=== PATIENT | female | born 1965 | race Caucasian/White ===

== ENCOUNTER 2020-03-14 21:31 | Emergency (ER) | payer OTHER, SELFPAY ==
[2020-03-14 21:48] VITALS: BP 138/89; BP 148/89; PULSE 90; PULSE 91; RESP 18; TEMP 37.1; O2SAT 98; O2SAT 99; BMI 30.7
[2020-03-14 21:59] VITALS: BP 151/81; PULSE 89; RESP 18; TEMP 37.1; O2SAT 96
--- NOTE | 2020-03-14 22:19 | ED.PSYCH ---
HPI - Psych General Chief Complaint: Psychiatric Symptoms Stated Complaint: sec 12 si Time Seen by Provider: 03/14/20 22:16 Source: patient and EMS Mode of arrival: EMS Limitations: no limitations History of Present Illness HPI Narrative: 54-year-old female presents via EMS for ETOH intoxication and suicidal ideation with statement. Patient states that she has been drinking, was in detox several months ago for alcohol. It is reported that she made a suicidal statement to her employer however at this time during my interview patient is denying suicidal ideation. She does state to be anxious, has stopped taking all of her medications last week when she started drinking, and is requesting a nicotine patch for tobacco dependence. Her hands are tremors, but she states that she does not believe that she has drank enough to be in withdrawals although she can not quantify the amount of alcohol that she has consumed over the past several days. She does not report any chest pain or pressure, palpitations, shortness of breath, abdominal pain, abdominal distention, dysuria, hematuria, fevers, chills, trauma, abuse, auditory visual hallucinations, or homicidal ideation. MD complaint: suicidal ideation, feels depressed, anxiety and alcohol abuse Onset (ago): day(s) Duration: constant History of same: Yes Exacerbating factors: alcohol Context: recent alcohol abuse and not taking psychiatric medications Associated psychiatric symptoms: depression and suicidal ideation Associated symptoms: denies other symptoms Treatments prior to arrival: placed on mental health hold Related Data Home Medications Medication Instructions Recorded Confirmed clonidine HCl 0.1 mg tablet 0.1 mg PO BID PRN 01/25/20 02/22/20 albuterol sulfate 90 mcg/actuation 0 mcg INHALATION 02/22/20 02/22/20 aerosol inhaler folic acid 1 mg tablet 1 mg PO DAILY 02/22/20 02/22/20 Previous Rx's Medication Instructions Recorded fluoxetine 20 mg capsule 60 mg PO QAM #90 cap 02/08/20 Allergies Allergy/AdvReac Type Severity Reaction Status Date / Time No Known Allergies Allergy Unknown UNKNOWN Verified 02/22/20 11:56 [NO KNOWN ALLERGIES] Review of Systems Review of Systems: Constitutional: No Fever, No Chills ENT/Mouth: No sore throat, No Rhinorrhea Eyes: No Eye Pain, No Swelling, No Redness Cardiovascular: No Chest Pain, No SOB Respiratory: No Cough, No Sputum Gastrointestinal: No Nausea, No Vomiting, No Diarrhea, No abdominal Pain Genitourinary: No Dysuria, No Hematuria Musculoskeletal: No joint pain, No Myalgias, No Joint Swelling Skin: No Skin Lesions, No rash Neuro: No Weakness, No Numbness, No Loss of Consciousness, No Dizziness, No Headache Psych: Positive ETOH abuse, Positive Anxiety, positive Depression, positive SI, denies HI/AH/VH Heme/Lymph: No Bruising, No Bleeding,No Lymphadenopathy Endocrine: No Polyuria, No Polydipsia Yes all other systems are reviewed and are negative [facility] Past Medical History Attestation statement: The following information was validated with the patient. Surgical History History of tubal ligation Family History Family History Father Stroke Mother No problems noted. Son No problems noted. Daughter No problems noted. Maternal Grandmother Emphysema, unspecified Maternal Grandfather History of heart attack Social History Social History Alcohol intake: current Alcohol intake frequency: 3 or more drinks per day Alcohol type: beer and hard liquor Smoking Status: Current every day smoker Cigarettes Per Day: 5 Smoked in Last 30 Days: Yes Use of substances other than those prescribed or required for medical reasons: Yes Substance Use Type: Marijuana Substance Use Frequency: Occasionally Advance Directives: No Advance Directives Information Provided: Yes Physical Exam Vital Signs: Vital Signs: Last Vital Signs Temp 96.5 F L 03/15/20 00:00 Pulse 82 03/15/20 00:00 Resp 18 03/15/20 00:00 BP 117/77 03/15/20 00:00 Pulse Ox 93 03/15/20 00:00 Body Mass Index 30.7 Appearance: Alert. Oriented X3. Moderate distress. Eyes: Pupils equal, round and reactive to light. ENT: Pharynx normal. Neck: Normal inspection. Neck supple. CVS: Normal heart rate and rhythm. Pulses normal. Respiratory: No respiratory distress. Breath sounds normal. Abdomen: Soft and nontender. Skin: Skin warm and dry. Normal skin color. Normal skin turgor. Extremities: No lower extremity edema. Positive bilateral tremor to hands Neuro: No motor deficit. No sensory deficit. Course Course Course Narrative: 54-year-old female with past medical history of depression, alcoholism, presents via EMS for suicidal ideation and alcoholism. Plan of care is for EtOH, drugs of abuse screen, and care team consult. ETOH is 269, drugs of abuse screen positive for opioids, urinalysis positive for UTI. Plan of care is to treat for UTI with Macrobid, CIWA every 2 hours with p.o. Ativan, and nicotine patch. Care team consult will be completed in the morning once patient is clinically sober. MDM - Psych Differential Diagnosis Differential diagnosis: Likely suicidal ideation, depression, acute anxiety and alcohol intoxication Restraints Face to Face Assessment: Face to Face Assessment: Current Situation: After assessment of the patient, a review of the pertinent medical record and a discussion with nursing staff, I feel the patient requires a restrain intervention. Reaction To: [] Medical Condition: [] Behavioral State: [] Continued Need: [] Lab Data Attestation: I reviewed the patient's lab results. Labs: Lab Results 03/14/20 03/14/20 03/14/20 Range/Units 22:07 22:07 22:21 Urine Color YELLOW Urine Appearance CLEAR Urine pH 6.0 (5.0-8.0) Ur Specific [place] 1.020 (1.005-1.025) Urine Protein NEG (NEG-TRACE) MG/DL Urine Glucose (UA) NEG (NEG) MG/DL Urine Ketones NEG (NEG) MG/DL Urine Blood 1+ H (NEG) Urine Nitrite NEG (NEG) Ur Leukocyte Esterase 1+ H (NEG) Urine RBC 0-2 (0) /HPF Urine WBC 0-2 (0-4) /HPF Ur Squamous Epith Cells 2+ /LPF Urine Bacteria 1+ /LPF Urine Opiates Screen Not Detected (Not Detect) Ur Barbiturates Screen Not Detected (Not Detect) Ur Phencyclidine Scrn Not Detected (Not Detect) Ur Amphetamines Screen Not Detected (Not Detect) U Benzodiazepines Scrn Not Detected (Not Detect) Urine Cocaine Screen Not Detected (Not Detect) U Marijuana (THC) Screen POSITIVE H (Not Detect) Ethyl Alcohol mg/dL COVID-19 ([facility]FAEL) Negative (Negative) COVID-19 Clin Com See Note 03/14/20 Range/Units 23:01 Urine Color Urine Appearance Urine pH (5.0-8.0) Ur Specific [place] (1.005-1.025) Urine Protein (NEG-TRACE) MG/DL Urine Glucose (UA) (NEG) MG/DL Urine Ketones (NEG) MG/DL Urine Blood (NEG) Urine Nitrite (NEG) Ur Leukocyte Esterase (NEG) Urine RBC (0) /HPF Urine WBC (0-4) /HPF Ur Squamous Epith Cells /LPF Urine Bacteria /LPF Urine Opiates Screen (Not Detect) Ur Barbiturates Screen (Not Detect) Ur Phencyclidine Scrn (Not Detect) Ur Amphetamines Screen (Not Detect) U Benzodiazepines Scrn (Not Detect) Urine Cocaine Screen (Not Detect) U Marijuana (THC) Screen (Not Detect) Ethyl Alcohol 269 mg/dL COVID-19 (RAFAEL) (Negative) COVID-19 Clin Com Discharge Plan Discharge Clinical Impression: Alcohol abuse Depression Qualifiers: Depression Type: major depressive disorder Major depression recurrence: recurrent Active/Remission status: currently active Major depression episode severity: moderate Qualified Code(s): F33.1 - Major depressive disorder, recurrent, moderate UTI (urinary tract infection) Qualifiers: Urinary tract infection type: acute cystitis Hematuria presence: without hematuria Qualified Code(s): N30.00 - Acute cystitis without hematuria Prescriptions: No Action fluoxetine 20 mg capsule 60 mg PO QAM Qty: 90 RF: 2 albuterol sulfate 90 mcg/actuation HFA aerosol inhaler 0 mcg inhalation RF: 0 folic acid 1 mg tablet 1 mg PO DAILY RF: 0 clonidine HCl 0.1 mg tablet 0.1 mg PO BID PRN (Reason: anxiety) RF: 0
[2020-03-14] MEDS: Nicotine 21 MG PATCH.TD24 TRANSDERMA (22:28)
[2020-03-14] MEDS: LORazepam 1 MG TABLET 2 MG PO (22:28)
[2020-03-14 22:30] LABS: Glucose Urine UA NEG (NEG); Leukocyte Esterase Urine 1+ (NEG); Nitrite Urine NEG (NEG); Urine Blood 1+ (NEG); Urine Ketones NEG (NEG); Urine Protein NEG (NEG-TRACE)
[2020-03-14 22:31] LABS: Appearance Urine CLEAR; Color Urine YELLOW
[2020-03-14 22:40] LABS: Bacteria Urine 1+ /LPF; RBC Urine 0-2 /HPF (0); Squamous Epithelial Cell Urine 2+ /LPF; WBC Urine 0-2 /HPF (0-4)
[2020-03-14 22:44] LABS: COVID-19 Test Negative (Negative); IDNOW Serial# 9DD0AD1C
[2020-03-14 23:10] LABS: Amphetamine Screen Urine Not Detected (Not Detect); Barbiturates, Urine Not Detected (Not Detect); Benzodiazepines Screen Urine Not Detected (Not Detect); Cannabinoid Screen Urine POSITIVE (Not Detect); Cocaine Screen Urine Not Detected (Not Detect); Opiate Screen Urine Not Detected (Not Detect); Phencyclidine Screen Urine Not Detected (Not Detect)
[2020-03-14 23:44] LABS: Ethanol 269 mg/dL
[2020-03-15] VITALS: BP 117/77; PULSE 82; RESP 18; TEMP 35.8; O2SAT 93
--- NOTE | 2020-03-15 00:07 | MHC.CARE ---
CARE team contacted by [facility] ambulance operations supervisor re: pt that was being sent to ED on a Section 12 by [employer] WRIGHT for making suicidal statements to her boss and family members. Pt arrived to work intoxicated and was driven home by her boss. Pt has [employer] insurance and was assessed previously by this policy writer sales on 12/07/19 secondary to a suicide attempt via hanging. Pt's BAL is 269 at 11pm on 03/14/20. Pt will not be medically cleared for evaluation until 6am. Once medically cleared, CARE team will evaluate pt.
[2020-03-15] MEDS: Nitrofurantoin Monohyd/M-Cryst 100 MG CAPSULE PO (03:24)
--- NOTE | 2020-03-15 05:23 | PC.NURSE ---
This nurse attempted to complete PT's med rec but PT pharmacy was closed, meds on external list were outdated, and list from home was not complete.
[2020-03-15 06:00] VITALS: BP 117/77; PULSE 82; RESP 18; TEMP 35.8; O2SAT 93
[2020-03-15] MEDS: diphenhydrAMINE HCL 25 MG TABLET PO (06:46)
--- NOTE | 2020-03-15 07:09 | PC.NURSE ---
Report received. Pt ambulated to bathroom with steady gait. Pt denies complaints at this time. Pt waiting to be seen.
--- NOTE | 2020-03-15 08:39 | PC.NURSE ---
Pharmacy contacted, pt was given 7 day supply of her medications on 01/05. Per PT, she as given 90 day supply blister packs when she left the facility in [place] and has been taking her medications as ordered.
[2020-03-15 09:06] VITALS: BP 143/76; PULSE 94; RESP 18; TEMP 36.9; O2SAT 95
--- NOTE | 2020-03-15 10:24 | PC.NURSE ---
care team at bedside for eval
--- NOTE | 2020-03-15 12:36 | MHC.CARE ---
CARE Team met with patient in , she was guarded but alert and oriented, she maintained eye contact, wearing hospital gown but appeared clean and groomed, she seemed to have vague memories of events which brought her to the hospital. She reported that she went to her place of work yesterday morning for a COVID-19 swab so she could return after being out sick for a few days, went home, was resting in her living room when at 7pm when police and fire depts arrived to bring her to the hospital, said she does not know why. Patient admitted that she was intoxicated, had been drinking all day yesterday and may have made suicidal statements but does not remember. She said, ?I have no desire to end my life? said that the holidays were difficult and she had been more depressed but not considering suicide. Patient unable to say why she stopped taking her antidepressant medications a few days ago, said she thinks it may feel better when she starts again, sees it was helping. 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 In December patient?s family was granted a Section 35 by family was sent to [place] for 28 days. She was discharged on oral Vivitrol but only continued taking for 4 days and resumed drinking, which patient reported. Spoke to patient?s daughter, Dea Clark ([phone]) she reported the family and employer are quite concerned about patient and her alcohol use. Stated that today her mother was intoxicated when she went to work for the test, fell in the parking lot and was driven home by a coworker. In addition, said that her mother has been texting family and friends that she would be better off , feels everyone hates her. Patient?s sisters and daughters called [employer] [facility] for a well-being check, they found patient was under the influence of alcohol and she told them she wanted to as well. Advised patient?s daughter that today her mother is denying suicidal ideation has not disclosed any plan or made any gestures, is future oriented. Her texts and statements were in the context of alcohol, this appears to be a pattern. Does not meet the criteria for an involuntary psychiatric hospitalization. Daughter said she understood and was going to pursue a Section 35, would like patient to stay in the ED as long as possible while she makes arrangements and will keep [facility] [place]. Vacuum Filter Operator and PA consulted about disposition.
--- NOTE | 2020-03-15 14:13 | MHC.CARE ---
Call to patient's daughter who had just left the court house, they were not granted the section 35. Daughter said she has been talking to her mother on the phone throughout the day, she said her mother seems to be remorseful, said she knows she has a drinking problem and is open to treatment. Met with patient in the ED to review detox and outpatient options, gave her detox list, explained and provided IOP and Medication Assisted Treatment provider contact information, discussed calling [facility] as needed. Patient agreed to referral for [facility] which CARE Team will facilitate, additional recommendation is that patient access Employee Assistance Program through her job. 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 ED providers consulted and in agreement with discharge plan.
== END 2020-03-15 14:33 | disposition home or self-care (01) ==
PROVIDERS: Nurse Practitioner Family; Student in an Organized Health Care Education/Training Program; Emergency Provider Emergency Medicine
DX: F33.1 Major depressive disorder, recurrent, moderate (principal); Z91.14 Patient's other noncompliance with medication regimen; R45.851 Suicidal ideations; F10.120 Alcohol abuse with intoxication, uncomplicated; Y90.8 Blood alcohol level of 240 mg/100 ml or more; N30.00 Acute cystitis without hematuria; Z20.828 Contact with and (suspected) exposure to other viral communicable diseases; F12.90 Cannabis use, unspecified, uncomplicated; F17.200 Nicotine dependence, unspecified, uncomplicated
CPT/HCPCS: 36415; 80307; 80320; 81001; 87086; 87635; 99284; 99285; Q0163

== ENCOUNTER 2020-07-14 07:55 | Outpatient (REF) | payer OTHER, SELFPAY ==
[2020-07-15 12:27] LABS: BV Int Neg Control Negative (Negative); BV Int Pos Control Positive (Positive)
[2020-07-17 07:32] LABS: HPV mRNA E6/E7 rflx Not Detected (Not Detected)
== END 2020-07-14 07:56 | disposition home or self-care (01) ==
LOC: HO.LAB 07:55
PROVIDERS: PCP Nurse Practitioner Family; Visit Provider Advanced Practice Midwife
DX: Z01.419 Encounter for gynecological examination (general) (routine) without abnormal findings (principal); Z11.51 Encounter for screening for human papillomavirus (HPV); N89.8 Other specified noninflammatory disorders of vagina; R23.2 Flushing
CPT/HCPCS: 87480; 87510; 87624; 87660; 88142

== ENCOUNTER 2020-08-25 08:37 | Outpatient (REF) | payer OTHER, SELFPAY ==
--- NOTE | ~2020-08-25 | MM_ITS ---
EXAMINATION: MM SCREENING DIGITAL BREAST TOMOSYNTHESIS, BILATERAL CLINICAL INFORMATION: Screening. Asymptomatic. Family history breast cancer, maternal aunt. The lifetime risk of breast cancer based on the Tyrer-Cuzick Model is 12%. COMPARISON: Mammography: 01/13/2019, 12/23/2014, 05/28/2014, 05/21/2014 TECHNIQUE: Digital breast tomosynthesis is performed in both the craniocaudal and mediolateral oblique views along with computer-aided detection (CAD). Synthesized 2D images are generated from the tomosynthesis. FINDINGS: There are scattered areas of fibroglandular density (ACR BI-RADS breast composition Category b). There is denser breast tissue composition in the anterior breasts. No architectural abnormality. The axilla and skin contours are unremarkable. The right MLO view has asymmetric density central anterior breast which is believed to represent summation artifact. There is no correlate on the CC view. There are increased grouped calcifications mid upper outer left breast, possibly circular arrangement on CC tomography. This represents change from prior studies. MM/MM tomosynthesis screening BI IMPRESSION: 1. Left: Increased grouped calcifications upper outer quadrant. 2. Right: Asymmetric density anterior breast on MLO view, most likely summation artifact. ASSESSMENT: BI-RADS 0: Incomplete - Need Additional Imaging Evaluation RECOMMENDATION: 1. Right: Additional views of the right breast (3D MLO nipple in profile, 3D ML).Targeted ultrasound if warranted after review of the additional views. 2. Left: Additional views of the left breast (magnification CC, magnification ML). 3. Radiology department staff will contact the patient for additional imaging. This patient's information was entered into a reminder system with a target due date for their next mammogram.
== END 2020-08-25 08:38 | disposition home or self-care (01) ==
LOC: HO.MAMMO 08:37
PROVIDERS: Visit Provider Advanced Practice Midwife
DX: Z12.31 Encounter for screening mammogram for malignant neoplasm of breast (principal)
CPT/HCPCS: 77063; 77067

== ENCOUNTER 2020-09-02 07:54 | Outpatient (REF) | payer OTHER, SELFPAY ==
--- NOTE | ~2020-09-02 | MM_ITS ---
EXAMINATION: MM DIAGNOSTIC DIGITAL BREAST TOMOSYNTHESIS, BILATERAL CLINICAL INFORMATION: Recall from screening for asymmetric density anterior right breast on MLO view, possibly summation artifact. Recall under for grouped calcifications upper outer left breast. COMPARISON: Mammography: 08/25/2020, 01/13/2019 TECHNIQUE: Right: Digital breast tomosynthesis is performed. 2D images are generated from the tomosynthesis. The following views are obtained: MLO, ML, both with nipple in profile. Left: Digital mammography is performed in magnification CC and magnification ML views. FINDINGS: There are scattered areas of fibroglandular density (ACR BI-RADS breast composition Category b). Additional views right breast show no persistent asymmetric density. There is no mass or architectural abnormality. Magnification views left breast confirm grouped calcifications upper outer quadrant, over 10 in number. The calcifications vary in size and a few vary in shape. This represents change from prior mammography 2018. Stereotactic sampling is recommended. Results are discussed with the patient at time of visit. MM/MM tomosynthesis diagnostic BI IMPRESSION: Grouped calcifications upper outer left breast which vary in size. ASSESSMENT: BI-RADS 4: Suspicious (subcategory 4A: Low suspicion for malignancy) RECOMMENDATION: Stereotactic biopsy calcifications left breast upper outer quadrant. This patient's information was entered into a reminder system with a target due date for their next mammogram.
== END 2020-09-02 07:55 | disposition home or self-care (01) ==
LOC: HO.MAMMO 07:54
PROVIDERS: Visit Provider Advanced Practice Midwife
DX: R92.1 Mammographic calcification found on diagnostic imaging of breast (principal); R92.2 Inconclusive mammogram
CPT/HCPCS: 77062; 77066

== ENCOUNTER 2020-09-14 10:22 | Outpatient (REF) | payer OTHER, SELFPAY ==
--- NOTE | ~2020-09-14 | MM_ITS ---
EXAMINATION: STEREOTACTIC TOMOSYNTHESIS-GUIDED VACUUM-ASSISTED BREAST BIOPSY, LEFT SPECIMEN RADIOGRAPH, LEFT POST PROCEDURE DIGITAL MAMMOGRAM, LEFT CLINICAL INFORMATION: Indeterminate calcifications superior lateral left breast. COMPARISON: September 02, 2020 and studies dating back to May 21, 2014. TECHNIQUE/PROCEDURE: Informed consent was obtained from the patient after discussion of the benefits, risks, and alternatives to biopsy today. Patient appeared to understand. Gave opportunity for questions. Patient signed consent form. BIOPSY TABLE: [employer] Affirm Prone Biopsy System. LESION: Calcifications. LOCAL ANESTHESIA: 10 mL 1% lidocaine; 30 mL 1% lidocaine with epinephrine. DERMATOTOMY: Single skin harley dermatotomy performed. NEEDLE: [employer] Eviva 9-gauge vacuum assisted core biopsy device. APPROACH: Lateral. TARGETIN-D and 3-D CORES: 25. CLIP: [employer] T-shaped marker. SPECIMEN RADIOGRAPH: Specimen radiograph is taken in separate room using digital mammography. The index calcifications are in the excised cores. POST PROCEDURE UNILATERAL DIGITAL MAMMOGRAM: The post biopsy mammogram is performed in separate room using separate digital mammography equipment from the biopsy procedure. 2 views are obtained. There are scattered areas of fibroglandular density (breast composition category: b). The clip marker is in position. The calcifications are markedly decreased at the biopsy site. No gross hematoma. The patient tolerated the procedure well. No immediate complications. Home instructions reviewed with the patient. Final pathology results are pending. MM/MM stereotactic biopsy LT IMPRESSION: 1. Digital tomosynthesis-guided core biopsy left breast with clip placement. 2. Specimen radiograph taken and post procedure mammogram. There is satisfactory positioning of the biopsy clip. 3. Final pathology results pending. An addendum report will be issued.
== END 2020-09-14 10:23 | disposition home or self-care (01) ==
LOC: HO.MAMMO 10:22
PROVIDERS: Visit Provider Surgery
DX: R92.1 Mammographic calcification found on diagnostic imaging of breast (principal)
CPT/HCPCS: 19081; 88305; A4648

== ENCOUNTER → 2020-09-22 08:42 | Outpatient (BNVA) | payer OTHER, SELFPAY | PROVIDERS: PCP Nurse Practitioner Family; Referring Provider Nurse Practitioner Family; Visit Provider Surgery | DX: R92.1 Mammographic calcification found on diagnostic imaging of breast (principal) ==

== ENCOUNTER 2021-02-06 12:35 | Emergency (ER) | payer OTHER, SELFPAY ==
[2021-02-06 12:48] VITALS: BP 141/97; BP 146/88; PULSE 84; PULSE 85; RESP 18; TEMP 36.5; O2SAT 96; O2SAT 97; BMI 23.3
--- NOTE | 2021-02-06 12:53 | ED.ALCOHOL ---
HPI - Alcohol General Chief Complaint: Psychiatric Symptoms <HARSHA Uribe - Last Filed: 02/06/21 17:05> Stated Complaint: SI/ ETOH/ Restrained <HARSHA Uribe - Last Filed: 02/06/21 17:05> Time Seen by Provider: 02/06/21 12:42 <HARSHA Uribe - Last Filed: 02/06/21 17:05> Source: patient, family and EMS <HARSHA Uribe - Last Filed: 02/06/21 17:05> Mode of arrival: EMS <HARSHA Uribe - Last Filed: 02/06/21 17:05> History of Present Illness HPI narrative: 55-year-old female with a past medical history of ETOH abuse brought in by ambulance for ETOH intoxication and suicidal statements. Daughter called EMS, per EMS patient reports she does not want to do this anymore, patient has history of suicide attempt with hanging in the past. Patient admits to drinking a lot of [employer] today, states her daughter is and abusing opiates which drives her to drink. Last drink [employer]. Denies illicit drugs, SI/HI on my evaluation. Denies falls/trauma, headache, CP/SOB, abdominal pain, nausea/vomiting. <HARSHA Uribe - Last Filed: 02/06/21 17:05> MD complaint: alcohol intoxication and alcohol dependence <HARSHA Uribe - Last Filed: 02/06/21 17:05> Last drink: Hours (ago) <HARSHA Uribe - Last Filed: 02/06/21 17:05> Chronic alcohol use: Yes <HARSHA Uribe - Last Filed: 02/06/21 17:05> Previous visits for alcohol intoxication: Yes <HARSHA Uribe - Last Filed: 02/06/21 17:05> Recent trauma: No <HARSHA Uribe - Last Filed: 02/06/21 17:05> Associated symptoms: denies other symptoms <HARSHA Uribe - Last Filed: 02/06/21 17:05> Treatments prior to arrival: none <HARSHA Uribe Last Filed: 02/06/21 17:05> Related Data Home Medications: Home Medications Medication Instructions Recorded Confirmed loratadine 10 mg tablet 10 mg PO DAILY PRN 02/06/21 02/06/21 Previous Rx's Medication Instructions Recorded fluoxetine 20 mg capsule 60 mg PO QAM 90 Days #270 cap 10/11/20 buspirone 15 mg tablet 15 mg PO BID 90 Days #180 tab 01/25/21 <HARSHA Uribe - Last Filed: 02/06/21 17:05> Allergies/Adverse Reactions: Allergies Allergy/AdvReac Type Severity Reaction Status Date / Time No Known Allergies Allergy Unknown UNKNOWN Verified 01/20/21 08:07 [NO KNOWN ALLERGIES] <HARSHA Uribe - Last Filed: 02/06/21 17:05> Review of Systems Review of Systems: Constitutional: No Fever, No Chills, No Fatigue, No Malaise ENT/Mouth: No Ear Pain, No Nasal Congestion, No sore throat, No Rhinorrhea, No Swallowing Difficulty Eyes: No Eye Pain, No Swelling Cardiovascular: No Chest Pain, No SOB, No Palpitations Respiratory: No Cough, No Dyspnea Gastrointestinal: No Nausea, No Vomiting, No Diarrhea, No Constipation, No Abdominal pain Genitourinary: No Dysuria, No Urinary Frequency, No Flank Pain Musculoskeletal: No joint pain, No Myalgias, No Joint Swelling Skin: No Skin Lesions, No rash Neuro: No Weakness, No Loss of Consciousness, No Headache Psych: No Anxiety/Panic, + Depression, + SI, No HI/AH/VH, + Social Issues <HARSHA Uribe - Last Filed: 02/06/21 17:05> Yes all other systems are reviewed and are negative <HARSHA Uribe - Last Filed: 02/06/21 17:05> [facility] Past Medical History Attestation statement: The following information was validated with the patient. <HARSHA Uribe - Last Filed: 02/06/21 17:05> Medical History: Medical History Breast calcification, left <HARSHA Uribe - Last Filed: 02/06/21 17:05> Surgical History: Surgical History History of tubal ligation <HARSHA Uribe Last Filed: 02/06/21 17:05> Family History Family History: Family History Father Stroke Mother No problems noted. Son No problems noted. Daughter No problems noted. Maternal Grandmother Emphysema, unspecified Maternal Grandfather History of heart attack Maternal Aunt Breast cancer <HARSHA Uribe - Last Filed: 02/06/21 17:05> Social History Social History: Social History Alcohol intake: current Alcohol intake frequency: 3 or more drinks per day Alcohol type: beer and hard liquor Patient Tobacco Use Status: Current everyday Tobacco user Cigarettes Per Day: 5 Use of substances other than those prescribed or required for medical reasons: No Substance Use Type: Marijuana Advance Directives: No Advance Directives Information Provided: Yes Healthcare Proxy: No Guardian: No Patient : No Gender identity: Female <HARSHA Uribe - Last Filed: 02/06/21 17:05> Physical Exam Vital Signs: Vital Signs: Last Vital Signs Temp 98.1 F 02/07/21 01:27 Pulse 85 02/07/21 01:27 Resp 18 02/07/21 01:27 BP 142/87 H 02/07/21 01:27 Pulse Ox 95 02/07/21 01:27 Body Mass Index 23.3 <HARSHA Uribe - Last Filed: 02/06/21 17:05> Vital Signs: Last Vital Signs Temp 98.1 F 02/07/21 01:27 Pulse 85 02/07/21 01:27 Resp 18 02/07/21 01:27 BP 142/87 H 02/07/21 01:27 Pulse Ox 95 02/07/21 01:27 Body Mass Index 23.3 <HARSHA Ochoa - Last Filed: 02/07/21 12:13> Const: Other: + ETOH odor on breath <HARSHA Uribe - Last Filed: 02/06/21 17:05> General: cooperative, healthy appearing, alert, awake and intoxicated appearing <HARSHA Uribe - Last Filed: 02/06/21 17:05> Limitations: no limitations <HARSHA Uribe - Last Filed: 02/06/21 17:05> HENMT: Head: Yes normal to inspection and Yes atraumatic <Margaret Kizzy [place] - Last Filed: 02/06/21 17:05> Ears: hearing grossly normal bilaterally <Margaret Kizzy [place] - Last Filed: 02/06/21 17:05> General nose exam: Normal external nose present <Margaret Kizzy [facility] Last Filed: 02/06/21 17:05> Face and sinus: Yes normal facial exam <Margaret Durand [place] - Last Filed: 02/06/21 17:05> Mouth: Normal oral and palatal mucosa present <Margaret Kizzy [place] - Last Filed: 02/06/21 17:05> Eyes: General: appearance normal, both eyes and all related structures <Margarettorres Durand [place] - Last Filed: 02/06/21 17:05> Pupils: Equal, round and reactive pupils present <Margaret Kizzy [place] - Last Filed: 02/06/21 17:05> EOM: EOMs intact bilaterally <Margarettorres [place]and [place] - Last Filed: 02/06/21 17:05> Neck: Neck: Yes normal visual inspection and Yes no meningeal signs <Margaret Kizzy [place] - Last Filed: 02/06/21 17:05> Resp: Effort & Inspection: normal respiratory effort <Margaret Kizzy [place] - Last Filed: 02/06/21 17:05> Auscultation: clear to auscultation bilaterally, no rales, no rhonchi and no wheezes <Margaret Kizzy [facility] Last Filed: 02/06/21 17:05> Cardio: Rate: regular rate <Margaret Durand [place] - Last Filed: 02/06/21 17:05> Heart sounds: S1 normal heart sound present and S2 normal heart sound present <Margaret Kizzy [facility] Last Filed: 02/06/21 17:05> GI: Inspection: Yes normal to inspection <Margarettorres Durand [place] - Last Filed: 02/06/21 17:05> Palpation (GI): Soft to palpation, nontender, no guarding and not rigid <Margaret Durand [facility] Last Filed: 02/06/21 17:05> : General: Yes no CVA tenderness <Margaret Durand [place] - Last Filed: 02/06/21 17:05> Back/Spine/Pelvis: Back: no CVA tenderness <HARSHA Uribe - Last Filed: 02/06/21 17:05> Skin: Rashes: no rashes <HARSHA Uribe - Last Filed: 02/06/21 17:05> Wounds: no wounds <HARSHA Uribe - Last Filed: 02/06/21 17:05> Neuro: Other: PARADA <HARSHA Uribe - Last Filed: 02/06/21 17:05> General: tone normal, moves all extremities and no meningeal signs <HARSHA Uribe - Last Filed: 02/06/21 17:05> Cranial nerves: Yes Equal, round and reactive pupils present <HARSHA Uribe - Last Filed: 02/06/21 17:05> Extrem: General: Yes normal to inspection <HARSHA Uribe - Last Filed: 02/06/21 17:05> Course Course Course Narrative: -1416--patient aggressive with staff, hitting staff/verbally abusive, ambulating around the ED will medically restrain with IM Ativan -1616--patient is sleeping comfortably, in no respiratory distress -1704--no leukocytosis. AST chronically elevated. Ethanol 334 -1800--ED care transferred to [facility]lero pending clinical sobriety & crisis eval <HARSHA Uribe - Last Filed: 02/06/21 17:05> Reevaluation(s) Reevaluation #1: Physician observation discontinued at this time. 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 She is declining detox. She is not suicidal at this time. If she is not wanting it any sort of inpatient treatment for her substance use. Case was reviewed by psychiatrist on-call Dr. Rivas, not enough to hold on a Section 12 at this time per the care team. Patient is awake and alert, no suicidal thoughts at this time lungs are clear and regular rate and rhythm. Dispo is to home. [facility] Counseling referral has been made and patient is agreeable. Detox information was given. <HARSHA Ochoa - Last Filed: 02/07/21 12:13> Time: 12:13 <HARSHA Ochoa - Last Filed: 02/07/21 12:13> MDM - Alcohol MDM Narrative Medical decision making narrative: 55-year-old female with a past medical history of ETOH abuse brought in by ambulance for ETOH intoxication and suicidal statements. On exam vital signs stable, ETOH odor on breath appears intoxicated, no evidence of trauma, PARADA Will obtain ethanol, drug screen, and care team consult <HARSHA Uribe - Last Filed: 02/06/21 17:05> Differential Diagnosis Differential diagnosis: Likely alcohol dependence and alcohol intoxication <HARSHA Uribe - Last Filed: 02/06/21 17:05> Medical Records Attestation: I reviewed the patient's medical records. <HARSHA Uribe - Last Filed: 02/06/21 17:05> Lab Data Attestation: I reviewed the patient's lab results. <HARSHA Uribe - Last Filed: 02/06/21 17:05> Result diagrams: : 02/06/21 16:32 02/06/21 16:32 <HARSHA Uribe - Last Filed: 02/06/21 17:05> Labs: Lab Results 02/06/21 02/06/21 02/06/21 Range/Units 13:24 16:32 16:32 WBC (4.8-10.8) X10*3/uL RBC (4.20-5.50) X10*6/uL Hgb (12.0-16.0) g/dl Hct (37.0-47.0) % MCV (80.0-98.0) fL MCH (27.0-33.0) pg MCHC (31.0-35.0) g/dl RDW (11.0-16.0) % Plt Count (160-400) X10*3/uL MPV (9.4-12.3) fL Immature Gran % (Auto) (0.0-0.4) % Neut % (Auto) (45-73) % Lymph % (Auto) (20-40) % Catron % (Auto) (2-11) % Eos % (Auto) (0-4) % Baso % (Auto) (0-2) % Lymph # (Auto) (1.2-4.9) X10*3/uL Catron # (Auto) (0.1-1.2) X10*3/uL Eos # (Auto) (0.0-0.4) X10*3/uL Baso # (Auto) (0.0-0.2) X10*3/uL Abs Immat Gran (auto) (0.00-0.03) X10*3/uL Absolute Neuts (auto) (2.0-8.3) x10*3/uL Absolute Nucleated RBC (0.0-0.012) X10*3/uL Nucleated RBC % (auto) (0.0-0.2) /100WBC Sodium (135-145) mmol/L Potassium (3.3-5.1) mmol/L Chloride (96-108) mmol/L Carbon Dioxide (22-29) mmol/L Anion Gap (12-20) BUN (9-16) mg/dL Creatinine (0.5-1.4) mg/dL Estim Creat Clear Calc Estimated GFR Random Glucose (60-115) mg/dL Calcium (8.4-10.2) mg/dL Magnesium (1.6-2.6) mg/dL Total Bilirubin (0.0-1.0) mg/dL Direct Bilirubin (0.0-0.5) mg/dL AST (5-31) U/L ALT (0-31) U/L Alkaline Phosphatase (39-117) U/L Total Protein (6.5-8.0) g/dL Albumin (3.5-5.0) g/dL Urine Opiates Screen Not Detected (Not Detect) Urine Fentanyl Screen Not Detected (Not Detect) Ur Barbiturates Screen Not Detected (Not Detect) Ur Phencyclidine Scrn Not Detected (Not Detect) Ur Amphetamines Screen Not Detected (Not Detect) U Benzodiazepines Scrn Not Detected (Not Detect) Urine Cocaine Screen Not Detected (Not Detect) U Marijuana (THC) Screen POSITIVE H (Not Detect) Ethyl Alcohol 334 H* mg/dL COVID-19 (RAFAEL) Negative (Negative) COVID-19 Clin Com See Note 02/06/21 02/06/21 Range/Units 16:32 16:32 WBC 7.1 (4.8-10.8) X10*3/uL RBC 4.02 L (4.20-5.50) X10*6/uL Hgb 13.2 (12.0-16.0) g/dl Hct 38.3 (37.0-47.0) % MCV 95.3 (80.0-98.0) fL MCH 32.8 (27.0-33.0) pg MCHC 34.5 (31.0-35.0) g/dl RDW 12.8 (11.0-16.0) % Plt Count 308 (160-400) X10*3/uL MPV 9.2 L (9.4-12.3) fL Immature Gran % (Auto) 0.3 (0.0-0.4) % Neut % (Auto) 67.9 (45-73) % Lymph % (Auto) 26.4 (20-40) % Catron % (Auto) 4.2 (2-11) % Eos % (Auto) 0.8 (0-4) % Baso % (Auto) 0.4 (0-2) % Lymph # (Auto) 1.9 (1.2-4.9) X10*3/uL Catron # (Auto) 0.3 (0.1-1.2) X10*3/uL Eos # (Auto) 0.1 (0.0-0.4) X10*3/uL Baso # (Auto) 0.0 (0.0-0.2) X10*3/uL Abs Immat Gran (auto) 0.02 (0.00-0.03) X10*3/uL Absolute Neuts (auto) 4.8 (2.0-8.3) x10*3/uL Absolute Nucleated RBC 0.000 (0.0-0.012) X10*3/uL Nucleated RBC % (auto) 0.0 (0.0-0.2) /100WBC Sodium 141 (135-145) mmol/L Potassium 4.3 (3.3-5.1) mmol/L Chloride 106 (96-108) mmol/L Carbon Dioxide 25 (22-29) mmol/L Anion Gap 14 (12-20) BUN 9 (9-16) mg/dL Creatinine 0.69 (0.5-1.4) mg/dL Estim Creat Clear Calc 88.2 Estimated GFR > 60 Random Glucose 96 (60-115) mg/dL Calcium 8.4 (8.4-10.2) mg/dL Magnesium 1.9 (1.6-2.6) mg/dL Total Bilirubin 0.2 (0.0-1.0) mg/dL Direct Bilirubin < 0.2 (0.0-0.5) mg/dL AST 35 H (5-31) U/L ALT 22 (0-31) U/L Alkaline Phosphatase 69 (39-117) U/L Total Protein 6.6 (6.5-8.0) g/dL Albumin 4.0 (3.5-5.0) g/dL Urine Opiates Screen (Not Detect) Urine Fentanyl Screen (Not Detect) Ur Barbiturates Screen (Not Detect) Ur Phencyclidine Scrn (Not Detect) Ur Amphetamines Screen (Not Detect) U Benzodiazepines Scrn (Not Detect) Urine Cocaine Screen (Not Detect) U Marijuana (THC) Screen (Not Detect) Ethyl Alcohol mg/dL COVID-19 ([facility]FAEL) (Negative) COVID-19 Clin Com <HARSHA Uribe - Last Filed: 02/06/21 17:05> Lab Results 02/06/21 02/06/21 02/06/21 Range/Units 13:24 16:32 16:32 WBC (4.8-10.8) X10*3/uL RBC (4.20-5.50) X10*6/uL Hgb (12.0-16.0) g/dl Hct (37.0-47.0) % MCV (80.0-98.0) fL MCH (27.0-33.0) pg MCHC (31.0-35.0) g/dl RDW (11.0-16.0) % Plt Count (160-400) X10*3/uL MPV (9.4-12.3) fL Immature Gran % (Auto) (0.0-0.4) % Neut % (Auto) (45-73) % Lymph % (Auto) (20-40) % Catron % (Auto) (2-11) % Eos % (Auto) (0-4) % Baso % (Auto) (0-2) % Lymph # (Auto) (1.2-4.9) X10*3/uL Catron # (Auto) (0.1-1.2) X10*3/uL Eos # (Auto) (0.0-0.4) X10*3/uL Baso # (Auto) (0.0-0.2) X10*3/uL Abs Immat Gran (auto) (0.00-0.03) X10*3/uL Absolute Neuts (auto) (2.0-8.3) x10*3/uL Absolute Nucleated RBC (0.0-0.012) X10*3/uL Nucleated RBC % (auto) (0.0-0.2) /100WBC Sodium (135-145) mmol/L Potassium (3.3-5.1) mmol/L Chloride (96-108) mmol/L Carbon Dioxide (22-29) mmol/L Anion Gap (12-20) BUN (9-16) mg/dL Creatinine (0.5-1.4) mg/dL Estim Creat Clear Calc Estimated GFR Random Glucose (60-115) mg/dL Calcium (8.4-10.2) mg/dL Magnesium (1.6-2.6) mg/dL Total Bilirubin (0.0-1.0) mg/dL Direct Bilirubin (0.0-0.5) mg/dL AST (5-31) U/L ALT (0-31) U/L Alkaline Phosphatase (39-117) U/L Total Protein (6.5-8.0) g/dL Albumin (3.5-5.0) g/dL Urine Opiates Screen Not Detected (Not Detect) Urine Fentanyl Screen Not Detected (Not Detect) Ur Barbiturates Screen Not Detected (Not Detect) Ur Phencyclidine Scrn Not Detected (Not Detect) Ur Amphetamines Screen Not Detected (Not Detect) U Benzodiazepines Scrn Not Detected (Not Detect) Urine Cocaine Screen Not Detected (Not Detect) U Marijuana (THC) Screen POSITIVE H (Not Detect) Ethyl Alcohol 334 H* mg/dL COVID-19 (RAFAEL) Negative (Negative) COVID-19 Clin Com See Note 02/06/21 02/06/21 Range/Units 16:32 16:32 WBC 7.1 (4.8-10.8) X10*3/uL RBC 4.02 L (4.20-5.50) X10*6/uL Hgb 13.2 (12.0-16.0) g/dl Hct 38.3 (37.0-47.0) % MCV 95.3 (80.0-98.0) fL MCH 32.8 (27.0-33.0) pg MCHC 34.5 (31.0-35.0) g/dl RDW 12.8 (11.0-16.0) % Plt Count 308 (160-400) X10*3/uL MPV 9.2 L (9.4-12.3) fL Immature Gran % (Auto) 0.3 (0.0-0.4) % Neut % (Auto) 67.9 (45-73) % Lymph % (Auto) 26.4 (20-40) % Catron % (Auto) 4.2 (2-11) % Eos % (Auto) 0.8 (0-4) % Baso % (Auto) 0.4 (0-2) % Lymph # (Auto) 1.9 (1.2-4.9) X10*3/uL Catron # (Auto) 0.3 (0.1-1.2) X10*3/uL Eos # (Auto) 0.1 (0.0-0.4) X10*3/uL Baso # (Auto) 0.0 (0.0-0.2) X10*3/uL Abs Immat Gran (auto) 0.02 (0.00-0.03) X10*3/uL Absolute Neuts (auto) 4.8 (2.0-8.3) x10*3/uL Absolute Nucleated RBC 0.000 (0.0-0.012) X10*3/uL Nucleated RBC % (auto) 0.0 (0.0-0.2) /100WBC Sodium 141 (135-145) mmol/L Potassium 4.3 (3.3-5.1) mmol/L Chloride 106 (96-108) mmol/L Carbon Dioxide 25 (22-29) mmol/L Anion Gap 14 (12-20) BUN 9 (9-16) mg/dL Creatinine 0.69 (0.5-1.4) mg/dL Estim Creat Clear Calc 88.2 Estimated GFR > 60 Random Glucose 96 (60-115) mg/dL Calcium 8.4 (8.4-10.2) mg/dL Magnesium 1.9 (1.6-2.6) mg/dL Total Bilirubin 0.2 (0.0-1.0) mg/dL Direct Bilirubin < 0.2 (0.0-0.5) mg/dL AST 35 H (5-31) U/L ALT 22 (0-31) U/L Alkaline Phosphatase 69 (39-117) U/L Total Protein 6.6 (6.5-8.0) g/dL Albumin 4.0 (3.5-5.0) g/dL Urine Opiates Screen (Not Detect) Urine Fentanyl Screen (Not Detect) Ur Barbiturates Screen (Not Detect) Ur Phencyclidine Scrn (Not Detect) Ur Amphetamines Screen (Not Detect) U Benzodiazepines Scrn (Not Detect) Urine Cocaine Screen (Not Detect) U Marijuana (THC) Screen (Not Detect) Ethyl Alcohol mg/dL COVID-19 (RAFAEL) (Negative) COVID-19 Clin Com <HARSHA Ochoa - Last Filed: 02/07/21 12:13> Discharge Plan Discharge Clinical Impression: Alcohol intoxication Qualifiers: Complication of substance-induced condition: uncomplicated Qualified Code(s): F10.920 - Alcohol use, unspecified with intoxication, uncomplicated <HARSHA Uribe - Last Filed: 02/06/21 17:05> Prescriptions: No Action fluoxetine 20 mg capsule 60 mg PO QAM 90 Days Qty: 270 RF: 1 loratadine 10 mg Tablet 10 mg PO DAILY PRN (Reason: Allergy Symptoms) RF: 0 buspirone 15 mg tablet 15 mg PO BID 90 Days Qty: 180 RF: 0 <HARSHA Uribe - Last Filed: 02/06/21 17:05>
--- NOTE | 2021-02-06 13:43 | PHA.MEDREC ---
Pharmacy Consult ? Medication Reconciliation Pharmacy has completed the medication reconciliation. There are no remarkable for provider's attention. Patient reports she is not taking any muscle relaxants or meloxicam. Bita Valencia, PharmD
[2021-02-06 13:50] LABS: Amphetamine Screen Urine Not Detected (Not Detect); Barbiturates, Urine Not Detected (Not Detect); Benzodiazepines Screen Urine Not Detected (Not Detect); Cannabinoid Screen Urine POSITIVE (Not Detect); Cocaine Screen Urine Not Detected (Not Detect); Fentanyl, urine Not Detected (Not Detect); Opiate Screen Urine Not Detected (Not Detect); Phencyclidine Screen Urine Not Detected (Not Detect)
[2021-02-06] MEDS: LORazepam 2 MG/ML VIAL IM (14:06)
--- NOTE | 2021-02-06 14:06 | PC.NURSE ---
pt agitated, combative towards staff, attempting to walk out of the ed pt medicated with ativan im per md orders sitter in place
--- NOTE | 2021-02-06 14:37 | PC.NURSE ---
pt is currently asleep, respirations even and unlabored, sitter in place
[2021-02-06 15:50] VITALS: BP 112/51; PULSE 82; RESP 16; TEMP 36.6; O2SAT 99
[2021-02-06 16:39] LABS: MANUAL DIFF FLAG NO
[2021-02-06 16:41] LABS: Basophils Percent Auto 0.4 % (0-2); Eosinophils Absolute Auto 0.1 X10*3/uL (0.0-0.4); Eosinophils Percent Auto 0.8 % (0-4); Hematocrit 38.3 % (37.0-47.0); Hemoglobin 13.2 g/dl (12.0-16.0); Imm Gran Abs Auto 0.02 X10*3/uL (0.00-0.03); Imm Gran Pct Auto 0.3 % (0.0-0.4); Lymphocytes Absolute Auto 1.9 X10*3/uL (1.2-4.9); Lymphocytes Percent Auto 26.4 % (20-40); Mean Corpuscular HGB Conc 34.5 g/dl (31.0-35.0); Mean Corpuscular Hemoglobin 32.8 pg (27.0-33.0); Mean Corpuscular Volume 95.3 fL (80.0-98.0); Mean Platelet Volume 9.2 fL (9.4-12.3); Monocytes Absolute Auto 0.3 X10*3/uL (0.1-1.2); Monocytes Percent Auto 4.2 % (2-11); Neutrophils Absolute Auto 4.8 x10*3/uL (2.0-8.3); Neutrophils Percent Auto 67.9 % (45-73); Platelet Count 308 X10*3/uL (160-400); Red Blood Count 4.02 X10*6/uL (4.20-5.50); Red Cell Distribution Width 12.8 % (11.0-16.0); White Blood Count 7.1 X10*3/uL (4.8-10.8)
[2021-02-06 16:52] LABS: Ethanol 334 mg/dL
[2021-02-06 16:57] LABS: COVID-19 Test Negative (Negative)
[2021-02-06 17:03] LABS: Alanine Aminotransferase 22 U/L (0-31); Alkaline Phosphatase 69 U/L (39-117); Anion Gap 14 (12-20); Aspartate Amino Transferase 35 U/L (5-31); Bilirubin Direct < 0.2 mg/dL (0.0-0.5); Bilirubin Total 0.2 mg/dL (0.0-1.0); Blood Urea Nitrogen 9 mg/dL (9-16); Calcium 8.4 mg/dL (8.4-10.2); Carbon Dioxide 25 mmol/L (22-29); Chloride 106 mmol/L (96-108); Creatinine Clr Calc Pharmacy 88.2; Estimated Glomerular Filt Rate > 60; Glucose Random 96 mg/dL (60-115); Magnesium 1.9 mg/dL (1.6-2.6); Potassium 4.3 mmol/L (3.3-5.1); Sodium 141 mmol/L (135-145); Total Protein 6.6 g/dL (6.5-8.0)
[2021-02-07 01:27] VITALS: BP 142/87; PULSE 85; RESP 18; TEMP 36.7; O2SAT 95
--- NOTE | 2021-02-07 06:27 | PC.NURSE ---
Patient slept through the night, no distress observed/reported, behavior appropriate, patient was assessed by care team, disposition is to d/c home after talking to the family, sister Diann just called from the number [phone] updated the plan, will continue to monitor.
--- NOTE | 2021-02-07 07:23 | PC.NURSE ---
patient awake at present asking appropriate questons regarding process of dc. care team made aware patient states she needs to go to work. patient appears in no distress.
--- NOTE | 2021-02-07 12:16 | MHC.RECOVSUP ---
? Reason for consult:Recovery support o Current location:[facility] o Identified substance use concern: ETOH - Support ? Intervention: o Community resources provided o Harm reduction discussion ? Plan: o Referral to [facility] o Patient to follow up with [facility] after discharge ? Additional information:PT.refused to go to detox, denies she has a problem, discussed MAT and referred her to the CCC and HF. Notified Veena.
== END 2021-02-07 12:18 | disposition home or self-care (01) ==
PROVIDERS: Physician Assistant; Emergency Provider Emergency Medicine
DX: F10.120 Alcohol abuse with intoxication, uncomplicated (principal); Y90.8 Blood alcohol level of 240 mg/100 ml or more; R45.851 Suicidal ideations; F41.9 Anxiety disorder, unspecified; F32.A Depression, unspecified; R45.1 Restlessness and agitation; F12.90 Cannabis use, unspecified, uncomplicated; F17.200 Nicotine dependence, unspecified, uncomplicated; Z72.89 Other problems related to lifestyle; Z20.822 Contact with and (suspected) exposure to COVID-19; Z63.72 Alcoholism and drug addiction in family; Z79.899 Other long term (current) drug therapy
CPT/HCPCS: 36415; 80048; 80076; 80307; 82077; 83735; 85025; 87635; 96372; 99284; 99285; J2060

== ENCOUNTER 2021-11-27 14:39 | Emergency (ER) | payer OTHER, SELFPAY ==
--- NOTE | 2021-11-27 15:15 | ED.ALCOHOL ---
HPI - Alcohol General Chief Complaint: ETOH/Substance Use Stated Complaint: ETOH USE X'S DAYS,SI,COOP PER EMS Time Seen by Provider: 11/27/21 15:04 Source: patient, EMS and old records reviewed History of Present Illness HPI narrative: Patient brought in after her uncle called EMS after she apparently made a suicidal statement. Patient denies this and says it was a misunderstanding. As they have not been getting along she just wanted to say goodbye in that she was not planning on speaking with him in the future. She adamantly denies suicidal ideation or depression at the moment. She was seen here last year when she was feeling suicidal. She states things are overall much better than they were then. Still has some life stressors but has not been feeling depressed. She has cut down on her alcohol intake and is currently due for a Vivitrol injection which she gets monthly. She states toward the end of the month she drinks a little more as the medication wears off. She does describe drinking alcohol today but states not to the excess that she would have in the past. No new physical complaints. No recent illnesses. No change in medication. Related Data Home Medications Medication Instructions Recorded Confirmed loratadine 10 mg tablet 10 mg PO DAILY PRN Allergy Symptoms 02/06/21 02/06/21 Previous Rx's Medication Instructions Recorded fluoxetine 20 mg capsule 60 mg PO QAM 90 days #270 caps 05/08/21 buspirone 15 mg tablet 15 mg PO BID 90 days #180 tabs 08/29/21 Allergies Allergy/AdvReac Type Severity Reaction Status Date / Time No Known Allergies Allergy Unknown UNKNOWN Verified 01/20/21 08:07 [NO KNOWN ALLERGIES] Review of Systems Constitutional: Comments: No fevers or chills Respiratory: Comments: no cough or sputum Gastrointestinal: Comments: no nausea vomiting Psychiatric: Comments: denies recent depression and suicidal ideation. She does report some increased life stressors recently but not to the point where she is feeling suicidal PMFSH Past Medical History Medical History Breast calcification, left Surgical History History of tubal ligation Family History Family History Father Stroke Mother No problems noted. Son No problems noted. Daughter No problems noted. Maternal Grandmother Emphysema, unspecified Maternal Grandfather History of heart attack Maternal Aunt Breast cancer Social History Social History Alcohol intake: current Alcohol intake frequency: 3 or more drinks per day Alcohol type: beer and hard liquor Patient Tobacco Use Status: Current everyday Tobacco user Cigarettes Per Day: 5 Substance Use Type: Marijuana Gender identity: Female Physical Exam ED Vital Signs: Vital Signs - 24 hr 11/27/21 15:16 Temperature 99.1 F Pulse Rate 108 H Respiratory Rate 20 Blood Pressure 142/94 H Pulse Oximetry 95 Oxygen Delivery Method Room Air BMI result Body Mass Index 25.0 Const Other: awake and alert in no acute distress. Resp Other: Mildly diminished bilaterally but no wheezes rales or rhonchi Cardio Other: regular rate and rhythm without murmurs rubs or gallops GI Other: soft nontender nondistended Skin Other: warm pink and dry without rash Neuro Other: nonfocal. Speech is not slurred. Gait is not ataxic Psych Other: patient makes good eye contact. Denies depression and suicidal ideation. Course Course Course Narrative: Alcohol use disorder with acute mild intoxication. History of depression without current evidence of suicidal ideation. Await crisis evaluation for possible assessment of outpatient resources as needed. Will also confirm history. At the moment she appears to have capacity to make her own medical decisions patient declining further services. No evidence of risk of harm to self or others at this time. Stable for discharge home Discharge Plan Discharge Clinical Impression: Alcoholic intoxication Patient Disposition: Home, Self-Care Instructions: Alcohol Use Disorder (ED) Prescriptions: No Action fluoxetine 20 mg capsule 60 mg PO QAM 90 Days Qty: 270 1RF Label Comments: 7 day supply 01/05 buspirone 15 mg tablet 15 mg PO BID 90 Days Qty: 180 0RF loratadine 10 mg Tablet 10 mg PO DAILY PRN (Reason: Allergy Symptoms)
[2021-11-27 15:16] VITALS: BP 142/94; BP 180/92; PULSE 102; PULSE 108; RESP 20; TEMP 37.3; O2SAT 100; O2SAT 95; BMI 25.0
== END 2021-11-27 16:33 | disposition home or self-care (01) ==
PROVIDERS: Emergency Provider Emergency Medicine
DX: F10.220 Alcohol dependence with intoxication, uncomplicated (principal); Y90.9 Presence of alcohol in blood, level not specified; F41.9 Anxiety disorder, unspecified; Z79.899 Other long term (current) drug therapy
CPT/HCPCS: 99282

== ENCOUNTER 2022-05-16 10:09 | Emergency (ER) | payer SELFPAY ==
--- NOTE | ~2022-05-16 | XR_ITS ---
EXAMINATION: RIGHT KNEE, AP PELVIS AND BILATERAL HIPS, LUMBAR SPINE. CLINICAL INFORMATION: Fall with pain COMPARISON: August 08, 2013 lumbar spine TECHNIQUE: Three-view lumbar spine. 4 view right knee. AP pelvis and 2 views of each hip. FINDINGS: There is no evidence of acute fracture or dislocation of the right knee. Right knee joint spaces are maintained. No right knee effusion. There are 5 nonrib-bearing lumbar vertebra present. No acute fracture, spondylolisthesis, or spondylolysis is appreciated. Pedicles are intact. There is some disc space narrowing with marginal spurring seen at the L3-L4 level. There is some mild sclerosis about the sacroiliac joints bilaterally right greater than left without definite fusion or widening appreciated. AP view of the pelvis does not demonstrate any evidence of acute fracture or diastases. Hip joint spaces appear maintained. 2 views of the right hip do not demonstrate any evidence of acute fracture or dislocation. Right hip joint space is maintained without significant spurring appreciated. No destructive bony lesions are identified. 2 views of the left hip do not demonstrate any evidence of acute fracture or dislocation. Left hip joint spaces maintained. No destructive sclerotic or lytic lesions identified. XR/XR hip BI w PEL1V IMPRESSION: No significant bony abnormality of the right knee, AP pelvis, or bilateral knees.
--- NOTE | ~2022-05-16 | XR_ITS ---
EXAMINATION: RIGHT KNEE, AP PELVIS AND BILATERAL HIPS, LUMBAR SPINE. CLINICAL INFORMATION: Fall with pain COMPARISON: August 08, 2013 lumbar spine TECHNIQUE: Three-view lumbar spine. 4 view right knee. AP pelvis and 2 views of each hip. FINDINGS: There is no evidence of acute fracture or dislocation of the right knee. Right knee joint spaces are maintained. No right knee effusion. There are 5 nonrib-bearing lumbar vertebra present. No acute fracture, spondylolisthesis, or spondylolysis is appreciated. Pedicles are intact. There is some disc space narrowing with marginal spurring seen at the L3-L4 level. There is some mild sclerosis about the sacroiliac joints bilaterally right greater than left without definite fusion or widening appreciated. AP view of the pelvis does not demonstrate any evidence of acute fracture or diastases. Hip joint spaces appear maintained. 2 views of the right hip do not demonstrate any evidence of acute fracture or dislocation. Right hip joint space is maintained without significant spurring appreciated. No destructive bony lesions are identified. 2 views of the left hip do not demonstrate any evidence of acute fracture or dislocation. Left hip joint spaces maintained. No destructive sclerotic or lytic lesions identified. XR/XR knee RT 2V IMPRESSION: No significant bony abnormality of the right knee, AP pelvis, or bilateral knees.
--- NOTE | ~2022-05-16 | XR_ITS ---
EXAMINATION: RIGHT KNEE, AP PELVIS AND BILATERAL HIPS, LUMBAR SPINE. CLINICAL INFORMATION: Fall with pain COMPARISON: August 08, 2013 lumbar spine TECHNIQUE: Three-view lumbar spine. 4 view right knee. AP pelvis and 2 views of each hip. FINDINGS: There is no evidence of acute fracture or dislocation of the right knee. Right knee joint spaces are maintained. No right knee effusion. There are 5 nonrib-bearing lumbar vertebra present. No acute fracture, spondylolisthesis, or spondylolysis is appreciated. Pedicles are intact. There is some disc space narrowing with marginal spurring seen at the L3-L4 level. There is some mild sclerosis about the sacroiliac joints bilaterally right greater than left without definite fusion or widening appreciated. AP view of the pelvis does not demonstrate any evidence of acute fracture or diastases. Hip joint spaces appear maintained. 2 views of the right hip do not demonstrate any evidence of acute fracture or dislocation. Right hip joint space is maintained without significant spurring appreciated. No destructive bony lesions are identified. 2 views of the left hip do not demonstrate any evidence of acute fracture or dislocation. Left hip joint spaces maintained. No destructive sclerotic or lytic lesions identified. XR/XR lumbar spine 2-3V IMPRESSION: No significant bony abnormality of the right knee, AP pelvis, or bilateral knees.
[2022-05-16 10:27] VITALS: BP 144/76; PULSE 83; RESP 17; TEMP 36.8; O2SAT 96; BMI 22.7
--- NOTE | 2022-05-16 10:34 | ED.GENADULT ---
HPI - General Adult General Chief complaint: Fall Stated complaint: Back inj/R knee pain-Work inj Time Seen by Provider: 05/16/22 10:34 Source: patient Mode of arrival: ambulatory Limitations: no limitations History of Present Illness HPI narrative: Patient is a 56 year old assigned female at with a history of anxiety and GERD presenting to the emergency department today with left hip pain, back pain, and right knee pain. Patient states that she fell in the parking lot of her work place and is now having left hip pain, right knee pain, and low back pain. Patient denies hitting her head with the incident. Patient denies any loss of consciousness from the incident. Patient denies any dizziness, lightheadedness, abdominal pain, nausea, vomiting, fever, chills, blurry vision, double vision, loss of vision, chest pain, difficulty breathing, shortness of breath, night sweats, pain with urination, increased urinary frequency, increased urinary urgency, blood in her urine or stool, syncope or a near syncopal episode, bowel incontinence, bladder incontinence, bowel retention, bladder retention, or any other complaints at this time. Onset (ago): day(s) (5 days) Location: pelvis (left hip pain) and lower extremity (right knee pain) Radiation: extremity (left hip pain radiates down the left leg descibed as numb) Severity: mild Severity scale (1-10): 2 Quality: aching and dull Pain Consistency: constant Relieving factors: none Exacerbating factors: none Associated symptoms: denies other symptoms Treatments prior to arrival: none Related Data Home Medications Medication Instructions Recorded Confirmed loratadine 10 mg tablet 10 mg PO DAILY PRN Allergy Symptoms 02/06/21 02/06/21 Previous Rx's Medication Instructions Recorded fluoxetine 20 mg capsule 60 mg PO QAM 90 days #270 caps 05/08/21 buspirone 15 mg tablet 15 mg PO BID 90 days #180 tabs 08/29/21 Allergies Allergy/AdvReac Type Severity Reaction Status Date / Time No Known Allergies Allergy Unknown UNKNOWN Verified 01/20/21 08:07 [NO KNOWN ALLERGIES] Review of Systems Constitutional: Constitutional: Reports no additional constitutional complaints, Denies chills, Denies fever(s) and Denies night sweats Eyes: Eyes: Reports no additional eye complaints, Denies blurry vision, Denies change in vision, Denies diplopia, Denies eye discharge, Denies loss of vision and Denies eye pain ENT: Denies dizziness and Denies neck pain Cardiovascular: Cardiovascular: Reports no additional cardiovascular complaints, Denies chest pain, Denies lightheadedness, Denies Loss of Consciousness and Denies dyspnea Respiratory: Respiratory: Reports no additional respiratory complaints and Denies dyspnea Gastrointestinal: Gastrointestinal: Reports no additional gastrointestinal complaints, Denies abdominal pain, Denies melena, Denies hematochezia, Denies change in bowel habits and Denies change in stool character Genitourinary: Genitourinary: Denies hematuria, Denies urinary frequency, Denies dysuria, Denies urinary incontinence, Denies urinary hesitancy and Denies urinary urgency Musculoskeletal: Musculoskeletal: Reports no additional musculoskeletal complaints, Denies neck pain, Denies numbness and Denies tingling Comments: left hip pain, right knee pain, low back pain Neurologic: Denies dizziness, Denies loss of vision, Denies numbness and Denies tingling Psychiatric: Psychiatric: Reports no additional psychiatric complaints Endocrine: Endocrine: Reports no additional endocrine complaints Hematologic/Lymphatic: Hematologic/Lymphatic: Reports no additional hematologic/lymphatic complaints Allergic/Immunologic: Allergic/Immunologic: Reports no additional allergic/immunologic complaints PMF Past Medical History Attestation statement: The following information was validated with the patient. Source: old records reviewed and nursing notes reviewed Medical History Breast calcification, left Surgical History History of tubal ligation Family History Family History Father Stroke Mother No problems noted. Son No problems noted. Daughter No problems noted. Maternal Grandmother Emphysema, unspecified Maternal Grandfather History of heart attack Maternal Aunt Breast cancer Social History Social History Alcohol intake: current Alcohol intake frequency: 3 or more drinks per day Alcohol type: beer and hard liquor Patient Tobacco Use Status: Current everyday Tobacco user Cigarettes Per Day: 5 Substance Use Type: Marijuana Advance Directives: No Advance Directives Information Provided: Yes Gender identity: Female Physical Exam ED Vital Signs: Vital Signs - 24 hr 05/16/22 10:27 Temperature 98.2 F Pulse Rate 83 Respiratory Rate 17 Blood Pressure 144/76 H Pulse Oximetry 96 Oxygen Delivery Method Room Air BMI result Body Mass Index 22.7 Const General: cooperative, no acute distress, alert and awake Nutritional Appearance: well nourished Orientation/consciousness: patient oriented x3 Limitations: no limitations HENMT Head: Yes normal to inspection and Yes atraumatic Ears: hearing grossly normal bilaterally and external ears normal General nose exam: Normal external nose present, no nasal discharge noted and no epistaxis Face and sinus: Yes normal facial exam, No abrasion and No laceration Mouth: Normal oral and palatal mucosa present, no drooling and no muffled voice Eyes General: appearance normal, both eyes and all related structures Periorbital: periorbital findings normal Eyelids: Yes eyelids normal Conjunctivae: conjunctivae normal Pupils: Equal, round and reactive pupils present EOM: EOMs intact bilaterally Neck Neck: Yes normal visual inspection, Yes full ROM and Yes no lymphadenopathy Chest Chest palpation & inspection: normal inspection of the chest Resp Effort & Inspection: normal respiratory effort and able to speak in complete sentences Auscultation: clear to auscultation bilaterally Cardio Rate: regular rate Rhythm: regular rhythm Peripheral pulses: Peripheral pulses 2+ throughout GI Inspection: Yes normal to inspection Palpation (GI): Soft to palpation, not firm, nontender, no guarding and not rigid Auscultation: normal bowel sounds Back/Spine/Pelvis Cervical Spine: cervical ROM normal Thoracic/Lumbar Spine: thoracic and lumbar spine normal to inspection Pelvis: buttock tenderness on the left Skin Trauma: no lacerations or abrasions Neuro General: patient oriented x3 and moves all extremities Cranial nerves: Yes Equal, round and reactive pupils present Cognition (Neuro): normal cognition Motor exam (neuro): 5/5 motor strength present throughout Sensory Exam: Normal double simultaneous stimulation for sensation Coordination: [id number] test normal Extrem Right upper extremity: normal to inspection, full ROM and normal capillary refill Left upper extremity: normal to inspection, full ROM and normal capillary refill Right lower extremity: full ROM and knee Details: tenderness Location: of the medial joint line, swelling (medial aspect of knee ) and normal ROM; no deformity and no unusual warmth Left lower extremity: hip/thigh Details: abnormal ROM; no abrasions, no lacerations, no ecchymosis, no crepitus and no deformity Psych Appearance: grossly normal Mental Status: mental status grossly normal Affect: normal affect Attitude: cooperative Thought process: Normal thought process present Thought content: Normal thought content present Insight: Good insight present (Psych) Medical Decision Making Medical Decision Making MDM Narrative: Patient is a 56 year old assigned female at with a history of anxiety and GERD presenting to the emergency department today with back pain, left hip pain, and right knee pain after a fall. Patient's physical exam was unremarkable. Patient's hip. right knee, and lumbar spine x-rays showed no acute process. I explained my physical exam findings as well as all test results to the patient. I answered all questions asked by the patient. I stressed the importance of the patient taking her medication as prescribed. I stressed the importance of the patient following up with her primary care provider. I stressed the importance of the patient returning to the emergency department immediately if her symptoms were to worsen or if she were to develop any dizziness, shortness of breath, difficulty breathing, chest pain, blurry vision, loss of vision, nausea, vomiting, abdominal pain, fever, chills, back pain, or any other complaints. Patient verbalized agreement and understanding with this treatment plan and discharge. Differential Diagnosis Differential Diagnoses: The differential diagnosis associated with the presentation includes fall, back pain, right knee pain, left hip pain Independent Interpretation I performed an independent interpretation of an: Plain X-Ray Interpretation: My interpretation is in agreement with the radiologist's impression of these imaging studies. EXAMINATION: RIGHT KNEE, AP PELVIS AND BILATERAL HIPS, LUMBAR SPINE. CLINICAL INFORMATION: Fall with pain? COMPARISON: August 08, 2013 lumbar spine? TECHNIQUE: Three-view lumbar spine. 4 view right knee. AP pelvis and 2 views of each hip.? FINDINGS: There is no evidence of acute fracture or dislocation of the right knee. Right knee joint spaces are maintained. No right knee effusion. There are 5 nonrib-bearing lumbar vertebra present. No acute fracture, spondylolisthesis, or spondylolysis is appreciated. Pedicles are intact. There is some disc space narrowing with marginal spurring seen at the L3-L4 level. There is some mild sclerosis about the sacroiliac joints bilaterally right greater than left without definite fusion or widening appreciated. AP view of the pelvis does not demonstrate any evidence of acute fracture or diastases. Hip joint spaces appear maintained. 2 views of the right hip do not demonstrate any evidence of acute fracture or dislocation. Right hip joint space is maintained without significant spurring appreciated. No destructive bony lesions are identified. 2 views of the left hip do not demonstrate any evidence of acute fracture or dislocation. Left hip joint spaces maintained. No destructive sclerotic or lytic lesions identified. XR/XR hip BI w PEL1V IMPRESSION: No significant bony abnormality of the right knee, AP pelvis, or bilateral knees.? Dictated By: Francisco Guerra MD Signed By: Electronically signed by Francisco Guerra MD 05/16/22 4302 Discharge Plan Discharge Clinical Impression: Fall Patient Disposition: Home, Self-Care Instructions: Fall Prevention (ED) Additional Instructions: Follow up with your primary care provider. Return to the emergency department immediately if your symptoms worsen or if you develop any dizziness, shortness of breath, difficulty breathing, chest pain, blurry vision, loss of vision, nausea, vomiting, abdominal pain, fever, chills, back pain, or any other complaints. Prescriptions: No Action fluoxetine 20 mg capsule 60 mg PO QAM 90 Days Qty: 270 1RF Label Comments: 7 day supply 01/05 buspirone 15 mg tablet 15 mg PO BID 90 Days Qty: 180 0RF loratadine 10 mg Tablet 10 mg PO DAILY PRN (Reason: Allergy Symptoms) Referrals: Roderick Holder FNP-[facility] [Primary Care Provider] - Interventions: ED Discharge Assessment Last Done: 05/16/22 11:24 Discharge Date/Time: 05/16/22 11:24 Print Language: Persian
== END 2022-05-16 11:24 | disposition home or self-care (01) ==
PROVIDERS: Emergency Provider Emergency Medicine Emergency Medical Services; PCP Nurse Practitioner Family
DX: Z04.2 Encounter for examination and observation following work accident (principal); M25.552 Pain in left hip; M25.561 Pain in right knee; M54.50 Low back pain, unspecified; F17.201 Nicotine dependence, unspecified, in remission; F12.90 Cannabis use, unspecified, uncomplicated
CPT/HCPCS: 72100; 73521; 73560; 99282; 99283

== ENCOUNTER 2023-07-07 07:54 | Inpatient (IN) | payer OTHER, SELFPAY ==
[2023-07-07] VITALS (14 sets, daily range): BP systolic 82–127; BP diastolic 40–71; PULSE 80–106; RESP 16–23; TEMP 36.1–37.2; O2SAT 93–98; BMI 25.0
--- NOTE | ~2023-07-07 | XR_ITS ---
EXAMINATION: XR CHEST CLINICAL INFORMATION: Chest pain COMPARISON: Chest x-ray July 12, 2023. Chest x-ray February 2029 TECHNIQUE: 2 views of the chest were obtained. FINDINGS: Lung volume low. Linear atelectasis along the minor fissure. No acute airspace disease. No pleural effusion or pneumothorax. Heart size is normal. Cardiac mediastinal contours are normal. XR/XR chest 2V IMPRESSION: Low lung volume. Linear atelectasis along the minor fissure.
--- NOTE | ~2023-07-07 | US_ITS ---
EXAMINATION: US ABDOMEN LIMITED CLINICAL INFORMATION: Ascites check. COMPARISON: CT GI bleed 07/07/2023, abdominal ultrasound 02/19/2014 TECHNIQUE: Real-time imaging of all 4 quadrants of the abdomen. FINDINGS: Real-time imaging of all 4 quadrants of the abdomen demonstrate a small pocket of fluid in the right upper quadrant. US/US abdomen limited IMPRESSION: Small pocket of ascites in the right upper quadrant.
--- NOTE | ~2023-07-07 | CT_ITS ---
EXAMINATION: CT ABDOMEN AND PELVIS WITH CONTRAST CLINICAL INFORMATION: Melanoma, jaundice, EtOH history COMPARISON: None TECHNIQUE: Multidetector volumetric imaging was performed of the abdomen and pelvis following administration of 80 mL Omnipaque 350 intravenous contrast. Oral contrast was administered. Sagittal and coronal reformatted images were obtained on the technologist's workstation. This CT examination was performed using dose optimization techniques as appropriate, variously including the following: *Automated exposure control *Adjustment of mA and/or kV according to patient size (this includes techniques or standardized protocols for targeted exams where dose is matched to indication/reason for exam; i.e. extremities or head) *Use of iterative reconstruction technique DLP: 1270 mGy-cm FINDINGS: LUNG BASES: Mild centrilobular emphysema with lower lobe bronchial wall thickenings suggesting airways inflammation. Patchy atelectasis in the lung bases. ABDOMINAL AND PELVIC WALL: Unremarkable. LIVER AND BILIARY TREE: Markedly hypoattenuating hepatic parenchyma compatible with hepatic steatosis. Liver is enlarged measuring 19.4 cm in span. GALLBLADDER: Gallbladder is distended with trace pericholecystic fluid and mural hyperemia however without radiopaque gallstones. PANCREAS: Unremarkable. SPLEEN: Spleen measures 11.2 cm in span which is normal in caliber. ADRENAL GLANDS: Unremarkable. KIDNEYS AND URETERS: Unremarkable. GASTROINTESTINAL TRACT: Stomach is under distended however there appears to be diffuse gastric wall thickening. Pancolonic wall thickening worse involving the cecum and ascending colon. Multiple loops of thick-walled small bowel. The no intraluminal extravasation of contrast appreciated within the bowel to suggest active bleeding. Normal caliber appendix. VASCULAR: Periesophageal and perigastric varices. Recannulized periumbilical vein and dilated mesenteric collateral vessels. LYMPH NODES/PERITONEUM: No lymphadenopathy. FREE FLUID: Small volume ascites. BLADDER: Unremarkable. PELVIC VISCERA: Unremarkable. OSSEOUS STRUCTURES: Multilevel degenerative disc disease. CT/CT gi bleed abd pel wo/w IVcon IMPRESSION: 1. Pancolonic wall thickening worse involving the cecum and ascending colon with multiple loops of thick-walled small bowel. Findings could be seen in the setting of portal hypertensive enteropathy/colopathy versus infectious/inflammatory enterocolitis. No intraluminal extravasation of contrast appreciated within the bowel to suggest active bleeding. Stomach is under distended however there appears to be diffuse gastric wall thickening, which could again reflect sequelae of portal hypertension versus gastritis. 2. Markedly hypoattenuating hepatic parenchyma compatible with hepatic steatosis. Hepatomegaly. 3. Sequelae of portal hypertension including the following: Periesophageal and perigastric varices. Recannulized periumbilical vein and dilated mesenteric collateral vessels. Small volume ascites. 4. Mild centrilobular emphysema with lower lobe bronchial wall thickenings suggesting airways inflammation. 5. Gallbladder is distended with trace pericholecystic fluid and mural hyperemia however without radiopaque gallstones, possibly sequelae of underlying liver disease however if any clinical concern for cholecystitis recommend correlation with right upper quadrant ultrasound.
--- NOTE | ~2023-07-07 | XR_ITS ---
EXAMINATION: XR CHEST CLINICAL INFORMATION: Aspiration, cough COMPARISON: None available. TECHNIQUE: Frontal view of the chest was obtained. FINDINGS: Suboptimal assessment due to patient rotation. Lung volumes appear symmetric. No focal consolidation is seen. No evidence of pneumothorax, pleural effusion, or pulmonary edema. Cardiac size is within normal limits. There is soft tissue prominence in the lower right paratracheal which may be artifactual due to patient rotation. No acute osseous findings are seen. XR/XR chest 1V IMPRESSION: 1. No focal consolidation identified. 2. Soft tissue prominence in the lower right paratracheal region, which may be artifactual due to patient rotation although adenopathy/mass cannot be excluded. Further workup with PA and lateral chest radiographs is recommended.
--- NOTE | 2023-07-07 08:08 | ECG_ITS ---
Test Reason : DIZZINESS Blood Pressure : / mmHG Vent. Rate : 097 BPM Atrial Rate : 097 BPM P-R Int : 142 ms QRS Dur : 086 ms QT Int : 314 ms P-R-T Axes : 074 082 089 degrees QTc Int : 398 ms Normal sinus rhythm Nonspecific ST and T wave abnormality Abnormal ECG When compared with ECG of 06-DEC-2019 20:06, ST now depressed in Anterior leads Nonspecific T wave abnormality now evident in Inferior leads Nonspecific T wave abnormality now evident in Anterolateral leads QT has shortened Referred By: Maricarmen Bal Electronically Signed By:NAYELY DONNELLY MD
[2023-07-07 08:19] LABS: Basophils Percent Auto 0.2 % (0-2); Eosinophils Percent Auto 0.2 % (0-4); Hematocrit 27.8 % (37.0-47.0); Hemoglobin 10.3 g/dl (12.0-16.0); Imm Gran Abs Auto 0.12 X10*3/uL (0.00-0.03); Imm Gran Pct Auto 0.7 % (0.0-0.4); Lymphocytes Absolute Auto 1.3 X10*3/uL (1.2-4.9); Lymphocytes Percent Auto 7.9 % (20-40); MANUAL DIFF FLAG SCAN; Mean Corpuscular HGB Conc 37.1 g/dl (31.0-35.0); Mean Corpuscular Volume 102.6 fL (80.0-98.0); Mean Platelet Volume 10.9 fL (9.4-12.3); Monocytes Absolute Auto 1.6 X10*3/uL (0.1-1.2); Monocytes Percent Auto 9.2 % (2-11); Neutrophils Absolute Auto 13.8 x10*3/uL (2.0-8.3); Neutrophils Percent Auto 81.8 % (45-73); Platelet Count 275 X10*3/uL (160-400); Red Blood Count 2.71 X10*6/uL (4.20-5.50); Red Cell Distribution Width 14.5 % (11.0-16.0); SCAN SMEAR FLAG 1; White Blood Count 16.9 X10*3/uL (4.8-10.8)
[2023-07-07 08:31] LABS: OBS Int Ctl Valid YES; OBS1 POSITIVE (NEGATIVE)
[2023-07-07 08:34] LABS: Alanine Aminotransferase 157 U/L (0-31); Albumin Level 2.3 g/dL (3.5-5.0); Alkaline Phosphatase 360 U/L (39-117); Aspartate Amino Transferase 588 U/L (5-31); Bilirubin Total 16.6 mg/dL (0.0-1.0); Blood Urea Nitrogen 8 mg/dL (9-16); Creatinine Clr Calc Pharmacy 33.6; Estimated Glomerular Filt Rate 30; Glucose Random 126 mg/dL (60-115); Total Protein 5.8 g/dL (6.5-8.0)
[2023-07-07 08:36] LABS: Anion Gap 23 (12-20); Carbon Dioxide 22 mmol/L (22-29); Chloride 86 mmol/L (96-108); Potassium 2.5 mmol/L (3.3-5.1); Sodium 128 mmol/L (135-145)
[2023-07-07] MEDS: Pantoprazole Sodium 40 MG/10 ML VIAL 80 MG IVPUSH (08:37)
[2023-07-07] MEDS: 0.9 % Sodium Chloride 1,000 ML 999 ML IV (08:37)
--- NOTE | 2023-07-07 08:41 | ED.GENADULT ---
HPI - General Adult General Chief complaint: Dizziness Stated complaint: DIZZY WEAK Time Seen by Provider: 07/07/23 07:59 Source: patient Mode of arrival: EMS History of Present Illness HPI narrative: This is a 57-year-old female who arrives via EMS, states that she stopped drinking alcohol cold turkey approximately 3 weeks ago and since that time has had progressive early satiety without abdominal discomfort, denies any diarrhea or fever/chills but states that she has been having intermittent rectal bleeding but denies any hematemesis, states that she noticed the yellowing of her skin denies approximately 2 days ago. Patient states that she was walking to work this morning and fell to the ground, reports feeling very dizzy and weak. Related Data Previous Rx's ?Medication ?Instructions ?Recorded fluoxetine 20 mg capsule 60 mg (3 x 20 mg) PO QAM 90 days 12/29/22 #270 caps Allergies Allergy/AdvReac Type Severity Reaction Status Date / Time No Known Allergies Allergy Unknown UNKNOWN Verified 07/07/23 08:09 [NO KNOWN ALLERGIES] Review of Systems Review of Systems: Pertinent positives and negatives as stated in HPI PMFSH Past Medical History Source: nursing notes reviewed Medical History (Updated 07/07/23 @ 12:27 by Maricarmen Bal MD) Depression Anxiety Breast calcification, left Surgical History History of tubal ligation Family History Family History (Updated 07/07/23 @ 11:47 by Precious Diaz NP) Father Stroke Mother Lung cancer Son No problems noted. Daughter No problems noted. Maternal Grandmother Emphysema, unspecified Maternal Grandfather History of heart attack Maternal Aunt Breast cancer Social History Social History Alcohol intake: former Patient Tobacco Use Status: Current everyday Tobacco user Cigarettes Per Day: 5 Smoked in Last 30 Days: Yes Use of substances other than those prescribed or required for medical reasons: Yes Substance Use Type: Marijuana Substance Use Frequency: Chronic Longstanding Advance Directives: Yes Advance Directives Information Provided: Yes Advance Directives on File: No Do you have a plan to hurt others: No Plan Patient : No Gender identity: Female Physical Exam ED Vital Signs: Vital Signs - 24 hr 07/07/23 08:04 07/07/23 10:25 07/07/23 10:27 Temperature 97.5 F Pulse Rate 96 97 98 Respiratory Rate 16 Blood Pressure 107/50 L 82/40 L 92/52 L Pulse Oximetry 94 Oxygen Delivery Method Room Air 07/07/23 10:30 07/07/23 10:48 07/07/23 11:11 Temperature 97.9 F Pulse Rate 103 H 103 H 99 Respiratory Rate 18 18 Blood Pressure 89/48 L 91/51 L 96/53 L Pulse Oximetry 95 Oxygen Delivery Method Room Air 07/07/23 11:29 Temperature 98.0 F Pulse Rate 104 H Respiratory Rate 16 Blood Pressure 106/55 L Pulse Oximetry Oxygen Delivery Method BMI result Body Mass Index 25.0 VITAL SIGNS: Reviewed. GENERAL: Chronically ill, Well developed, well nourished, in no acute distress. HEAD: Normocephalic/atraumatic EYES: PERRLA, EOMI, scleral icterus EARS: Ext canals without abnormality NOSE: Nares patent bilateral OROPHARYNX: no oral lesions noted, posterior pharynx clear NECK: Supple, no adenopathy LUNGS: Normal breath sounds. No adventitious sounds or accessory muscle use. SpO2<94> CARDIOVASCULAR: Regular rate and rhythm without noted murmurs ABDOMEN: Soft, non-tender, distended with bowel sounds. ANORECTAL: Hemorrhoids present, excoriation perirectal area without active bleeding, good rectal tone, melena noted on finger MUSCULOSKELETAL: No tenderness, deformities, or effusions noted on gross inspection. EXTREMITIES: No cyanosis, clubbing or edema. SKIN: Inspection of the skin reveals no rashes, +jaundice NEUROLOGIC: Alert and oriented x 4. Strength and sensation to light touch were grossly intact x 4. Medications Administered Generic Name Dose Route Start Last Admin Trade Name Freq PRN Reason Stop Dose Admin Potassium Chloride 10 meq in 100 mls @ 100 mls/hr 07/07/23 09:30 07/07/23 12:11 Potassium Chloride/H20 IV 07/07/23 13:29 100 mls/hr Q1H ALIS Administration Discontinued Medications Generic Name Dose Route Start Last Admin Trade Name Freq PRN Reason Stop Dose Admin Sodium Chloride 1,000 mls @ 999 mls/hr 07/07/23 08:30 07/07/23 11:00 Ns IV 07/07/23 09:30 Infused .Q1H1M ALIS Infusion Magnesium Sulfate 2 gm in 50 mls @ 150 mls/hr 07/07/23 09:19 07/07/23 10:03 Magnesium Sulfate/H2o IV 07/07/23 09:38 Infused ONCE ONE Infusion Sodium Chloride 100 mls @ 100 mls/hr 07/07/23 10:52 07/07/23 11:14 Ns IV 07/07/23 11:51 100 mls/hr ONCE ONE Administration Iohexol 80 ml 07/07/23 11:38 07/07/23 11:39 Iohexol 350 Mg/Ml 100 Ml Infus..Btl IV 07/07/23 11:39 80 ml ONCE ONE Administration Pantoprazole Sodium 80 mg 07/07/23 08:23 07/07/23 08:37 Pantoprazole Sodium 40 Mg/10 Ml Vial IVPUSH 07/07/23 08:24 80 mg ONCE ONE Administration Medical Decision Making Medical Decision Making [facility] Narrative: 57-year-old female with history and clinical presentation, DDX: GI bleed, suspect alcoholic hepatitis, pancreatic mass I reviewed all investigations and hematologic indices demonstrate a noninfectious leukocytosis, patient is afebrile and no history or clinical findings to suggest pneumonia or intra-abdominal infection. Patient is otherwise noted to be microcytic anemic with positive guaiac significant from melena for which she received 80 mg of Protonix. Platelets are within normal limits. Chemistry indices demonstrate a component of dehydration with low sodium and chloride, both potassium and magnesium are low and were repleted, patient has JOHNNY. Bilirubin is significant at 16.6 with grossly deranged transaminases and an elevated alkaline phosphatase but again patient has no reported pain and has not been nauseous or vomiting strongly arguing against the likelihood of choledocholithiasis or cholangitis. Patient placed on a CIWA, orthostatics are grossly positive. Proceeded with CT scan with IV contrast despite creatinine 1.7, 1 unit of PRBCs ordered and patient would likely benefit from an additional unit as suspect that as she becomes more hydrated the H/H will reflect resolution of hemoconcentration. I discussed the case with inpatient hospitalist who accepts admission. CT scan is still pending. Differential Diagnosis Differential Diagnoses: The differential diagnosis associated with the presentation includes Please see the discussion above Admission/Observation Consideration of admission/observation: Escalation of care including admission/observation considered Please see the discussion above Consult Healthcare Provider Management of the patient was discussed with: Hospitalist Please see the discussion above Lab Data MDM Lab Attestation statement: I reviewed the patient's lab results. Please see the discussion above 07/07/23 08:10 07/07/23 08:10 Labs: Lab Results 07/07/23 07/07/23 07/07/23 Range/Units 08:10 08:24 08:34 WBC 16.9 H (4.8-10.8) X10*3/uL RBC 2.71 L D (4.20-5.50) X10*6/uL Hgb 10.3 L D (12.0-16.0) g/dl Hct 27.8 L D (37.0-47.0) % MCV 102.6 H (80.0-98.0) fL MCH 38.0 H (27.0-33.0) pg MCHC 37.1 H (31.0-35.0) g/dl RDW 14.5 (11.0-16.0) % Plt Count 275 (160-400) X10*3/uL MPV 10.9 (9.4-12.3) fL Immature Gran % (Auto) 0.7 H (0.0-0.4) % Neut % (Auto) 81.8 H (45-73) % Lymph % (Auto) 7.9 L (20-40) % [place] % (Auto) 9.2 (2-11) % Eos % (Auto) 0.2 (0-4) % Baso % (Auto) 0.2 (0-2) % Lymph # (Auto) 1.3 (1.2-4.9) X10*3/uL [place] # (Auto) 1.6 H (0.1-1.2) X10*3/uL Eos # (Auto) 0.0 (0.0-0.4) X10*3/uL Baso # (Auto) 0.0 (0.0-0.2) X10*3/uL Abs Immat Gran (auto) 0.12 H (0.00-0.03) X10*3/uL Absolute Neuts (auto) 13.8 H (2.0-8.3) x10*3/uL Absolute Nucleated RBC 0.000 (0.0-0.012) X10*3/uL Nucleated RBC % (auto) 0.0 (0.0-0.2) /100WBC Smear Tech's Comments VERIFIED Sodium 128 L (135-145) mmol/L Potassium 2.5 L* (3.3-5.1) mmol/L Chloride 86 L (96-108) mmol/L Carbon Dioxide 22 (22-29) mmol/L Anion Gap 23 H (12-20) BUN 8 L (9-16) mg/dL Creatinine 1.77 H (0.5-1.4) mg/dL Estim Creat Clear Calc 33.6 Estimated GFR 30 Random Glucose 126 H (60-115) mg/dL Calcium 8.0 L (8.4-10.2) mg/dL Magnesium 1.5 L (1.6-2.6) mg/dL Total Bilirubin 16.6 H (0.0-1.0) mg/dL AST 588 H (5-31) U/L ALT 157 H (0-31) U/L Alkaline Phosphatase 360 H (39-117) U/L Total Protein 5.8 L (6.5-8.0) g/dL Albumin 2.3 L (3.5-5.0) g/dL Stool Occult Blood POSITIVE (NEGATIVE) Blood Type A Positive Antibody Screen NEGATIVE Crossmatch See Detail Independent Interpretation I performed an independent interpretation of an: EKG Interpretation: Normal sinus rhythm, HR-97, no STEMI, KS/QRS/QTC is within normal limits. External Record Review External record reviewed: Outpatient record, Prior outpatient labs and Prior outpatient radiology Social Determinants Patient?s care significantly limited by Social Determinants of Health including: Alcoholism and drug addiction in family Critical Care Time Critical Care Time Critical Care Time: Yes Total Critical Care Time: 90 Attestation: I personally attest to this time spent taking care of the patient. Discharge Plan Discharge Clinical Impression: GI bleed, Hypokalemia, Jaundice, Hypomagnesemia, ABLA (acute blood loss anemia), JOHNNY (acute kidney injury), Alcoholic hepatitis Patient Disposition: Admitted As Inpatient
[2023-07-07 08:50] LABS: SLIDE REVIEW VERIFIED
[2023-07-07 09:11] LABS: Magnesium 1.5 mg/dL (1.6-2.6)
[2023-07-07] MEDS: Potassium Chloride/H20 10 MEQ/100 ML PIGGYBACK 100 MEQ IV ×6 (09:41→18:29)
[2023-07-07] MEDS: Magnesium Sulfate/H2O 2 GM/50 ML PIGGYBACK IV (09:41)
--- NOTE | 2023-07-07 09:48 | PC.NURSE ---
medication administered per provider order. pt seen by ED provider/aware of plan of care at this time.plan of care ongoing. call wood placed within reach.
--- NOTE | 2023-07-07 11:17 | PC.NURSE ---
initial first 15min of RBC infusion started at this time. vss and up to date. nsr on the telemetry monitor. pt speaking w/ hospitalist in regards to plan of care at this time. respirations remain even and unlabored.
--- NOTE | 2023-07-07 11:27 | PHA.MEDREC ---
Pharmacy Consult ? Medication Reconciliation Pharmacy has completed the medication reconciliation. spoke with patient to confirm. Called [facility] to confirm as well.
--- NOTE | 2023-07-07 11:30 | PC.NURSE ---
pt tolerated first 15 min of RBC infusion w/o complications. transitioned to RBC maintenance via IV pump at this time. infusion running at 180mls/hr. pt tolerating well. vs remains stable. sinus tachy on the cafeteria monitor - HR between 100-105bpm. pt denies chest pain/palpitations. pt to CT at this time. will resume care of pt when she returns.
--- NOTE | 2023-07-07 11:34 | P.HPHOSP_ITS ---
History of Present Illness Date of Service: 07/07/23 Chief Complaint: Dizziness 57-year-old woman presenting to the ER after an episode of dizziness and fall. She reports that she went to work this morning got out of her car and fell to the ground because she felt dizzy. She denied any loss of consciousness or head strike. Her coworkers called EMS. Patient reports that she has a history of alcohol abuse. Had been drinking 6-12 beers a day with hard liquor occasionally. She reports that she stopped drinking approximately 3-4 weeks ago on her own and felt okay the 1st week but after that she had poor oral intake, poor appetite, dizziness and nausea. She denied chest pain, shortness for breath, vomiting, diarrhea. She has no significant medical problems other than depression. In the ER she would multiple lab abnormalities including white blood cell count 16.9, hemoglobin 10.3, hematocrit 27.8, normal platelet count, sodium 128, potassium 2.5, creatinine 1.77, magnesium 1.5, total bilirubin 16.6, AST 588, ALT 157. Abdomen and pelvic CT showing===. Blood pressure was noted to be low at 82/40, started on IV fluids with improvement blood pressure. She was also given IV Protonix, IV magnesium. She will be admitted for further management and treatment acute hepatitis and anemia. Review of Systems 2 Review of Systems: Denies any recent fever chills or decrease in appetite respiratory denies any shortness of breath or cough cardiovascular denies chest pain gastrointestinal denies any dysphagia abdominal pain, vomiting or diarrhea genitourinary denies any dysuria frequency or hematuria musculoskeletal denies any joint pain or swelling neuropsych denies any weakness or seizures all other systems reviewed are negative [facility] Medical History (Updated 07/07/23 @ 12:27 by Maricarmen Bal MD) Depression Anxiety Breast calcification, left Family History (Updated 07/07/23 @ 11:47 by Precious Diaz NP) Father Stroke Mother Lung cancer Son No problems noted. Daughter No problems noted. Maternal Grandmother Emphysema, unspecified Maternal Grandfather History of heart attack Maternal Aunt Breast cancer Surgical History History of tubal ligation Social History Alcohol intake: former Patient Tobacco Use Status: Never used Tobacco Cigarettes Per Day: 5 Smoked in Last 30 Days: Yes Use of substances other than those prescribed or required for medical reasons: Yes Substance Use Type: Marijuana Substance Use Frequency: Chronic Longstanding Advance Directives: Yes Advance Directives Information Provided: Yes Advance Directives on File: No Do you have a plan to hurt others: No Plan Nutrition Risks: No Nutritional Risk Patient : No Gender identity: Female Meds Allergies Allergy/AdvReac Type Severity Reaction Status Date / Time No Known Allergies Allergy Unknown UNKNOWN Verified 07/07/23 08:09 [NO KNOWN ALLERGIES] Active Medications: Current Medications Potassium Chloride (Potassium Chloride/H20) 10 meq in 100 mls @ 100 mls/hr IV Q1H ALIS Stop: 07/07/23 13:29 Last Admin: 07/07/23 09:41 Dose: 100 mls/hr Sodium Chloride (Ns) 100 mls @ 100 mls/hr IV ONCE ONE Stop: 07/07/23 11:51 Last Admin: 07/07/23 11:14 Dose: 100 mls/hr Physical Exam 2 Vital Signs and Narrative: Vital Signs: Last Vital Signs Temp 98.0 F 07/07/23 11:29 Pulse 104 H 07/07/23 11:29 Resp 16 07/07/23 11:29 BP 106/55 L 07/07/23 11:29 Pulse Ox 95 07/07/23 10:48 O2 Del Method Room Air 07/07/23 10:48 BMI result Body Mass Index 25.0 Appearing in no acute distress, jaundice head is normocephalic atraumatic eyes pupils are PERRLA sclera is icteric mouth throat mucous membranes are intact and white patches to tongue neck is supple no lymphadenopathy, no JVD noted lung sounds are clear to auscultation heart regular rate rhythm, clear S1, S2 positive bowel sounds, abdomen is soft, nontender neuro patient is alert x3, no focal deficits Results Labs 07/07/23 13:08 07/07/23 13:08 Labs: Laboratory Results - last 24 hr 07/07/23 07/07/23 07/07/23 08:10 08:24 08:34 MCV 102.6 H MCH 38.0 H MCHC 37.1 H RDW 14.5 Plt Count 275 MPV 10.9 Immature Gran % (Auto) 0.7 H Neut % (Auto) 81.8 H Lymph % (Auto) 7.9 L [place] % (Auto) 9.2 Eos % (Auto) 0.2 Baso % (Auto) 0.2 Lymph # (Auto) 1.3 [place] # (Auto) 1.6 H Eos # (Auto) 0.0 Baso # (Auto) 0.0 Abs Immat Gran (auto) 0.12 H Absolute Neuts (auto) 13.8 H Absolute Nucleated RBC 0.000 Nucleated RBC % (auto) 0.0 Smear Tech's Comments VERIFIED Anion Gap 23 H Estim Creat Clear Calc 33.6 Estimated GFR 30 Random Glucose 126 H Calcium 8.0 L Magnesium 1.5 L Total Bilirubin 16.6 H AST 588 H ALT 157 H Alkaline Phosphatase 360 H Total Protein 5.8 L Albumin 2.3 L Stool Occult Blood POSITIVE Blood Type A Positive Antibody Screen NEGATIVE Crossmatch See Detail Assessment and Plan (1) Depression: Qualifiers: Depression Type: unspecified Qualified Code(s): F32.A - Depression, unspecified Status: Inactive Plan 57 year old women admitted with acute transaminitis secondary to alcohol use Transaminitis/acute alcoholic hepatitis hx of alcohol use, reports last drink 3-4 weeks ago MELD 34 tot bili 16.6, ast 588, alt 157, alk phos 360, normal PLT count lipase, acetaminophen, GGT, ammonia, drug tox, etoh level pending IV fluids GI consult PO steroids folic acid, thiamine Abd CT results pending Follow LFTs Macrocytic anemia Possibly acute blood loss with positive stool occult but no obvious bleeding HH 10.3/27.8 1 unit PRBC in the ED IV PPI Check HH post tx JOHNNY creat 1.77 Likely secondary to dehydration and poor oral intake IV fluid Hyponatremia/Hypokalemia/hypomagnesemia K 2.5, mag 1.5, na 128 Likely secondary to dehydration poor oral intake oral and IV replacement oral thrush nystatin swish and swallow FTT poor appetite over 1-2 weeks BUN 8 encourage oral intake IV fluids add protein to diet Smoker NRT DVT prophylaxis with SCD boots secondary to anemia Full code Patient will need 48 hours or more for tx of acute hepatitis and anemia secondary to alcohol use. Quality Stroke Does the patient have a stroke diagnosis?: No VTE Prior VTE?: No VTE Risk Level:: Medical - moderate - high VTE Device Contraindication: N/A - Device Ordered VTE Drug Contraindication: Treatment Not Indicated
[2023-07-07] MEDS: iohexoL 350 MG/ML 100 ML INFUS..BTL 80 ML IV (11:39)
[2023-07-07 12:24] LABS: INTERNATIONAL NORM RATIO 2.3 (0.9-1.1); Prothrombin Time 28.1 SEC (11.1-13.3)
[2023-07-07 13:15] LABS: Hematocrit 30.6 % (37.0-47.0); Hemoglobin 11.2 g/dl (12.0-16.0); Mean Corpuscular HGB Conc 36.6 g/dl (31.0-35.0); Mean Corpuscular Hemoglobin 36.2 pg (27.0-33.0); Mean Platelet Volume 10.8 fL (9.4-12.3); Platelet Count 219 X10*3/uL (160-400); Red Blood Count 3.09 X10*6/uL (4.20-5.50); Red Cell Distribution Width 16.1 % (11.0-16.0); White Blood Count 15.9 X10*3/uL (4.8-10.8)
--- NOTE | 2023-07-07 13:15 | PM.EVENT ---
Event Note Date of Service: 07/07/23 Event Note: GI consult dictated Alcoholic hepatitis anemia and black stools CT pending vit k autoimmune/metabolic/viral labs ordered EGD tomorrow for further evaluation. Time Spent With Patient Time: Total time managing care of this patient today ____ minutes.
[2023-07-07] MEDS: predniSONE 20 MG TABLET 40 MG PO (13:22)
[2023-07-07 13:25] LABS: Ammonia 66 umol/L (13-55)
--- NOTE | 2023-07-07 13:29 | PC.NURSE ---
pt completed RBC infusion at this time. vs remain stable. 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 pt denies any acute complaints. pt tolerated infusion well. pt medicated per provider order. resting comfortably in bed w/ the lights dimmed in no apparent distress. no sob/wob noted. respirations remain even and unlabored. plan of care ongoing. awaiting bed assignment. call wood placed within reach.
[2023-07-07 13:32] LABS: Acetaminophen LAB < 3 mcg/mL (<30); Gamma Glutamyl Transpeptidase 536 U/L (7-33); Lipase 158 U/L (8-78)
[2023-07-07 13:38] LABS: Alanine Aminotransferase 161 U/L (0-31); Albumin Level 2.4 g/dL (3.5-5.0); Alkaline Phosphatase 364 U/L (39-117); Anion Gap 22 (12-20); Aspartate Amino Transferase 594 U/L (5-31); Bilirubin Direct 12.8 mg/dL (0.0-0.5); Bilirubin Total 16.8 mg/dL (0.0-1.0); Blood Urea Nitrogen 8 mg/dL (9-16); Carbon Dioxide 20 mmol/L (22-29); Chloride 88 mmol/L (96-108); Creatinine Clr Calc Pharmacy 35.6; Estimated Glomerular Filt Rate 32; Glucose Random 92 mg/dL (60-115); Sodium 127 mmol/L (135-145); Total Protein 5.9 g/dL (6.5-8.0)
[2023-07-07 13:55] LABS: Lactate Dehydrogenase 753 U/L (122-220)
--- NOTE | 2023-07-07 13:56 | MHC.SHP ---
Pre-Procedural Eval Section A - 24 Hr Update-Section A only Date of Service: 07/07/23 The patient is an INPATIENT: Yes Changes since office visit: No Cold of Flu in the past 2 weeks, No New Medical Problems, No Changes in Medication and No Patient answered all questions The patient has been examined within 24 hours of the surgical procedure. The History & Physical has been completed within 30 days and I have reviewed it.: Yes Section B - Complete if H&P > 30 days Chief Complaint: Transaminitis Anemia Allergies: Allergies Allergy/AdvReac Type Severity Reaction Status Date / Time No Known Allergies Allergy Unknown UNKNOWN Verified 07/07/23 08:09 [NO KNOWN ALLERGIES] Plan I have reviewed the history and physical and performed a pertinent physical examination on my patient. No changes have occurred unless specified. Time Spent With Patient Time: Total time managing care of this patient today ____ minutes.
[2023-07-07] MEDS: Phytonadione (Vit K1) 10 MG in 0.9 % Sodium Chloride 50 ML 51 MG IV (14:23)
[2023-07-07] MEDS: Magnesium Oxide 400 MG TABLET PO (17:12)
[2023-07-07] MEDS: Pantoprazole Sodium 40 MG/10 ML VIAL IVPUSH (17:12)
--- NOTE | 2023-07-07 17:21 | PC.NURSE ---
vss and up to date. sinus tachy on the quality assurance monitor final - HR between 105-110bpm. pt denies chest pain/palpitations. pt denies any recent episodes of dizziness/lightheadedness. pt states she is feeling anxious and requesting a nicotine patch. juno red blood noted in hat in bedside commode. admitting provider notified/aware. no new orders at this time. plan of care ongoing.
[2023-07-07] MEDS: LORazepam 0.5 MG TABLET PO (18:30)
[2023-07-07] MEDS: FLUoxetine HCl 20 MG CAPSULE 60 MG PO (18:30)
[2023-07-07] MEDS: Nicotine 7 MG PATCH.TD24 TRANSDERMA (18:30)
[2023-07-07 18:36] LABS: Hematocrit 33.1 % (37.0-47.0); Hemoglobin 12.4 g/dl (12.0-16.0)
--- NOTE | 2023-07-07 19:40 | PC.NURSE ---
pt is a 57 year old , that came in with dizziness/fall that occurred this am while getting out of her car. Denies LOC/ head strike . hx of etoh ( stopped 3-4 wks ago) CIWA - 0. Pt also reports decreased intake and increased nausea as well. Denies SOB/CP. PMH: depression. Pt will be admitted for anemia and acute hepatitis. H& H was 01/04 and 1 unit PRBC administered. K was 2.5 and mag 1.5- both replaced. Pt has positive occult blood and noted jaundice. Has endocscopy for am and NPO at midnight. nitcotine patch on R shoulder. IV access : 18 in R forearm and 20 in LAC.
[2023-07-07] MEDS: Potassium Chloride ER 20 MEQ TAB.ER.PRT PO (20:37)
--- NOTE | 2023-07-07 23:08 | CONS_ITS ---
DATE OF SERVICE: 07/07/2023 REFERRING PHYSICIAN: Precious Diaz NP REASON FOR CONSULTATION: Jaundice and black stools. 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 She reports a long-standing history of heavy alcohol use upwards of 6 drinks more and more on a daily basis, which she ceased on her own 3 weeks ago as she wished to stop. Over the last week she has noted jaundice, some increasing abdominal distention and 3 days of intermittent black stools with associated dizziness and lightheadedness. She has had anorexia, but no fevers or chills. In the emergency department, she was evaluated with laboratory studies and CT imaging, which are reviewed. She was noted to be anemic with a hematocrit of 27.8, and on rectal examination reportedly had black stool. She is currently being transfused 1 unit of packed red blood cells. She did have a small amount of stool passed in the emergency room, which did not look frankly melenic. Laboratory studies also were remarkable for significant hypokalemia, cholestasis of liver tests with a total bilirubin of 16, AST [address] imaging is reviewed and the final radiology report is pending. There appears to be fatty change to the liver with hepatomegaly. Stomach is not well distended and appears thickened. Final report is pending. PAST MEDICAL HISTORY: Depression. CURRENT MEDICATIONS: Fluoxetine. ALLERGIES: THERE ARE NONE REPORTED. FAMILY HISTORY: This is reviewed with the patient and is negative for upper GI tract problems. SOCIAL HISTORY: There is no current substance abuse. Alcohol use is as noted above. She does use marijuana. REVIEW OF SYSTEMS: SKIN: No pruritus. HEENT: Negative. CARDIOPULMONARY: She denies shortness of breath or chest pain. GASTROINTESTINAL: As above. GENITOURINARY: Negative. NEUROPSYCHIATRIC: Negative. PHYSICAL EXAMINATION: GENERAL: Shows a pleasant female, lying comfortably in the bed. VITAL SIGNS: Stable. SKIN: Icteric. HEENT: Shows scleral icterus. NECK: Without lymphadenopathy or thyromegaly. LUNGS: Clear. HEART: Shows regular rate and rhythm. S1, S2. No murmur. ABDOMEN: Soft without focal masses or tenderness. Bowel sounds are present. There does appear to be some hepatomegaly. EXTREMITIES: Without edema. NEUROLOGIC: She is slightly tremulous. No asterixis is present. Laboratory data and CT scan are reviewed as above. IMPRESSION: 1. Alcoholic hepatitis. 2. Anemia with black stools. I discussed with her the need to avoid alcohol. She will have further testing including hepatitis serologies and iron studies as well as autoimmune markers. She will be given vitamin K and upper endoscopy will be arranged for tomorrow for further evaluation of her anemia and black stools. I have discussed risks and benefits of the procedure with her. She understands these and agrees to proceed. Thanks for asking me to see her. I will follow her in the hospital with you. MD ROD Nguyen/LUZ / [id number] MTDD
[2023-07-08] VITALS (12 sets, daily range): BP systolic 96–127; BP diastolic 40–70; PULSE 89–100; RESP 14–20; TEMP 36.1–37.3; O2SAT 92–100; BMI 24.1
[2023-07-08] MEDS: Pantoprazole Sodium 40 MG/10 ML VIAL IVPUSH (05:25)
[2023-07-08 07:27] LABS: Hematocrit 31.3 % (37.0-47.0); Mean Corpuscular Volume 98.1 fL (80.0-98.0); Platelet Count 216 X10*3/uL (160-400); Red Blood Count 3.19 X10*6/uL (4.20-5.50); Red Cell Distribution Width 18.8 % (11.0-16.0); White Blood Count 16.3 X10*3/uL (4.8-10.8)
[2023-07-08 07:33] LABS: INTERNATIONAL NORM RATIO 1.5 (0.9-1.1); Prothrombin Time 18.7 SEC (11.1-13.3)
[2023-07-08 07:42] LABS: Hemoglobin 10.5 g/dl (12.0-16.0)
[2023-07-08 07:43] LABS: Mean Corpuscular HGB Conc 33.5 g/dl (31.0-35.0); Mean Corpuscular Hemoglobin 32.9 pg (27.0-33.0)
[2023-07-08] MEDS: Potassium Chloride ER 20 MEQ TAB.ER.PRT PO ×2 (08:48→20:37)
[2023-07-08] MEDS: Thiamine HCL 100 MG TABLET PO (08:48)
[2023-07-08] MEDS: FLUoxetine HCl 20 MG CAPSULE 60 MG PO (08:48)
[2023-07-08] MEDS: predniSONE 20 MG TABLET 40 MG PO (08:48)
[2023-07-08] MEDS: Magnesium Oxide 400 MG TABLET PO ×2 (08:48→17:22)
[2023-07-08] MEDS: Nicotine 7 MG PATCH.TD24 TRANSDERMA (08:49)
[2023-07-08] MEDS: Folic Acid 1 MG TABLET PO (08:49)
[2023-07-08] MEDS: 0.9 % Sodium Chloride Flush 3 ML SYRINGE IVFLUSH ×3 (08:49→20:37)
[2023-07-08 08:59] LABS: Ferritin 1651 ng/mL (10-250)
--- NOTE | 2023-07-08 09:04 | MHC.CM.PN ---
Pt self-care, lives at home with a roommate, and will arrange for her own transportation home at D/C. Pts states her sister is her HCP, copy requested. PCP: Dr. Roderick Holder
[2023-07-08 09:18] LABS: HBS Num1 0.03 mIU/mL (0-7.99); HBc Num1 0.11 S/CO (0.00-0.79); HBsAGNum1 0.32 S/CO (0.00-0.99); Hepatitis A Antibody IgM 0.19 Index (0-0.79); Hepatitis B Core Antibody Nonreactive (Nonreactive); Hepatitis B Surface Antigen Negative (Negative); ~HepC Num1 0.19 S/CO (0.00-0.79); ~Hepatitis A Antibody IgM Nonreactive (Nonreactive); ~Hepatitis B Surface Antibody NONREACTIVE (Nonreactive); ~Hepatitis C Antibody Nonreactive (Nonreactive)
[2023-07-08 10:24] LABS: Anion Gap 19 (12-20)
[2023-07-08 10:31] LABS: Alanine Aminotransferase 163 U/L (0-31); Albumin Level 2.3 g/dL (3.5-5.0); Alkaline Phosphatase 347 U/L (39-117); Aspartate Amino Transferase 551 U/L (5-31); Bilirubin Direct 12.6 mg/dL (0.0-0.5); Bilirubin Total 17.6 mg/dL (0.0-1.0); Blood Urea Nitrogen 9 mg/dL (9-16); Calcium 8.1 mg/dL (8.4-10.2); Carbon Dioxide 21 mmol/L (22-29); Chloride 92 mmol/L (96-108); Creatinine Clr Calc Pharmacy 57.2; Estimated Glomerular Filt Rate 55; Glucose Random 86 mg/dL (60-115); Iron 149 mcg/dL (30-160); Percent Iron Saturation 86 % (15-50); Potassium 4.1 mmol/L (3.3-5.1); Sodium 128 mmol/L (135-145); Total Iron Binding Capacity 174 mcg/dL (228-428); Unsaturated Iron Binding < 25 ug/dL
--- NOTE | 2023-07-08 13:02 | HO.PM.IMPN ---
Subjective Subjective Date of Service: 07/08/23 Review of Systems follow up GI bleed, acute alcoholic hepatitis Feeling tired today no pain Physical Exam Vital Signs: Vital Signs: Last Vital Signs Temp 99.2 F 07/08/23 12:49 Pulse 95 07/08/23 12:49 Resp 16 07/08/23 12:49 BP 102/56 L 07/08/23 12:49 Pulse Ox 95 07/08/23 12:49 O2 Del Method Room Air 07/08/23 12:49 BMI result Body Mass Index 24.1 Appearing in no acute distress Skin jaundice, sclera icteric lung sounds are clear to auscultation heart regular rate rhythm, clear S1, S2 positive bowel sounds, abdomen is soft, nontender neuro patient is alert x3, no focal deficits Objective Data Active Medications Fluoxetine HCl (Fluoxetine Hcl 20 Mg Capsule) 60 mg PO DAILY [facility] Last Admin: 07/08/23 08:48 Dose: 60 mg Documented By: BABS Folic Acid (Folic Acid 1 Mg Tablet) 1 mg PO DAILY [facility] Last Admin: 07/08/23 08:49 Dose: 1 mg Documented By: BABS Magnesium Oxide (Magnesium Oxide 400 Mg Tablet) 400 mg PO BIDPC [facility] Last Admin: 07/08/23 08:48 Dose: 400 mg Documented By: BABS Nicotine (Nicotine 7 Mg Patch.Td24) 7 mg TRANSDERMA DAILY [facility] Last Admin: 07/08/23 08:49 Dose: 7 mg Documented By: BABS Ondansetron HCl (Ondansetron Hcl 4 Mg/2 Ml Vial) 4 mg IVPUSH Q8H PRN PRN Reason: Nausea and Vomiting Pantoprazole Sodium (Pantoprazole Sodium 40 Mg/10 Ml Vial) 40 mg IVPUSH BID@0630,1630 [facility] Last Admin: 07/08/23 05:25 Dose: 40 mg Documented By: LEX Potassium Chloride (Potassium Chloride Er 20 Meq Tab.Er.Prt) 20 meq PO BID [facility] Last Admin: 07/08/23 08:48 Dose: 20 meq Documented By: BABS Prednisone (Prednisone 20 Mg Tablet) 40 mg PO DAILY [facility] Last Admin: 07/08/23 08:48 Dose: 40 mg Documented By: BABS Sodium Chloride (0.9 % Sodium Chloride Flush 3 Ml Syringe) 3 ml IVFLUSH QSHIFT [facility] Last Admin: 07/08/23 08:49 Dose: 3 ml Documented By: ABBS Thiamine HCl (Thiamine Hcl 100 Mg Tablet) 100 mg PO DAILY [facility] Last Admin: 07/08/23 08:48 Dose: 100 mg Documented By: BABS Labs 07/08/23 07:21 07/08/23 07:20 Labs: Laboratory Results - last 24 hr 07/07/23 07/07/23 07/08/23 08:34 13:08 07:20 MCV 99.0 H MCH 36.2 H MCHC 36.6 H RDW 16.1 H Plt Count 219 MPV 10.8 Absolute Nucleated RBC 0.000 Nucleated RBC % (auto) 0.0 PT 18.7 H D INR 1.5 H Anion Gap 22 H 19 Estim Creat Clear Calc 35.6 57.2 Estimated GFR 32 55 Random Glucose 92 86 Calcium 8.0 L 8.1 L Iron 149 TIBC 174 L % Saturation 86 H Unsat Iron Binding < 25 Ferritin 1651 H Total Bilirubin 16.8 H 17.6 H Direct Bilirubin 12.8 H 12.6 H GGT 536 H AST 594 H 551 H ALT 161 H 163 H Alkaline Phosphatase 364 H 347 H Ammonia 66 H Lactate Dehydrogenase 753 H Total Protein 5.9 L 6.0 L Albumin 2.4 L 2.3 L Lipase 158 H Acetaminophen < 3 Hepatitis A IgM Ab Nonreactive Hep Bs Antigen Negative Hep Bs Antibody NONREACTIVE Hep B Core Total Ab Nonreactive Hepatitis C Ab (EIA) Nonreactive Crossmatch See Detail 07/08/23 07:21 MCV 98.1 H MCH 32.9 MCHC 33.5 RDW 18.8 H Plt Count 216 MPV 11.0 Absolute Nucleated RBC 0.000 Nucleated RBC % (auto) 0.0 PT INR Anion Gap Estim Creat Clear Calc Estimated GFR Random Glucose Calcium Iron TIBC % Saturation Unsat Iron Binding Ferritin Total Bilirubin Direct Bilirubin GGT AST ALT Alkaline Phosphatase Ammonia Lactate Dehydrogenase Total Protein Albumin Lipase Acetaminophen Hepatitis A IgM Ab Hep Bs Antigen Hep Bs Antibody Hep B Core Total Ab Hepatitis C Ab (EIA) Crossmatch Assessment and Plan (1) Alcoholic hepatitis: Status: Acute Plan 57 year old women admitted with acute transaminitis secondary to alcohol use Transaminitis/acute alcoholic hepatitis hx of alcohol use, reports last drink 3-4 weeks ago MELD 34 tot bili 16.6, ast 588, alt 157, alk phos 360, normal PLT count lipase, acetaminophen, GGT, ammonia, drug tox, etoh level pending IV fluids GI consult PO steroids folic acid, thiamine Multiple abnormal findings on abdominal CT Seen evaluated by GI<EGD today s/p Vitamin K administered Coagulaopathy secondary to alcohol abuse peaked at 2.3 s/p IV vitamin K x 1 Macrocytic anemia Possibly acute blood loss with positive stool occult but no obvious bleeding HH 10.5/31.3 s/p 1 unit PRBC in the ED IV PPI JOHNNY trending down creat 1.04 Likely secondary to dehydration and poor oral intake IV fluid Hyponatremia/Hypokalemia/hypomagnesemia better K 4.1, mag 1.5, na 128 Likely secondary to dehydration poor oral intake oral and IV replacement oral thrush nystatin swish and swallow FTT poor appetite over 1-2 weeks BUN 8 encourage oral intake IV fluids add protein to diet Smoker NRT DVT prophylaxis with SCD boots secondary to anemia attending Dr. Briscoe Full code continue hospital stay for tx of acute hepatitis and anemia secondary to alcohol use requiring EGD for possible intervention of bleeding. Quality Stroke Does the patient have a stroke diagnosis?: No VTE Prior VTE?: No VTE Risk Level:: Medical - moderate - high VTE Device Contraindication: N/A - Device Ordered VTE Drug Contraindication: Treatment Not Indicated
[2023-07-08] MEDS: Albuterol Sulfate (0.083%) 2.5 MG/3 ML VIAL.NEB INHALE (13:16)
--- NOTE | 2023-07-08 13:26 | HO.ANESPROP2 ---
HPI - Anesthesia Eval Consult details Narrative: for upper endo PMFSH Active Problems Active Problems: All Active Problems Alcoholic hepatitis (Acute) JOHNNY (acute kidney injury) (Acute) ABLA (acute blood loss anemia) (Acute) Hypomagnesemia (Acute) Jaundice (Acute) Hypokalemia (Acute) GI bleed (Acute) Contusion, nose (Acute) Anxiety (Acute) Suicidal ideation (Acute) GERD (gastroesophageal reflux disease) (Acute) Breast calcification, left (Acute) Past Medical History Medical History COPD (chronic obstructive pulmonary disease) Anxiety Breast calcification, left Depression Family History Family History Father Stroke Mother Lung cancer Son No problems noted. Daughter No problems noted. Maternal Grandmother Emphysema, unspecified Maternal Grandfather History of heart attack Maternal Aunt Breast cancer Family history of problems with anesthesia: No Surgical History Surgical History History of tubal ligation History of Problems with Anesthesia: No Social History Social History Household Members: Other Household Members Other:: roommate Housing: House Do you presently have visiting nurse or other home services: No Alcohol intake: former Patient Tobacco Use Status: Current everyday Tobacco user Tobacco use type: Cigarette Cigarette Packs Per Day: 0.5 Cigarettes Per Day: 10 Second Hand Smoke Exposure: Yes Substance Use Type: Marijuana Advance Directives Date on File: 07/08/23 service: No Gender identity: Female Meds Allergies Allergy/AdvReac Type Severity Reaction Status Date / Time No Known Allergies Allergy Unknown UNKNOWN Verified 07/07/23 08:09 [NO KNOWN ALLERGIES] Active Medications: Current Medications Fluoxetine HCl (Fluoxetine Hcl 20 Mg Capsule) 60 mg PO DAILY [facility] Last Admin: 07/08/23 08:48 Dose: 60 mg Folic Acid (Folic Acid 1 Mg Tablet) 1 mg PO DAILY [facility] Last Admin: 07/08/23 08:49 Dose: 1 mg Magnesium Oxide (Magnesium Oxide 400 Mg Tablet) 400 mg PO BIDPC [facility] Last Admin: 07/08/23 08:48 Dose: 400 mg Nicotine (Nicotine 7 Mg Patch.Td24) 7 mg TRANSDERMA DAILY [facility] Last Admin: 07/08/23 08:49 Dose: 7 mg Ondansetron HCl (Ondansetron Hcl 4 Mg/2 Ml Vial) 4 mg IVPUSH Q8H PRN PRN Reason: Nausea and Vomiting Pantoprazole Sodium (Pantoprazole Sodium 40 Mg/10 Ml Vial) 40 mg IVPUSH BID@0630,1630 [facility] Last Admin: 07/08/23 05:25 Dose: 40 mg Potassium Chloride (Potassium Chloride Er 20 Meq Tab.Er.Prt) 20 meq PO BID [facility] Last Admin: 07/08/23 08:48 Dose: 20 meq Prednisone (Prednisone 20 Mg Tablet) 40 mg PO DAILY [facility] Last Admin: 07/08/23 08:48 Dose: 40 mg Sodium Chloride (0.9 % Sodium Chloride Flush 3 Ml Syringe) 3 ml IVFLUSH QSHIFT [facility] Last Admin: 07/08/23 08:49 Dose: 3 ml Thiamine HCl (Thiamine Hcl 100 Mg Tablet) 100 mg PO DAILY [facility] Last Admin: 07/08/23 08:48 Dose: 100 mg Exam Height,Weight and Vital Signs: Height 5 ft 6 in Weight 67.6 kg Last Vital Signs Temp 99.2 F 07/08/23 12:49 Pulse 96 07/08/23 13:14 Resp 16 07/08/23 13:14 BP 102/56 L 07/08/23 12:49 Pulse Ox 95 07/08/23 12:49 O2 Del Method Room Air 07/08/23 12:49 Pertinent Lab Results Pertinent Lab Results: Laboratory Tests 07/07/23 07/07/23 07/07/23 08:10 08:24 08:34 WBC 16.9 H RBC 2.71 L D Hgb 10.3 L D Hct 27.8 L D MCV 102.6 H MCH 38.0 H MCHC 37.1 H RDW 14.5 Plt Count 275 MPV 10.9 Immature Gran % (Auto) 0.7 H Neut % (Auto) 81.8 H Lymph % (Auto) 7.9 L Weld % (Auto) 9.2 Eos % (Auto) 0.2 Baso % (Auto) 0.2 Lymph # (Auto) 1.3 Weld # (Auto) 1.6 H Eos # (Auto) 0.0 Baso # (Auto) 0.0 Abs Immat Gran (auto) 0.12 H Absolute Neuts (auto) 13.8 H Absolute Nucleated RBC 0.000 Nucleated RBC % (auto) 0.0 Smear Tech's Comments VERIFIED PT INR Sodium 128 L Potassium 2.5 L* Chloride 86 L Carbon Dioxide 22 Anion Gap 23 H BUN 8 L Creatinine 1.77 H Estim Creat Clear Calc 33.6 Estimated GFR 30 Random Glucose 126 H Calcium 8.0 L Magnesium 1.5 L Iron TIBC % Saturation Unsat Iron Binding Ferritin Total Bilirubin 16.6 H Direct Bilirubin GGT AST 588 H ALT 157 H Alkaline Phosphatase 360 H Ammonia Lactate Dehydrogenase Total Protein 5.8 L Albumin 2.3 L Lipase Stool Occult Blood POSITIVE Acetaminophen Hepatitis A IgM Ab Hep Bs Antigen Hep Bs Antibody Hep B Core Total Ab Hepatitis C Ab (EIA) Blood Type A Positive Antibody Screen NEGATIVE Crossmatch See Detail 07/07/23 07/07/23 07/07/23 12:09 13:08 18:29 WBC 15.9 H RBC 3.09 L Hgb 11.2 L 12.4 Hct 30.6 L 33.1 L MCV 99.0 H MCH 36.2 H MCHC 36.6 H RDW 16.1 H Plt Count 219 MPV 10.8 Immature Gran % (Auto) Neut % (Auto) Lymph % (Auto) Weld % (Auto) Eos % (Auto) Baso % (Auto) Lymph # (Auto) Weld # (Auto) Eos # (Auto) Baso # (Auto) Abs Immat Gran (auto) Absolute Neuts (auto) Absolute Nucleated RBC 0.000 Nucleated RBC % (auto) 0.0 Smear Tech's Comments PT 28.1 H INR 2.3 H Sodium 127 L Potassium 3.0 L Chloride 88 L Carbon Dioxide 20 L Anion Gap 22 H BUN 8 L Creatinine 1.67 H Estim Creat Clear Calc 35.6 Estimated GFR 32 Random Glucose 92 Calcium 8.0 L Magnesium Iron TIBC % Saturation Unsat Iron Binding Ferritin Total Bilirubin 16.8 H Direct Bilirubin 12.8 H GGT 536 H AST 594 H ALT 161 H Alkaline Phosphatase 364 H Ammonia 66 H Lactate Dehydrogenase 753 H Total Protein 5.9 L Albumin 2.4 L Lipase 158 H Stool Occult Blood Acetaminophen < 3 Hepatitis A IgM Ab Hep Bs Antigen Hep Bs Antibody Hep B Core Total Ab Hepatitis C Ab (EIA) Blood Type Antibody Screen Crossmatch 07/08/23 07/08/23 07:20 07:21 WBC 16.3 H RBC 3.19 L Hgb 10.5 L Hct 31.3 L MCV 98.1 H MCH 32.9 MCHC 33.5 RDW 18.8 H Plt Count 216 MPV 11.0 Immature Gran % (Auto) Neut % (Auto) Lymph % (Auto) Weld % (Auto) Eos % (Auto) Baso % (Auto) Lymph # (Auto) Weld # (Auto) Eos # (Auto) Baso # (Auto) Abs Immat Gran (auto) Absolute Neuts (auto) Absolute Nucleated RBC 0.000 Nucleated RBC % (auto) 0.0 Smear Tech's Comments PT 18.7 H D INR 1.5 H Sodium 128 L Potassium 4.1 D Chloride 92 L Carbon Dioxide 21 L Anion Gap 19 BUN 9 Creatinine 1.04 Estim Creat Clear Calc 57.2 Estimated GFR 55 Random Glucose 86 Calcium 8.1 L Magnesium Iron 149 TIBC 174 L % Saturation 86 H Unsat Iron Binding < 25 Ferritin 1651 H Total Bilirubin 17.6 H Direct Bilirubin 12.6 H GGT AST 551 H ALT 163 H Alkaline Phosphatase 347 H Ammonia Lactate Dehydrogenase Total Protein 6.0 L Albumin 2.3 L Lipase Stool Occult Blood Acetaminophen Hepatitis A IgM Ab Nonreactive Hep Bs Antigen Negative Hep Bs Antibody NONREACTIVE Hep B Core Total Ab Nonreactive Hepatitis C Ab (EIA) Nonreactive Blood Type Antibody Screen Crossmatch Airway Heart: rrr Lungs: cta Assessment and Plan Assessment Anesthesia Assessment: Anesthesia Plan Discussed and Chart Reviewed Final Anesthetic Review Family History of Problems with Anesthesia: No History of Problems with Anesthesia: No NPO: Yes ASA Class: IV and Emergency Final Preanesthetic Review: No Changes in Pt Med Stat, Meds/Allgs Chart Reviewed, Consent Obtained/Reviewed and Anes Risks/Benef Reviewed Patient Risk: Intermediate Procedure Risk: Intermediate Anesthetic Plan Anesthetic Plan: MAC: Disposition: Standard PACU
--- NOTE | 2023-07-08 14:01 | P.BOP_ITS ---
Brief Operative Note Date of Service: 07/08/23 Pre-op diagnosis: UGI Bleed Post-op diagnosis: other (Gastritis, Portal gastropathy, Hiatal hernia) Procedure: EGD Surgeon: Christopher Duque MD Anesthesia: MAC Was an Straightening Press Operator used for this Procedure?: No Estimated blood loss (mL): 0 Pathology: none sent Condition: stable Disposition: PACU
--- NOTE | 2023-07-08 14:02 | P.EN_ITS ---
Event Note Date of Service: 07/08/23 Event Note: GI-EGD-Full note dictated Findings: 1. Small hiatal hernia 2. Proximal portal gastropathy 3. Diffuse gastritis with erythema and edema No bleeding, no old blood, no varices, no ulcers, no erosions Rec: Change to po PPI. Advance diet. F/U labs in AM. Hold steroids for now given her recent bleeding and monitor LFT's and PT/INR for the next 48 hours. If need be start prednisolone 40mg daily. 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 Thanks Time Spent With Patient Time: Total time managing care of this patient today ____ minutes.
[2023-07-08] MEDS: Omeprazole 40 MG CAPSULE.DR PO (14:38)
--- NOTE | 2023-07-08 15:57 | OP_ITS ---
DATE OF SERVICE: 07/08/2023 SURGEON: Christopher Duque MD INDICATIONS: The patient presents for evaluation of melena and anemia. Full consent has been obtained from her for this, including risks of bleeding and perforation. PREOPERATIVE DIAGNOSIS: POSTOPERATIVE DIAGNOSIS: PROCEDURE PERFORMED: Esophagogastroduodenoscopy. ESTIMATED BLOOD LOSS: COMPLICATIONS: ANESTHESIA: Monitored anesthesia care. ASSISTANTS: SPECIMENS: PREOPERATIVE DIAGNOSES: Melena and anemia. POSTOPERATIVE DIAGNOSES: Melena, anemia, portal gastropathy, diffuse gastritis, and hiatal hernia. DESCRIPTION OF PROCEDURE: The patient was placed in the left lateral decubitus position. The Olympus video gastroscope was passed in the posterior oropharynx and upper esophagus under direct vision. The scope was passed slowly into the distal esophagus. The gastroesophageal junction appeared at 35 cm. This area appeared normal without any sign of mass, ulceration, nor bleeding. The esophagus was carefully inspected with insufflation of air and there did not appear to be any esophageal varices. There was no esophagitis. The scope entered the stomach. There was a small hiatal hernia. The scope was advanced to pylorus and the duodenum was cannulated to the descending portion. The duodenum including the bulb appeared normal without mass or ulceration. There was no blood nor old blood in the duodenum. The scope was withdrawn back to the stomach. The gastric antrum and body appeared quite erythematous and edematous, but there was no erosions or ulceration. There was no bleeding. There was good peristalsis. The scope was retroflexed visualizing the proximal stomach carefully, which appeared to be quite erythematous as well, as well as having a pattern of a portal gastropathy. However, there was no evidence of any ulceration, varices, nor mass. There was no blood nor coffee-grounds material in the stomach. The scope was straightened and withdrawn back to the esophagus. The esophageal mucosa appeared normal. Again, there was no evidence of any varices. The scope was withdrawn from the patient. She tolerated the procedure well and was returned to the recovery area in stable condition. IMPRESSION: 1. Portal gastropathy. 2. Gastritis. 3. Hiatal hernia. PLAN: At this point, the patient has been stable since admission without any sign of active bleeding. She will be changed to an oral PPI. Her diet will be advanced. She will have followup laboratories regarding her liver disease. At this point, I would hold off on steroids given the recent GI bleeding and in regard to treating her alcohol-induced hepatitis. However, if her liver function continues to deteriorate in the next 24 to 48 hours, I would then institute a course of prednisolone at 40 mg daily. Hopefully, she will be able to maintain long-term sobriety. MD ARTURO Nunes/LUZ / [phone]
--- NOTE | 2023-07-08 18:27 | PC.NURSE ---
Patients urine noted to be brown colored. Precious Diaz LEPIDOPTERIST made aware. Per LEPIDOPTERIST likely related to elevated bili. No new orders.
[2023-07-08 19:11] LABS: Amphetamine Screen Urine Not Detected (Not Detect); Barbiturates, Urine Not Detected (Not Detect); Benzodiazepines Screen Urine Not Detected (Not Detect); Buprenorphine Scr Not Detected (Not Detect); Cannabinoid Screen Urine POSITIVE (Not Detect); Cocaine Screen Urine Not Detected (Not Detect); Fentanyl, urine POSITIVE (Not Detect); Methadone Screen, Urine Not Detected (Not Detect); Opiate Screen Urine Not Detected (Not Detect); Oxycodone Screen Urine Not Detected (Not Detect); Phencyclidine Screen Urine Not Detected (Not Detect)
[2023-07-08 19:32] LABS: Appearance Urine Turbid; Color Urine BROWN; PH 6.5 (5.0-9.0); UMIC TRIGGER UACC YES
[2023-07-08 20:09] LABS: Bacteria Urine 3+ (None Seen); WBC Urine 0-5 /HPF (0-5)
[2023-07-08] MEDS: LORazepam 0.5 MG TABLET PO (20:37)
[2023-07-09] VITALS (7 sets, daily range): BP systolic 101–113; BP diastolic 54–65; PULSE 68–95; RESP 20; TEMP 36.1–36.7; O2SAT 90–94
[2023-07-09] MEDS: Omeprazole 40 MG CAPSULE.DR PO (06:20)
[2023-07-09 07:01] LABS: MANUAL DIFF FLAG NO
[2023-07-09 07:09] LABS: Basophils Percent Auto 0.2 % (0-2); Eosinophils Percent Auto 0.1 % (0-4); Hematocrit 31.4 % (37.0-47.0); Hemoglobin 11.6 g/dl (12.0-16.0); Imm Gran Abs Auto 0.19 X10*3/uL (0.00-0.03); Imm Gran Pct Auto 1.2 % (0.0-0.4); Lymphocytes Absolute Auto 1.3 X10*3/uL (1.2-4.9); Mean Corpuscular HGB Conc 36.9 g/dl (31.0-35.0); Mean Corpuscular Hemoglobin 36.9 pg (27.0-33.0); Mean Platelet Volume 11.2 fL (9.4-12.3); Monocytes Absolute Auto 1.2 X10*3/uL (0.1-1.2); Monocytes Percent Auto 7.9 % (2-11); NRBC Pct Auto 0.1 /100WBC (0.0-0.2); Neutrophils Percent Auto 82.6 % (45-73); Platelet Count 212 X10*3/uL (160-400); Red Blood Count 3.14 X10*6/uL (4.20-5.50); Red Cell Distribution Width 18.9 % (11.0-16.0); White Blood Count 15.7 X10*3/uL (4.8-10.8)
[2023-07-09 07:15] LABS: INTERNATIONAL NORM RATIO 1.4 (0.9-1.1); Prothrombin Time 16.5 SEC (11.1-13.3)
[2023-07-09 07:29] LABS: Alanine Aminotransferase 150 U/L (0-31); Albumin Level 2.2 g/dL (3.5-5.0); Alkaline Phosphatase 329 U/L (39-117); Anion Gap 16 (12-20); Aspartate Amino Transferase 371 U/L (5-31); Bilirubin Direct 13.1 mg/dL (0.0-0.5); Bilirubin Total 17.7 mg/dL (0.0-1.0); Blood Urea Nitrogen 13 mg/dL (9-16); Calcium 8.1 mg/dL (8.4-10.2); Carbon Dioxide 22 mmol/L (22-29); Chloride 93 mmol/L (96-108); Creatinine Clr Calc Pharmacy 55.1; Estimated Glomerular Filt Rate 53; Glucose Fasting 102 mg/dL (60-99); Potassium 3.7 mmol/L (3.3-5.1); Sodium 127 mmol/L (135-145); Total Protein 5.7 g/dL (6.5-8.0)
[2023-07-09] MEDS: Potassium Chloride ER 20 MEQ TAB.ER.PRT PO ×2 (08:49→21:54)
[2023-07-09] MEDS: Folic Acid 1 MG TABLET PO (08:49)
[2023-07-09] MEDS: Magnesium Oxide 400 MG TABLET PO ×2 (08:49→18:49)
[2023-07-09] MEDS: Thiamine HCL 100 MG TABLET PO (08:49)
[2023-07-09] MEDS: 0.9 % Sodium Chloride Flush 3 ML SYRINGE IVFLUSH ×3 (08:50→22:03)
[2023-07-09] MEDS: FLUoxetine HCl 20 MG CAPSULE 60 MG PO (08:50)
[2023-07-09] MEDS: Nicotine 7 MG PATCH.TD24 TRANSDERMA (08:50)
--- NOTE | 2023-07-09 10:56 | P.PNIM_ITS ---
Subjective Subjective Date of Service: 07/09/23 Review of Systems follow up GI bleed, acute alcoholic hepatitis Feeling tired today no pain Physical Exam 2 Vital Signs: Vital Signs: Last Vital Signs Temp 98.0 F 07/09/23 07:15 Pulse 88 07/09/23 07:15 Resp 20 07/09/23 07:15 BP 103/59 L 07/09/23 07:15 Pulse Ox 94 07/09/23 07:15 O2 Del Method Room Air 07/09/23 07:15 O2 Flow Rate 6 07/08/23 13:52 BMI result Body Mass Index 24.1 Appearing in no acute distress Jaundice, sclera icteric lung sounds are clear to auscultation heart regular rate rhythm, clear S1, S2 positive bowel sounds, abdomen is soft, nontender neuro patient is alert x3, no focal deficits Objective Data Active Medications Fluoxetine HCl (Fluoxetine Hcl 20 Mg Capsule) 60 mg PO DAILY [facility] Last Admin: 07/09/23 08:50 Dose: 60 mg Documented By: DARON Folic Acid (Folic Acid 1 Mg Tablet) 1 mg PO DAILY [facility] Last Admin: 07/09/23 08:49 Dose: 1 mg Documented By: DARON Lorazepam (Lorazepam 0.5 Mg Tablet) 0.5 mg PO BEDTIME PRN PRN Reason: anxiety/restlessness Last Admin: 07/08/23 20:37 Dose: 0.5 mg Documented By: PAUL Magnesium Oxide (Magnesium Oxide 400 Mg Tablet) 400 mg PO BIDPC [facility] Last Admin: 07/09/23 08:49 Dose: 400 mg Documented By: DARON Nicotine (Nicotine 7 Mg Patch.Td24) 7 mg TRANSDERMA DAILY [facility] Last Admin: 07/09/23 08:50 Dose: 7 mg Documented By: DARON Omeprazole (Omeprazole 40 Mg Capsule.Dr) 40 mg PO DAILY@0630 [facility] Last Admin: 07/09/23 06:20 Dose: 40 mg Documented By: PAUL Ondansetron HCl (Ondansetron Hcl 4 Mg/2 Ml Vial) 4 mg IVPUSH Q8H PRN PRN Reason: Nausea and Vomiting Potassium Chloride (Potassium Chloride Er 20 Meq Tab.Er.Prt) 20 meq PO BID [facility] Last Admin: 07/09/23 08:49 Dose: 20 meq Documented By: DARON Sodium Chloride (0.9 % Sodium Chloride Flush 3 Ml Syringe) 3 ml IVFLUSH QSHIFT [facility] Last Admin: 07/09/23 08:50 Dose: 3 ml Documented By: DARON Thiamine HCl (Thiamine Hcl 100 Mg Tablet) 100 mg PO DAILY [facility] Last Admin: 07/09/23 08:49 Dose: 100 mg Documented By: DARON Labs 07/09/23 06:46 07/09/23 06:46 Labs: Laboratory Results - last 24 hr 07/08/23 07/08/23 07/09/23 07:20 18:47 06:46 MCV 100.0 H MCH 36.9 H MCHC 36.9 H RDW 18.9 H Plt Count 212 MPV 11.2 Immature Gran % (Auto) 1.2 H Neut % (Auto) 82.6 H Lymph % (Auto) 8.0 L [place] % (Auto) 7.9 Eos % (Auto) 0.1 Baso % (Auto) 0.2 Lymph # (Auto) 1.3 [place] # (Auto) 1.2 Eos # (Auto) 0.0 Baso # (Auto) 0.0 Abs Immat Gran (auto) 0.19 H Absolute Neuts (auto) 13.0 H Absolute Nucleated RBC 0.020 H Nucleated RBC % (auto) 0.1 PT 16.5 H INR 1.4 H Anion Gap 16 Estim Creat Clear Calc 55.1 Estimated GFR 53 Fasting Glucose 102 H Calcium 8.1 L Total Bilirubin 17.7 H Direct Bilirubin 13.1 H AST 371 H ALT 150 H Alkaline Phosphatase 329 H Total Protein 5.7 L Albumin 2.2 L Urine Color BROWN Urine Appearance Turbid Urine pH 6.5 Ur Specific [place] 1.020 Urine Protein See Note Urine Glucose (UA) See Note Urine Ketones See Note Urine Blood See Note Urine Nitrite See Note Ur Leukocyte Esterase See Note Urine RBC 11-20 H Urine WBC 0-5 Ur Squamous Epith Cells 3-5 Urine Bacteria 3+ Hyaline Casts 3-5 Urine Opiates Screen Not Detected Ur Buprenorphine Scrn Not Detected Ur Oxycodone Screen Not Detected Urine Methadone Screen Not Detected Urine Fentanyl Screen POSITIVE H Ur Barbiturates Screen Not Detected Ur Phencyclidine Scrn Not Detected Ur Amphetamines Screen Not Detected U Benzodiazepines Scrn Not Detected Urine Cocaine Screen Not Detected U Marijuana (THC) Screen POSITIVE H Hepatitis A IgM Ab Nonreactive Hep Bs Antigen Negative Hep Bs Antibody NONREACTIVE Hep B Core Total Ab Nonreactive Hepatitis C Ab (EIA) Nonreactive Assessment and Plan (1) Alcoholic hepatitis: Status: Acute Plan 57 year old women admitted with acute transaminitis secondary to alcohol use Transaminitis/acute alcoholic hepatitis hx of alcohol use, reports last drink 3-4 weeks ago initially but today stated that she had been drinking 2 nips of red bull a day MELD 34 s/p PO steroids folic acid, thiamine Multiple abnormal findings on abdominal CT Seen and evaluated by GI<s/p EGD 07/08/23, gastritis noted, no active or old bleeding, no varicies. monitor for 48 more hrs LFTs slowly trending down started on phenobarbitol protocol today Coagulaopathy secondary to alcohol abuse peaked at 2.3 s/p IV vitamin K x 1 Macrocytic anemia Possibly acute blood loss with positive stool occult but no obvious bleeding HH 11.6/31.4 s/p 1 unit PRBC in the ED s/p IV PPI, transitioned to oral JOHNNY trending down creat 1.08 Likely secondary to dehydration and poor oral intake s/p IV fluid Hyponatremia/Hypokalemia/hypomagnesemia better Resolving K 3.7, mag 1.5, na 127 (beer potomania) Likely secondary to dehydration poor oral intake oral and IV replacement oral thrush nystatin swish and swallow FTT poor appetite over 1-2 weeks encourage oral intake add protein to diet Smoker NRT DVT prophylaxis with SCD boots secondary to anemia attending Dr. Lozano Full code continue hospital stay for tx of acute hepatitis and anemia secondary to alcohol use requiring s/p EGD, now continue monitoring LFTs for 48 hrs to in light of possible decompensation Quality Stroke Does the patient have a stroke diagnosis?: No VTE Prior VTE?: No VTE Risk Level:: Medical - moderate - high VTE Device Contraindication: N/A - Device Ordered VTE Drug Contraindication: Treatment Not Indicated
--- NOTE | 2023-07-09 11:04 | MHC.RECOVRN ---
AUDIT-C Brief Intervention Pt had positive screen for unhealthy alcohol use on admission, subsequently met with t/w to discuss alcohol use and recovery supports/options. Pts sister, Brenda, present for discussion with pts permission. Pt voices concern regarding alcohol use and is aware that drinking at unhealthy levels is known to increase risk of alcohol related health problems. Pt reports 1 nip Fireball prior to arrival. Prior to that, pt reports last drink was 3-4 weeks ago. Pt reports she had been drinking 8 beers and 10 nips Fireball daily. Pt expresses how alcohol use has impacted health, including negative impact on liver. Discussed risk reduction strategies including drinking below the recommended limit. Pt reports hx tx for AUD, including [facility] and [facility]. Pt report receiving Vivitrol through [facility] and would like to restart this medication. Provided pt with written resources including information on inpatient and outpatient treatment, [facility], harm reduction, and recovery coaching. Pt would like to follow up with [facility], appt made for 07/14 at 2:30PM. CM aware. Pt provided with t/w contact information if questions or concerns arise. Denies other questions or concerns at this time. Discussed with Saskia Stratton APRN. *After leaving pts room, pts sister notified t/w pt has not been in recovery 3-4 weeks, has been drinking daily. Provider notified.
[2023-07-09] MEDS: PHENobarbitaL sodium 130 MG/ML IM ONCE 190 MG IM (12:38)
--- NOTE | 2023-07-09 13:44 | HO.POSTANES ---
Post Anesthesia Evaluation Post Anesthesia Evaluation Date of Service: 07/09/23 Vital Signs: Vital Signs Temp Pulse Resp BP Pulse Ox O2 Del Method 07/09/23 13:28 94 Room Air 07/09/23 10:57 98.0 F 82 20 105/55 L 94 Room Air 07/09/23 07:15 98.0 F 88 20 103/59 L 94 Room Air 07/09/23 03:41 97.6 F 84 20 101/57 L 90 L Room Air Anesthesia: Monitored Mental Status: Awake Pain Control: Satisfactory Nausea/Vomiting: None Hydration: Adequate Anesthesia-Related Issues: No Anes. Related Issues
[2023-07-09] MEDS: Nystatin Oral Susp 500,000 UNIT/5 ML ORAL.SUSP 200000 UNIT BUCCAL ×2 (13:55→18:48)
[2023-07-09] MEDS: PHENobarbitaL sodium 130 MG/ML VIAL IM Q3Hx2 142 MG IM ×2 (15:27→18:49)
[2023-07-09] MEDS: LORazepam 0.5 MG TABLET PO (21:52)
[2023-07-09] MEDS: LORazepam 2 MG/ML VIAL 1 MG IVPUSH (23:54)
[2023-07-09] MEDS: PHENobarbitaL sodium 130 MG/ML VIAL IM (23:54)
[2023-07-10] VITALS (8 sets, daily range): BP systolic 106–147; BP diastolic 51–71; PULSE 85–94; RESP 16–19; TEMP 36–37.2; O2SAT 88–98
--- NOTE | 2023-07-10 02:04 | PM.EVENT ---
Event Note Date of Service: 07/10/23 Event Note: Patient with disorientation. Noted previous ammonia 66 on 07/06. Will administer lactulose and repeat ammonia. Alcohol withdrawal might be contributing Time Spent With Patient Time: Total time managing care of this patient today ____ minutes.
[2023-07-10] MEDS: Lactulose 20 GM/30 ML SOLUTION PO ×2 (03:57→20:16)
[2023-07-10 06:19] LABS: Appearance Urine Cloudy; Glucose Urine UA 100 mg/dL (Negative); Leukocyte Esterase Urine Trace (Negative); Nitrite Urine Negative (Negative); PH 6.5 (5.0-9.0); UMIC TRIGGER UACC YES; Urine Blood Negative (Negative); Urine Ketones 15 mg/dL (Negative); Urine Protein 100 (2+) mg/dL (Neg-Trace)
--- NOTE | 2023-07-10 06:21 | PC.NURSE ---
patient alert to self and location only. this is a variation from only an hour prior. confused to day, month, year, and situation. throughout shift has shown more confusion. now totally delirious. increased restlessness and agitation. MD aware. MD to bedside to reassess. See MAR for medications given. Pt has increased tremors, disorganized speech, weak, dizzy, unsteady walking, and rapidly changes from very tired to agitated and fighting to get OOB. Sitter in the room now.
[2023-07-10 06:22] LABS: Bacteria Urine 2+ (None Seen); Color Urine BROWN; RBC Urine 0-2 /HPF (0-2); WBC Urine 0-5 /HPF (0-5)
[2023-07-10 06:23] LABS: Granular Casts Urine Present; Hyaline Casts Urine 0-2 /LPF (0-2)
[2023-07-10 06:57] LABS: Hematocrit 30.3 % (37.0-47.0); Mean Corpuscular Volume 97.7 fL (80.0-98.0); Mean Platelet Volume 11.1 fL (9.4-12.3); Platelet Count 189 X10*3/uL (160-400); Red Cell Distribution Width 17.9 % (11.0-16.0); White Blood Count 18.2 X10*3/uL (4.8-10.8)
[2023-07-10 07:05] LABS: Ammonia 113 umol/L (13-55)
[2023-07-10 07:08] LABS: INTERNATIONAL NORM RATIO 1.4 (0.9-1.1)
[2023-07-10 07:14] LABS: Alanine Aminotransferase 141 U/L (0-31); Albumin Level 2.3 g/dL (3.5-5.0); Alkaline Phosphatase 327 U/L (39-117); Anion Gap 15 (12-20); Aspartate Amino Transferase 292 U/L (5-31); Bilirubin Direct 14.6 mg/dL (0.0-0.5); Bilirubin Total 18.3 mg/dL (0.0-1.0); Blood Urea Nitrogen 15 mg/dL (9-16); Calcium 8.1 mg/dL (8.4-10.2); Carbon Dioxide 22 mmol/L (22-29); Chloride 93 mmol/L (96-108); Creatinine Clr Calc Pharmacy 62.6; Estimated Glomerular Filt Rate > 60; Glucose Random 84 mg/dL (60-115); Magnesium 2.2 mg/dL (1.6-2.6); Potassium 3.9 mmol/L (3.3-5.1); Sodium 126 mmol/L (135-145); Total Protein 5.7 g/dL (6.5-8.0)
[2023-07-10 07:19] LABS: Hemoglobin 10.2 g/dl (12.0-16.0); Mean Corpuscular HGB Conc 33.7 g/dl (31.0-35.0); Mean Corpuscular Hemoglobin 32.9 pg (27.0-33.0)
--- NOTE | 2023-07-10 08:11 | P.PNIM_ITS ---
Subjective Subjective Date of Service: 07/10/23 Interval History: Seen in follow up for acute alcoholic hepatitis, encephalopathy, alcohol withdrawal Interval history: Pt remains encephalopathic. Arousable but confused. H/H stable overall, no evidence of recurrence of bleeding. Started on lactulose overnight. CIWA 20, on phenobarb per protocol Review of Systems Review of Systems: Yes Unobtainable due to mental status Physical Exam 2 Vital Signs: Vital Signs: Last Vital Signs Temp 97.0 F 07/10/23 07:38 Pulse 89 07/10/23 07:38 Resp 18 07/10/23 07:38 BP 106/51 L 07/10/23 07:38 Pulse Ox 98 07/10/23 07:38 O2 Del Method Room Air 07/10/23 07:38 O2 Flow Rate 6 07/08/23 13:52 BMI result Body Mass Index 24.1 Constitutional - Awake and Alert, No apparent distress Eyes - PERRLA, EOMI Cardiovascular - S1S2, RRR, No edema Respiratory - Normal lung expansion, Normal respiratory effort, No respiratory distress, CTA bilaterally Gastrointestinal - RUQ ttp, ND; +BS; No rebound or guarding Extremities - no calf tenderness bilaterally, no swelling Musculoskeletal - Normal inspection, normal ROM Skin - Warm/Dry. +jaundice Neurological - Alert & disoriented even to self. tremulous Objective Data Active Medications Fluoxetine HCl (Fluoxetine Hcl 20 Mg Capsule) 60 mg PO DAILY [facility] Last Admin: 07/09/23 08:50 Dose: 60 mg Documented By: DARON Folic Acid (Folic Acid 1 Mg Tablet) 1 mg PO DAILY [facility] Last Admin: 07/09/23 08:49 Dose: 1 mg Documented By: DARON Lorazepam (Lorazepam 0.5 Mg Tablet) 0.5 mg PO BEDTIME PRN PRN Reason: anxiety/restlessness Magnesium Oxide (Magnesium Oxide 400 Mg Tablet) 400 mg PO BIDPC [facility] Last Admin: 07/09/23 18:49 Dose: 400 mg Documented By: LACY Nicotine (Nicotine 7 Mg Patch.Td24) 7 mg TRANSDERMA DAILY [facility] Last Admin: 07/09/23 08:50 Dose: 7 mg Documented By: DARON Nystatin (Nystatin Oral Susp 500,000 Unit/5 Ml Oral.Susp) 200,000 unit BUCCAL QID [facility]; Protocol Last Admin: 07/09/23 23:21 Dose: Not Given Documented By: PAUL Non-Admin Reason: Patient Refused Omeprazole (Omeprazole 40 Mg Prema.) 40 mg PO DAILY@0630 [facility] Last Admin: 07/10/23 05:54 Dose: Not Given Documented By: PAUL Non-Admin Reason: pt refused Ondansetron HCl (Ondansetron Hcl 4 Mg/2 Ml Vial) 4 mg IVPUSH Q8H PRN PRN Reason: Nausea and Vomiting Pharmacy Consult (Consult Rx Etoh Phenob Im/Po) 1 each MISCELLANE ONCE PRN; Protocol PRN Reason: Consult order Phenobarbital (Phenobarbital 15 Mg Tablet) 45 mg PO BID [facility]; Protocol Stop: 07/11/23 21:01 Phenobarbital (Phenobarbital 15 Mg Tablet) 15 mg PO BID [facility]; Protocol Stop: 07/13/23 21:01 Phenobarbital (Phenobarbital 15 Mg Tablet) 15 mg PO DAILY [facility]; Protocol Stop: 07/15/23 09:01 Potassium Chloride (Potassium Chloride Er 20 Meq Tab.Er.Prt) 20 meq PO BID [facility] Last Admin: 07/09/23 21:54 Dose: 20 meq Documented By: PAUL Sodium Chloride (0.9 % Sodium Chloride Flush 3 Ml Syringe) 3 ml IVFLUSH QSHIFT [facility] Last Admin: 07/09/23 22:03 Dose: 3 ml Documented By: PAUL Thiamine HCl (Thiamine Hcl 100 Mg Tablet) 100 mg PO DAILY [facility] Last Admin: 07/09/23 08:49 Dose: 100 mg Documented By: DARON Labs 07/10/23 06:42 07/10/23 06:42 Labs: Laboratory Results - last 24 hr 07/10/23 07/10/23 05:00 06:42 MCV 97.7 MCH 32.9 MCHC 33.7 RDW 17.9 H Plt Count 189 MPV 11.1 Absolute Nucleated RBC 0.000 Nucleated RBC % (auto) 0.0 PT 17.0 H INR 1.4 H Anion Gap 15 Estim Creat Clear Calc 62.6 Estimated GFR > 60 Random Glucose 84 Calcium 8.1 L Magnesium 2.2 Total Bilirubin 18.3 H Direct Bilirubin 14.6 H AST 292 H ALT 141 H Alkaline Phosphatase 327 H Ammonia 113 H Total Protein 5.7 L Albumin 2.3 L Urine Color BROWN Urine Appearance Cloudy Urine pH 6.5 Ur Specific [place] 1.020 Urine Protein 100 (2+) H Urine Glucose (UA) 100 H Urine Ketones 15 Urine Blood Negative Urine Nitrite Negative Ur Leukocyte Esterase Trace H Urine RBC 0-2 Urine WBC 0-5 Ur Squamous Epith Cells 3-5 Urine Bacteria 2+ Hyaline Casts 0-2 Granular Casts Present Assessment and Plan (1) Alcoholic hepatitis: Status: Acute (2) Hepatic encephalopathy: Status: Acute (3) Alcohol withdrawal: Status: Acute (4) Alcohol use disorder: Status: Acute (5) JOHNNY (acute kidney injury): Status: Acute (6) ABLA (acute blood loss anemia): Status: Acute (7) Hypomagnesemia: Status: Acute (8) Hypokalemia: Status: Acute (9) Hyponatremia: Status: Acute Plan 57 year old women admitted with acute metabolic encephalopathy r/t alcohol withdrawal and hepatic encephalopathy with alcoholic hepatitis with elevated maddreys and anemia Transaminitis/acute alcoholic hepatitis hx of alcohol use, reports last drink 3-4 weeks ago initially but today stated that she had been drinking 2 nips of red bull a day Multiple abnormal findings on abdominal CT Seen and evaluated by GI<s/p EGD 07/07/23, gastritis noted, no active or old bleeding, no varicies. monitor for 48 more hrs Initial MELD 34--> 21 Bili increased to 18.6 07/09. Coags stable following vitamin Kx1 Initially on prednisone, stopped 07/07 d/t concern for bleeding. Maddreys 34. Per GI, resume PO steroids 07/09. Monitor for bleeding, follow h/h GI following Trend LFTs Acute alcohol withdrawal Continue phenobarbital per protocol. Monitor on CIWA folic acid. Change thiamine to IV given ongoing encephalopathy Addiction consult once more awake Acute metabolic encephalopathy r/t hepatic encephalopathy complicated by acute alcohol withdrawal Ammonia 66-->113 Lactulose initiated 07/09, titrate to achieve 2-3 loose stools daily GI following poor po intake, resume ivf Elevated LFTs due to above. AST/ALT trending down. Bili increased Plan as above Coagulaopathy secondary to alcohol abuse peaked at 2.3, improving s/p IV vitamin K x 1 Macrocytic anemia Possibly acute blood loss with positive stool occult but no obvious bleeding on egd 07/06 HH 10.2/30.3, stable overall. Steroids resumed 07/09, monitor h/h closely for bleeding s/p 1 unit PRBC in the ED s/p IV PPI, transitioned to oral JOHNNY- resolved trending down creat initially 1.77 Likely secondary to dehydration and poor oral intake s/p IV fluid Hyponatremia/Hypokalemia/hypomagnesemia better Resolving K 3.7, mag 1.5, na 127 (beer potomania) Likely secondary to dehydration poor oral intake check serum/urine osm, urine sodium oral and IV replacement oral thrush nystatin swish and swallow FTT poor appetite over 1-2 weeks encourage oral intake add protein to diet Smoker NRT DVT prophylaxis with SCD boots secondary to anemia d/w Dr. Lozano Full code continue hospital stay for tx of acute hepatitis/ etoh withdrawal with ongoing encephalopathy and anemia secondary to alcohol use requiring s/p EGD, now continue monitoring LFTs for 48 hrs to in light of possible decompensation Quality Stroke Does the patient have a stroke diagnosis?: No VTE Prior VTE?: No VTE Risk Level:: Medical - moderate - high VTE Device Contraindication: N/A - Device Ordered VTE Drug Contraindication: Treatment Not Indicated
[2023-07-10] MEDS: prednisoLONE sodium phosphate 15 MG/5 ML SOLUTION 40 MG PO (09:02)
[2023-07-10] MEDS: Lactulose 20 GM/30 ML SOLUTION 30 GM PO (09:02)
[2023-07-10] MEDS: PHENobarbitaL sodium 130 MG/ML VIAL IM (09:03)
[2023-07-10] MEDS: Thiamine HCL 100 MG TABLET PO (09:04)
[2023-07-10] MEDS: Nicotine 7 MG PATCH.TD24 TRANSDERMA (09:04)
[2023-07-10] MEDS: Magnesium Oxide 400 MG TABLET PO ×2 (09:04→16:20)
[2023-07-10] MEDS: FLUoxetine HCl 20 MG CAPSULE 60 MG PO (09:04)
[2023-07-10] MEDS: PHENobarbitaL 15 MG TABLET 45 MG PO ×2 (09:04→20:16)
[2023-07-10] MEDS: 0.9 % Sodium Chloride Flush 3 ML SYRINGE IVFLUSH ×2 (09:04→16:20)
[2023-07-10] MEDS: Potassium Chloride ER 20 MEQ TAB.ER.PRT PO ×2 (09:04→20:16)
[2023-07-10] MEDS: Folic Acid 1 MG TABLET PO (09:04)
--- NOTE | 2023-07-10 09:49 | HO.WOUND ---
Wound Consult: Initial 57yr old Female admitted to [facility] on 07/06 - See progress notes and H&P for detailed history.? Wound consult placed for right Knee abrasion.? Patient agreeable to assessment and photo documentation.? Fall to the right side reported at home. Right hip trochanter area observed for light purple bruise - no DTI noted - tissue remains intact. Right knee assessed for stable scabbed abrasion - Foam aplpied since there are some edges of the dried scab lifting with concern for the scab getting caught on bed linen and or clothing. Cleansed with NS moist gauze, skin prep applied and foam dressing applied. To be changed every 3 days. Bilateral Lower Legs Right Hip and Trochanter Right Knee Recommendations: 1. Right Knee - Cleanse with ns moist gauze. Skin prep to scab and periwound. Cover with foam dressing change every 3 days. Re-consult wound care Nurse for wound deterioration or wound changes.
--- NOTE | 2023-07-10 10:43 | MHC.CM.PN ---
EMR REVIEWED, PER HOSPITALIST PT REMAINS ENCEPHALOPATHIC, AMMONIA INCREASING AND PT REMAINS IN ACUTE WITHDRAWAL, NO PLAN FOR DC AT THIS TIME, CM WILL CONT TO FOLLOW DC NEEDS.
[2023-07-10] MEDS: Nystatin Oral Susp 500,000 UNIT/5 ML ORAL.SUSP 200000 UNIT BUCCAL ×2 (12:38→16:20)
[2023-07-10] MEDS: Thiamine HCL 100 MG in 0.9 % Sodium Chloride 100 ML 202 MG IV (12:38)
[2023-07-10] MEDS: 0.9 % Sodium Chloride 1,000 ML 100 ML IVCONT (12:39)
[2023-07-11] VITALS (7 sets, daily range): BP systolic 119–142; BP diastolic 57–75; PULSE 77–86; RESP 12–20; TEMP 36.1–36.6; O2SAT 93–100
[2023-07-11] MEDS: 0.9 % Sodium Chloride 1,000 ML 100 ML IVCONT (02:44)
[2023-07-11] MEDS: 0.9 % Sodium Chloride Flush 3 ML SYRINGE IVFLUSH ×4 (02:44→20:31)
[2023-07-11 08:05] LABS: MANUAL DIFF FLAG NO
[2023-07-11] MEDS: Lactulose 20 GM/30 ML SOLUTION PO ×2 (08:07→20:30)
[2023-07-11] MEDS: prednisoLONE sodium phosphate 15 MG/5 ML SOLUTION 40 MG PO (08:07)
[2023-07-11] MEDS: Magnesium Oxide 400 MG TABLET PO ×2 (08:08→16:45)
[2023-07-11] MEDS: FLUoxetine HCl 20 MG CAPSULE 60 MG PO (08:08)
[2023-07-11] MEDS: Thiamine HCL 100 MG in 0.9 % Sodium Chloride 100 ML 202 MG IV (08:08)
[2023-07-11] MEDS: Omeprazole 40 MG CAPSULE.DR PO (08:08)
[2023-07-11] MEDS: PHENobarbitaL 15 MG TABLET 45 MG PO ×2 (08:08→20:30)
[2023-07-11] MEDS: Nystatin Oral Susp 500,000 UNIT/5 ML ORAL.SUSP 200000 UNIT BUCCAL ×4 (08:08→20:30)
[2023-07-11] MEDS: Nicotine 7 MG PATCH.TD24 TRANSDERMA (08:09)
[2023-07-11] MEDS: Folic Acid 1 MG TABLET PO (08:09)
[2023-07-11 08:13] LABS: Basophils Percent Auto 0.2 % (0-2); Eosinophils Absolute Auto 0.1 X10*3/uL (0.0-0.4); Eosinophils Percent Auto 0.3 % (0-4); Hematocrit 34.2 % (37.0-47.0); Hemoglobin 12.2 g/dl (12.0-16.0); Imm Gran Abs Auto 0.22 X10*3/uL (0.00-0.03); Imm Gran Pct Auto 1.3 % (0.0-0.4); Lymphocytes Absolute Auto 1.4 X10*3/uL (1.2-4.9); Lymphocytes Percent Auto 8.4 % (20-40); Mean Corpuscular HGB Conc 35.7 g/dl (31.0-35.0); Mean Corpuscular Hemoglobin 36.7 pg (27.0-33.0); Monocytes Absolute Auto 1.2 X10*3/uL (0.1-1.2); Monocytes Percent Auto 7.5 % (2-11); NRBC Pct Auto 0.2 /100WBC (0.0-0.2); Neutrophils Absolute Auto 13.4 x10*3/uL (2.0-8.3); Neutrophils Percent Auto 82.3 % (45-73); Platelet Count 207 X10*3/uL (160-400); Red Blood Count 3.32 X10*6/uL (4.20-5.50); Red Cell Distribution Width 19.1 % (11.0-16.0); White Blood Count 16.3 X10*3/uL (4.8-10.8)
[2023-07-11 08:18] LABS: INTERNATIONAL NORM RATIO 1.3 (0.9-1.1); Prothrombin Time 15.8 SEC (11.1-13.3)
[2023-07-11] MEDS: Potassium Chloride ER 20 MEQ TAB.ER.PRT PO ×2 (08:21→20:30)
[2023-07-11 08:26] LABS: Ammonia 37 umol/L (13-55)
[2023-07-11 08:36] LABS: Alanine Aminotransferase 147 U/L (0-31); Albumin Level 2.4 g/dL (3.5-5.0); Alkaline Phosphatase 358 U/L (39-117); Anion Gap 15 (12-20); Aspartate Amino Transferase 304 U/L (5-31); Bilirubin Direct 14.8 mg/dL (0.0-0.5); Bilirubin Total 19.3 mg/dL (0.0-1.0); Blood Urea Nitrogen 15 mg/dL (9-16); Calcium 8.6 mg/dL (8.4-10.2); Carbon Dioxide 23 mmol/L (22-29); Chloride 97 mmol/L (96-108); Creatinine Clr Calc Pharmacy 68.3; Estimated Glomerular Filt Rate > 60; Glucose Random 93 mg/dL (60-115); Magnesium 2.2 mg/dL (1.6-2.6); Potassium 4.1 mmol/L (3.3-5.1); Sodium 131 mmol/L (135-145)
--- NOTE | 2023-07-11 13:04 | P.PNIM_ITS ---
Subjective Subjective Date of Service: 07/11/23 Interval History: Seen and examined this morning Awake and alert No specific complaints Review of Systems Review of Systems: Yes all other systems are reviewed and are negative Physical Exam 2 Vital Signs: Vital Signs: Last Vital Signs Temp 97.3 F 07/11/23 11:22 Pulse 85 07/11/23 11:22 Resp 12 07/11/23 11:22 BP 127/57 L 07/11/23 11:22 Pulse Ox 93 07/11/23 11:22 O2 Del Method Room Air 07/11/23 11:22 O2 Flow Rate 6 07/08/23 13:52 BMI result Body Mass Index 24.1 Const: General: cooperative, comfortable, no acute distress, alert and awake Nutritional Appearance: average body habitus Eyes: Other: Scleral icterus present Resp: Effort & Inspection: normal respiratory effort, able to speak in complete sentences, no respiratory distress and no use of accessory muscles Cardio: Rate: regular rate GI: Inspection: No distended Palpation (GI): Soft to palpation and nontender Skin: Other: Jaundice Neuro: Other: No asterixis General: moves all extremities and CN's II-XI intact bilaterally Objective Data Active Medications Fluoxetine HCl (Fluoxetine Hcl 20 Mg Capsule) 60 mg PO DAILY [facility] Last Admin: 07/11/23 08:08 Dose: 60 mg Documented By: KAYLA Folic Acid (Folic Acid 1 Mg Tablet) 1 mg PO DAILY [facility] Last Admin: 07/11/23 08:09 Dose: 1 mg Documented By: KAYLA Lactulose (Lactulose 20 Gm/30 Ml Solution) 20 gm PO BID [facility] Last Admin: 07/11/23 08:07 Dose: 20 gm Documented By: KAYLA Lorazepam (Lorazepam 0.5 Mg Tablet) 0.5 mg PO BEDTIME PRN PRN Reason: anxiety/restlessness Magn[facility] ([facility] 400 Mg [facility] Admin: 07/11/23 08:08 Dose: 400 mg Documented By: KAYLA Nicotine (Nicotine 7 Mg Patch.Td24) 7 mg TRANSDERMA DAILY [facility] Last Admin: 07/11/23 08:09 Dose: 7 mg Documented By: KAYLA Nystatin (Nystatin Oral Susp 500,000 Unit/5 Ml Oral.Susp) 200,000 unit BUCCAL QID [facility]; Protocol Last Admin: 07/11/23 12:13 Dose: 200,000 unit Documented By: KAYLA Omeprazole (Omeprazole 40 Mg Capsule.Dr) 40 mg PO DAILY@0630 [facility] Last Admin: 07/11/23 08:08 Dose: 40 mg Documented By: KAYLA Ondansetron HCl (Ondansetron Hcl 4 Mg/2 Ml Vial) 4 mg IVPUSH Q8H PRN PRN Reason: Nausea and Vomiting Pharmacy Consult (Consult Rx Etoh Phenob Im/Po) 1 each MISCELLANE ONCE PRN; Protocol PRN Reason: Consult order Phenobarbital (Phenobarbital 15 Mg Tablet) 45 mg PO BID [facility]; Protocol Stop: 07/11/23 21:01 Last Admin: 07/11/23 08:08 Dose: 45 mg Documented By: KAYLA Phenobarbital (Phenobarbital 15 Mg Tablet) 15 mg PO BID [facility]; Protocol Stop: 07/13/23 21:01 Phenobarbital (Phenobarbital 15 Mg Tablet) 15 mg PO DAILY [facility]; Protocol Stop: 07/15/23 09:01 Potassium Chloride (Potassium Chloride Er 20 Meq Tab.Er.Prt) 20 meq PO BID [facility] Last Admin: 07/11/23 08:21 Dose: 20 meq Documented By: KAYLA Prednisolone Sodium Phosphate (Prednisolone Sodium Phosphate 15 Mg/5 Ml Solution) 40 mg PO DAILY [facility] Last Admin: 07/11/23 08:07 Dose: 40 mg Documented By: KAYLA Sodium Chloride (0.9 % Sodium Chloride Flush 3 Ml Syringe) 3 ml IVFLUSH QSHIFT [facility] Last Admin: 07/11/23 08:09 Dose: 3 ml Documented By: KAYLA Thiamine HCl (Thiamine Hcl 100 Mg Tablet) 100 mg PO DAILY [facility] Labs 07/11/23 08:00 07/11/23 08:00 Labs: Laboratory Results - last 24 hr 07/11/23 08:00 MCV 103.0 H D MCH 36.7 H MCHC 35.7 H RDW 19.1 H Plt Count 207 MPV 11.0 Immature Gran % (Auto) 1.3 H Neut % (Auto) 82.3 H Lymph % (Auto) 8.4 L [place] % (Auto) 7.5 Eos % (Auto) 0.3 Baso % (Auto) 0.2 Lymph # (Auto) 1.4 [place] # (Auto) 1.2 Eos # (Auto) 0.1 Baso # (Auto) 0.0 Abs Immat Gran (auto) 0.22 H Absolute Neuts (auto) 13.4 H Absolute Nucleated RBC 0.030 H Nucleated RBC % (auto) 0.2 PT 15.8 H INR 1.3 H Anion Gap 15 Estim Creat Clear Calc 68.3 Estimated GFR > 60 Random Glucose 93 Calcium 8.6 D Magnesium 2.2 Total Bilirubin 19.3 H Direct Bilirubin 14.8 H AST 304 H ALT 147 H Alkaline Phosphatase 358 H Ammonia 37 Total Protein 6.0 L Albumin 2.4 L Assessment and Plan (1) Alcohol withdrawal: Status: Acute Plan 57 year old women admitted with acute metabolic encephalopathy r/t alcohol withdrawal and hepatic encephalopathy with alcoholic hepatitis with elevated maddreys and anemia Transaminitis/acute alcoholic hepatitis hx of alcohol use, reports last drink 3-4 weeks ago initially but today stated that she had been drinking 2 nips of red bull a day Multiple abnormal findings on abdominal CT Seen and evaluated by GI<s/p EGD 07/07/23, gastritis noted, no active or old bleeding, no varicies. monitor for 48 more hrs Initial MELD 34--> 21 Bili increased to 18.6 07/09. Coags stable following vitamin Kx1 Initially on prednisone, stopped 07/07 d/t concern for bleeding. Maddreys 34. Per GI, resume PO steroids 07/09. Monitor for bleeding, follow h/h GI following Trend LFTs Acute alcohol withdrawal Continue phenobarbital per protocol. Monitor on CIWA folic acid, thiamine Seen by Addiction Medicine Acute metabolic encephalopathy r/t hepatic encephalopathy complicated by acute alcohol withdrawal Ammonia down to 37 Lactulose initiated 07/09, titrate to achieve 2-3 loose stools daily GI following Elevated LFTs due to above. AST/ALT trending down. Bili increased Plan as above Coagulaopathy secondary to alcohol abuse peaked at 2.3, improving s/p IV vitamin K x 1 Macrocytic anemia Possibly acute blood loss with positive stool occult but no obvious bleeding on egd 07/06 HH 10.2/30.3, stable overall. Steroids resumed 07/09, monitor h/h closely for bleeding s/p 1 unit PRBC in the ED s/p IV PPI, transitioned to oral JOHNNY- resolved trending down creat initially 1.77 Likely secondary to dehydration and poor oral intake s/p IV fluid Hyponatremia/Hypokalemia/hypomagnesemia better Resolving K 3.7, mag 1.5, na 127 (beer potomania) Likely secondary to dehydration poor oral intake Remains on oral potassium supplementation oral thrush nystatin swish and swallow FTT poor appetite over 1-2 weeks encourage oral intake add protein to diet Mood Continue fluoxetine Tobacco dependence NRT DVT prophylaxis with SCD boots secondary to anemia d/w Dr. Lozano Full code continue hospital stay for tx of acute hepatitis/ etoh withdrawal with ongoing encephalopathy and anemia secondary to alcohol use requiring s/p EGD, now continue monitoring LFTs for 48 hrs to in light of possible decompensation Quality Stroke Does the patient have a stroke diagnosis?: No VTE Prior VTE?: No VTE Risk Level:: Medical - moderate - high VTE Device Contraindication: N/A - Device Ordered VTE Drug Contraindication: Treatment Not Indicated
[2023-07-11 13:11] LABS: Alcohol, Ethyl Urine Screen NEGATIVE
[2023-07-12] VITALS (7 sets, daily range): BP systolic 116–138; BP diastolic 55–90; PULSE 74–91; RESP 16–20; TEMP 36.1–36.6; O2SAT 94–97
--- NOTE | 2023-07-12 04:29 | PC.NURSE ---
0400 sitter reported pt having frothy discharge from her mouth. pt found coughing, and voice wet. witnessed episode of pt taking sip and began coughing while drinking. respiratory at bedside and md notified. order obtained for STAT CXR and for pt NPO at this time. O2 sat on RA immediately after incident 87% which mai to 94 % on RA after cough had subsided. pt remained alert throughout incident.
--- NOTE | 2023-07-12 06:41 | PM.EVENT ---
Event Note Date of Service: 07/12/23 Event Note: 4:17 PM - contacted to notify patient was drinking and began coughing. Her O2 sats dropped momentarily. CXR was ordered STAT. Time Spent With Patient Time: Total time managing care of this patient today ____ minutes.
[2023-07-12 06:48] LABS: Hematocrit 32.9 % (37.0-47.0); Mean Corpuscular HGB Conc 36.5 g/dl (31.0-35.0); Mean Corpuscular Hemoglobin 36.9 pg (27.0-33.0); Mean Corpuscular Volume 101.2 fL (80.0-98.0); Mean Platelet Volume 10.7 fL (9.4-12.3); NRBC Pct Auto 0.1 /100WBC (0.0-0.2); Platelet Count 199 X10*3/uL (160-400); Red Blood Count 3.25 X10*6/uL (4.20-5.50); Red Cell Distribution Width 18.6 % (11.0-16.0); White Blood Count 16.9 X10*3/uL (4.8-10.8)
[2023-07-12 07:02] LABS: INTERNATIONAL NORM RATIO 1.3 (0.9-1.1); Prothrombin Time 15.2 SEC (11.1-13.3)
[2023-07-12 07:08] LABS: Alanine Aminotransferase 140 U/L (0-31); Albumin Level 2.4 g/dL (3.5-5.0); Alkaline Phosphatase 347 U/L (39-117); Anion Gap 15 (12-20); Aspartate Amino Transferase 222 U/L (5-31); Bilirubin Direct 14.2 mg/dL (0.0-0.5); Bilirubin Total 18.6 mg/dL (0.0-1.0); Blood Urea Nitrogen 13 mg/dL (9-16); Calcium 8.5 mg/dL (8.4-10.2); Carbon Dioxide 20 mmol/L (22-29); Chloride 96 mmol/L (96-108); Creatinine Clr Calc Pharmacy 81.4; Estimated Glomerular Filt Rate > 60; Glucose Random 76 mg/dL (60-115); Magnesium 2.1 mg/dL (1.6-2.6); Potassium 3.8 mmol/L (3.3-5.1); Sodium 127 mmol/L (135-145)
[2023-07-12] MEDS: Nystatin Oral Susp 500,000 UNIT/5 ML ORAL.SUSP 200000 UNIT BUCCAL ×4 (09:26→20:11)
[2023-07-12] MEDS: Potassium Chloride ER 20 MEQ TAB.ER.PRT PO ×2 (09:27→20:10)
[2023-07-12] MEDS: PHENobarbitaL 15 MG TABLET PO ×2 (09:27→20:11)
[2023-07-12] MEDS: prednisoLONE sodium phosphate 15 MG/5 ML SOLUTION 40 MG PO (09:27)
[2023-07-12] MEDS: FLUoxetine HCl 20 MG CAPSULE 60 MG PO (09:28)
[2023-07-12] MEDS: Magnesium Oxide 400 MG TABLET PO ×2 (09:28→16:32)
[2023-07-12] MEDS: Folic Acid 1 MG TABLET PO (09:28)
[2023-07-12] MEDS: Thiamine HCL 100 MG TABLET PO (09:30)
[2023-07-12] MEDS: Nicotine 7 MG PATCH.TD24 TRANSDERMA (09:30)
[2023-07-12] MEDS: 0.9 % Sodium Chloride Flush 3 ML SYRINGE IVFLUSH ×2 (09:31→14:43)
--- NOTE | 2023-07-12 11:40 | MHC.SL.SWA ---
Speech Pathologist Impression: Risk of aspiration Risk of Aspiration Due to: Lethargy Dysphasia Diet Status: Upgrade to REGULAR Liquid Consistency and Strategies for Safe Swallow: Liquid Intake Recommendation: Thin Liquid Intake Strategies: Small Sips Solid Food Consistency: Dietary Recommendations: Regular Additional Modifications to Solid Foods: Patient was seen for bedside swallow exam this morning. Slowed mastication secondary to generalized weakness/lethargy, but otherwise all other aspects of swallow deemed WFL. No s/s of aspiration and good oral clearance. Recommend UPGRADE from NPO, start on REGULAR texture diet with THIN liquids, pills WHOLE with LIQUID. Further ST no longer warranted at this level of care. Please re-refer if needed. Oral Medication Intake: Whole with Liquid Please contact the pharmacy regarding appropriate crushable or liquid drug formulations that are available whenever modified delivery is recommended. Compensatory Strategies and Precautions to be Taken for Safe Swallow: Sitting Upright (90 deg) Small Bites and Sips Alternate Liquids/Solids Rate of Ingestion Change Supervision While Eating and Drinking for Safe Swallow: None Needed Recommendation for Speech: NA:Typical Evaluation Comment: Recommend: REGULAR texture food and THIN liquids and alternate solids and liquids. Please re-refer with any further concerns. Machinery Dismantler Clinican/Clinical Fellow: Yes: Sharona Enciso Supervisory Statement: I have reviewed and agree with the student/clinical fellow's documentation: Yes Speech Language Pathologist: Sarah Robison M.A., CCC-INSIDE SALES ASSISTANT
--- NOTE | 2023-07-12 12:55 | MHC.CM.PN ---
EMR REVIEWED, PT REMAINS ON PHENOBARB PROTOCOL, STILL SCORING ON CIWA, PLAN TO WEAN PT OFF O2 AND ANTIC W/E DC, PLAN REMAINS HOME NO SERVICES W/PT ARRANGING TRANSPORT.
[2023-07-12 13:37] LABS: Smooth Muscle Antibody <20 U (<20)
--- NOTE | 2023-07-12 15:29 | P.PNIM_ITS ---
Subjective Subjective Date of Service: 07/12/23 Interval History: Seen and examined this morning Follow-up for alcoholic hepatitis, encephalopathy had an episode of coughing after drinking water overnight, seen by speech rec to resume regular diet No abdominal pain Review of Systems Review of Systems: Yes all other systems are reviewed and are negative Constitutional Constitutional: Denies chills and Denies fever(s) Cardiovascular Cardiovascular: Denies chest pain Respiratory Respiratory: Denies cough Gastrointestinal Gastrointestinal: Denies abdominal pain Physical Exam 2 Vital Signs: Vital Signs: Last Vital Signs Temp 97.7 F 07/12/23 11:13 Pulse 90 07/12/23 11:13 Resp 20 07/12/23 11:13 BP 138/90 H 07/12/23 11:13 Pulse Ox 97 07/12/23 13:46 O2 Del Method Room Air 07/12/23 13:00 O2 Flow Rate 6 07/08/23 13:52 BMI result Body Mass Index 24.1 Const: General: cooperative, comfortable, no acute distress, alert and awake Nutritional Appearance: average body habitus Orientation/consciousness: o riented to person and oriented to place Eyes: Other: Scleral icterus present Resp: Effort & Inspection: normal respiratory effort, able to speak in complete sentences, no respiratory distress and no use of accessory muscles Cardio: Rate: regular rate GI: Inspection: No distended Palpation (GI): Soft to palpation and nontender Skin: Other: Jaundice Neuro: Other: No asterixis General: oriented to person, oriented to place, moves all extremities and CN's II-XI intact bilaterally Objective Data Active Medications Fluoxetine HCl (Fluoxetine Hcl 20 Mg Capsule) 60 mg PO DAILY [facility] Last Admin: 07/12/23 09:28 Dose: 60 mg Documented By: KAYLA Folic Acid (Folic Acid 1 Mg Tablet) 1 mg PO DAILY [facility] Last Admin: 07/12/23 09:28 Dose: 1 mg Documented By: KAYLA Hydrocortisone (Hydrocortisone 1 % Ointment 28.35 Gm Tube) 1 appl TOPICAL BID PRN; Protocol PRN Reason: skin irritation Lactulose (Lactulose 20 Gm/30 Ml Solution) 20 gm PO BID [facility] Last Admin: 07/12/23 09:28 Dose: Not Given Documented By: KAYLA Non-Admin Reason: Hold per provider Lorazepam (Lorazepam 0.5 Mg Tablet) 0.5 mg PO BEDTIME PRN PRN Reason: anxiety/restlessness Magnesium Oxide (Magnesium Oxide 400 Mg Tablet) 400 mg PO BIDPC [facility] Last Admin: 07/12/23 09:28 Dose: 400 mg Documented By: KAYLA Nicotine (Nicotine 7 Mg Patch.Td24) 7 mg TRANSDERMA DAILY [facility] Last Admin: 07/12/23 09:30 Dose: 7 mg Documented By: KAYLA Nystatin (Nystatin Oral Susp 500,000 Unit/5 Ml Oral.Susp) 200,000 unit BUCCAL QID [facility]; Protocol Last Admin: 07/12/23 14:43 Dose: 200,000 unit Documented By: KAYLA Omeprazole (Omeprazole 40 Mg Capsule.Dr) 40 mg PO DAILY@0630 [facility] Last Admin: 07/12/23 06:33 Dose: Not Given Documented By: HAIR Non-Admin Reason: NPO Ondansetron HCl (Ondansetron Hcl 4 Mg/2 Ml Vial) 4 mg IVPUSH Q8H PRN PRN Reason: Nausea and Vomiting Pharmacy Consult (Consult Rx Etoh Phenob Im/Po) 1 each MISCELLANE ONCE PRN; Protocol PRN Reason: Consult order Phenobarbital (Phenobarbital 15 Mg Tablet) 15 mg PO BID [facility]; Protocol Stop: 07/13/23 21:01 Last Admin: 07/12/23 09:27 Dose: 15 mg Documented By: KAYLA Phenobarbital (Phenobarbital 15 Mg Tablet) 15 mg PO DAILY [facility]; Protocol Stop: 07/15/23 09:01 Potassium Chloride (Potassium Chloride Er 20 Meq Tab.Er.Prt) 20 meq PO BID [facility] Last Admin: 07/12/23 09:27 Dose: 20 meq Documented By: KAYLA Prednisolone Sodium Phosphate (Prednisolone Sodium Phosphate 15 Mg/5 Ml Solution) 40 mg PO DAILY [facility] Last Admin: 07/12/23 09:27 Dose: 40 mg Documented By: KAYLA Sodium Chloride (0.9 % Sodium Chloride Flush 3 Ml Syringe) 3 ml IVFLUSH QSHIFT [facility] Last Admin: 07/12/23 14:43 Dose: 3 ml Documented By: KAYLA Thiamine HCl (Thiamine Hcl 100 Mg Tablet) 100 mg PO DAILY [facility] Last Admin: 07/12/23 09:30 Dose: 100 mg Documented By: KAYLA Labs 07/12/23 06:28 07/12/23 06:28 Labs: Laboratory Results - last 24 hr 07/08/23 07/12/23 07:20 06:28 MCV 101.2 H MCH 36.9 H MCHC 36.5 H RDW 18.6 H Plt Count 199 MPV 10.7 Absolute Nucleated RBC 0.020 H Nucleated RBC % (auto) 0.1 PT 15.2 H INR 1.3 H Anion Gap 15 Estim Creat Clear Calc 81.4 Estimated GFR > 60 Random Glucose 76 Calcium 8.5 Magnesium 2.1 Total Bilirubin 18.6 H Direct Bilirubin 14.2 H AST 222 H ALT 140 H Alkaline Phosphatase 347 H Total Protein 6.0 L Albumin 2.4 L Anti-Smooth Muscle Ab <20 Assessment and Plan (1) Alcohol use disorder: Status: Acute (2) Alcohol withdrawal: Status: Acute (3) Alcoholic hepatitis: Status: Acute (4) Hyponatremia: Status: Acute Plan This is a 57 year old women admitted with acute metabolic encephalopathy r/t alcohol withdrawal and hepatic encephalopathy with alcoholic hepatitis with elevated maddreys and anemia Transaminitis/acute alcoholic hepatitis Seen and evaluated by GI<s/p EGD 07/07/23, gastritis noted, no active or old bleeding, no varicies Initial MELD 34--> 21 Bili increased to 18.6 07/09. Coags stable following vitamin Kx1 Initially on prednisone, stopped 07/07 d/t concern for bleeding. Maddreys 34. Per GI, resume PO steroids 07/09. Monitor for bleeding, follow h/h GI following Trend LFTs Acute alcohol withdrawal Continue phenobarbital Monitor CIWA folic acid, thiamine supplementation Seen by Addiction Medicine Acute metabolic encephalopathy r/t hepatic encephalopathy complicated by acute alcohol withdrawal Ammonia down to 37 Lactulose initiated 07/09, titrate to achieve 2-3 loose stools daily GI following Coagulaopathy secondary to alcohol abuse peaked at 2.3, improving s/p IV vitamin K x 1 Macrocytic anemia Possibly acute blood loss with positive stool occult but no obvious bleeding on egd 07/06 HH 10.2/30.3, stable overall. Steroids resumed 07/09, monitor h/h closely for bleeding s/p 1 unit PRBC in the ED s/p IV PPI, transitioned to oral leukocytosis likely due to steroids JOHNNY- resolved trending down creat initially 1.77 Likely secondary to dehydration and poor oral intake s/p IV fluid Hyponatremia/Hypokalemia/hypomagnesemia better Resolving K 3.7, mag 1.5, na 127 (beer potomania) Likely secondary to dehydration poor oral intake Remains on oral potassium supplementation oral thrush nystatin swish and swallow FTT poor appetite over 1-2 weeks encourage oral intake add protein to diet Mood Continue fluoxetine Tobacco dependence NRT DVT prophylaxis with SCD boots secondary to anemia d/w Dr. Lozano Full code continue hospital stay for tx of acute hepatitis/ etoh withdrawal with ongoing encephalopathy and anemia secondary to alcohol use requiring s/p EGD Quality Stroke Does the patient have a stroke diagnosis?: No VTE Prior VTE?: No VTE Risk Level:: Medical - moderate - high VTE Device Contraindication: N/A - Device Ordered VTE Drug Contraindication: Treatment Not Indicated
[2023-07-12] MEDS: Hydrocortisone 1 % Ointment 28.35 GM TUBE 1 APPL TOPICAL (21:07)
[2023-07-12] MEDS: guaiFENesin DM 600/30 1 TAB TAB.ER.12H 2 TAB PO (21:07)
[2023-07-13] VITALS (7 sets, daily range): BP systolic 112–143; BP diastolic 61–79; PULSE 75–83; RESP 16–18; TEMP 36–36.8; O2SAT 93–99
[2023-07-13] MEDS: Omeprazole 40 MG CAPSULE.DR PO (05:51)
[2023-07-13] MEDS: FLUoxetine HCl 20 MG CAPSULE 60 MG PO (08:19)
[2023-07-13] MEDS: PHENobarbitaL 15 MG TABLET PO ×2 (08:19→21:25)
[2023-07-13] MEDS: 0.9 % Sodium Chloride Flush 3 ML SYRINGE IVFLUSH ×3 (08:19→21:28)
[2023-07-13] MEDS: Potassium Chloride ER 20 MEQ TAB.ER.PRT PO ×2 (08:20→21:25)
[2023-07-13] MEDS: Magnesium Oxide 400 MG TABLET PO ×2 (08:20→18:36)
[2023-07-13] MEDS: Nystatin Oral Susp 500,000 UNIT/5 ML ORAL.SUSP 200000 UNIT BUCCAL ×3 (08:20→21:24)
[2023-07-13] MEDS: Folic Acid 1 MG TABLET PO (08:20)
[2023-07-13] MEDS: Lactulose 20 GM/30 ML SOLUTION PO (08:21)
[2023-07-13] MEDS: prednisoLONE sodium phosphate 15 MG/5 ML SOLUTION 40 MG PO (08:21)
[2023-07-13] MEDS: Thiamine HCL 100 MG TABLET PO (08:21)
[2023-07-13] MEDS: Nicotine 7 MG PATCH.TD24 TRANSDERMA (08:25)
[2023-07-13 08:52] LABS: Alanine Aminotransferase 120 U/L (0-31); Albumin Level 2.3 g/dL (3.5-5.0); Alkaline Phosphatase 359 U/L (39-117); Anion Gap 12 (12-20); Aspartate Amino Transferase 176 U/L (5-31); Bilirubin Total 17.1 mg/dL (0.0-1.0); Blood Urea Nitrogen 12 mg/dL (9-16); Calcium 8.3 mg/dL (8.4-10.2); Carbon Dioxide 23 mmol/L (22-29); Chloride 96 mmol/L (96-108); Creatinine Clr Calc Pharmacy 81.4; Estimated Glomerular Filt Rate > 60; Glucose Random 70 mg/dL (60-115); Potassium 4.1 mmol/L (3.3-5.1); Sodium 127 mmol/L (135-145); Total Protein 5.7 g/dL (6.5-8.0)
--- NOTE | 2023-07-13 12:13 | MHC.RECOVRN ---
Met with pt in 484 to follow up and provide support.? Pt lethargic and resting in bed and did not stay awake for interactions.? Daughter was at bedside so I met with her.? Daughter is attempting to get pt to go to rehab prior to going home as she still has high need for care.? T/W provided pt?s daughter with education and support and reminded her of pt?s appt. at [facility] on 07/14 at 2:30 if able to attend.? ? No other concerns at this time.? T/W will F/U with pt tomorrow. ACS team available as needed.
--- NOTE | 2023-07-13 14:05 | HO.PM.IMPN ---
Subjective Subjective Date of Service: 07/13/23 Interval History: Seen and examined this morning Follow-up for alcoholic hepatitis More awake today, no specific complaints Wants to go home, not sure she wants to go to rehab Review of Systems Review of Systems: Yes all other systems are reviewed and are negative Constitutional Constitutional: Denies chills and Denies fever(s) Cardiovascular Cardiovascular: Denies chest pain and Denies palpitations Gastrointestinal Gastrointestinal: Denies abdominal pain Endocrine Endocrine: Denies palpitations Physical Exam Vital Signs: Vital Signs: Last Vital Signs Temp 98.3 F 07/13/23 11:29 Pulse 81 07/13/23 11:29 Resp 18 07/13/23 11:29 BP 143/79 H 07/13/23 11:29 Pulse Ox 99 07/13/23 12:14 O2 Del Method Room Air 07/13/23 12:14 O2 Flow Rate 6 07/08/23 13:52 BMI result Body Mass Index 24.1 Const: General: cooperative, comfortable, no acute distress, alert and awake Nutritional Appearance: average body habitus Orientation/consciousness: oriented to person and oriented to place Eyes: Other: Scleral icterus present Resp: Effort & Inspection: normal respiratory effort, able to speak in complete sentences, no respiratory distress and no use of accessory muscles Cardio: Rate: regular rate GI: Inspection: No distended Palpation (GI): Soft to palpation and nontender Skin: Other: Jaundice Neuro: Other: No asterixis General: oriented to person, oriented to place, moves all extremities and CN's II-XI intact bilaterally Objective Data Active Medications Fluoxetine HCl (Fluoxetine Hcl 20 Mg Capsule) 60 mg PO DAILY [facility] Last Admin: 07/13/23 08:19 Dose: 60 mg Documented By: SIERRA Folic Acid (Folic Acid 1 Mg Tablet) 1 mg PO DAILY [facility] Last Admin: 07/13/23 08:20 Dose: 1 mg Documented By: SIERRA Guaifenesin/Dextromethorphan (Guaifenesin Dm 600/30 1 Tab Tab.Er.12h) 2 tab PO BID PRN PRN Reason: Cough Last Admin: 07/12/23 21:07 Dose: 2 tab Documented By: HAIR Hydrocortisone (Hydrocortisone 1 % Ointment 28.35 Gm Tube) 1 appl TOPICAL BID PRN; Protocol PRN Reason: skin irritation Last Admin: 07/12/23 21:07 Dose: 1 appl Documented By: HAIR Lactulose (Lactulose 20 Gm/30 Ml Solution) 20 gm PO DAILY [facility] Lorazepam (Lorazepam 0.5 Mg Tablet) 0.5 mg PO BEDTIME PRN PRN Reason: anxiety/restlessness Magnesium Oxide (Magnesium Oxide 400 Mg Tablet) 400 mg PO BIDPC [facility] Last Admin: 07/13/23 08:20 Dose: 400 mg Documented By: SIERRA Nicotine (Nicotine 7 Mg Patch.Td24) 7 mg TRANSDERMA DAILY [facility] Last Admin: 07/13/23 08:25 Dose: 7 mg Documented By: SIERRA Nystatin (Nystatin Oral Susp 500,000 Unit/5 Ml Oral.Susp) 200,000 unit BUCCAL QID [facility]; Protocol Last Admin: 07/13/23 08:20 Dose: 200,000 unit Documented By: SIERRA Omeprazole (Omeprazole 40 Mg Capsule.Dr) 40 mg PO DAILY@0630 [facility] Last Admin: 07/13/23 05:51 Dose: 40 mg Documented By: SHELLIE Ondansetron HCl (Ondansetron Hcl 4 Mg/2 Ml Vial) 4 mg IVPUSH Q8H PRN PRN Reason: Nausea and Vomiting Pharmacy Consult (Consult Rx Etoh Phenob Im/Po) 1 each MISCELLANE ONCE PRN; Protocol PRN Reason: Consult order Phenobarbital (Phenobarbital 15 Mg Tablet) 15 mg PO BID [facility]; Protocol Stop: 07/13/23 21:01 Last Admin: 07/13/23 08:19 Dose: 15 mg Documented By: SIERRA Phenobarbital (Phenobarbital 15 Mg Tablet) 15 mg PO DAILY [facility]; Protocol Stop: 07/15/23 09:01 Potassium Chloride (Potassium Chloride Er 20 Meq Tab.Er.Prt) 20 meq PO BID [facility] Last Admin: 07/13/23 08:20 Dose: 20 meq Documented By: SIERRA Prednisolone Sodium Phosphate (Prednisolone Sodium Phosphate 15 Mg/5 Ml Solution) 40 mg PO DAILY [facility] Last Admin: 07/13/23 08:21 Dose: 40 mg Documented By: SIERRA Sodium Chloride (0.9 % Sodium Chloride Flush 3 Ml Syringe) 3 ml IVFLUSH QSHIFT [facility] Last Admin: 07/13/23 08:19 Dose: 3 ml Documented By: SIERRA Thiamine HCl (Thiamine Hcl 100 Mg Tablet) 100 mg PO DAILY [facility] Last Admin: 07/13/23 08:21 Dose: 100 mg Documented By: SIERRA Labs 07/12/23 06:28 07/13/23 08:15 Labs: Laboratory Results - last 24 hr 07/13/23 08:15 Hold Purple Top SEE NOTE Anion Gap 12 Estim Creat Clear Calc 81.4 Estimated GFR > 60 Random Glucose 70 Calcium 8.3 L Total Bilirubin 17.1 H Direct Bilirubin 13.0 H AST 176 H ALT 120 H Alkaline Phosphatase 359 H Total Protein 5.7 L Albumin 2.3 L Assessment and Plan (1) Hyponatremia: Status: Acute (2) Alcoholic hepatitis: Status: Acute Plan This is a 57 year old women admitted with acute metabolic encephalopathy r/t alcohol withdrawal and hepatic encephalopathy with alcoholic hepatitis with elevated maddreys and anemia Transaminitis/acute alcoholic hepatitis Seen and evaluated by GI<s/p EGD 07/07/23, gastritis noted, no active or old bleeding, no varicies LFTs trending down slightly Initially on prednisone, stopped 07/07 d/t concern for bleeding. Maddreys 34. Per GI, resume PO steroids 07/09. Monitor for bleeding H/H stable GI following Trend LFTs Plan for slow steroid taper- prednisolone 40 mg for 7 days and then taper by 10 mg per week; repeat LFTs by the end of next week if patient discharged Acute alcohol withdrawal Continue phenobarbital Monitor CIWA folic acid, thiamine supplementation Seen by Addiction Medicine Acute metabolic encephalopathy r/t hepatic encephalopathy complicated by acute alcohol withdrawal Ammonia down to 37 Lactulose initiated 07/09, titrate to achieve 2-3 loose stools daily; dose decreased to daily given multiple loose stools daily GI following Coagulaopathy secondary to alcohol abuse peaked at 2.3, improving s/p IV vitamin K x 1 Macrocytic anemia Possibly acute blood loss with positive stool occult but no obvious bleeding on egd 07/06 HH 10.2/30.3, stable overall. Steroids resumed 07/09, monitor h/h closely for bleeding s/p 1 unit PRBC in the ED s/p IV PPI, transitioned to oral leukocytosis likely due to steroids JOHNNY- resolved with IVF Likely secondary to dehydration and poor oral intake Hyponatremia/Hypokalemia/hypomagnesemia Hypomagnesemia, hypokalemia resolved with replacement Continues to have hyponatremia likely due to beer potomania - have not been unable to collect urine studies thus far. Should improve as appetite improves Remains on oral potassium supplementation oral thrush nystatin swish and swallow FTT poor appetite encourage oral intake add protein to diet Mood Continue fluoxetine Tobacco dependence NRT DVT prophylaxis with SCD boots secondary to anemia d/w Dr. Lozano Full code PT rec - STR continue hospital stay for tx of acute hepatitis/ etoh withdrawal with ongoing encephalopathy and anemia secondary to alcohol use requiring s/p EGD Quality Stroke Does the patient have a stroke diagnosis?: No VTE Prior VTE?: No VTE Risk Level:: Medical - moderate - high VTE Device Contraindication: N/A - Device Ordered VTE Drug Contraindication: Treatment Not Indicated
--- NOTE | 2023-07-13 16:10 | MHC.CM.PN ---
CM MET WITH PT TO DISCUSS DC PLANNING PT IS AWARE STR IS BEING RECOMMENDED, HOWEVER STATES SHE IS NOT WILLING TO CONSIDER IT PT STATES HER BOYFRIEND IS HOME WITH HER AND SHE IS RARELY EVER ALONE SHE STATES HE WILL ASSIST WITH ANYTHING SHE NEEDS SHE SAYS SHE IS ACTIVE WITH DR ARTEAGA AND IS AGREEABLE TO [facility] REFERRALS PLACED
[2023-07-13 21:14] LABS: Anti Nuclear Antibody Screen NEGATIVE (NEGATIVE)
[2023-07-14] VITALS (9 sets, daily range): BP systolic 107–138; BP diastolic 58–78; PULSE 73–83; RESP 16–20; TEMP 36–37.1; O2SAT 96–99
[2023-07-14] MEDS: Omeprazole 40 MG CAPSULE.DR PO (06:04)
[2023-07-14 08:30] LABS: INTERNATIONAL NORM RATIO 1.2 (0.9-1.1); Prothrombin Time 14.8 SEC (11.1-13.3)
[2023-07-14] MEDS: PHENobarbitaL 15 MG TABLET PO (08:37)
[2023-07-14] MEDS: FLUoxetine HCl 20 MG CAPSULE 60 MG PO (08:37)
[2023-07-14] MEDS: Nicotine 7 MG PATCH.TD24 TRANSDERMA (08:38)
[2023-07-14] MEDS: 0.9 % Sodium Chloride Flush 3 ML SYRINGE IVFLUSH ×3 (08:38→19:40)
[2023-07-14] MEDS: Potassium Chloride ER 20 MEQ TAB.ER.PRT PO (08:38)
[2023-07-14] MEDS: Magnesium Oxide 400 MG TABLET PO ×2 (08:38→16:58)
[2023-07-14] MEDS: Folic Acid 1 MG TABLET PO (08:38)
[2023-07-14] MEDS: Thiamine HCL 100 MG TABLET PO (08:38)
[2023-07-14] MEDS: Nystatin Oral Susp 500,000 UNIT/5 ML ORAL.SUSP 200000 UNIT BUCCAL ×2 (08:39→17:05)
[2023-07-14] MEDS: Lactulose 20 GM/30 ML SOLUTION PO (08:39)
[2023-07-14 09:01] LABS: Osmolality, Serum 261 mosm/kg (281-305)
[2023-07-14 09:05] LABS: Alanine Aminotransferase 111 U/L (0-31); Albumin Level 2.2 g/dL (3.5-5.0); Alkaline Phosphatase 359 U/L (39-117); Anion Gap 18 (12-20); Aspartate Amino Transferase 164 U/L (5-31); Bilirubin Direct 11.1 mg/dL (0.0-0.5); Blood Urea Nitrogen 10 mg/dL (9-16); Calcium 8.4 mg/dL (8.4-10.2); Carbon Dioxide 16 mmol/L (22-29); Chloride 97 mmol/L (96-108); Creatinine Clr Calc Pharmacy 110.2; Estimated Glomerular Filt Rate > 60; Glucose Random 82 mg/dL (60-115); Potassium 4.5 mmol/L (3.3-5.1); Sodium 126 mmol/L (135-145); Total Protein 5.9 g/dL (6.5-8.0)
--- NOTE | 2023-07-14 10:43 | MHC.RECOVRN ---
T/w unable to meet with pt today as upon arrival pt. was resting and did not awake to voice. Report to/from floor nurse Yumi and ACS team for ongoing F/U.
--- NOTE | 2023-07-14 11:58 | HO.PM.IMPN ---
Subjective Subjective Date of Service: 07/14/23 Interval History: Seen and examined this morning Patient more awake this morning, sitting up Reports starting to feel more energy. Denies abdominal pain, nausea Review of Systems Review of Systems: Yes all other systems are reviewed and are negative Constitutional Constitutional: Denies chills and Denies fever(s) Physical Exam Vital Signs: Vital Signs: Last Vital Signs Temp 97.9 F 07/14/23 11:10 Pulse 83 07/14/23 11:10 Resp 19 07/14/23 11:10 BP 138/78 07/14/23 11:10 Pulse Ox 98 07/14/23 11:10 O2 Del Method Room Air 07/14/23 11:10 O2 Flow Rate 6 07/08/23 13:52 BMI result Body Mass Index 24.1 Const: General: cooperative, comfortable, no acute distress, alert and awake Nutritional Appearance: average body habitus Orientation/consciousness: oriented to person and oriented to place Eyes: Other: Scleral icterus present Resp: Effort & Inspection: normal respiratory effort, able to speak in complete sentences, no respiratory distress and no use of accessory muscles Cardio: Rate: regular rate GI: Other: some ascites on exam +fluid wave. no abdominal distention or tenderness +BS Palpation (GI): Soft to palpation and nontender Skin: Other: Jaundice Neuro: Other: No asterixis General: oriented to person, oriented to place, moves all extremities and CN's II-XI intact bilaterally Extrem: General: Yes no pedal edema Objective Data Active Medications Fluoxetine HCl (Fluoxetine Hcl 20 Mg Capsule) 60 mg PO DAILY [facility] Last Admin: 07/14/23 08:37 Dose: 60 mg Documented By: SIERRA Folic Acid (Folic Acid 1 Mg Tablet) 1 mg PO DAILY [facility] Last Admin: 07/14/23 08:38 Dose: 1 mg Documented By: SIERRA Guaifenesin/Dextromethorphan (Guaifenesin Dm 600/30 1 Tab Tab.Er.12h) 2 tab PO BID PRN PRN Reason: Cough Last Admin: 07/12/23 21:07 Dose: 2 tab Documented By: HAIR Hydrocortisone (Hydrocortisone 1 % Ointment 28.35 Gm Tube) 1 appl TOPICAL BID PRN; Protocol PRN Reason: skin irritation Last Admin: 07/12/23 21:07 Dose: 1 appl Documented By: HAIR Lactulose (Lactulose 20 Gm/30 Ml Solution) 20 gm PO DAILY [facility] Last Admin: 07/14/23 08:39 Dose: 20 gm Documented By: SIERRA Lorazepam (Lorazepam 0.5 Mg Tablet) 0.5 mg PO BEDTIME PRN PRN Reason: anxiety/restlessness Magnesium Oxide (Magnesium Oxide 400 Mg Tablet) 400 mg PO BIDPC [facility] Last Admin: 07/14/23 08:38 Dose: 400 mg Documented By: SIERRA Nicotine (Nicotine 7 Mg Patch.Td24) 7 mg TRANSDERMA DAILY [facility] Last Admin: 07/14/23 08:38 Dose: 7 mg Documented By: SIERRA Nystatin (Nystatin Oral Susp 500,000 Unit/5 Ml Oral.Susp) 200,000 unit BUCCAL QID [facility]; Protocol Last Admin: 07/14/23 08:39 Dose: 200,000 unit Documented By: SIERRA Omeprazole (Omeprazole 40 Mg Capsule.Dr) 40 mg PO DAILY@0630 [facility] Last Admin: 07/14/23 06:04 Dose: 40 mg Documented By: RISHI Ondansetron HCl (Ondansetron Hcl 4 Mg/2 Ml Vial) 4 mg IVPUSH Q8H PRN PRN Reason: Nausea and Vomiting Pharmacy Consult (Consult Rx Etoh Phenob Im/Po) 1 each MISCELLANE ONCE PRN; Protocol PRN Reason: Consult order Phenobarbital (Phenobarbital 15 Mg Tablet) 15 mg PO DAILY [facility]; Protocol Stop: 07/15/23 09:01 Last Admin: 07/14/23 08:37 Dose: 15 mg Documented By: SIERRA Potassium Chloride (Potassium Chloride Er 20 Meq Tab.Er.Prt) 20 meq PO BID [facility] Last Admin: 07/14/23 08:38 Dose: 20 meq Documented By: SIERRA Prednisolone Sodium Phosphate (Prednisolone Sodium Phosphate 15 Mg/5 Ml Solution) 40 mg PO DAILY [facility] Last Admin: 07/13/23 08:21 Dose: 40 mg Documented By: SIERRA Sodium Chloride (0.9 % Sodium Chloride Flush 3 Ml Syringe) 3 ml IVFLUSH QSHIFT [facility] Last Admin: 07/14/23 08:38 Dose: 3 ml Documented By: SIERRA Thiamine HCl (Thiamine Hcl 100 Mg Tablet) 100 mg PO DAILY [facility] Last Admin: 07/14/23 08:38 Dose: 100 mg Documented By: SIERRA Labs 07/12/23 06:28 07/14/23 08:07 Labs: Laboratory Results - last 24 hr 07/08/23 07/14/23 07:20 08:07 PT 14.8 H INR 1.2 H Anion Gap 18 Estim Creat Clear Calc 110.2 Estimated GFR > 60 Random Glucose 82 Osmolality 261 L Calcium 8.4 Total Bilirubin 15.0 H Direct Bilirubin 11.1 H AST 164 H ALT 111 H Alkaline Phosphatase 359 H Total Protein 5.9 L Albumin 2.2 L KEARA Screen NEGATIVE KEARA Titer TNP KEARA Titer 2 TNP KERAA Titer 3 TNP KEARA Pattern TNP KEARA Pattern 2 TNP KEARA Pattern 3 TNP Assessment and Plan (1) Hyponatremia: Status: Acute (2) Alcohol use disorder: Status: Acute (3) Hepatic encephalopathy: Status: Acute (4) Alcoholic hepatitis: Status: Acute Plan This is a 57 year old women admitted with acute metabolic encephalopathy r/t alcohol withdrawal and hepatic encephalopathy with alcoholic hepatitis with elevated maddreys and anemia Hyponatremiea Likely multifactorial due to beer potomania, SSRI, underlying liver disease have not been unable to collect urine studies thus far, repeat ordered nephrology consult pending Transaminitis/acute alcoholic hepatitis Seen and evaluated by GI<s/p EGD 07/07/23, gastritis noted, no active or old bleeding, no varicies LFTs trending down Initially on prednisolone, stopped 07/07 d/t concern for bleeding. Per GI, resume PO steroids 07/09. Monitor for bleeding H/H stable GI following Trend LFTs Plan for slow steroid taper- prednisolone 40 mg for 7 days (end date 07/15) and then taper by 10 mg per week; repeat LFTs by the end of next week if patient discharged Acute alcohol withdrawal Continue phenobarbital CIWA trending down folic acid, thiamine supplementation Seen by Addiction Medicine Acute metabolic encephalopathy r/t hepatic encephalopathy complicated by acute alcohol withdrawal Ammonia down to 37 Lactulose initiated 07/09, titrate to achieve 2-3 loose stools daily; dose decreased to daily given multiple loose stools daily more awake and lucid today Coagulaopathy secondary to alcohol abuse peaked at 2.3, improving down to 1.2 s/p IV vitamin K x 1 Macrocytic anemia Possibly acute blood loss with positive stool occult but no obvious bleeding on egd 07/06 HH 10.2/30.3, stable overall. Steroids resumed 07/09, monitor h/h closely for bleeding s/p 1 unit PRBC in the ED s/p IV PPI, transitioned to oral leukocytosis likely due to steroids JOHNNY- resolved with IVF Likely secondary to dehydration and poor oral intake Hypokalemia/hypomagnesemia Hypomagnesemia, hypokalemia resolved with replacement Remains on oral potassium supplementation oral thrush nystatin swish and swallow FTT poor appetite encourage oral intake add protein to diet PT - rec STR but patient declines rehab. Patient is still and 1 assist for ambulation Mood Continue fluoxetine Tobacco dependence NRT DVT prophylaxis with SCD boots secondary to anemia Full code PT rec - STR but patient wishes to return home with services continue hospital stay for tx of acute hepatitis/ etoh withdrawal with ongoing encephalopathy and anemia secondary to alcohol use requiring s/p EGD Quality Stroke Does the patient have a stroke diagnosis?: No VTE Prior VTE?: No VTE Risk Level:: Medical - moderate - high VTE Device Contraindication: N/A - Device Ordered VTE Drug Contraindication: Treatment Not Indicated
[2023-07-14] MEDS: prednisoLONE sodium phosphate 15 MG/5 ML SOLUTION 40 MG PO (12:20)
[2023-07-14] MEDS: guaiFENesin DM 600/30 1 TAB TAB.ER.12H 2 TAB PO (19:40)
--- NOTE | 2023-07-14 20:37 | PM.EVENT ---
Event Note Date of Service: 07/14/23 Event Note: Consulted for Hyponatremia. Serum sodium stable. Urine studies pending. No indication for any medication intervention for hyponatremia tonight. Detailed note to follow AM. Magno Mitchell MD
[2023-07-14] MEDS: Albuterol Sulfate 90 MCG 8 GM INHALER 2 PUFF INHALE (21:18)
[2023-07-15] VITALS (9 sets, daily range): BP systolic 118–146; BP diastolic 66–74; PULSE 74–83; RESP 16–20; TEMP 36.2–36.8; O2SAT 94–100
[2023-07-15] MEDS: Albuterol Sulfate 90 MCG 8 GM INHALER 2 PUFF INHALE ×2 (04:14→16:06)
[2023-07-15] MEDS: Omeprazole 40 MG CAPSULE.DR PO (06:17)
[2023-07-15 06:43] LABS: Anion Gap 12 (12-20); Blood Urea Nitrogen 9 mg/dL (9-16); Calcium 7.9 mg/dL (8.4-10.2); Carbon Dioxide 22 mmol/L (22-29); Chloride 96 mmol/L (96-108); Creatinine Clr Calc Pharmacy 88.7; Estimated Glomerular Filt Rate > 60; Glucose Random 82 mg/dL (60-115); Sodium 126 mmol/L (135-145)
[2023-07-15] MEDS: prednisoLONE sodium phosphate 15 MG/5 ML SOLUTION 40 MG PO (08:47)
[2023-07-15] MEDS: Nicotine 7 MG PATCH.TD24 TRANSDERMA (08:47)
[2023-07-15] MEDS: Nystatin Oral Susp 500,000 UNIT/5 ML ORAL.SUSP 200000 UNIT BUCCAL ×3 (08:47→20:56)
[2023-07-15] MEDS: Potassium Chloride ER 20 MEQ TAB.ER.PRT PO (08:48)
[2023-07-15] MEDS: Thiamine HCL 100 MG TABLET PO (08:48)
[2023-07-15] MEDS: PHENobarbitaL 15 MG TABLET PO (08:48)
[2023-07-15] MEDS: Magnesium Oxide 400 MG TABLET PO ×2 (08:48→16:45)
[2023-07-15] MEDS: FLUoxetine HCl 20 MG CAPSULE 60 MG PO (08:48)
[2023-07-15] MEDS: Folic Acid 1 MG TABLET PO (08:48)
[2023-07-15] MEDS: 0.9 % Sodium Chloride Flush 3 ML SYRINGE IVFLUSH ×3 (08:48→20:56)
[2023-07-15 11:18] LABS: Mitochondrial Antibodies NEGATIVE (NEGATIVE)
--- NOTE | 2023-07-15 11:18 | P.PNIM_ITS ---
Subjective Subjective Date of Service: 07/15/23 Interval History: Seen and examined this morning Patient more awake this morning, sitting up Reports starting to feel more energy. Denies abdominal pain, nausea Review of Systems Review of Systems: Yes all other systems are reviewed and are negative Constitutional Constitutional: Denies chills and Denies fever(s) Physical Exam 2 Vital Signs: Vital Signs: Last Vital Signs Temp 97.4 F 07/15/23 07:48 Pulse 78 07/15/23 07:48 Resp 18 07/15/23 07:48 BP 123/70 07/15/23 07:48 Pulse Ox 97 07/15/23 07:48 O2 Del Method Room Air 07/15/23 07:48 O2 Flow Rate 6 07/08/23 13:52 BMI result Body Mass Index 24.1 Appearing in no acute distress Jaundice, icteric sclera lung sounds are clear to auscultation heart regular rate rhythm, clear S1, S2 positive bowel sounds, abdomen is soft, nontender neuro patient is alert x3, no focal deficits Objective Data Active Medications Albuterol Sulfate (Albuterol Sulfate 90 Mcg 8 Gm Inhaler) 2 puff INHALE RQ4H PRN PRN Reason: Shortness of Breath/Wheezing Last Admin: 07/15/23 04:14 Dose: 2 puff Documented By: OSMANY Fluoxetine HCl (Fluoxetine Hcl 20 Mg Capsule) 60 mg PO DAILY [facility] Last Admin: 07/15/23 08:48 Dose: 60 mg Documented By: KAYLA Folic Acid (Folic Acid 1 Mg Tablet) 1 mg PO DAILY [facility] Last Admin: 07/15/23 08:48 Dose: 1 mg Documented By: KAYLA Guaifenesin/Dextromethorphan (Guaifenesin Dm 600/30 1 Tab Tab.Er.12h) 2 tab PO BID PRN PRN Reason: Cough Last Admin: 07/14/23 19:40 Dose: 2 tab Documented By: HAIR Hydrocortisone (Hydrocortisone 1 % Ointment 28.35 Gm Tube) 1 appl TOPICAL BID PRN; Protocol PRN Reason: skin irritation Last Admin: 07/12/23 21:07 Dose: 1 appl Documented By: HAIR Lactulose (Lactulose 20 Gm/30 Ml Solution) 20 gm PO DAILY [facility] Last Admin: 07/15/23 08:49 Dose: Not Given Documented By: KAYLA Non-Admin Reason: Patient Refused Lorazepam (Lorazepam 0.5 Mg Tablet) 0.5 mg PO BEDTIME PRN PRN Reason: anxiety/restlessness Magnesium Oxide (Magnesium Oxide 400 Mg Tablet) 400 mg PO BIDPC [facility] Last Admin: 07/15/23 08:48 Dose: 400 mg Documented By: KAYLA Nicotine (Nicotine 7 Mg Patch.Td24) 7 mg TRANSDERMA DAILY [facility] Last Admin: 07/15/23 08:47 Dose: 7 mg Documented By: KAYLA Nystatin (Nystatin Oral Susp 500,000 Unit/5 Ml Oral.Susp) 200,000 unit BUCCAL QID [facility]; Protocol Last Admin: 07/15/23 08:47 Dose: 200,000 unit Documented By: KAYLA Omeprazole (Omeprazole 40 Mg Capsule.Dr) 40 mg PO DAILY@0630 [facility] Last Admin: 07/15/23 06:17 Dose: 40 mg Documented By: TEA Ondansetron HCl (Ondansetron Hcl 4 Mg/2 Ml Vial) 4 mg IVPUSH Q8H PRN PRN Reason: Nausea and Vomiting Pharmacy Consult (Consult Rx Etoh Phenob Im/Po) 1 each MISCELLANE ONCE PRN; Protocol PRN Reason: Consult order Potassium Chloride (Potassium Chloride Er 20 Meq Tab.Er.Prt) 20 meq PO DAILY [facility] Last Admin: 07/15/23 08:48 Dose: 20 meq Documented By: KAYLA Prednisolone Sodium Phosphate (Prednisolone Sodium Phosphate 15 Mg/5 Ml Solution) 40 mg PO DAILY [facility] Last Admin: 07/15/23 08:47 Dose: 40 mg Documented By: KAYLA Sodium Chloride (0.9 % Sodium Chloride Flush 3 Ml Syringe) 3 ml IVFLUSH QSHIFT [facility] Last Admin: 07/15/23 08:48 Dose: 3 ml Documented By: KAYLA Thiamine HCl (Thiamine Hcl 100 Mg Tablet) 100 mg PO DAILY [facility] Last Admin: 07/15/23 08:48 Dose: 100 mg Documented By: KAYLA Labs 07/12/23 06:28 07/15/23 14:00 Labs: Laboratory Results - last 24 hr 07/15/23 06:13 Anion Gap 12 Estim Creat Clear Calc 88.7 Estimated GFR > 60 Random Glucose 82 Calcium 7.9 L Assessment and Plan (1) Hyponatremia: Status: Acute (2) Alcohol use disorder: Status: Acute (3) Hepatic encephalopathy: Status: Acute (4) Alcoholic hepatitis: Status: Acute Plan This is a 57 year old women admitted with acute metabolic encephalopathy r/t alcohol withdrawal and hepatic encephalopathy with alcoholic hepatitis with elevated maddreys and anemia Hyponatremia Likely multifactorial due to beer potomania, SSRI, underlying liver disease have not been unable to collect urine studies thus far, repeat ordered nephrology consult pending Transaminitis/acute alcoholic hepatitis Seen and evaluated by GI<s/p EGD 07/07/23, gastritis noted, no active or old bleeding, no varicies LFTs trending down Initially on prednisolone, stopped 07/07 d/t concern for bleeding. Per GI, resume PO steroids 07/09. Monitor for bleeding H/H stable GI following Trend LFTs Plan for slow steroid taper- prednisolone 40 mg for 7 days (end date 07/15) and then taper by 10 mg per week; repeat LFTs by the end of next week if patient discharged Acute alcohol withdrawal Continue phenobarbital CIWA trending down folic acid, thiamine supplementation Seen by Addiction Medicine Acute metabolic encephalopathy r/t hepatic encephalopathy complicated by acute alcohol withdrawal Ammonia down to 37 Lactulose initiated 07/09, titrate to achieve 2-3 loose stools daily; dose decreased to daily given multiple loose stools daily more awake and lucid today Coagulaopathy secondary to alcohol abuse peaked at 2.3, improving down to 1.2 s/p IV vitamin K x 1 Macrocytic anemia Possibly acute blood loss with positive stool occult but no obvious bleeding on egd 07/06 HH stable overall. Steroids resumed 07/09, monitor h/h closely for bleeding s/p 1 unit PRBC in the ED s/p IV PPI, transitioned to oral leukocytosis likely due to steroids JOHNNY- resolved with IVF Likely secondary to dehydration and poor oral intake Hypokalemia/hypomagnesemia Hypomagnesemia, hypokalemia resolved with replacement Remains on oral potassium supplementation oral thrush nystatin swish and swallow FTT poor appetite encourage oral intake add protein to diet PT - rec STR but patient declines rehab. Patient is still and 1 assist for ambulation Mood Continue fluoxetine Tobacco dependence NRT DVT prophylaxis with SCD boots secondary to anemia Attending Dr. Lozano Full code PT rec - STR but patient wishes to return home with services continue hospital stay for tx of acute hepatitis/ etoh withdrawal with ongoing encephalopathy and anemia secondary to alcohol use requiring s/p EGD Quality Stroke Does the patient have a stroke diagnosis?: No VTE Prior VTE?: No VTE Risk Level:: Medical - moderate - high VTE Device Contraindication: N/A - Device Ordered VTE Drug Contraindication: Treatment Not Indicated
--- NOTE | 2023-07-15 12:50 | PM.CNNEP ---
History of Present Illness Reason for Consult Consult date: 07/16/23 Reason for consult: Hyponatremia Chief Complaint Chief complaint: Transaminitis Anemia History of Present Illness Narrative: 57-year-old woman presented to the ER after an episode of dizziness and fall. She reports that she went to work this morning got out of her car and fell to the ground because she felt dizzy. She denied any loss of consciousness or head strike. Her coworkers called EMS. Patient reports that she has a history of alcohol abuse. Had been drinking 6-12 beers a day with hard liquor occasionally. She reports that she stopped drinking approximately 3-4 weeks ago on her own and felt okay the 1st week but after that she had poor oral intake, poor appetite, dizziness and nausea. At the time admission serum sodium was 128. Over the past 1 week serum sodium has essentially remained around the same range and as of today's sodium is 126. Consult has been requested for management of hyponatremia. She is on high dose of SSRI. Fluoxetine 60 mg a day. No urine studies are available Review of Systems Constitutional: Denies fever(s) and Denies weight loss Cardiovascular: Denies chest pain Respiratory: Denies cough and Denies hemoptysis Gastrointestinal: Denies abdominal pain, Denies diarrhea and Denies nausea Musculoskeletal: Denies back pain Denies focal weakness [facility] Past Medical History Medical History COPD (chronic obstructive pulmonary disease) Anxiety Breast calcification, left Depression Family History Family History Father Stroke Mother Lung cancer Son No problems noted. Daughter No problems noted. Maternal Grandmother Emphysema, unspecified Maternal Grandfather History of heart attack Maternal Aunt Breast cancer Surgical History Surgical History History of tubal ligation Social History Social History Household Members: Other Household Members Other:: roommate Housing: House Do you presently have visiting nurse or other home services: No Alcohol intake: former Comment: [employer]TER Patient Tobacco Use Status: Current everyday Tobacco user Tobacco use type: Cigarette Cigarette Packs Per Day: 0.5 Cigarettes Per Day: 10 Smoked in Last 30 Days: Yes Patient Interested in Nicotine Replacement: Yes (patch currently on patient) Patient Given Instructions on How to Stop Smoking: Yes Date Education Initiated: 07/08/23 Second Hand Smoke Exposure: Yes Use of substances other than those prescribed or required for medical reasons: Yes Substance Use Type: Marijuana Substance Use Frequency: Occasionally Currently Displaying Signs/Symptoms of Drug Intoxication Withdrawal: No Have you been hit, kicked, punched, or otherwise hurt by someone within the past year? If so, by whom?: No Do you feel safe in your current relationship?: No Current Relationship Is there a partner from a previous relationship who is making you feel unsafe now?: No Are you made to feel afraid or neglected: No Are you DNR?: No Advance Directives: Yes Advance Directives Information Provided: Yes Advance Directives on File: No (not on file) Advance Directives Date on File: 07/08/23 Do you have a plan to hurt others: No Plan Recently lost weight without trying: No Nutrition Risks: No Nutritional Risk Patient : No : No service: No Gender identity: Female Meds Allergies Allergy/AdvReac Type Severity Reaction Status Date / Time No Known Allergies Allergy Unknown UNKNOWN Verified 07/07/23 08:09 [NO KNOWN ALLERGIES] Active Medications: Current Medications Albuterol Sulfate (Albuterol Sulfate 90 Mcg 8 Gm Inhaler) 2 puff INHALE RQ4H PRN PRN Reason: Shortness of Breath/Wheezing Last Admin: 07/15/23 04:14 Dose: 2 puff Fluoxetine HCl (Fluoxetine Hcl 20 Mg Capsule) 60 mg PO DAILY [facility] Last Admin: 07/15/23 08:48 Dose: 60 mg Folic Acid (Folic Acid 1 Mg Tablet) 1 mg PO DAILY [facility] Last Admin: 07/15/23 08:48 Dose: 1 mg Guaifenesin/Dextromethorphan (Guaifenesin Dm 600/30 1 Tab Tab.Er.12h) 2 tab PO BID PRN PRN Reason: Cough Last Admin: 07/14/23 19:40 Dose: 2 tab Hydrocortisone (Hydrocortisone 1 % Ointment 28.35 Gm Tube) 1 appl TOPICAL BID PRN; Protocol PRN Reason: skin irritation Last Admin: 07/12/23 21:07 Dose: 1 appl Lactulose (Lactulose 20 Gm/30 Ml Solution) 20 gm PO DAILY [facility] Last Admin: 07/15/23 08:49 Dose: Not Given Lorazepam (Lorazepam 0.5 Mg Tablet) 0.5 mg PO BEDTIME PRN PRN Reason: anxiety/restlessness Magnesium Oxide (Magnesium Oxide 400 Mg Tablet) 400 mg PO BIDPC [facility] Last Admin: 07/15/23 08:48 Dose: 400 mg Nicotine (Nicotine 7 Mg Patch.Td24) 7 mg TRANSDERMA DAILY [facility] Last Admin: 07/15/23 08:47 Dose: 7 mg Nystatin (Nystatin Oral Susp 500,000 Unit/5 Ml Oral.Susp) 200,000 unit BUCCAL QID [facility]; Protocol Last Admin: 07/15/23 12:24 Dose: Not Given Omeprazole (Omeprazole 40 Mg Capsule.Dr) 40 mg PO DAILY@30 [facility] Last Admin: 07/15/23 06:17 Dose: 40 mg Ondansetron HCl (Ondansetron Hcl 4 Mg/2 Ml Vial) 4 mg IVPUSH Q8H PRN PRN Reason: Nausea and Vomiting Pharmacy Consult (Consult Rx Etoh Phenob Im/Po) 1 each MISCELLANE ONCE PRN; Protocol PRN Reason: Consult order Potassium Chloride (Potassium Chloride Er 20 Meq Tab.Er.Prt) 20 meq PO DAILY [facility] Last Admin: 07/15/23 08:48 Dose: 20 meq Prednisolone Sodium Phosphate (Prednisolone Sodium Phosphate 15 Mg/5 Ml Solution) 40 mg PO DAILY [facility] Last Admin: 07/15/23 08:47 Dose: 40 mg Sodium Chloride (0.9 % Sodium Chloride Flush 3 Ml Syringe) 3 ml IVFLUSH QSHIFT [facility] Last Admin: 07/15/23 08:48 Dose: 3 ml Thiamine HCl (Thiamine Hcl 100 Mg Tablet) 100 mg PO DAILY [facility] Last Admin: 07/15/23 08:48 Dose: 100 mg Physical Exam Vital Signs: Last Vital Signs Temp 97.1 F 07/15/23 11:27 Pulse 77 07/15/23 11:27 Resp 18 07/15/23 11:27 BP 118/68 07/15/23 11:27 Pulse Ox 97 07/15/23 11:27 O2 Del Method Room Air 07/15/23 11:27 O2 Flow Rate 6 07/08/23 13:52 BMI result Body Mass Index 24.1 Const General: ill appearing Neck Neck: Yes supple Resp Auscultation: clear to auscultation bilaterally Cardio Palpation: no palpable S3 Heart sounds: no rubs GI Palpation (GI): Soft to palpation Auscultation: normal bowel sounds Skin General skin exam: jaundice and pallor Neuro Motor exam (neuro): no asterixis Results Lab Results 07/12/23 06:28 07/16/23 05:52 Lab results: Chemistry 07/13/23 07/14/23 07/15/23 08:15 08:07 06:13 Sodium 127 L 126 L 126 L Potassium 4.1 4.5 4.0 Carbon Dioxide 23 16 L 22 BUN 12 10 9 Creatinine 0.73 0.54 0.67 Calcium 8.3 L 8.4 7.9 L Assessment and Plan (1) Hyponatremia: Status: Acute (2) JOHNNY (acute kidney injury): Status: Acute Plan . Rebecca had JOHNNY at the time of admission. Serum creatinine was 1.77. With IV hydration creatinine is down to less than 0.9 mg/dL and this is baseline. JOHNNY has resolved. Hyponatremia. Clinically she appears euvolemic. I suspect the hyponatremia due to decreased free water clearance secondary to the use of high dose of SSRIs in the setting of acute liver injury She has a history of drinking beer 4-6 cans a day and she could have beer potomania. However she says that she has not had any beer for the last 4 weeks. Therefore I suspect that this is not the most likely etiology at this time. Recommendations Check urine for sodium, creatinine, osmolality Check serum osmolality Restrict oral free water intake of 1.2 L every 24 hours If possible we should lower the SSRIs and see if we can hold it temporarily until serum sodium improves. If serum sodium does not improve we should try alternate agents Given the history of acute liver injury I would not use urea powder. She is clinically asymptomatic from the standpoint of hyponatremia therefore no absolute indication for hypertonic saline at this time. Monitor serum sodium twice a day. Avoid rapid correction She will follow along with the team. Procedures Date of Service Date of Service: 07/16/23
[2023-07-15 14:23] LABS: Sodium 125 mmol/L (135-145)
[2023-07-15] MEDS: guaiFENesin DM 600/30 1 TAB TAB.ER.12H 2 TAB PO (15:30)
[2023-07-15 16:01] LABS: Potassium Urine Random 24.2 mmol/L; Sodium Urine Random < 20.0 mmol/L
[2023-07-15 20:02] LABS: Chloride Urine Random < 20.0 mmol/L
[2023-07-16] VITALS (10 sets, daily range): BP systolic 101–151; BP diastolic 54–86; PULSE 70–79; RESP 16–20; TEMP 36.1–36.8; O2SAT 94–100
[2023-07-16] MEDS: Omeprazole 40 MG CAPSULE.DR PO (05:55)
[2023-07-16 06:12] LABS: Sodium Urine Random < 20.0 mmol/L
[2023-07-16 06:16] LABS: Osmolality Urine 294 mosm/kg (373-1093)
[2023-07-16 06:23] LABS: Ammonia 57 umol/L (13-55)
[2023-07-16 06:31] LABS: Alanine Aminotransferase 88 U/L (0-31); Albumin Level 2.2 g/dL (3.5-5.0); Alkaline Phosphatase 298 U/L (39-117); Anion Gap 12 (12-20); Aspartate Amino Transferase 137 U/L (5-31); Bilirubin Direct 8.7 mg/dL (0.0-0.5); Bilirubin Total 11.1 mg/dL (0.0-1.0); Blood Urea Nitrogen 9 mg/dL (9-16); Carbon Dioxide 19 mmol/L (22-29); Chloride 98 mmol/L (96-108); Creatinine Clr Calc Pharmacy 94.4; Estimated Glomerular Filt Rate > 60; Glucose Random 70 mg/dL (60-115); Potassium 4.3 mmol/L (3.3-5.1); Sodium 125 mmol/L (135-145); Total Protein 5.6 g/dL (6.5-8.0)
[2023-07-16] MEDS: Nystatin Oral Susp 500,000 UNIT/5 ML ORAL.SUSP 200000 UNIT BUCCAL (07:38)
[2023-07-16] MEDS: Folic Acid 1 MG TABLET PO (07:39)
[2023-07-16] MEDS: Nicotine 7 MG PATCH.TD24 TRANSDERMA (07:39)
[2023-07-16] MEDS: Thiamine HCL 100 MG TABLET PO (07:39)
[2023-07-16] MEDS: Potassium Chloride ER 20 MEQ TAB.ER.PRT PO (07:39)
[2023-07-16] MEDS: FLUoxetine HCl 20 MG CAPSULE 60 MG PO (07:39)
[2023-07-16] MEDS: Magnesium Oxide 400 MG TABLET PO ×2 (07:39→16:27)
[2023-07-16] MEDS: 0.9 % Sodium Chloride Flush 3 ML SYRINGE IVFLUSH ×3 (07:39→22:47)
[2023-07-16] MEDS: prednisoLONE sodium phosphate 15 MG/5 ML SOLUTION 40 MG PO (07:39)
--- NOTE | 2023-07-16 08:49 | P.PNNP_ITS ---
Subjective Subjective Date of Service: 07/17/23 Interval history: Events noted Anxious t o go home Physical Exam 2 Vital Signs: Vital Signs: Last Vital Signs Temp 97.3 F 07/16/23 07:47 Pulse 70 07/16/23 07:47 Resp 18 07/16/23 07:47 BP 119/65 07/16/23 07:47 Pulse Ox 99 07/16/23 07:47 O2 Del Method Room Air 07/16/23 07:47 O2 Flow Rate 6 07/08/23 13:52 BMI result Body Mass Index 24.1 Const: General: ill appearing Neck: Neck: Yes supple Resp: Auscultation: clear to auscultation bilaterally Cardio: Palpation: no palpable S3 Heart sounds: no rubs GI: Palpation (GI): Soft to palpation Auscultation: normal bowel sounds Skin: General skin exam: jaundice and pallor Neuro: Motor exam (neuro): no asterixis Objective Data Labs 07/12/23 06:28 07/17/23 07:58 Labs: Laboratory Results - last 24 hr 07/08/23 07/15/23 07/15/23 07:20 14:00 Unknown Hold Purple Top Sodium 125 L Potassium Chloride Carbon Dioxide Anion Gap BUN Creatinine Estim Creat Clear Calc Estimated GFR Random Glucose Calcium Total Bilirubin Direct Bilirubin AST ALT Alkaline Phosphatase Ammonia Total Protein Albumin Mitochondrial AB Titer TNP Urine Osmolality Ur Random Sodium < 20.0 Ur Random Potassium 24.2 Ur Random Chloride < 20.0 Anti-Mitochondrial Ab NEGATIVE 07/16/23 07/16/23 05:45 05:52 Hold Purple Top SEE NOTE Sodium 125 L Potassium 4.3 Chloride 98 Carbon Dioxide 19 L Anion Gap 12 BUN 9 Creatinine 0.63 Estim Creat Clear Calc 94.4 Estimated GFR > 60 Random Glucose 70 Calcium 8.0 L Total Bilirubin 11.1 H Direct Bilirubin 8.7 H AST 137 H ALT 88 H Alkaline Phosphatase 298 H Ammonia 57 H Total Protein 5.6 L Albumin 2.2 L Mitochondrial AB Titer Urine Osmolality 294 L Ur Random Sodium < 20.0 Ur Random Potassium Ur Random Chloride Anti-Mitochondrial Ab Procedures Date of Service Date of Service: 07/17/23 Assessment & Plan Assessment and plan (1) Hyponatremia: Status: Acute (2) JOHNNY (acute kidney injury): Status: Acute Plan . Rebecca had JOHNNY at the time of admission. Serum creatinine was 1.77. With IV hydration creatinine is down to less than 0.9 mg/dL and this is baseline. JOHNNY has resolved. Hyponatremia. Low urine Na and low BP suggest that she might have a component of hypovolumia.However, this picture can be seen in a setting of HRS as well I suspect the hyponatremia due to decreased free water clearance secondary to the use of high dose of SSRIs in the setting of acute liver injury She has a history of drinking beer 4-6 cans a day and she could have beer potomania. However she says that she has not had any beer for the last 4 weeks. Therefore I suspect that this is not the most likely etiology at this time. Recommendations Cautious Hydration with NORMAL SALINE at 75 cc/hr x 500 CC and se eif Na improves Restrict oral free water intake of 1.2 L every 24 hours If possible we should lower the SSRIs and see if we can hold it temporarily until serum sodium improves. If serum sodium does not improve we should try alternate agents Given the history of acute liver injury I would not use urea powder. Other option is to use NaCl tabs 1 gm po BID for 1 week and reevaluate She is clinically asymptomatic from the standpoint of hyponatremia therefore no absolute indication for hypertonic saline at this time. Monitor serum sodium Avoid rapid correction She will follow along with the team. Time Spent With Patient Time: Total time managing care of this patient today ____ minutes. Progress Note: Quality Stroke Does the patient have a stroke diagnosis?: No
[2023-07-16] MEDS: 0.9 % Sodium Chloride 1,000 ML 75 ML IVCONT (10:30)
[2023-07-16 11:33] LABS: Sodium 125 mmol/L (135-145)
--- NOTE | 2023-07-16 11:55 | HO.PM.IMPN ---
Subjective Subjective Date of Service: 07/16/23 Interval History: Seen and examined this morning Patient more awake this morning, sitting up Reports starting to feel more energy. Denies abdominal pain, nausea Review of Systems Review of Systems: Yes all other systems are reviewed and are negative Constitutional Constitutional: Denies chills and Denies fever(s) Physical Exam Vital Signs: Vital Signs: Last Vital Signs Temp 97.3 F 07/16/23 07:47 Pulse 70 07/16/23 07:47 Resp 18 07/16/23 07:47 BP 119/65 07/16/23 07:47 Pulse Ox 99 07/16/23 07:47 O2 Del Method Room Air 07/16/23 07:47 O2 Flow Rate 6 07/08/23 13:52 BMI result Body Mass Index 24.1 Appearing in no acute distress, jaundice, sclera icteric lung sounds are clear to auscultation heart regular rate rhythm, clear S1, S2 positive bowel sounds, abdomen is soft, nontender neuro patient is alert x3, no focal deficits Objective Data Active Medications Albuterol Sulfate (Albuterol Sulfate 90 Mcg 8 Gm Inhaler) 2 puff INHALE RQ4H PRN PRN Reason: Shortness of Breath/Wheezing Last Admin: 07/15/23 16:06 Dose: 2 puff Documented By: CHASTITY Fluoxetine HCl (Fluoxetine Hcl 20 Mg Capsule) 60 mg PO DAILY [facility] Last Admin: 07/16/23 07:39 Dose: 60 mg Documented By: KAYLA Folic Acid (Folic Acid 1 Mg Tablet) 1 mg PO DAILY [facility] Last Admin: 07/16/23 07:39 Dose: 1 mg Documented By: KAYLA Guaifenesin/Dextromethorphan (Guaifenesin Dm 600/30 1 Tab Tab.Er.12h) 2 tab PO BID PRN PRN Reason: Cough Last Admin: 07/15/23 15:30 Dose: 2 tab Documented By: GRACE Hydrocortisone (Hydrocortisone 1 % Ointment 28.35 Gm Tube) 1 appl TOPICAL BID PRN; Protocol PRN Reason: skin irritation Last Admin: 07/12/23 21:07 Dose: 1 appl Documented By: HAIR Sodium Chloride (Ns) 500 mls @ 75 mls/hr IVCONT .Q6H40M [facility] Stop: 07/16/23 17:09 Last Admin: 07/16/23 10:30 Dose: 75 mls/hr Documented By: KAYLA Lactulose (Lactulose 20 Gm/30 Ml Solution) 20 gm PO DAILY [facility] Last Admin: 07/16/23 07:48 Dose: Not Given Documented By: KAYLA Non-Admin Reason: Patient Refused Lorazepam (Lorazepam 0.5 Mg Tablet) 0.5 mg PO BEDTIME PRN PRN Reason: anxiety/restlessness Magnesium Oxide (Magnesium Oxide 400 Mg Tablet) 400 mg PO BIDPC [facility] Last Admin: 07/16/23 07:39 Dose: 400 mg Documented By: KAYLA Nicotine (Nicotine 7 Mg Patch.Td24) 7 mg TRANSDERMA DAILY [facility] Last Admin: 07/16/23 07:39 Dose: 7 mg Documented By: KAYLA Nystatin (Nystatin Oral Susp 500,000 Unit/5 Ml Oral.Susp) 200,000 unit BUCCAL QID [facility]; Protocol Last Admin: 07/16/23 07:38 Dose: 200,000 unit Documented By: KAYLA Omeprazole (Omeprazole 40 Mg Capsule.Dr) 40 mg PO DAILY@0630 [facility] Last Admin: 07/16/23 05:55 Dose: 40 mg Documented By: SHELLIE Ondansetron HCl (Ondansetron Hcl 4 Mg/2 Ml Vial) 4 mg IVPUSH Q8H PRN PRN Reason: Nausea and Vomiting Pharmacy Consult (Consult Rx Etoh Phenob Im/Po) 1 each MISCELLANE ONCE PRN; Protocol PRN Reason: Consult order Potassium Chloride (Potassium Chloride Er 20 Meq Tab.Er.Prt) 20 meq PO DAILY [facility] Last Admin: 07/16/23 07:39 Dose: 20 meq Documented By: KAYLA Prednisolone Sodium Phosphate (Prednisolone Sodium Phosphate 15 Mg/5 Ml Solution) 40 mg PO DAILY [facility] Last Admin: 07/16/23 07:39 Dose: 40 mg Documented By: KAYLA Sodium Chloride (0.9 % Sodium Chloride Flush 3 Ml Syringe) 3 ml IVFLUSH QSHIFT [facility] Last Admin: 07/16/23 07:39 Dose: 3 ml Documented By: KAYLA Thiamine HCl (Thiamine Hcl 100 Mg Tablet) 100 mg PO DAILY [facility] Last Admin: 07/16/23 07:39 Dose: 100 mg Documented By: KAYLA Labs 07/12/23 06:28 07/16/23 11:19 Labs: Laboratory Results - last 24 hr 07/08/23 07/15/23 07/16/23 07:20 Unknown 05:45 Hold Purple Top Anion Gap Estim Creat Clear Calc Estimated GFR Random Glucose Calcium Total Bilirubin Direct Bilirubin AST ALT Alkaline Phosphatase Ammonia Total Protein Albumin Mitochondrial AB Titer TNP Urine Osmolality 294 L Ur Random Sodium < 20.0 < 20.0 Ur Random Potassium 24.2 Ur Random Chloride < 20.0 07/16/23 05:52 Hold Purple Top SEE NOTE Anion Gap 12 Estim Creat Clear Calc 94.4 Estimated GFR > 60 Random Glucose 70 Calcium 8.0 L Total Bilirubin 11.1 H Direct Bilirubin 8.7 H AST 137 H ALT 88 H Alkaline Phosphatase 298 H Ammonia 57 H Total Protein 5.6 L Albumin 2.2 L Mitochondrial AB Titer Urine Osmolality Ur Random Sodium Ur Random Potassium Ur Random Chloride Assessment and Plan (1) Hyponatremia: Status: Acute (2) Alcohol use disorder: Status: Acute (3) Hepatic encephalopathy: Status: Acute (4) Alcoholic hepatitis: Status: Acute Plan This is a 57 year old women admitted with acute metabolic encephalopathy r/t alcohol withdrawal and hepatic encephalopathy with alcoholic hepatitis with elevated maddreys and anemia Hyponatremia Likely multifactorial due to beer potomania, SSRI, underlying liver disease have not been unable to collect urine studies thus far, repeat ordered nephrology consult>fluid challenge with 500ml @ 75hr, salt tabs 1gm BID for 7 days at mo Transaminitis/acute alcoholic hepatitis Seen and evaluated by GI<s/p EGD 07/07/23, gastritis noted, no active or old bleeding, no varicies LFTs trending down Initially on prednisolone, stopped 07/07 d/t concern for bleeding. Per GI, resume PO steroids 07/09. Monitor for bleeding H/H stable GI following Trend LFTs Plan for slow steroid taper- prednisolone 40 mg for 7 days (end date 07/15) and then taper by 10 mg per week; repeat LFTs by the end of next week if patient discharged Acute alcohol withdrawal Continue phenobarbital CIWA trending down folic acid, thiamine supplementation Seen by Addiction Medicine Acute metabolic encephalopathy. Resolved r/t hepatic encephalopathy complicated by acute alcohol withdrawal Ammonia down to 37 Lactulose initiated 07/09, titrate to achieve 2-3 loose stools daily; dose decreased to daily given multiple loose stools daily more awake and lucid today Coagulaopathy secondary to alcohol abuse peaked at 2.3, improving down to 1.2 s/p IV vitamin K x 1 Macrocytic anemia Possibly acute blood loss with positive stool occult but no obvious bleeding on egd 07/06 HH stable overall. Steroids resumed 07/09, monitor h/h closely for bleeding s/p 1 unit PRBC in the ED s/p IV PPI, transitioned to oral leukocytosis likely due to steroids JOHNNY- resolved with IVF Likely secondary to dehydration and poor oral intake Hypokalemia/hypomagnesemia Hypomagnesemia, hypokalemia resolved with replacement Remains on oral potassium supplementation oral thrush completed 7 days of nystatin swish and swallow FTT poor appetite encourage oral intake add protein to diet PT - rec STR but patient declines rehab. Patient is still and 1 assist for ambulation Mood Continue fluoxetine Tobacco dependence NRT DVT prophylaxis with SCD boots secondary to anemia Attending Dr. Lozano Full code PT rec - STR but patient wishes to return home with services continue hospital stay for tx of acute hepatitis/ etoh withdrawal with ongoing encephalopathy and anemia secondary to alcohol use requiring s/p EGD Quality Stroke Does the patient have a stroke diagnosis?: No VTE Prior VTE?: No VTE Risk Level:: Medical - moderate - high VTE Device Contraindication: N/A - Device Ordered VTE Drug Contraindication: Treatment Not Indicated
[2023-07-16] MEDS: guaiFENesin DM 600/30 1 TAB TAB.ER.12H 2 TAB PO (13:46)
[2023-07-16] MEDS: Albuterol Sulfate 90 MCG 8 GM INHALER 2 PUFF INHALE ×2 (14:09→20:22)
[2023-07-16 15:33] LABS: Sodium 123 mmol/L (135-145)
[2023-07-16] MEDS: Sodium Chloride Tab 1 GM TABLET PO ×2 (17:14→20:10)
[2023-07-17] MEDS: Benzonatate 100 MG CAPSULE 200 MG PO ×2 (01:41→08:33)
[2023-07-17 03:39] VITALS: BP 110/60; PULSE 78; RESP 20; TEMP 36.1; O2SAT 95
[2023-07-17 07:32] VITALS: BP 122/60; PULSE 76; RESP 16; TEMP 36.3; O2SAT 98
[2023-07-17] MEDS: prednisoLONE sodium phosphate 15 MG/5 ML SOLUTION 40 MG PO (08:33)
[2023-07-17] MEDS: Lactulose 20 GM/30 ML SOLUTION PO (08:33)
[2023-07-17] MEDS: FLUoxetine HCl 20 MG CAPSULE 60 MG PO (08:33)
[2023-07-17] MEDS: guaiFENesin DM 600/30 1 TAB TAB.ER.12H 2 TAB PO (08:33)
[2023-07-17] MEDS: 0.9 % Sodium Chloride Flush 3 ML SYRINGE IVFLUSH (08:34)
[2023-07-17] MEDS: Sodium Chloride Tab 1 GM TABLET PO (08:34)
[2023-07-17] MEDS: Potassium Chloride ER 20 MEQ TAB.ER.PRT PO (08:34)
[2023-07-17] MEDS: Nicotine 7 MG PATCH.TD24 TRANSDERMA (08:34)
[2023-07-17] MEDS: Thiamine HCL 100 MG TABLET PO (08:34)
[2023-07-17] MEDS: Folic Acid 1 MG TABLET PO (08:34)
[2023-07-17] MEDS: Magnesium Oxide 400 MG TABLET PO (08:34)
[2023-07-17 09:26] LABS: Alanine Aminotransferase 90 U/L (0-31); Albumin Level 2.3 g/dL (3.5-5.0); Alkaline Phosphatase 300 U/L (39-117); Anion Gap 13 (12-20); Aspartate Amino Transferase 141 U/L (5-31); Bilirubin Direct 7.9 mg/dL (0.0-0.5); Bilirubin Total 10.5 mg/dL (0.0-1.0); Blood Urea Nitrogen 7 mg/dL (9-16); Calcium 8.1 mg/dL (8.4-10.2); Carbon Dioxide 21 mmol/L (22-29); Chloride 97 mmol/L (96-108); Estimated Glomerular Filt Rate > 60; Glucose Random 64 mg/dL (60-115); Potassium 3.8 mmol/L (3.3-5.1); Sodium 127 mmol/L (135-145); Total Protein 5.9 g/dL (6.5-8.0)
--- NOTE | 2023-07-17 09:55 | P.DS_ITS ---
DS: Providers Provider Date of Service: 07/17/23 Date of admission: 07/07/23 12:05 Primary care physician: GREG Vela Consults: 07/07/23 11:33 Consult to Gastroenterology Routine Consulting Provider: Nathan Navarrete Reason for consultation: etoh, hepatitis 07/08/23 08:00 Addiction Medicine Routine Consulting Provider: Addiction Covering Reason for consultation: alcohol use 07/10/23 07:18 Consult to Wound Care Routine Reason for consultation: abrasion to right knee 07/14/23 11:55 Consult to Nephrology Routine Consulting Provider: [facility] Reason for consultation: hyponatremia Has provider been notified: No DS: Diagnosis Discharge Diagnosis (1) Hyponatremia: Status: Acute (2) Alcohol use disorder: Status: Acute (3) Hepatic encephalopathy: Status: Acute (4) Alcoholic hepatitis: Status: Acute DS: Summary Hospital Course Hospital Course: 57-year-old woman presenting to the ER after an episode of dizziness and fall. She reports that she went to work this morning got out of her car and fell to the ground because she felt dizzy. She denied any loss of consciousness or head strike. Her coworkers called EMS. Patient reports that she has a history of alcohol abuse. Had been drinking 6-12 beers a day with hard liquor occasionally. She reports that she stopped drinking approximately 3-4 weeks ago on her own and felt okay the 1st week but after that she had poor oral intake, poor appetite, dizziness and nausea. She denied chest pain, shortness for breath, vomiting, diarrhea. She has no significant medical problems other than depression. In the ER she would multiple lab abnormalities including white blood cell count 16.9, hemoglobin 10.3, hematocrit 27.8, normal platelet count, sodium 128, potassium 2.5, creatinine 1.77, magnesium 1.5, total bilirubin 16.6, AST 588, ALT 157. Abdomen and pelvic CT showing hepatic steatosis. Blood pressure was noted to be low at 82/40, started on IV fluids with improvement blood pressure. She was also given IV Protonix, IV magnesium. She will be admitted for further management and treatment acute hepatitis and anemia. 57-year-old woman treated for acute alcoholic hepatitis, transaminitis, alcohol withdrawal, acute metabolic encephalopathy and hyponatremia. The patient reports a history of heavy alcohol use on a daily basis. Abdominal CT showed jon colonic wall thickening worse involving the cecum and ascending colon findings suggestive of portal hypertensive enteropathy, colopathy, hepatic steatosis, hepatomegaly, sequelae of portal hypertension. For the alcohol withdrawal she was treated with phenobarbital protocol, folic acid, thiamine and IV fluids. After being treated the acute metabolic encephalopathy also resolved, her ammonia was down to 37 and lactulose was initiated. She was noted to have coagulopathy likely secondary to liver disease, her INR peaked at 2.3, she received 1 dose of IV vitamin K with good effect on her INR. She had an EGD on 07/07/2023 which noted gastritis but no active bleeding or varices. Her LFTs have trended down with her bilirubin peaking at 19.3. Patient was being treated with prednisolone while inpatient and plan is for outpatient steroid taper total 4 weeks. Patient's symptoms have significantly improved. Discussed the importance of alcohol cessation, patient stated that she does not want to drink anymore. She can reach out to her primary care provider for outpatient resources for assistance with this. Macrocytic anemia. Status post 1 unit of PRBCs in the ER, status post IV PPI, transition to oral. Stable H&H at this time. Leukocytosis. Secondary to steroid use Acute kidney injury. Secondary to dehydration and poor oral intake. Resolved I will thrush. Completed 7 days of nystatin swish and swallow Hypokalemia/hypomagnesemia. Resolved with replacement. Remains on oral potassium and magnesium supplementation Failure to thrive. Secondary to poor appetite, encourage oral intake Mental health. Continue fluoxetine Nicotine dependence. Continue nicotine replacement therapy. Encouraged the importance of smoking cessation Time Attestation Discharge Coordination Time (in mins): 50 Quality: Safe Use of Opioids Does Pt have an Active Cancer Diagnosis on the Problem List?: No Quality: Stroke Does the patient have a stroke diagnosis?: No Physical Exam Vital Signs: Vital Signs: Last Vital Signs Temp 97.3 F 07/17/23 07:32 Pulse 76 07/17/23 07:32 Resp 16 07/17/23 07:32 BP 122/60 07/17/23 07:32 Pulse Ox 98 07/17/23 07:32 O2 Del Method Room Air 07/17/23 07:32 O2 Flow Rate 6 07/08/23 13:52 BMI result Body Mass Index 24.1 DS: Data Data Completed and Pending Labs on day of discharge: Laboratory Results - last 24 hr 07/16/23 07/16/23 07/17/23 11:19 15:04 07:58 Hold Purple Top SEE NOTE Sodium 125 L 123 L 127 L Potassium 3.8 Chloride 97 Carbon Dioxide 21 L Anion Gap 13 BUN 7 L Creatinine 0.62 Estim Creat Clear Calc 96.0 Estimated GFR > 60 Random Glucose 64 Calcium 8.1 L Total Bilirubin 10.5 H Direct Bilirubin 7.9 H AST 141 H ALT 90 H Alkaline Phosphatase 300 H Total Protein 5.9 L Albumin 2.3 L Discharge Plan Discharge Anticipated Discharge Date/Time: 07/17/23 09:38 Patient Disposition: Home, Self-Care Discharge Diagnosis: Acute alcoholic hepatitis Acute alcohol withdrawal Acute metabolic encephalopathy Coagulopathy Acute kidney injury Hypokalemia/hypomagnesemia/hyponatremia Oral thrush Failure to thrive Referrals: Zen Morales MD [Physician] - 1 Week (Hyponatremia ) Nathan Navarrete MD [Physician] - 1 Week (acute alcoholic hepatitis ) Roderick Holder FNP- [Primary Care Provider] - 1 Week Discharge Medications: New omeprazole 40 mg Capsule,Delayed Release(Dr/Ec) 40 mg PO DAILY@0630 Qty: 30 0RF potassium chloride 20 mEq Tablet,Er Particles/Crystals 20 meq PO DAILY Qty: 30 0RF magnesium oxide 400 mg (241.3 mg magnesium) Tablet 400 mg PO BIDPC Qty: 60 0RF folic acid 1 mg Tablet 1 mg PO DAILY Qty: 30 0RF thiamine mononitrate (vit B1) 100 mg Tablet 100 mg PO DAILY Qty: 30 0RF lactulose 20 gram/30 mL Solution 20 g PO DAILY Qty: 1200 0RF prednisolone 5 mg tablet See Taper PO DAILY Qty: 140 0RF Taper: Prednisone 40 mg daily for 7 Days and 0 Hour 30 mg daily for 7 Days and 0 Hour 20 mg daily for 7 Days and 0 Hour 10 mg daily for 7 Days and 0 Hour sodium chloride 1,000 mg Tablet,Soluble 1,000 mg PO BID Qty: 14 0RF prednisone 10 mg tablet See Taper PO DIRECTED Qty: 42 0RF Taper: Prednisone 30 mg daily for 7 Days and 0 Hour 20 mg daily for 7 Days and 0 Hour 10 mg daily for 7 Days and 0 Hour Rx Instructions: see taper instructions Continued fluoxetine 20 mg capsule 60 mg PO QAM 90 Days Qty: 270 1RF Patient Comments: 7 day supply 01/05 Discharge Orders: Discharge Order (Routine); Ordered 07/17/23 Ordered By: Precious Diaz Diet: Advance to usual diet Activity on Discharge: As tolerated Stand Alone Forms: Patient Portal Discharge page Print Language: Persian Other Ambulatory Orders: Basic Metabolic Panel (Routine) Timeframe: 1 Week Facility: [facility] - Location: Laboratory Ordered By: Precious Diaz Liver Panel (Routine) Timeframe: 1 Week Facility: [facility] - Location: Laboratory Ordered By: Precious Diaz Care Plan Goals: Do not drink alcohol, seek outpatient resources for assistance with this Health Concerns: Acute alcoholic hepatitis Acute alcohol withdrawal Acute metabolic encephalopathy Coagulopathy Acute kidney injury Hypokalemia/hypomagnesemia/hyponatremia Oral thrush Failure to thrive Plan of Treatment: Follow-up with primary care provider as needed Follow-up with Gastroenterology in 2 weeks Take prednisone taper as prescribed Assessment: See discharge summary
--- NOTE | 2023-07-17 10:39 | MHC.CM.PN ---
Pt is medically cleared for discharge home self-care, pt has arranged for her own transportation home.
== END 2023-07-17 13:47 | disposition home or self-care (01) | DRG 280 ==
LOC: HO.ED 08:48 → HO.EDOVER 12:17 → HO.IMC 07-08 00:53
PROVIDERS: Internal Medicine; Internal Medicine Gastroenterology; Physician Assistant; Physician Assistant Medical; Student in an Organized Health Care Education/Training Program; Admitting Provider Nurse Practitioner Acute Care; Emergency Provider Student in an Organized Health Care Education/Training Program; PCP Nurse Practitioner Family; Visit Provider Nurse Practitioner Acute Care
PROC: 0DJ08ZZ Inspection of Upper Intestinal Tract, Via Natural or Artificial Opening Endoscopic (ICD-10-PCS; CPT 43235; principal; 2023-07-08 14:20)
DX: K70.10 Alcoholic hepatitis without ascites (principal); G93.41 Metabolic encephalopathy; N17.9 Acute kidney failure, unspecified; K29.71 Gastritis, unspecified, with bleeding; B37.0 Candidal stomatitis; D68.4 Acquired coagulation factor deficiency; D62 Acute posthemorrhagic anemia; E87.1 Hypo-osmolality and hyponatremia; F10.130 Alcohol abuse with withdrawal, uncomplicated; E86.0 Dehydration; K76.82 Hepatic encephalopathy; K44.9 Diaphragmatic hernia without obstruction or gangrene; K76.6 Portal hypertension; K31.89 Other diseases of stomach and duodenum; F32.A Depression, unspecified; R62.7 Adult failure to thrive; Z68.24 Body mass index [BMI] 24.0-24.9, adult; F17.210 Nicotine dependence, cigarettes, uncomplicated; Z71.6 Tobacco abuse counseling; J44.9 Chronic obstructive pulmonary disease, unspecified; E87.6 Hypokalemia; E83.42 Hypomagnesemia; Z79.899 Other long term (current) drug therapy
CPT/HCPCS: 36415; 71045; 71046; 74178; 76705; 80048; 80053; 80076; 80143; 80307; 81001; 81003; 81256; 82140; 82272; 82436; 82728; 82977; 83540; 83615; 83690; 83735; 83930; 83935; 84133; 84295; 84300; 85014; 85018; 85025; 85027; 85610; 86015; 86038; 86381; 86704; 86706; 86709; 86803; 86850; 86900; 86901; 86923; 87340; 92610; 92950; 93005; 94640; 97116; 97162; 99285; C9113; J1596; J2060; J2405; J2560; J2704; J3010; J3411; J3430; J3475; J3480; P9016; Q9967

== ENCOUNTER → 2023-07-07 08:08 | Outpatient (BNV) | payer OTHER, SELFPAY | PROVIDERS: Emergency Provider Student in an Organized Health Care Education/Training Program; PCP Nurse Practitioner Family; Visit Provider Internal Medicine Cardiovascular Disease | DX: R94.31 Abnormal electrocardiogram [ECG] [EKG] (principal) | CPT/HCPCS: 93010 ==

== ENCOUNTER → 2023-07-07 12:05 | Outpatient (BNV) | payer OTHER, SELFPAY | PROVIDERS: Admitting Provider Nurse Practitioner Acute Care; Emergency Provider Student in an Organized Health Care Education/Training Program; PCP Nurse Practitioner Family; Visit Provider Internal Medicine Nephrology | DX: E87.1 Hypo-osmolality and hyponatremia (principal); N17.9 Acute kidney failure, unspecified | CPT/HCPCS: 99222; 99232; 99499 ==

== ENCOUNTER → 2023-07-07 12:05 | Outpatient (BNV) | payer OTHER, SELFPAY | PROVIDERS: Admitting Provider Nurse Practitioner Acute Care; Emergency Provider Student in an Organized Health Care Education/Training Program; PCP Nurse Practitioner Family; Visit Provider Nurse Practitioner Acute Care | DX: K76.82 Hepatic encephalopathy (principal); K70.10 Alcoholic hepatitis without ascites; E87.1 Hypo-osmolality and hyponatremia; F10.90 Alcohol use, unspecified, uncomplicated | CPT/HCPCS: 99223; 99232; 99233; 99239; 99499 ==

== ENCOUNTER 2023-07-25 10:03 | Outpatient (AMB) | payer OTHER, SELFPAY ==
[2023-07-25 10:00] VITALS: BP 124/56; PULSE 95; O2SAT 97; BMI 25.2
--- NOTE | 2023-07-25 10:00 | HO.NEPHOV ---
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: No Accompanied by: Self / Same As Patient Allergies No Known Allergies [NO KNOWN ALLERGIES] Allergy (Unknown, Verified 07/25/23 10:04) UNKNOWN Medication List - Last Reconciled 07/25/23 by Zen Morales MD fluoxetine 40 mg PO QAM folic acid 1 mg PO DAILY lactulose 20 grams (30 mL) PO DAILY magnesium oxide 400 mg PO BIDPC omeprazole 40 mg PO DAILY@0630 potassium chloride ER 20 mEq PO DAILY prednisolone See Taper mg PO DAILY prednisone See Taper mg PO DIRECTED thiamine mononitrate (vit B1) 100 mg PO DAILY HPI Comments Details: Rebecca is a 57-year-old of hyponatremia was recently consultation during hospitalization. She had serum sodium in the mid 120s. She has liver failure with significantly elevated LFTs. He has been drinking plenty of free water She is on fluoxetine 60 mg a day. She was started on sodium chloride tablets 1 g b.i.d.. Today she complains of leg edema. No shortness of breath. [facility] Medical History COPD (chronic obstructive pulmonary disease) Anxiety Breast calcification, left Depression Surgical History History of tubal ligation Family History Father Stroke Mother Lung cancer Son No problems noted. Daughter No problems noted. Maternal Grandmother Emphysema, unspecified Maternal Grandfather History of heart attack Maternal Aunt Breast cancer Social History Household Members: Other Household Members Other:: roommate Housing: House Do you presently have visiting nurse or other home services: No Alcohol intake: former Comment: SITTER Patient Tobacco Use Status: Current everyday Tobacco user Tobacco use type: Cigarette Cigarette Packs Per Day: 0.5 Cigarettes Per Day: 10 Second Hand Smoke Exposure: Yes Substance Use Type: Marijuana Advance Directives Date on File: 07/08/23 service: No Gender identity: Female Female Reproductive History Menstrual Age of Menarche: 15 Physical Exam Vital Signs: Last Vital Signs Pulse 95 07/25/23 10:00 BP 124/56 L 07/25/23 10:00 Pulse Ox 97 07/25/23 10:00 Oxygen Delivery Method Room Air 07/25/23 10:00 BMI result Body Mass Index 25.2 Last Vital Signs Temp 97.3 F 07/16/23 07:47 Pulse 70 07/16/23 07:47 Resp 18 07/16/23 07:47 BP 119/65 07/16/23 07:47 Pulse Ox 99 07/16/23 07:47 O2 Del Method Room Air 07/16/23 07:47 O2 Flow Rate 6 07/08/23 13:52 BMI result Body Mass Index 24.1 Const General: ill appearing Neck Neck: Yes supple Resp Auscultation: clear to auscultation bilaterally Cardio Palpation: no palpable S3 Heart sounds: no rubs GI Palpation (GI): Soft to palpation Auscultation: normal bowel sounds Skin General skin exam: jaundice and pallor Neuro Motor exam (neuro): no asterixis Extrem General: Yes edema Results Reviewed Nephrology Results: Hgb 12.0 g/dl (12.0-16.0) 07/12/23 WBC 16.9 X10*3/uL (4.8-10.8) H 07/12/23 Plt Count 199 X10*3/uL (160-400) 07/12/23 Sodium 127 mmol/L (135-145) L 07/17/23 Potassium 3.8 mmol/L (3.3-5.1) 07/17/23 Chloride 97 mmol/L (96-108) 07/17/23 Carbon Dioxide 21 mmol/L (22-29) L 07/17/23 BUN 7 mg/dL (9-16) L 07/17/23 Creatinine 0.62 mg/dL (0.5-1.4) 07/17/23 Calcium 8.1 mg/dL (8.4-10.2) L 07/17/23 Urine Protein 100 (2+) mg/dL (Neg-Trace) H 07/10/23 Assessment & Plan Assessment & Plan (1) Hyponatremia: Code(s): E87.1 - Hypo-osmolality and hyponatremia Category: Medical Plan Chronic asymptomatic hyponatremia in the setting of liver failure. She is on high dose of SSRI which could be contributing to decreased free water clearance. She is also drinking excessive free water. Leg edema is due to sodium chloride tablets. Recommendations Stop sodium chloride tablets due to leg edema. Restrict oral free water intake. She has been drinking 3 bottles of water and asked her to cut it down to 2 bottles. Decrease SSRIs ; I would lower fluoxetine from 60 mg a day down to 40 mg a day to see if there is any improvement in serum sodium. Recheck serum sodium in the next 2 Due to her advanced liver disease we are unable to use urea powder. Orders: Orders Basic Metabolic Panel 2 Weeks E87.1 - Hypo-osmolality and hyponatremia Medications: Discontinued sodium chloride Discontinued Reason: Doctor's Order 1,000 mg PO BID 14 tabs 0RF Coding Level of Care Code Est Pt Level 4 (08090) Diagnoses Hyponatremia E87.1
== END 2023-07-25 16:09 | disposition home or self-care (01) ==
PROVIDERS: PCP Nurse Practitioner Family; Visit Provider Internal Medicine Hypertension Specialist
DX: E87.1 Hypo-osmolality and hyponatremia (principal)
CPT/HCPCS: 99214

== ENCOUNTER → 2023-07-25 10:03 | Outpatient (BNVA) | payer OTHER, SELFPAY | PROVIDERS: PCP Nurse Practitioner Family; Visit Provider Internal Medicine Hypertension Specialist ==

== ENCOUNTER 2023-08-09 07:30 | Outpatient (REF) | payer OTHER, SELFPAY ==
[2023-08-09 10:46] LABS: Alanine Aminotransferase 40 U/L (0-31); Albumin Level 2.8 g/dL (3.5-5.0); Alkaline Phosphatase 188 U/L (39-117); Anion Gap 16 (12-20); Aspartate Amino Transferase 68 U/L (5-31); Bilirubin Direct 2.2 mg/dL (0.0-0.5); Bilirubin Total 3.1 mg/dL (0.0-1.0); Blood Urea Nitrogen 4 mg/dL (9-16); Calcium 8.9 mg/dL (8.4-10.2); Carbon Dioxide 24 mmol/L (22-29); Chloride 102 mmol/L (96-108); Estimated Glomerular Filt Rate > 60; Glucose Random 86 mg/dL (60-115); Potassium 3.8 mmol/L (3.3-5.1); Sodium 138 mmol/L (135-145); Total Protein 6.2 g/dL (6.5-8.0)
== END 2023-08-09 07:31 | disposition home or self-care (01) ==
LOC: HO.HMGCLDS 07:30
PROVIDERS: PCP Nurse Practitioner Family; Referring Provider Nurse Practitioner Acute Care; Visit Provider Internal Medicine Hypertension Specialist
DX: K70.10 Alcoholic hepatitis without ascites (principal); E87.1 Hypo-osmolality and hyponatremia
CPT/HCPCS: 36415; 80048; 80076

== ENCOUNTER 2023-08-12 12:50 | Outpatient (AMB) | payer OTHER, SELFPAY ==
[2023-08-12 12:55] VITALS: BP 140/78; PULSE 97; O2SAT 97
--- NOTE | 2023-08-12 12:55 | MHC.PC.OV ---
Vital Signs 08/12/23 12:55 Height 5 ft 6 in BP 140/78 H Blood Pressure Location Rt brachial Position Sitting Pulse 97 Pulse Source Pulse Oximeter Pulse Oximetry (%) 97 Oxygen Delivery Method Room Air Intake Visit Reasons: HDF alcohol withdrawal [facility] Intake Note: pt here for hospital f/u alcohol withdrawal Accompanied by: Self / Same As Patient Allergies No Known Allergies [NO KNOWN ALLERGIES] Allergy (Unknown, Verified 08/12/23 13:17) UNKNOWN Medication List - Last Reconciled 08/12/23 by JAMAL Rdz fluoxetine 40 mg PO QAM folic acid 1 mg PO DAILY lactulose 20 grams (30 mL) PO DAILY magnesium oxide 400 mg PO BIDPC omeprazole 40 mg PO DAILY@0630 potassium chloride ER 20 mEq PO DAILY thiamine mononitrate (vit B1) 100 mg PO DAILY Tobacco use date assessed: 08/12/23 Dental Screening Dental Screen Date: 08/12/23 Did you have a dental visit in the last 12 months?: Yes Did you have a dental problem in the last 6 months where you did not have access to dental care?: No Was dental information given to patient?: Patient has dentist HPI HPI Comments History of Present Illness Details Patient is a 57-year-old female in today for hospital discharge follow-up. Patient was originally admitted to [facility] as inpatient for to hepatic encephalopathy, elevated white blood count, GI bleed, hyponatremia, and alcoholic hepatitis. Patient was known to have 6-12 beers prior to that admission, and quit abruptly 3 weeks prior. Patient has referral to Nephrology and GI. She was discharged on oral PPI, and prednisone taper. Patient was instructed to follow up with GI within 2 weeks which she has not yet done. Patient also saw Nephrology for JOHNNY. Patient had lab draw which demonstrated significant improvement since hospital discharge follow-up. Patient states that she has refrain from using alcohol. She states she looks and feels better. Patient primary complaint is diarrhea which she believes is from lactulose. Will redraw ammonia today. Patient also has elevated blood pressure at today's visit however would like to monitor this at home before starting medication. Patient denies dizziness, chest pain shortness of breath, numbness. [facility] Medical History Alcohol use disorder COPD (chronic obstructive pulmonary disease) Anxiety Breast calcification, left Depression Surgical History History of tubal ligation Family History Father Stroke Mother Lung cancer Son No problems noted. Daughter No problems noted. Maternal Grandmother Emphysema, unspecified Maternal Grandfather History of heart attack Maternal Aunt Breast cancer Social History Household Members: Other Household Members Other:: roommate Housing: House Do you presently have visiting nurse or other home services: No Alcohol intake: former Comment: SITTER Patient Tobacco Use Status: Current everyday Tobacco user Tobacco use type: Cigarette Cigarette Packs Per Day: 0.5 Cigarettes Per Day: 10 e-Cigarette/Vaping Use: Never Used Second Hand Smoke Exposure: Yes Substance Use Type: Marijuana Advance Directives Date on File: 07/08/23 service: No Current occupational status: employed Current occupational exposures/hazards: No Gender identity: Female Female Reproductive History Menstrual Age of Menarche: 15 Questionnaire PHQ-9 Over the last 2 weeks, how often have you been bothered by any of the following problems? 1. Little interest or pleasure in doing things: not at all 2. Feeling down, depressed, or hopeless: not at all 3. Trouble falling or staying asleep, or sleeping too much: not at all 4. Feeling tired or having little energy: not at all 5. Poor appetite or overeating: not at all 6. Feeling bad about yourself - or that you are a failure or have let yourself or your family down: not at all 7. Trouble concentrating on things, such as reading the newspaper or watching television: not at all 8. Moving or speaking so slowly that other people could have noticed. Or the opposite - being so fidgety or restless that you have been moving around a lot more than usual: not at all 9. Thoughts that you would be better off or of hurting yourself in some way: not at all Total score: 0 Depression Screening Interpretation: Negative Depression Screening Done: Yes 59536 - PHQ-9 Billing: Yes Source: Developed by Ingrid FelipeW. Prakash, Alden Knapp and colleagues, with an educational nga from [employer]. Thrive Questionnaire Date Thrive assessed: 07/08/23 I am a: Patient What is your living situation today?: I have a steady place to live Within the past 12 months, did the food you bought not last and you didn't have the money to get more?: Sometimes True Within the past 12 months, did you worry whether your food would run out before you got money to buy more?: Sometimes True Do you have trouble paying for medicines?: Yes Do you have trouble getting transportation to medical appointments?: No Do you have trouble paying your heating and electricity bill?: No Do you have trouble taking care of your child, family member or friend?: No Do you have trouble with day-to-day activities such as bathing, preparing meals, shopping, managing finances, etc.?: No Are you currently unemployed and looking for a job?: No Are you interested in more education?: No Please select the resources that you would like help with: None Currently or been in a relationship where the following occur: no concerns reported THRIVE Score: 2 AUDIT C Alcohol Use Questionnaire (AUDIT-C) 1. How often do you have a drink containing alcohol?: Never 3. How often do you have six or more drinks on one occasion?: Never Total Score: 0 Score Reviewed/Action Taken: Yes CELI-7 AMB Questionnaire CELI-7 Feeling nervous, anxious, or on edge: 0 = Not at all Not being able to stop or control worryin = Not at all Worrying too much about different things: 0 = Not at all Trouble relaxin = Not at all Being so restless that it is hard to sit still: 0 = Not at all Becoming easily annoyed or irritable: 0 = Not at all Feeling afraid as if something awful might happen: 0 = Not at all Total CELI-7 score (0-4 normal; 5-9 mild; 10-14 moderate; 15-21 severe): 0 Source: Developed by Drs. Christopher Garcia, Alden Coe and colleagues, with an educational nga from [employer]. CELI-7 Assessment Billing CELI-7 Assessment Tool: CELI-7 Assessment 24279 Review of Systems Const All systems reviewed & are unremarkable except as noted in HPI and below Physical exam (Primary Care) Vital Signs: Last Vital Signs Pulse 97 08/12/23 12:55 BP 140/78 H 08/12/23 12:55 Pulse Ox 97 08/12/23 12:55 Oxygen Delivery Method Room Air 08/12/23 12:55 Care Plan Goal for BP management: Take measurements at home Next steps: Record and bring to the office in two weeks. Tobacco/Smoking Status: Tobacco use Status Tobacco use date assessed 08/12/23 08/12/23 13:04 Patient Tobacco Use Status Current everyday Tobacco 08/12/23 13:04 Tobacco use type Cigarette 08/12/23 13:04 e-Cigarette/Vaping Use Never Used 08/12/23 13:04 PHQ-9: PHQ-9 Score PHQ-9: Total score 0 08/12/23 13:04 Depression Screening Interpretation: Negative Thrive Assessment: Date of Thrive Assessment Date Thrive assessed 07/08/23 08/12/23 13:04 Currently or been in a relationship where the following occur: no concerns reported Const Other: Appearance: Alert.? Oriented X3.? No acute distress.? Head: Normocephalic. Eyes: Sclera white. Neck: Normal inspection.? Neck supple.?Full ROM. CVS: Normal heart rate and rhythm.? Pulses normal.? Respiratory: No respiratory distress.? Breath sounds normal.? Abdomen: Soft and nontender.? Skin: Slight jaundice. Neuro: Oriented X 3.? No motor deficit.? No sensory deficit. CN 2-12 intact Results Reviewed Results Reviewed: Sodium 138 135-145 mmol/L Potassium 3.8 3.3-5.1 mmol/L CL 102 96-108 mmol/L CO2 24 22-29 mmol/L Gap 16 12-20 BUN 4 L 9-16 mg/dL Creat 0.55 0.5-1.4 mg/dL EGFR > 60 NOTE: For -Guamanian individuals, multiply the result by 1.210. Chronic Kidney Disease: Estimated GFR < 60 mL/min/1.73m2 Severe Kidney Disease: Estimated GFR < 15 mL/min/1.73m2 Glucose, Random 86 60-115 mg/dL CA 8.9 # 8.4-10.2 mg/dL Total Bili 3.1 H 0.0-1.0 mg/dL Direct Bili 2.2 H 0.0-0.5 mg/dL AST (GOT) 68 H 5-31 U/L ALT (GPT) 40 H 0-31 U/L Protein, Total 6.2 L 6.5-8.0 g/dL Alb 2.8 L 3.5-5.0 g/dL Alk Phos 188 H 39-117 U/L Assessment and Plan Assessment & Plan (1) Hospital discharge follow-up: Comment: Will draw CBC and pneumonia. Code(s): Z09 - Encounter for follow-up examination after completed treatment for conditions other than malignant neoplasm (2) Hyponatremia: Comment: Recent blood draw demonstrated normal levels of sodium Code(s): E87.1 - Hypo-osmolality and hyponatremia (3) Jaundice: Comment: Elevated liver enzymes, hepatic steatosis, levels have improved since hospital discharge. Patient to follow-up with GI Code(s): R17 - Unspecified jaundice (4) JOHNNY (acute kidney injury): Comment: Has establish care with Nephrology. Patient has been asked to decrease water intake to 2 L per day. Had fluoxetine decreased from 60 mg to 40 mg p.o. daily. Code(s): N17.9 - Acute kidney failure, unspecified (5) Alcohol use disorder: Comment: Patient has not had ETOH drink since discharge on months prior. Has upcoming appointment with [facility]. Code(s): F10.90 - Alcohol use, unspecified, uncomplicated (6) GERD (gastroesophageal reflux disease): Comment: 40 mg omeprazole PO daily. Code(s): K21.9 - Gastro-esophageal reflux disease without esophagitis Qualifiers: Esophagitis presence: esophagitis presence not specified Qualified Code(s): K21.9 - Gastro-esophageal reflux disease without esophagitis Plan: draw labs. Plan Follow up in 2 months. Orders: Orders Ammonia Today K76.82 - Hepatic encephalopathy Complete Blood Count Auto Diff Today Z13.0 - Encounter for screening for diseases of the blood and blood-forming organs and certain disorders involving the immune mechanism Coding Level of Care Code Est Pt Level 4 (36711) Diagnoses Hospital discharge follow-up Z09 Hyponatremia E87.1 Jaundice R17 JOHNNY (acute kidney injury) N17.9 Alcohol use disorder F10.90 Gastroesophageal reflux disease, unspecified whether esophagitis present K21.9 Esophagitis presence: esophagitis presence not specified Additional Codes CELI-7 Assessment Billing - CELI-7 Assessment Tool: CELI-7 Assessment 32472 ([id number]) Time Spent (min) 34
== END 2023-08-12 13:36 | disposition home or self-care (01) ==
PROVIDERS: PCP Nurse Practitioner Family; Visit Provider Nurse Practitioner Primary Care
DX: N17.9 Acute kidney failure, unspecified (principal); Z09 Encounter for follow-up examination after completed treatment for conditions other than malignant neoplasm; E87.1 Hypo-osmolality and hyponatremia; R17 Unspecified jaundice; F10.90 Alcohol use, unspecified, uncomplicated; K21.9 Gastro-esophageal reflux disease without esophagitis
CPT/HCPCS: 99214

== ENCOUNTER 2023-08-12 13:39 | Outpatient (REF) | payer OTHER, SELFPAY ==
[2023-08-12 15:47] LABS: Ammonia 44 umol/L (13-55)
== END 2023-08-12 13:40 | disposition home or self-care (01) ==
LOC: HO.HMGCLDS 13:39
PROVIDERS: PCP Nurse Practitioner Family; Visit Provider Nurse Practitioner Primary Care
DX: K76.82 Hepatic encephalopathy (principal)
CPT/HCPCS: 36415; 82140

== ENCOUNTER 2023-09-02 11:34 | Outpatient (AMB) | payer OTHER, SELFPAY ==
[2023-09-02 11:38] VITALS: BP 112/54; PULSE 83; O2SAT 95; BMI 21.9
--- NOTE | 2023-09-02 11:38 | HO.NEPHOV ---
Vital Signs 09/02/23 11:38 Height 5 ft 6 in Weight 136 lb BMI 21.9 BP 112/54 L Blood Pressure Location Rt brachial Position Sitting Pulse 83 Pulse Source Pulse Oximeter Pulse Oximetry (%) 95 Oxygen Delivery Method Room Air Intake Visit Reasons: CKD/ 1 MO FU/ LVM Lifestyle Coordinator Required: No Accompanied by: Self / Same As Patient Allergies No Known Allergies [NO KNOWN ALLERGIES] Allergy (Unknown, Verified 09/02/23 11:40) UNKNOWN Medication List - Last Reconciled 09/02/23 by Zen Morales MD fluoxetine 40 mg PO QAM folic acid 1 mg PO DAILY magnesium oxide 400 mg PO BIDPC omeprazole 40 mg PO DAILY@0630 potassium chloride ER 20 mEq PO DAILY thiamine mononitrate (vit B1) 100 mg PO DAILY HPI Comments Details: Rebecca is a 57-year-old of hyponatremia was recently consultation during hospitalization. She had serum sodium in the mid 120s. She has liver failure with significantly elevated LFTs. He has been drinking plenty of free water She is on fluoxetine 60 mg a day. She was started on sodium chloride tablets 1 g b.i.d.. Today she complains of leg edema. No shortness of breath. 09/02/23 Has been off slat tabs Lactulose was stopped 4 weeks ago due to diarrhea NO new issues Edema improved [facility] Medical History Alcohol use disorder COPD (chronic obstructive pulmonary disease) Anxiety Breast calcification, left Depression Surgical History History of tubal ligation Family History Father Stroke Mother Lung cancer Son No problems noted. Daughter No problems noted. Maternal Grandmother Emphysema, unspecified Maternal Grandfather History of heart attack Maternal Aunt Breast cancer Social History Household Members: Other Household Members Other:: roommate Housing: House Do you presently have visiting nurse or other home services: No Alcohol intake: former Comment: SITTER Patient Tobacco Use Status: Current everyday Tobacco user Tobacco use type: Cigarette Cigarette Packs Per Day: 0.5 Cigarettes Per Day: 10 e-Cigarette/Vaping Use: Never Used Second Hand Smoke Exposure: Yes Substance Use Type: Marijuana Advance Directives Date on File: 07/08/23 service: No Current occupational status: employed Current occupational exposures/hazards: No Gender identity: Female Female Reproductive History Menstrual Age of Menarche: 15 Physical Exam Vital Signs: Last Vital Signs Pulse 83 09/02/23 11:38 BP 112/54 L 09/02/23 11:38 Pulse Ox 95 09/02/23 11:38 Oxygen Delivery Method Room Air 09/02/23 11:38 BMI result Body Mass Index 21.9 Const General: comfortable; No acute distress Orientation/consciousness: patient oriented x3 Eyes General: appearance normal, both eyes and all related structures Visual Guaman: normal visual guaman by confrontation Neck Neck: Yes supple and Yes no JVD Resp Effort & Inspection: normal respiratory effort and respiratory effort not decreased Auscultation: rhonchi Cardio Palpation: no palpable S3 and no palpable S4 Heart sounds: no rubs GI Inspection: Yes normal to inspection Palpation (GI): Soft to palpation Percussion: Yes normal to percussion Auscultation: normal bowel sounds General: Yes no CVA tenderness Back/Spine/Pelvis Back: no CVA tenderness Skin General skin exam: no petechiae and no purpura Neuro General: patient oriented x3 and no focal motor deficits Extrem General: No clubbing and No edema Results Reviewed Nephrology Results: Hgb 12.0 g/dl (12.0-16.0) 07/12/23 WBC 16.9 X10*3/uL (4.8-10.8) H 07/12/23 Plt Count 199 X10*3/uL (160-400) 07/12/23 Sodium 138 mmol/L (135-145) 08/09/23 Potassium 3.8 mmol/L (3.3-5.1) 08/09/23 Chloride 102 mmol/L (96-108) 08/09/23 Carbon Dioxide 24 mmol/L (22-29) 08/09/23 BUN 4 mg/dL (9-16) L 08/09/23 Creatinine 0.55 mg/dL (0.5-1.4) 08/09/23 Calcium 8.9 mg/dL (8.4-10.2) 08/09/23 Urine Protein 100 (2+) mg/dL (Neg-Trace) H 07/10/23 Assessment & Plan Assessment & Plan (1) Hyponatremia: Comment: Recent blood draw demonstrated normal levels of sodium Code(s): E87.1 - Hypo-osmolality and hyponatremia Category: Medical (2) Jaundice: Comment: Elevated liver enzymes, hepatic steatosis, levels have improved since hospital discharge. Patient to follow-up with GI Code(s): R17 - Unspecified jaundice Category: Medical Plan Chronic asymptomatic hyponatremia in the setting of liver failure. She was on high dose of SSRI which could be contributing to decreased free water clearance. She was also drinking excessive free water. Leg edema is due to sodium chloride tablets -resolved after stopping salt tablets Serum sodium has improved. Recommendations Restrict oral free water intake. Keep fluoxetine at 40 mg a day and watch serum sodium Due to her advanced liver disease we are unable to use urea powder. She is currently on potassium supplementation. She has no further diarrhea after discontinuing lactulose. Recheck serum lytes and we might have to stop the potassium chloride supplementation if she has no further ongoing potassium losses from GI tract Orders: Orders Comprehensive Met. Panel 3 Weeks E87.1 - Hypo-osmolality and hyponatremia, R17 - Unspecified jaundice Complete Blood Count Auto Diff 3 Weeks E87.1 - Hypo-osmolality and hyponatremia, R17 - Unspecified jaundice Magnesium 3 Weeks E87.1 - Hypo-osmolality and hyponatremia, R17 - Unspecified jaundice Ammonia 3 Weeks E87.1 - Hypo-osmolality and hyponatremia, R17 - Unspecified jaundice Coding Level of Care Code Est Pt Level 4 (83510) Diagnoses Hyponatremia E87.1 Jaundice R17
== END 2023-09-02 11:54 | disposition home or self-care (01) ==
PROVIDERS: PCP Nurse Practitioner Family; Visit Provider Internal Medicine Hypertension Specialist
DX: E87.1 Hypo-osmolality and hyponatremia (principal); R17 Unspecified jaundice
CPT/HCPCS: 99214

== ENCOUNTER → 2023-09-02 11:34 | Outpatient (BNVA) | payer OTHER, SELFPAY | PROVIDERS: PCP Nurse Practitioner Family; Visit Provider Internal Medicine Hypertension Specialist ==

== ENCOUNTER 2023-10-22 12:08 | Outpatient (AMB) | payer OTHER, SELFPAY ==
--- NOTE | 2023-10-22 12:42 | A.OFFPC_ITS ---
Vital Signs 10/22/23 12:44 Height 5 ft 6 in Weight 144 lb BMI 23.2 BP 112/70 Blood Pressure Location Lt brachial Position Sitting Pulse 102 H Pulse Source Pulse Oximeter Pulse Oximetry (%) 97 Oxygen Delivery Method Room Air Intake Visit Reasons: Annual PE overdue Intake Note: pt is here for annual exam Rn Critical Care Required: No Allergies No Known Allergies [NO KNOWN ALLERGIES] Allergy (Unknown, Verified 10/22/23 12:44) UNKNOWN Tobacco use date assessed: 08/12/23 Dental Screening Dental Screen Date: 08/12/23 HPI Annual PE overdue HPI Details Physical exam was not performed today. Upon entering room today, pt is very jaundiced. She reports feeling fatigued and seems foggy. Abdominal distension noted, appears to be ascites. Pt reports chills and feels like she has a cold. EMS was called. Denies chest pain, shortness of breath, and dizziness. NOTE: EMs took more vitals and spoke with pt. AMA form apparently signed with them (contact via ambulance staff and ER MD). Ambulance staff member told me all this and there was nothing more they could do for her after signing AMA. [facility] Medical History (Updated 10/22/23 @ 17:08 by Roderick Holder, [facility]) Jaundice Alcohol use disorder COPD (chronic obstructive pulmonary disease) Anxiety Breast calcification, left Depression Surgical History History of tubal ligation Family History Father Stroke Mother Lung cancer Son No problems noted. Daughter No problems noted. Maternal Grandmother Emphysema, unspecified Maternal Grandfather History of heart attack Maternal Aunt Breast cancer Social History Household Members: Other Household Members Other:: roommate Housing: House Do you presently have visiting nurse or other home services: No Alcohol intake: former Comment: SITTER Patient Tobacco Use Status: Current everyday Tobacco user Tobacco use type: Cigarette Cigarette Packs Per Day: 0.5 Cigarettes Per Day: 10 e-Cigarette/Vaping Use: Never Used Second Hand Smoke Exposure: Yes Substance Use Type: Marijuana Advance Directives Date on File: 07/08/23 service: No Current occupational status: employed Current occupational exposures/hazards: No Gender identity: Female Female Reproductive History Menstrual Age of Menarche: 15 Questionnaire PHQ-9 Over the last 2 weeks, how often have you been bothered by any of the following problems? 1. Little interest or pleasure in doing things: not at all 2. Feeling down, depressed, or hopeless: not at all 3. Trouble falling or staying asleep, or sleeping too much: not at all 4. Feeling tired or having little energy: not at all 5. Poor appetite or overeating: not at all 6. Feeling bad about yourself - or that you are a failure or have let yourself or your family down: not at all 7. Trouble concentrating on things, such as reading the newspaper or watching television: not at all 8. Moving or speaking so slowly that other people could have noticed. Or the opposite - being so fidgety or restless that you have been moving around a lot more than usual: not at all 9. Thoughts that you would be better off or of hurting yourself in some way: not at all Total score: 0 Depression Screening Interpretation: Negative Depression Screening Done: Yes 71535 - PHQ-9 Billing: Yes Source: Developed by Drs. Christopher Garcia, Ingrid Randall, Alden Knapp and colleagues, with an educational nga from [employer]. Thrive Questionnaire Date Thrive assessed: 10/22/23 I am a: Patient What is your living situation today?: I have a steady place to live Within the past 12 months, did the food you bought not last and you didn't have the money to get more?: Never true Within the past 12 months, did you worry whether your food would run out before you got money to buy more?: Never true Do you have trouble paying for medicines?: No Do you have trouble getting transportation to medical appointments?: No Do you have trouble paying your heating and electricity bill?: No Do you have trouble taking care of your child, family member or friend?: No Do you have trouble with day-to-day activities such as bathing, preparing meals, shopping, managing finances, etc.?: No Are you currently unemployed and looking for a job?: Yes Are you interested in more education?: No Please select the resources that you would like help with: None Currently or been in a relationship where the following occur: No concerns reported THRIVE Score: 0 AUDIT C Alcohol Use Questionnaire (AUDIT-C) 1. How often do you have a drink containing alcohol?: Never 3. How often do you have six or more drinks on one occasion?: Never Total Score: 0 Score Reviewed/Action Taken: Yes CELI-7 AMB Questionnaire CELI-7 Date CELI - 7 assessed: 10/22/23 Feeling nervous, anxious, or on edge: 0 = Not at all Not being able to stop or control worryin = Not at all Worrying too much about different things: 0 = Not at all Trouble relaxin = Not at all Being so restless that it is hard to sit still: 0 = Not at all Becoming easily annoyed or irritable: 0 = Not at all Feeling afraid as if something awful might happen: 0 = Not at all Total CELI-7 score (0-4 normal; 5-9 mild; 10-14 moderate; 15-21 severe): 0 Source: Developed by Drs. Christopher Garcia, Ingrid Randall, Alden Knapp and colleagues, with an educational nga from [employer]. CELI-7 Assessment Billing CELI-7 Assessment Tool: CELI-7 Assessment 66383 Physical exam (Primary Care) Vital Signs: Last Vital Signs Pulse 102 H 10/22/23 12:44 BP 112/70 10/22/23 12:44 Pulse Ox 97 10/22/23 12:44 Oxygen Delivery Method Room Air 10/22/23 12:44 BMI result Body Mass Index 23.2 Tobacco/Smoking Status: Tobacco use Status Tobacco use date assessed 08/12/23 10/22/23 12:43 Patient Tobacco Use Status Current everyday Tobacco 10/22/23 12:43 Tobacco use type Cigarette 10/22/23 12:43 e-Cigarette/Vaping Use Never Used 10/22/23 12:43 PHQ-9: PHQ-9 Score PHQ-9: Total score 0 10/22/23 13:26 Depression Screening Interpretation: Negative Thrive Assessment: Date of Thrive Assessment Date Thrive assessed 10/22/23 10/22/23 12:47 Currently or been in a relationship where the following occur: No concerns reported Const Other: jaundice Orientation/consciousness: patient oriented x3 Eyes Other: sclera jaundice Resp Effort & Inspection: normal respiratory effort Auscultation: wheezes scattered wheezes Cardio Rate: tachycardic Heart sounds: S1 normal heart sound present and S2 normal heart sound present GI Inspection: Yes distended Skin General skin exam: jaundice Neuro General: patient oriented x3 Psych Mental Status: mental status grossly normal Speech and movement: Normal speech and movement present Assessment and Plan Assessment & Plan (1) Jaundice: Comment: EMS called, pt spoke with them and apparently signed a AMA form Code(s): R17 - Unspecified jaundice Plan The patient agreed to the use of a medical insurance coder for this encounter. Scribed for GREG Balbuena by Betty Ragsdale medical insurance coder, on 10/22/2023 at 13:20 EST. Coding Level of Care Code Est Pt Level 3 (97000) Diagnoses Jaundice R17 Additional Codes CELI-7 Assessment Billing - CELI-7 Assessment Tool: ECLI-7 Assessment 75495 ([id number])
[2023-10-22 12:44] VITALS: BP 112/70; PULSE 102; O2SAT 97; BMI 23.2
== END 2023-10-22 13:46 | disposition home or self-care (01) ==
PROVIDERS: PCP Nurse Practitioner Family; Visit Provider Nurse Practitioner Family
DX: R17 Unspecified jaundice (principal)
CPT/HCPCS: 99213

== ENCOUNTER 2023-10-23 14:54 | Inpatient (IN) | payer OTHER, SELFPAY ==
--- NOTE | ~2023-10-23 | CT_ITS ---
EXAMINATION: CT ABDOMEN AND PELVIS WITH CONTRAST CLINICAL INFORMATION: Abdominal pain and distention COMPARISON: CT abdomen and pelvis 06/29/2023 TECHNIQUE: Multidetector volumetric images were obtained from the superior aspect of the liver through the pubic symphysis following administration 85 mL of Omnipaque 350 intravenous contrast. Sagittal and coronal reformatted images were obtained on the technologist's workstation. Oral contrast: No This CT examination was performed using dose optimization techniques as appropriate, variously including the following: *Automated exposure control *Adjustment of mA and/or kV according to patient size (this includes techniques or standardized protocols for targeted exams where dose is matched to indication/reason for exam; i.e. extremities or head) *Use of iterative reconstruction technique DLP: 480 mGy-cm FINDINGS: LUNG BASES: Partially visualized left basilar pulmonary mass measuring 3.3 x 2.2 cm. Surrounding reticular opacity in the dependent portion of the visualized left lower lobe. Partially visualized left-sided breast mass measuring 2.7 cm. LIVER, GALLBLADDER, AND BILIARY TREE: The liver is normal in size, shape, and attenuation. No focal hepatic lesion or biliary ductal dilatation is present. The gallbladder is unremarkable with no evidence of radiopaque gallstones, gallbladder wall thickening, or obvious pericholecystic inflammatory changes. PANCREAS: Unremarkable. SPLEEN: Unremarkable. ADRENAL GLANDS: Unremarkable. KIDNEYS AND URETERS: The kidneys are normal in size, shape, and attenuation. No hydronephrosis, hydroureter, or calculi seen. No perinephric stranding. BLADDER: Unremarkable. GASTROINTESTINAL TRACT: Diffuse bowel wall thickening, likely reactive given large volume ascites. ABDOMINAL WALL: No significant hernia is appreciated. LYMPH NODES: Normal. VASCULAR: Unremarkable. PELVIC VISCERA: Unremarkable. OSSEOUS STRUCTURES: Unremarkable. CT/CT abdomen pelvis w IV con IMPRESSION: 1. New partially visualized left basilar pulmonary mass entering 3.3 x 2.2 cm with surrounding reticular opacity. As this was not present on the June study, it is favored to be infectious in etiology; however, rapidly progressive malignancy cannot be excluded. Recommend completion imaging of the chest for full evaluation. 2. Partially visualized left breast mass measuring 2.7 cm. Recommend correlation with mammography. 3. The liver has shrunk in the interval, with slightly nodular contour, raising concern for cirrhosis. 4. Large volume ascites. Fleischner guidelines were followed.
--- NOTE | ~2023-10-23 | CT_ITS ---
EXAMINATION: CT CHEST WITHOUT CONTRAST CLINICAL INFORMATION: Dyspnea, left lung mass versus pneumonia. COMPARISON: None available. TECHNIQUE: Multidetector volumetric CT imaging of the chest was done. Axial MIP volume rendering provided. Sagittal and coronal reformatted images were obtained. This CT examination was performed using dose optimization techniques as appropriate, variously including the following: *Automated exposure control *Adjustment of mA and/or kV according to patient size (this includes techniques or standardized protocols for targeted exams where dose is matched to indication/reason for exam; i.e. extremities or head) *Use of iterative reconstruction technique DLP: 256 mGy-cm FINDINGS: ELECTRONIC DIE MAKER: Well-expanded lungs without acute pneumonic process. LUNGS: Lungs are mildly emphysematous with patchy reticular defined opacity in the left upper lobe with hypodensity and area likely artifactual likely representing early infiltrate. There is mild bilateral upper and lower lobe bronchial wall thickening. There is patchy airspace is opacity left lower lobe with central solid component likely consolidation measuring -12 Hounsfield units. MEDIASTINUM: Thyroid lobes are symmetrical and normal. The central trachea and the bronchi widely patent. Heart size and the great vessels are normal caliber. There is mild atherosclerosis of the arch no abnormal size mediastinal or hilar lymph nodes seen. CORONARY ARTERY CALCIFICATION: None visualized on this study. PLEURA: There is no pleural effusion. No pleural mass or thickening. AXILLA: No abnormal axillary lymph nodes seen. There are small shotty density in the left lateral breast. UPPER ABDOMEN: There is mild ascites. Visualized liver, spleen and gallbladder is unremarkable. OSSEOUS STRUCTURES: No aggressive lytic or sclerotic process seen. CT/CT chest wo IV con IMPRESSION: Left upper lobe with hypodense nodule and left neck nodule. Incidental finding of mild ascites. The liver and spleen appears unremarkable. The left lower lobe infiltrate. Fleischner guidelines were followed.
--- NOTE | ~2023-10-23 | US_ITS ---
Ultrasound guided paracentesis History: Ascites. Therapeutic and diagnostic drainage. Risks and benefits and possible complications were discussed with the patient and consent form was signed. A safe pocket of ascitic fluid was identified right lower quadrant using ultrasound guidance, and the overlying skin was marked, prepped and draped in sterile fashion. 1% lidocaine was used as a local anesthetic. Using ultrasound guidance, a 5 fr catheter was placed into the ascitic pocket. 4.5 liters of yellow fluid was removed passively. The catheter was then removed. A few agricultural sales representative images from before and after the examination were obtained. The procedure was performed by Stephen Best PA-C and supervised by Dr. Maurice. US/US paracentesis abd w/image IMPRESSION: Ultrasound-guided paracentesis as described above. No immediate complications
--- NOTE | ~2023-10-23 | US_ITS ---
EXAMINATION: US duplex arterial venous comp CLINICAL INFORMATION: Ascites, jaundice, R/O portal vein thrombosis COMPARISON: CT abdomen/pelvis 10/23/2023 TECHNIQUE: Real-time limited sonographic exam of the hepatic vasculature and spleen. Color and spectral Doppler evaluation of the hepatic vasculature. FINDINGS: SPLENIC VEIN: Patent with normal waveform. HEPATIC VEINS: Patent with normal waveforms. PORTAL VEINS: Patent with hepatopedal flow and normal waveforms and hepatopetal flow. Collateral vessels are noted including a patent umbilical vein. HEPATIC ARTERIES: Normal upstroke and diastolic flow. INFERIOR VENA CAVA: Patent with normal waveform. SPLEEN: The normal-appearing spleen measures 10.8 cm in maximum dimension. Small volume residual ascites noted, status post same day paracentesis. US/US duplex arterial venous comp IMPRESSION: 1. Patent portal vein with collateral vessels including a patent umbilical vein. 2. Small volume residual ascites, status post same day paracentesis.
[2023-10-23 15:09] VITALS: BP 107/54; PULSE 97; RESP 16; TEMP 36.9; O2SAT 98; BMI 22.6
[2023-10-23 15:55] LABS: Basophils Percent Auto 0.2 % (0-2); Eosinophils Percent Auto 0.1 % (0-4); Hemoglobin 9.6 g/dl (12.0-16.0); Imm Gran Abs Auto 0.09 X10*3/uL (0.00-0.03); Imm Gran Pct Auto 0.6 % (0.0-0.4); Lymphocytes Percent Auto 6.9 % (20-40); MANUAL DIFF FLAG SCAN; Mean Corpuscular HGB Conc 35.6 g/dl (31.0-35.0); Mean Corpuscular Hemoglobin 34.8 pg (27.0-33.0); Mean Corpuscular Volume 97.8 fL (80.0-98.0); Mean Platelet Volume 9.9 fL (9.4-12.3); Monocytes Absolute Auto 1.7 X10*3/uL (0.1-1.2); Monocytes Percent Auto 11.1 % (2-11); Neutrophils Absolute Auto 12.2 x10*3/uL (2.0-8.3); Neutrophils Percent Auto 81.1 % (45-73); Platelet Count 291 X10*3/uL (160-400); Red Blood Count 2.76 X10*6/uL (4.20-5.50); Red Cell Distribution Width 18.9 % (11.0-16.0); SCAN SMEAR FLAG 1
[2023-10-23 16:10] LABS: Alanine Aminotransferase 53 U/L (0-31); Albumin Level 2.5 g/dL (3.5-5.0); Alkaline Phosphatase 161 U/L (39-117); Anion Gap 13 (12-20); Aspartate Amino Transferase 126 U/L (5-31); Bilirubin Total 7.7 mg/dL (0.0-1.0); Blood Urea Nitrogen 26 mg/dL (9-16); Calcium 8.3 mg/dL (8.4-10.2); Carbon Dioxide 23 mmol/L (22-29); Chloride 94 mmol/L (96-108); Creatinine Clr Calc Pharmacy 43.9; Estimated Glomerular Filt Rate 41; Glucose Random 104 mg/dL (60-115); Lipase 60 U/L (8-78); Magnesium 1.9 mg/dL (1.6-2.6); Potassium 3.4 mmol/L (3.3-5.1); Sodium 127 mmol/L (135-145); Total Protein 6.4 g/dL (6.5-8.0)
[2023-10-23 16:35] LABS: SLIDE REVIEW VERIFIED
[2023-10-23 16:48] LABS: Ethanol < 10 mg/dL
--- NOTE | 2023-10-23 17:14 | PC.NURSE ---
patient a&0, answering all questions appropriately, pts skin/eyes jaundice, notable abd distention- pt denies tenderness and states I am just bloated pt denies pain/discomfort at this time. iv inserted, labs drawn, ivf will be started per order, will continue with plan of care
[2023-10-23] MEDS: 0.9 % Sodium Chloride 500 ML IV (17:22)
--- NOTE | 2023-10-23 17:24 | ED_ITS ---
HPI - General Adult General Chief complaint: General Medical Stated complaint: liver problems Time Seen by Provider: 10/23/23 16:12 Source: patient, family (Sister, Brenda), RN notes reviewed and old records reviewed Mode of arrival: ambulatory Limitations: no limitations History of Present Illness ED Provider: Vamsi HPI narrative: 58-year-old female with past medical history significant for advanced alcoholic liver disease, hyponatremia, depression, GERD presents for evaluation of general malaise, abdominal distention. The patient states that she had a routine follow up with her primary doctor today. She was subsequently referred to the ER due to complaints of jaundice, abdominal distention and just general fatigue. She denies any sharp abdominal pain but endorses pressure ?all over. ? She feels more distended than usual The patient denies any leg swelling. She states that her last alcoholic drink was ?a few weeks ago. ? The patient's sister pulled me aside away from the patient and states the patient is not being completely truthful. The patient has been found with bottles of liquor almost daily The sister is not entirely sure with the patient's last drink was but believes to be much more recent than a few weeks ago The patient's roommate told the sister the patient has been having ?diarrhea all over the house. ? Related Data Home Medications ?Medication ?Instructions ?Recorded ?Confirmed fluoxetine 20 mg capsule 40 mg PO QAM 07/25/23 09/02/23 Previous Rx's ?Medication ?Instructions ?Recorded folic acid 1 mg tablet 1 mg PO DAILY #30 tabs 07/17/23 magnesium oxide 400 mg (241.3 mg 400 mg PO BIDPC #60 tabs 07/17/23 magnesium) tablet omeprazole 40 mg capsule,delayed 40 mg PO DAILY@0630 #30 caps 07/17/23 release potassium chloride 20 mEq 20 meq PO DAILY #30 tabs 07/17/23 tablet,extended release(part/cryst) thiamine mononitrate (vit B1) 100 100 mg PO DAILY #30 tabs 07/17/23 mg tablet Allergies Allergy/AdvReac Type Severity Reaction Status Date / Time No Known Allergies Allergy Unknown UNKNOWN Verified 10/23/23 15:11 [NO KNOWN ALLERGIES] Review of Systems 2 Constitutional: Constitutional: Reports body ache(s), Denies chills, Denies fever(s), Denies headache(s), Reports malaise and Reports weakness ENT: Denies vertigo, Denies dizziness and Denies headache(s) Cardiovascular: Cardiovascular: Denies chest pain and Denies dyspnea Respiratory: Respiratory: Denies cough and Denies dyspnea Gastrointestinal: Gastrointestinal: Reports abdominal pain, Reports bloating, Denies nausea and Denies vomiting Comments: Reports abdominal distention Musculoskeletal: Musculoskeletal: Denies back pain Integumentary/Breasts: Skin/Breast: Denies rash Neurologic: Denies vertigo, Denies dizziness, Denies headache(s) and Reports weakness Psychiatric: Psychiatric: Denies anxiety [facility] Past Medical History Medical History (Updated 10/23/23 @ 17:31 by Stephen Agustin) Jaundice Alcohol use disorder COPD (chronic obstructive pulmonary disease) Anxiety Breast calcification, left Depression Surgical History History of tubal ligation Family History Family History Father Stroke Mother Lung cancer Son No problems noted. Daughter No problems noted. Maternal Grandmother Emphysema, unspecified Maternal Grandfather History of heart attack Maternal Aunt Breast cancer Social History Social History Household Members: Other Household Members Other:: roommate Housing: House Do you presently have visiting nurse or other home services: No Alcohol intake: former Comment: SITTER Patient Tobacco Use Status: Current everyday Tobacco user Tobacco use type: Cigarette Cigarette Packs Per Day: 0.5 Cigarettes Per Day: 10 Smoked in Last 30 Days: Yes e-Cigarette/Vaping Use: Never Used Second Hand Smoke Exposure: Yes Use of substances other than those prescribed or required for medical reasons: Yes Substance Use Type: Marijuana Advance Directives: Yes Advance Directives Information Provided: No Advance Directives on File: No Advance Directives Date on File: 07/08/23 Patient : No service: No Current occupational status: employed Current occupational exposures/hazards: No Gender identity: Female Physical Exam ED Vital Signs: Vital Signs - 24 hr 10/23/23 15:09 Temperature 98.5 F Pulse Rate 97 Respiratory Rate 16 Blood Pressure 107/54 L Pulse Oximetry 98 Oxygen Delivery Method Room Air BMI result Body Mass Index 22.6 Const General: alert and awake Orientation/consciousness: patient oriented x3 [facility] Head: Yes normocephalic and Yes atraumatic Throat: Yes posterior oropharynx normal Eyes Alignment and Position: alignment normal Periorbital: periorbital findings normal Eyelids: Yes eyelids normal Conjunctivae: conjunctivae normal Sclerae: scleral abnormal (Bilateral scleral icterus) Corneas: corneas normal Pupils: Equal, round and reactive pupils present EOM: EOMs intact bilaterally Neck Neck: Yes full ROM Resp Effort & Inspection: normal respiratory effort, able to speak in complete sentences, no audible wheezes and not labored Auscultation: clear to auscultation bilaterally Cardio Rate: regular rate Rhythm: regular rhythm GI Inspection: Yes distended Palpation (GI): Soft to palpation, not firm, Tenderness to palpation present (GI) (Mild diffuse tenderness without guarding or rebound), no guarding and not rigid Auscultation: normoactive bowel sounds Skin General skin exam: elasticity normal and jaundice Neuro General: patient oriented x3 Cranial nerves: Yes CN's II-XII intact bilaterally, Yes Equal, round and reactive pupils present and Yes Bilaterally intact EOM present Cognition (Neuro): normal cognition Extrem Other: Moving all extremities well without any obvious deformities Course Reevaluation(s) Reevaluation #1: Patient's CT scan shows large volume ascites as well as a new pulmonary mass when compared to June of 2023, a few months ago. The patient initially told me that she had no cough or shortness of breath. I heard her coughing in the room and she states that she has been having a cough for about 1 week. I discussed possible diagnostic paracentesis at bedside. The patient would prefer to wait for tomorrow morning to have a therapeutic paracentesis. We will treat with azithromycin and ceftriaxone, this will cover SBP prophylaxis as well as community-acquired pneumonia. Discuss with the hospitalist who is comfortable with plan for admission Time: 19:25 Medications Administered Discontinued Medications Generic Name Dose Route Start Last Admin Trade Name Freq PRN Reason Stop Dose Admin Sodium Chloride 500 mls @ 500 mls/hr 10/23/23 16:45 10/23/23 17:22 Ns IV 10/23/23 17:44 500 mls/hr .Q1H ALIS Administration Iohexol 100 ml 10/23/23 18:02 10/23/23 18:02 Iohexol 350 Mg/Ml 100 Ml Infus..Btl IV 10/23/23 18:03 85 ml ONCE ONE Administration Medical Decision Making Medical Decision Making [facility] Narrative: 58-year-old female with past medical history significant for advanced alcoholic liver disease presents for evaluation of multiple complaints including jaundice, abdominal distention and malaise. Plan for broad workup including labs, urinalysis, alcohol level. We will get a CT scan of the abdomen pelvis given the reported increased abdominal distention and mild tenderness on exam. The patient declines analgesia at this time. Her sodium is noted to be chronically low and is currently 127 which is about her baseline. We will treat with only 500 cc of IV fluids Differential Diagnosis Differential Diagnoses: The differential diagnosis associated with the presentation includes Alcoholic liver cirrhosis End-stage liver disease SBP Abdominal pain Pancreatitis Alcohol intoxication Admission/Observation Consideration of admission/observation: Escalation of care including admission/observation considered Lab Data [facility] Lab Attestation statement: I reviewed the patient's lab [place]. [place] [address] and a mild anemia with a hemoglobin 9.6 hematocrit 27.0. This is decreased from her most recent labs of July 11 of this year from 12.0 and 32.9 respectively. This is likely related to alcoholic liver disease. As mentioned above, the patient has a chronic hyponatremia her sodium today is 127. Chloride of 94, BUN is elevated to 26 with a creatinine of 1.34. These are both increased from her most recent labs of August 09, 2023. Patient has a transaminitis consistent with her baseline. Her total bilirubin today is 7.7 up from her most recent a 3.1 2-1/2 months ago 10/23/23 15:49 10/23/23 15:49 Labs: Lab Results 10/23/23 10/23/23 Range/Units 15:49 17:11 WBC 15.0 H (4.8-10.8) X10*3/uL RBC 2.76 L (4.20-5.50) X10*6/uL Hgb 9.6 L (12.0-16.0) g/dl Hct 27.0 L (37.0-47.0) % MCV 97.8 (80.0-98.0) fL MCH 34.8 H (27.0-33.0) pg MCHC 35.6 H (31.0-35.0) g/dl RDW 18.9 H (11.0-16.0) % Plt Count 291 D (160-400) X10*3/uL MPV 9.9 (9.4-12.3) fL Immature Gran % (Auto) 0.6 H (0.0-0.4) % Neut % (Auto) 81.1 H (45-73) % Lymph % (Auto) 6.9 L (20-40) % [place] % (Auto) 11.1 H (2-11) % Eos % (Auto) 0.1 (0-4) % Baso % (Auto) 0.2 (0-2) % Lymph # (Auto) 1.0 L (1.2-4.9) X10*3/uL [place] # (Auto) 1.7 H (0.1-1.2) X10*3/uL Eos # (Auto) 0.0 (0.0-0.4) X10*3/uL Baso # (Auto) 0.0 (0.0-0.2) X10*3/uL Abs Immat Gran (auto) 0.09 H (0.00-0.03) X10*3/uL Absolute Neuts (auto) 12.2 H (2.0-8.3) x10*3/uL Absolute Nucleated RBC 0.000 (0.0-0.012) X10*3/uL Nucleated RBC % (auto) 0.0 (0.0-0.2) /100WBC Smear Tech's Comments VERIFIED Sodium 127 L (135-145) mmol/L Potassium 3.4 (3.3-5.1) mmol/L Chloride 94 L (96-108) mmol/L Carbon Dioxide 23 (22-29) mmol/L Anion Gap 13 (12-20) BUN 26 H (9-16) mg/dL Creatinine 1.34 (0.5-1.4) mg/dL Estim Creat Clear Calc 43.9 Estimated GFR 41 Random Glucose 104 (60-115) mg/dL Lactic Acid 2.0 (0.5-2.0) mmol/L Calcium 8.3 L D (8.4-10.2) mg/dL Magnesium 1.9 (1.6-2.6) mg/dL Total Bilirubin 7.7 H (0.0-1.0) mg/dL AST 126 H (5-31) U/L ALT 53 H (0-31) U/L Alkaline Phosphatase 161 H (39-117) U/L Ammonia 47 (13-55) umol/L Total Protein 6.4 L (6.5-8.0) g/dL Albumin 2.5 L (3.5-5.0) g/dL Lipase 60 (8-78) U/L Ethyl Alcohol < 10 mg/dL Influenza Type A (PCR) NEGATIVE (Negative) Influenza Type B (PCR) NEGATIVE (Negative) RSV RNA Qual (PCR) NEGATIVE (Negative) SARS-CoV-2 RNA (RT-PCR) NEGATIVE (Negative) Independent Interpretation I performed an independent interpretation of an: CT Scan Interpretation: Agree with Radiology interpretation Radiology Impression Discussion of test interpretation with radiology: I have reviewed the radiologist's reading. Radiologist Impression: CT/CT abdomen pelvis w IV con IMPRESSION: 1. New partially visualized left basilar pulmonary mass entering 3.3 x 2.2 cm with surrounding reticular opacity. As this was not present on the June study, it is favored to be infectious in etiology; however, rapidly progressive malignancy cannot be excluded. Recommend completion imaging of the chest for full evaluation. 2. Partially visualized left breast mass measuring 2.7 cm. Recommend correlation with mammography. 3. The liver has shrunk in the interval, with slightly nodular contour, raising concern for cirrhosis. 4. Large volume ascites. Discharge Plan Discharge Clinical Impression: Alcoholic cirrhosis of liver Patient Disposition: Admitted As Inpatient Prescriptions: No Action omeprazole 40 mg Capsule,Delayed Release(Dr/Ec) 40 mg PO DAILY@0630 Qty: 30 0RF potassium chloride 20 mEq Tablet,Er Particles/Crystals 20 meq PO DAILY Qty: 30 0RF magnesium oxide 400 mg (241.3 mg magnesium) Tablet 400 mg PO BIDPC Qty: 60 0RF folic acid 1 mg Tablet 1 mg PO DAILY Qty: 30 0RF thiamine mononitrate (vit B1) 100 mg Tablet 100 mg PO DAILY Qty: 30 0RF fluoxetine 20 mg capsule 40 mg PO QAM Patient Comments: 7 day supply 01/05 Print Language: Yi
[2023-10-23 17:56] LABS: Influenza A PCR NEGATIVE (Negative); Influenza B PCR NEGATIVE (Negative); Resp Syncy Virus RNA Qual PCR NEGATIVE (Negative); SARS COV2 PCR INHOUSE NEGATIVE (Negative)
--- NOTE | 2023-10-23 17:56 | PC.NURSE ---
pt ambulated with steady gait with sitter to bathroom, pt also asking to eat food, will continue to monitor
[2023-10-23] MEDS: iohexoL 350 MG/ML 100 ML INFUS..BTL IV (18:02)
[2023-10-23 18:32] LABS: Ammonia 47 umol/L (13-55)
[2023-10-23 19:51] VITALS: BP 105/58; PULSE 94; RESP 16; TEMP 36.9; O2SAT 97
--- NOTE | 2023-10-23 19:59 | PM.IMHP ---
History of Present Illness Date of Service: 10/23/23 Attending physician on admission: Ozzy Jimenez Chief Complaint: malaise, abd distension 58-year-old female with history of COPD, alcohol use disorder, mood disorder, GERD presented to the ED earlier today for evaluation of generalized weakness, malaise, lightheadedness, abdominal distention ongoing for about 3 days. She states that she saw her PCP yesterday who wanted her to come to the ED yesterday but she declined. She states symptoms worsened overnight. She recalls several weeks ago having some swelling in her feet but states this resolved. She has also been having 1-2 episodes of diarrhea for the last 3 days. Also reports nonproductive cough with wheezing ongoing for 3 days. She denies fevers, chills, abdominal pain, nausea, vomiting, melena, hematochezia, headache, syncope, shortness of breath, chest pain. On exam, patient is noted to be jaundice but states she did not notice this herself. She reports her last alcoholic beverage was several weeks ago though per ED provider report, he was pulled side by her sister who reports they have been finding empty bottles of liquor on a near daily basis but she is unsure when the last drink actually was. She also reports smoking 1/2 pack of cigarettes on a daily basis as well as smoking marijuana but denies any illicit drug use. Since arrival, vital signs have been stable though mildly tachycardic in the 90s. She has a leukocytosis of 15.0 which appears chronic. There is a normocytic anemia with H/H 9.6/27.0%. Platelets 291. Creatinine 1.34, baseline around 0.55. Sodium 127, chloride 94. Total bilirubin 7.7, AST 126, ALT 53, alkaline phosphatase 161. Ammonia level 47, albumin 2.5. Ethyl alcohol level undetectable. Negative for COVID-19, RSV, influenza. CT abdomen pelvis shows slightly nodular contour of liver that has shrunk raising concern for cirrhosis as well as large volume ascites. There is also a new partially visualized left basilar pulmonary mass entering 3.3 x 2.2 cm with surrounding reticular opacity likely infectious in etiology however rapidly progressive malignancy can not be excluded. There is also partially visualized left breast mass measuring 2.7 cm. In the ED, received 500 mL IVF, 1 g Rocephin and azithromycin. Review of Systems Review of Systems: Yes all other systems are reviewed and are negative [facility] Medical History Jaundice Alcohol use disorder COPD (chronic obstructive pulmonary disease) Anxiety Breast calcification, left Depression Family History Father Stroke Mother Lung cancer Son No problems noted. Daughter No problems noted. Maternal Grandmother Emphysema, unspecified Maternal Grandfather History of heart attack Maternal Aunt Breast cancer Surgical History History of tubal ligation Social History Household Members: Other Household Members Other:: roommate Housing: House Do you presently have visiting nurse or other home services: No Alcohol intake: former Comment: ROSENDO Patient Tobacco Use Status: Current everyday Tobacco user Tobacco use type: Cigarette Cigarette Packs Per Day: 0.5 Cigarettes Per Day: 10 Smoked in Last 30 Days: Yes e-Cigarette/Vaping Use: Never Used Second Hand Smoke Exposure: Yes Use of substances other than those prescribed or required for medical reasons: Yes Substance Use Type: Marijuana Advance Directives: Yes Advance Directives Information Provided: No Advance Directives on File: No Advance Directives Date on File: 07/08/23 Patient : No service: No Current occupational status: employed Current occupational exposures/hazards: No Gender identity: Female Meds Allergies Allergy/AdvReac Type Severity Reaction Status Date / Time No Known Allergies Allergy Unknown UNKNOWN Verified 10/23/23 15:11 [NO KNOWN ALLERGIES] Active Medications: Current Medications Azithromycin 500 mg/ Sodium (Chloride) 250 mls @ 125 mls/hr IV ONCE ONE Stop: 10/23/23 21:27 Home Medications ?Medication ?Instructions ?Recorded ?Confirmed ?Last Taken ?Type fluoxetine 20 mg capsule 40 mg PO DAILY 07/25/23 09/02/23 Unknown History Physical Exam Vital Signs and Narrative: Vital Signs: Last Vital Signs Temp 98.4 F 10/23/23 19:51 Pulse 94 10/23/23 19:51 Resp 16 10/23/23 19:51 BP 105/58 L 10/23/23 19:51 Pulse Ox 97 10/23/23 19:51 O2 Del Method Room Air 10/23/23 19:51 BMI result Body Mass Index 22.6 Constitutional - Awake and Alert, No apparent distress Eyes - PERRLA, EOMI, scleral icterus Cardiovascular - S1S2, RRR, No edema Respiratory - Normal lung expansion, Normal respiratory effort, No respiratory distress, CTA bilaterally Gastrointestinal - moderate abdominal distention with positive fluid wave and mild diffuse tenderness to palpation but no rebound or guarding; +BS. No asterixis Extremities - no calf tenderness bilaterally, no swelling Skin - Warm/Dry. + jaundice Neurological - Alert & oriented x3, CN II-XII in tact, 5/5 strength BUE and BLE Psychological - Appropriate affect Results Labs 10/23/23 15:49 10/23/23 15:49 Labs: Laboratory Results - last 24 hr 10/23/23 10/23/23 15:49 17:11 MCV 97.8 MCH 34.8 H MCHC 35.6 H RDW 18.9 H Plt Count 291 D MPV 9.9 Immature Gran % (Auto) 0.6 H Neut % (Auto) 81.1 H Lymph % (Auto) 6.9 L [place] % (Auto) 11.1 H Eos % (Auto) 0.1 Baso % (Auto) 0.2 Lymph # (Auto) 1.0 L [place] # (Auto) 1.7 H Eos # (Auto) 0.0 Baso # (Auto) 0.0 Abs Immat Gran (auto) 0.09 H Absolute Neuts (auto) 12.2 H Absolute Nucleated RBC 0.000 Nucleated RBC % (auto) 0.0 Smear Tech's Comments VERIFIED Anion Gap 13 Estim Creat Clear Calc 43.9 Estimated GFR 41 Random Glucose 104 Lactic Acid 2.0 Calcium 8.3 L D Magnesium 1.9 Total Bilirubin 7.7 H AST 126 H ALT 53 H Alkaline Phosphatase 161 H Ammonia 47 Total Protein 6.4 L Albumin 2.5 L Lipase 60 Ethyl Alcohol < 10 Influenza Type A (PCR) NEGATIVE Influenza Type B (PCR) NEGATIVE RSV RNA Qual (PCR) NEGATIVE SARS-CoV-2 RNA (RT-PCR) NEGATIVE Imaging Radiologist's Impressions: Impressions Abdomen/Pelvis CT 10/23/23 18:13 IMPRESSION: 1. New partially visualized left basilar pulmonary mass entering 3.3 x 2.2 cm with surrounding reticular opacity. As this was not present on the June study, it is favored to be infectious in etiology; however, rapidly progressive malignancy cannot be excluded. Recommend completion imaging of the chest for full evaluation. 2. Partially visualized left breast mass measuring 2.7 cm. Recommend correlation with mammography. 3. The liver has shrunk in the interval, with slightly nodular contour, raising concern for cirrhosis. 4. Large volume ascites. Fleischner guidelines were followed. Assessment and Plan (1) Alcoholic cirrhosis of liver: Status: Acute (2) Pneumonia: Status: Acute Plan 58-year-old female with history of COPD, alcohol use disorder, mood disorder, GERD admitted for further mangement of acute decompensated cirrhosis and pneumonia/copd exacerbation #Acute decompensated cirrhosis with possible alcoholic cirrhosis -total bilirubin 7.7, AST 126, ALT 53, alkaline phosphatase 161 -coag studies pending, calculate Maddrey's discrimant function once available -CT showing large volume ascites and probable cirrhosis -diagnostic and therapeutic paracentesis pending -cover for SBP empirically with IV ceftriaxone (initiate 10/22) -gastroenterology consult -follow liver panel #Acute kidney injury -creatinine 1.34, baseline around 0.5 -urine studies pending -received 500ml IV NS in the ed, hold on further IVF at this time, suspect will improve followign paracentesis -avoid nephrotoxins -low-sodium diet -follow renal function/lytes -if not improving, consider Nephrology consult #?Acute pneumonia with acute COPD exacerbation -leukocytosis is chronic, not sepsis -chest CT pending but appears to have left lower lobe consolidation -IV ceftriaxone and IV azithromycin (initiated 10/22) -IV methylprednisolone 40 mg b.i.d. -DuoNebs q.4h while awake and p.r.n. -sputum culture, Legionella antigen, strep pneumo antigen pending -guaifenesin p.r.n. -follow cultures # chronic hyponatremia -likely related to cirrhosis, chronic -urine and serum osm pendin -fluid restrictions # acute normocytic anemia -likely in setting of acute versus chronic illness -iron studies, vitamin B12 and folic acid pending #Chronic leukocytosis -ongoing since June, etiology unclear, less likely r/t acute infection # alcohol use disorder -patient herself denies recent use but patient's sister reports finding empty bottles around the house daily but is uncertain of last alcohol intake -monitor on CIWA, initiate phenobarbital per protocol if signs of withdrawal -IV thiamine folic acid # left breast mass -seen on CT abdomen/pelvis -appears had biopsy performed 09/2020 which showed benign breast parenchyma with fibrocystic changes, coarse calcifications, and columnar cell change but negative for atypical hyperplasia or carcinoma -she is overdue for mammogram, recommend outpatient mammogram # GERD -continue PPI # mood disorder -continue fluoxetine # nicotine dependence -cessation advised, patch for replacement therapy DVT prophylaxis-heparin DNR/DNI- discussed with patient at bedside Patient requires inpatient stay at least 2 midnights for management of acute decompensated cirrhosis with jaundice and large volume ascites requiring expert consultation, diagnostic and therapeutic paracentesis and empiric coverage with IV antibiotics as well as further work up Quality Stroke Does the patient have a stroke diagnosis?: No VTE Prior VTE?: No VTE Risk Level:: Medical - moderate - high VTE Device Contraindication: Treatment Not Indicated VTE Drug Contraindication: N/A - Med Ordered
[2023-10-23] MEDS: cefTRIAXone sodium 1 GM in 0.9 % Sodium Chloride 50 ML IV (20:21)
[2023-10-23 20:33] LABS: Appearance Urine Clear; Color Urine Dark Yellow; Glucose Urine UA Negative (Negative); Leukocyte Esterase Urine Trace (Negative); Nitrite Urine Negative (Negative); Specific Gravity - Urine >= 1.030 (1.005-1.025); UMIC TRIGGER UACC YES; Urine Blood Negative (Negative); Urine Ketones Negative (Negative); Urine Protein 30 (1+) mg/dL (Neg-Trace)
[2023-10-23 20:47] LABS: Total Protein 6.3 g/dL (6.5-8.0)
[2023-10-23 20:48] LABS: Iron 27 mcg/dL (30-160); Percent Iron Saturation 21 % (15-50); Total Iron Binding Capacity 130 mcg/dL (228-428); Unsaturated Iron Binding 103 ug/dL
--- NOTE | 2023-10-23 20:48 | PHA.MEDREC ---
Addendum entered by Yuliet Griffin [facility] 10/24/23 12:06: Reviewed by [facility] Addendum entered by Shahid Webber 10/24/23 11:38: Called [facility] pharmacy this morning and they state she has not filled medications with them since June of this year and that was her Fluoxitine 20mg. I called [facility] as well to confirm if shes filled with them and they state they filled the meds from her Discharge Packet on 07/17/2023 and brought it up to her before she left. I printed and spoke to the patient about it and she stated she was only on Vitamins and I started naming off them from the packet and the patient confirmed Vitamin B1 100mg daily, Magnesium 400mg daily after meals and Lactulose 20g/30ml daily for OTC meds. Patient also states she is still taking Omeprazole 40mg daily, Folic Acid 1mg daily and Fluoxitine 20mg only once daily now per pt, I asked where she fills those and she stated [facility] pharmacy in [place]. She was able to confirm she completed the Prednisolone 5mg and Prednisone 10mg regimens. Patient states she took all her meds yesterday. Addendum entered by Good Quezada 10/23/23 20:54: Med rec verified, will need to call about fluoxetine in the morning. Original Note: Pharmacy Consult ? Medication Reconciliation Pharmacy has completed the medication reconciliation. Spoke to patient to confirm med list . Patient states she is only on Lactulose, however she didn't know how much she takes. When asked about the other med on list she said Oh yeah i do take them. she said she fills her medication at [facility] in [place] [phone]. called and they are close. will leave a note to follow up in the morning.
[2023-10-23 20:52] LABS: Bacteria Urine None Seen (None Seen); Hyaline Casts Urine 0-2 /LPF (0-2); RBC Urine 0-2 /HPF (0-2); WBC Urine 0-5 /HPF (0-5)
[2023-10-23 21:03] LABS: Ferritin 855 ng/mL (10-250)
[2023-10-23] MEDS: Azithromycin 500 MG in 0.9 % Sodium Chloride 250 ML 125 MG IV (21:10)
[2023-10-23] MEDS: Heparin Sodium,Porcine 5,000 UNIT/ML VIAL 5000 UNIT SUBCUT (21:15)
[2023-10-23 21:26] LABS: Creatinine Urine 110.33 mg/dL; Sodium Urine Random < 20.0 mmol/L
[2023-10-23 21:50] LABS: Osmolality Urine 451 mosm/kg (373-1093)
[2023-10-23 21:53] LABS: INTERNATIONAL NORM RATIO 1.4 (0.9-1.1); Prothrombin Time 17.6 SEC (11.1-13.3)
[2023-10-23 21:56] LABS: Partial Thromboplastin Time 37.2 SEC (26.0-36.8)
[2023-10-23 21:58] LABS: Folate 5.8 ng/mL (> or = 4.0); Vitamin B12 1649 pg/mL (200-900)
[2023-10-23 22:01] VITALS: PULSE 91; RESP 20; O2SAT 100
[2023-10-23] MEDS: Albuterol/Iprat 2.5/0.5MG 3 ML AMPUL.NEB INHALE (22:01)
[2023-10-23 22:08] LABS: Osmolality, Serum 273 mosm/kg (281-305)
[2023-10-23] MEDS: methylPREDNISolone Sod Succ 40 MG/ML VIAL IVPUSH (23:28)
[2023-10-23] MEDS: Folic Acid 1 MG in 0.9 % Sodium Chloride 50 ML 100.4 MG IV (23:28)
--- NOTE | 2023-10-23 23:31 | PC.NURSE ---
this rn assumed care of pt, p20G placed in left forearm at this time, pt medicated per may. pt ambulated to bathroom with steady gait.
[2023-10-23 23:42] VITALS: BP 104/67; PULSE 88; RESP 29; TEMP 36.9; O2SAT 96
[2023-10-24] VITALS (9 sets, daily range): BP systolic 99–126; BP diastolic 54–66; PULSE 73–90; RESP 16–20; TEMP 36.6–37; O2SAT 96–100; BMI 23.5
[2023-10-24] MEDS: Thiamine HCL 100 MG in 0.9 % Sodium Chloride 100 ML 202 MG IV ×2 (00:20→08:36)
[2023-10-24 05:14] LABS: Basophils Percent Auto 0.2 % (0-2); Hematocrit 25.3 % (37.0-47.0); Hemoglobin 9.2 g/dl (12.0-16.0); Imm Gran Abs Auto 0.05 X10*3/uL (0.00-0.03); Imm Gran Pct Auto 0.6 % (0.0-0.4); Lymphocytes Absolute Auto 0.4 X10*3/uL (1.2-4.9); Lymphocytes Percent Auto 4.2 % (20-40); MANUAL DIFF FLAG SCAN; Mean Corpuscular HGB Conc 36.4 g/dl (31.0-35.0); Mean Corpuscular Hemoglobin 35.5 pg (27.0-33.0); Mean Corpuscular Volume 97.7 fL (80.0-98.0); Mean Platelet Volume 10.2 fL (9.4-12.3); Monocytes Absolute Auto 0.2 X10*3/uL (0.1-1.2); Neutrophils Absolute Auto 7.8 x10*3/uL (2.0-8.3); Platelet Count 241 X10*3/uL (160-400); Red Blood Count 2.59 X10*6/uL (4.20-5.50); Red Cell Distribution Width 18.6 % (11.0-16.0); SCAN SMEAR FLAG 1; White Blood Count 8.3 X10*3/uL (4.8-10.8)
[2023-10-24 05:21] LABS: Ammonia 60 umol/L (13-55)
[2023-10-24 05:24] LABS: INTERNATIONAL NORM RATIO 1.4 (0.9-1.1); Prothrombin Time 17.6 SEC (11.1-13.3)
[2023-10-24 05:40] LABS: SLIDE REVIEW VERIFIED
[2023-10-24 05:43] LABS: Alanine Aminotransferase 48 U/L (0-31); Albumin Level 2.2 g/dL (3.5-5.0); Alkaline Phosphatase 142 U/L (39-117); Anion Gap 13 (12-20); Aspartate Amino Transferase 121 U/L (5-31); Bilirubin Direct 4.8 mg/dL (0.0-0.5); Bilirubin Total 6.4 mg/dL (0.0-1.0); Blood Urea Nitrogen 23 mg/dL (9-16); Calcium 7.4 mg/dL (8.4-10.2); Carbon Dioxide 20 mmol/L (22-29); Chloride 98 mmol/L (96-108); Creatinine Clr Calc Pharmacy 57.6; Estimated Glomerular Filt Rate 56; Glucose Random 106 mg/dL (60-115); Potassium 3.4 mmol/L (3.3-5.1); Sodium 128 mmol/L (135-145); Total Protein 5.8 g/dL (6.5-8.0)
--- NOTE | 2023-10-24 07:29 | HO.PM.IMPN ---
Subjective Subjective Date of Service: 10/24/23 Interval History: f/u on acute on chronic liver failure, pneumonia no sob, no sigsn fo withdrawal, overall doing, she hasn't drank in couple of week Physical Exam Vital Signs: Vital Signs: Last Vital Signs Temp 98.6 F 10/24/23 06:18 Pulse 73 10/24/23 06:18 Resp 20 10/24/23 06:18 BP 105/66 10/24/23 06:18 Pulse Ox 97 10/24/23 06:18 O2 Del Method Room Air 10/24/23 06:18 BMI result Body Mass Index 22.6 Const: Other: General: AO X 3, no acute distress HEENT: sclera icteris Resp: CTA bilateral CVS: S1,S2,RRR GI: +BS, NT, no distention Skin: No rash, sings of jaundice Neuro: motor grossly intact Psych: appropriate affect Objective Data Active Medications Acetaminophen (Acetaminophen 325 Mg Tablet) 650 mg PO Q6H PRN PRN Reason: Pain, Mild (Pain Scale 1-3), fever or headache Albuterol/Ipratropium (Albuterol/Iprat 2.5/0.5mg 3 Ml Ampul.Neb) 3 ml INHALE RQ4H WHILE AWAKE [facility] Last Admin: 10/23/23 22:01 Dose: 3 ml Documented By: KRISHNA Albuterol/Ipratropium (Albuterol/Iprat 2.5/0.5mg 3 Ml Ampul.Neb) 3 ml INHALE RQ4H WHILE AWAKE PRN PRN Reason: Shortness of Breath/Wheezing Calcium Carbonate (Calcium Carbonate 750 Mg Tab.Chew) 750 mg PO Q4H PRN PRN Reason: Heartburn Folic Acid (Folic Acid 1 Mg Tablet) 1 mg PO DAILY [facility] Heparin Sodium (Porcine) (Heparin Sodium,Porcine 5,000 Unit/Ml Vial) 5,000 unit SUBCUT Q12H [facility] Last Admin: 10/23/23 21:15 Dose: 5,000 unit Documented By: CORIN Thiamine HCl 100 mg/ Sodium (Chloride) 101 mls @ 202 mls/hr IV DAILY [facility] Last Infusion: 10/24/23 01:00 Dose: Infused Documented By: ALICIA Folic Acid 1 mg/ Sodium (Chloride) 50.2 mls @ 100.4 mls/hr IV DAILY [facility] Last Infusion: 10/24/23 00:22 Dose: Infused Documented By: ALICIA Ceftriaxone Sodium 1 gm/ (Sodium Chloride) 50 mls @ 100 mls/hr IV Q24H [facility] Azithromycin 500 mg/ Sodium (Chloride) 250 mls @ 125 mls/hr IV Q24H [facility] Magnesium Hydroxide (Milk Of Magnesia 30 Ml Oral.Susp) 30 ml PO DAILY PRN PRN Reason: Constipation Magnesium Oxide (Magnesium Oxide 400 Mg Tablet) 400 mg PO BIDPC [facility] Melatonin (Melatonin 3 Mg Tablet) 6 mg PO BEDTIME PRN PRN Reason: Insomnia Methylprednisolone Sodium Succinate (Methylprednisolone Sod Succ 40 Mg/Ml Vial) 40 mg IVPUSH Q12H [facility] Last Admin: 10/23/23 23:28 Dose: 40 mg Documented By: ALICIA Omeprazole (Omeprazole 40 Mg Capsule.Dr) 40 mg PO DAILY@0630 [facility] Ondansetron HCl (Ondansetron Hcl 4 Mg/2 Ml Vial) 4 mg IVPUSH Q8H PRN PRN Reason: Nausea and Vomiting Thiamine HCl (Thiamine Hcl 100 Mg Tablet) 100 mg PO DAILY [facility] Labs 10/24/23 04:37 10/24/23 04:37 Labs: Laboratory Results - last 24 hr 10/23/23 10/23/23 10/23/23 15:49 17:11 20:26 MCV 97.8 MCH 34.8 H MCHC 35.6 H RDW 18.9 H Plt Count 291 D MPV 9.9 Immature Gran % (Auto) 0.6 H Neut % (Auto) 81.1 H Lymph % (Auto) 6.9 L [place] % (Auto) 11.1 H Eos % (Auto) 0.1 Baso % (Auto) 0.2 Lymph # (Auto) 1.0 L [place] # (Auto) 1.7 H Eos # (Auto) 0.0 Baso # (Auto) 0.0 Abs Immat Gran (auto) 0.09 H Absolute Neuts (auto) 12.2 H Absolute Nucleated RBC 0.000 Nucleated RBC % (auto) 0.0 Smear Tech's Comments VERIFIED PT INR APTT Anion Gap 13 Estim Creat Clear Calc 43.9 Estimated GFR 41 Random Glucose 104 Osmolality Lactic Acid 2.0 Calcium 8.3 L D Magnesium 1.9 Iron 27 L TIBC 130 L % Saturation 21 Unsat Iron Binding 103 Ferritin 855 H Total Bilirubin 7.7 H Direct Bilirubin AST 126 H ALT 53 H Alkaline Phosphatase 161 H Ammonia 47 Total Protein 6.4 L 6.3 L Albumin 2.5 L Lipase 60 Vitamin B12 Folate Urine Color Dark Yellow Urine Appearance Clear Urine pH 6.0 Ur Specific [place] >= 1.030 H Urine Protein 30 (1+) H Urine Glucose (UA) Negative Urine Ketones Negative Urine Blood Negative Urine Nitrite Negative Ur Leukocyte Esterase Trace H Urine RBC 0-2 Urine WBC 0-5 Ur Squamous Epith Cells 6-10 Urine Bacteria None Seen Hyaline Casts 0-2 Urine Osmolality 451 Ur Random Sodium < 20.0 Urine Creatinine 110.33 Ethyl Alcohol < 10 Influenza Type A (PCR) NEGATIVE Influenza Type B (PCR) NEGATIVE RSV RNA Qual (PCR) NEGATIVE SARS-CoV-2 RNA (RT-PCR) NEGATIVE 10/23/23 10/24/23 21:02 04:37 MCV 97.7 MCH 35.5 H MCHC 36.4 H RDW 18.6 H Plt Count 241 MPV 10.2 Immature Gran % (Auto) 0.6 H Neut % (Auto) 93.0 H Lymph % (Auto) 4.2 L [place] % (Auto) 2.0 Eos % (Auto) 0.0 Baso % (Auto) 0.2 Lymph # (Auto) 0.4 L [place] # (Auto) 0.2 Eos # (Auto) 0.0 Baso # (Auto) 0.0 Abs Immat Gran (auto) 0.05 H Absolute Neuts (auto) 7.8 Absolute Nucleated RBC 0.000 Nucleated RBC % (auto) 0.0 Smear Tech's Comments VERIFIED PT 17.6 H 17.6 H INR 1.4 H 1.4 H APTT 37.2 H Anion Gap 13 Estim Creat Clear Calc 57.6 Estimated GFR 56 Random Glucose 106 Osmolality 273 L Lactic Acid Calcium 7.4 L D Magnesium Iron TIBC % Saturation Unsat Iron Binding Ferritin Total Bilirubin 6.4 H Direct Bilirubin 4.8 H AST 121 H ALT 48 H Alkaline Phosphatase 142 H Ammonia 60 H Total Protein 5.8 L Albumin 2.2 L Lipase Vitamin B12 1649 H Folate 5.8 Urine Color Urine Appearance Urine pH Ur Specific [place] Urine Protein Urine Glucose (UA) Urine Ketones Urine Blood Urine Nitrite Ur Leukocyte Esterase Urine RBC Urine WBC Ur Squamous Epith Cells Urine Bacteria Hyaline Casts Urine Osmolality Ur Random Sodium Urine Creatinine Ethyl Alcohol Influenza Type A (PCR) Influenza Type B (PCR) RSV RNA Qual (PCR) SARS-CoV-2 RNA (RT-PCR) Assessment and Plan (1) Alcoholic cirrhosis of liver: Status: Acute Plan 58-year-old female with history of COPD, alcohol use disorder, mood disorder, GERD admitted for further mangement of acute decompensated cirrhosis and pneumonia/copd exacerbation #Acute decompensated cirrhosis with possible alcoholic cirrhosis -LFTs,including bili slightly down -Maddrey's discrimant function is 28. -CT showing large volume ascites probable cirrhosis -diagnostic and therapeutic paracentesis requested - SBP coverage empirically with IV ceftriaxone (initiate 10/22) -GI consult -Follow LFTs #Acute kidney injury, pre renal. resolved with IVF Cr 1.34 to 1.02 #Acute pneumonia on CT -Ceftriaxone and Azithro -leukocytosis is chronic, not sepsis. -sputum culture, Legionella antigen, strep pneumo antigen pending -guaifenesin p.r.n. -follow cultures #COPD--? exacerbation on IV steroid, Duoneb, no hypoxia # chronic hyponatremia d/t chronic hypervolemia from cirrhosis and ascietes # acute on chronic normocytic anemia -iron level nl, vitamin B12> 16K, Folate normal #Chronic leukocytosis -ongoing since June, etiology unclear, less likely r/t acute infection # alcohol use disorder -patient herself denies recent use but patient's sister reports finding empty bottles around the house daily but is uncertain of last alcohol intake -monitor on CIWA, initiate phenobarbital per protocol if signs of withdrawal -thiamine folic acid # left breast mass, L upper lung and neck mass on CT. -appears had biopsy performed 09/2020 which showed benign breast parenchyma with fibrocystic changes, coarse calcifications, and columnar cell change but negative for atypical hyperplasia or carcinoma -she is overdue for mammogram, recommend outpatient mammogram -oncology consult to guide further testing # GERD -continue PPI # mood disorder -continue fluoxetine when med rec confirmed # nicotine dependence -cessation advised, patch for replacement therapy DVT prophylaxis-heparin DNR/DNI- discussed with patient at bedside need for inpt: acute liver failure Quality Stroke Does the patient have a stroke diagnosis?: No VTE Prior VTE?: No VTE Risk Level:: Medical - moderate - high VTE Device Contraindication: Treatment Not Indicated VTE Drug Contraindication: N/A - Med Ordered
[2023-10-24] MEDS: Albuterol/Iprat 2.5/0.5MG 3 ML AMPUL.NEB INHALE ×3 (07:50→20:16)
[2023-10-24] MEDS: Magnesium Oxide 400 MG TABLET PO ×2 (08:33→17:22)
[2023-10-24] MEDS: Omeprazole 40 MG CAPSULE.DR PO (08:33)
[2023-10-24] MEDS: Heparin Sodium,Porcine 5,000 UNIT/ML VIAL 5000 UNIT SUBCUT ×2 (08:34→20:18)
[2023-10-24] MEDS: methylPREDNISolone Sod Succ 40 MG/ML VIAL IVPUSH ×2 (08:35→20:18)
[2023-10-24] MEDS: Folic Acid 1 MG in 0.9 % Sodium Chloride 50 ML 100.4 MG IV (11:16)
--- NOTE | 2023-10-24 12:26 | PM.HEMONCCN ---
Subjective - Subjective Chief complaint: Consult for: Left upper lobe nodule, left neck mass and left breast mass. Patient: new to practice Consult date: 10/24/23 Requesting Physician: Ronal. Primary Care Provider: Roderick Holder [facility] Family Provider: JENNI. Medical Summary: DIAGNOSIS: LEFT UPPER LOBE LUNG MASS. QUESTION LEFT NECK MASS. LEFT BREAST MASS. HPI - Consult Narrative Reason for consult: Consult for: Narrative: Rebecca Clark is a 58 year old lady admitted on , with shortness of breath. 58-year-old female with history of COPD, alcohol use disorder, mood disorder, GERD presented to the ED earlier today for evaluation of generalized weakness, malaise, lightheadedness, abdominal distention ongoing for about 3 days. She states that she saw her PCP yesterday who wanted her to come to the ED yesterday but she declined. She states symptoms worsened overnight. She recalls several weeks ago having some swelling in her feet but states this resolved. She has also been having 1-2 episodes of diarrhea for the last 3 days. Also reports nonproductive cough with wheezing ongoing for 3 days. She denies fevers, chills, abdominal pain, nausea, vomiting, melena, hematochezia, headache, syncope, shortness of breath, chest pain. On exam, patient is noted to be jaundice but states she did not notice this herself. She reports her last alcoholic beverage was several weeks ago though per ED provider report, he was pulled side by her sister who reports they have been finding empty bottles of liquor on a near daily basis but she is unsure when the last drink actually was. She also reports smoking 1/2 pack of cigarettes on a daily basis as well as smoking marijuana but denies any illicit drug use. Since arrival, vital signs have been stable though mildly tachycardic in the 90s. She has a leukocytosis of 15.0 which appears chronic. There is a normocytic anemia with H/H 9.6/27.0%. Platelets 291. Creatinine 1.34, baseline around 0.55. Sodium 127, chloride 94. Total bilirubin 7.7, AST 126, ALT 53, alkaline phosphatase 161. Ammonia level 47, albumin 2.5. Ethyl alcohol level undetectable. Negative for COVID-19, RSV, influenza. CT abdomen pelvis from 10/22: 1. New partially visualized left basilar pulmonary mass entering 3.3 x 2.2 cm with surrounding reticular opacity. As this was not present on the June study, it is favored to be infectious in etiology; however, rapidly progressive malignancy cannot be excluded. Recommend completion imaging of the chest for full evaluation. 2. Partially visualized left breast mass measuring 2.7 cm. Recommend correlation with mammography. 3. The liver has shrunk in the interval, with slightly nodular contour, raising concern for cirrhosis. 4. Large volume ascites. It shows slightly nodular contour of liver that has shrunk raising concern for cirrhosis as well as large volume ascites. There is also a new partially visualized left basilar pulmonary mass entering 3.3 x 2.2 cm with surrounding reticular opacity likely infectious in etiology however rapidly progressive malignancy can not be excluded. There is also partially visualized left breast mass measuring 2.[address] scan of the chest revealed: LUNGS: Lungs are mildly emphysematous with patchy reticular defined opacity in the left upper lobe with hypodensity and area likely artifactual likely representing early infiltrate. There is mild bilateral upper and lower lobe bronchial wall thickening. There is patchy airspace is opacity left lower lobe with central solid component likely consolidation measuring -12 Hounsfield units. PLEURA: There is no pleural effusion. No pleural mass or thickening. AXILLA: No abnormal axillary lymph nodes seen. There are small shotty density in the left lateral breast. UPPER ABDOMEN: There is mild ascites. Visualized liver, spleen and gallbladder is unremarkable. OSSEOUS STRUCTURES: No aggressive lytic or sclerotic process seen. Left upper lobe with hypodense nodule and left neck nodule. Incidental finding of mild ascites. The liver and spleen appears unremarkable. The left lower lobe infiltrate. In the ED, received 500 mL IVF, 1 g Rocephin and azithromycin. Review of Systems Review of Systems: She does feel a little tired. No fever but she has chills. Appetite is okay. Weight is stable. She denies headache. She has felt dizzy. Complains of cough with whitish sputum. Denies chest pain. She has shortness of breath. Abdomen was distended with ascites. She just had 5 L of fluid removed she is more comfortable now. No nausea or vomiting. She has heartburn. Bowels are working. No gross blood in the stools. No dysuria or hematuria. Denies joint pain or muscle pain. She has depression. All other systems are reviewed and are negative [facility] Medical History: Jaundice Alcohol use disorder COPD (chronic obstructive pulmonary disease) Anxiety Breast calcification, left Depression Family History: Father: from Stroke Mother: Lung cancer: Currently being treated in Oncology with Keytruda. 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 She is not . Has 2 children. She used to smoke a pack a day quit couple of years ago. She has has been indulging in alcohol, quit 2 weeks ago. Review of Systems - Constitutional Reports no additional constitutional complaints, Reports anorexia, Reports fatigue, Reports lack of energy, Reports malaise, Reports poor appetite, Reports weight loss - Eyes Reports no additional eye complaints - ENT Reports no additional ear, nose, mouth, and throat complaints - Cardiovascular Reports no additional cardiovascular complaints - Respiratory Reports no additional respiratory complaints - Gastrointestinal Reports no additional gastrointestinal complaints - Genitourinary Reports no additional female genitourinary complaints - Musculoskeletal Reports no additional musculoskeletal complaints - Integumentary/Breasts Skin/Breast: Reports no additional skin complaints - Neurologic Denies vertigo, Denies dizziness, Denies headache(s), Reports weakness - Psychiatric Reports no additional psychiatric complaints - Endocrine Reports no additional endocrine complaints - Hematologic/Lymphatic Reports no additional hematologic/lymphatic complaints - Allergic/Immunologic Reports no additional allergic/immunologic complaints Oncology Screenings - ECOG Performance Status ECOG Performance Status: 2 [facility] Medical History: Medical History (Last Reviewed 10/23/23 @ 20:25 by HARSHA Chung) Alcohol use disorder Anxiety Breast calcification, left COPD (chronic obstructive pulmonary disease) Depression Jaundice Functional capacity: wheelchair bound Patient : No Family History: Family History (Last Reviewed 10/23/23 @ 20:25 by HARSHA Chung) Father Stroke Mother Lung cancer Son No problems noted. Daughter No problems noted. Maternal Grandmother Emphysema, unspecified Maternal Grandfather History of heart attack Maternal Aunt Breast cancer Surgical History: Surgical History (Last Reviewed 10/23/23 @ 20:25 by HARSHA Chung) History of tubal ligation Social History: Social History (Last Reviewed 10/23/23 @ 20:25 by HARSHA Chung) Living Situation History: Household Members: Other Household Members Other:: room mate Housing: House Do you presently have visiting nurse or other home services: No Tobacco History: Patient Tobacco Use Status: Never used Tobacco Tobacco use type: Cigarette Cigarette Packs Per Day: 0.5 e-Cigarette/Vaping Use: Never Used Second Hand Smoke Exposure: Yes Substance Use History: Substance Use Type: Marijuana Advance Directives: Advance Directives Date on File: 07/08/23 Occupation Assessmet: service: No Current occupational status: employed Current occupational exposures/hazards: No Sex/Gender Assessment: Gender identity: Female Home Medications and Allergies Current Medications: Current Medications Acetaminophen (Acetaminophen 325 Mg Tablet) 650 mg PO Q6H PRN PRN Reason: Pain, Mild (Pain Scale 1-3), fever or headache Albuterol/Ipratropium (Albuterol/Iprat 2.5/0.5mg 3 Ml Ampul.Neb) 3 ml INHALE RQ4H WHILE AWAKE [facility] Last Admin: 10/24/23 11:56 Dose: 3 ml Albuterol/Ipratropium (Albuterol/Iprat 2.5/0.5mg 3 Ml Ampul.Neb) 3 ml INHALE RQ4H WHILE AWAKE PRN PRN Reason: Shortness of Breath/Wheezing Calcium Carbonate (Calcium Carbonate 750 Mg Tab.Chew) 750 mg PO Q4H PRN PRN Reason: Heartburn Folic Acid (Folic Acid 1 Mg Tablet) 1 mg PO DAILY [facility] Heparin Sodium (Porcine) (Heparin Sodium,Porcine 5,000 Unit/Ml Vial) 5,000 unit SUBCUT Q12H [facility] Last Admin: 10/24/23 08:34 Dose: 5,000 unit Thiamine HCl 100 mg/ Sodium (Chloride) 101 mls @ 202 mls/hr IV DAILY [facility] Last Infusion: 10/24/23 09:13 Dose: Infused Folic Acid 1 mg/ Sodium (Chloride) 50.2 mls @ 100.4 mls/hr IV DAILY [facility] Last Admin: 10/24/23 11:16 Dose: 100.4 mls/hr Ceftriaxone Sodium 1 gm/ (Sodium Chloride) 50 mls @ 100 mls/hr IV Q24H [facility] Azithromycin 500 mg/ Sodium (Chloride) 250 mls @ 125 mls/hr IV Q24H [facility] Magnesium Hydroxide (Milk Of Magnesia 30 Ml Oral.Susp) 30 ml PO DAILY PRN PRN Reason: Constipation Magnesium Oxide (Magnesium Oxide 400 Mg Tablet) 400 mg PO BIDPC [facility] Last Admin: 10/24/23 08:33 Dose: 400 mg Melatonin (Melatonin 3 Mg Tablet) 6 mg PO BEDTIME PRN PRN Reason: Insomnia Methylprednisolone Sodium Succinate (Methylprednisolone Sod Succ 40 Mg/Ml Vial) 40 mg IVPUSH Q12H [facility] Last Admin: 10/24/23 08:35 Dose: 40 mg Omeprazole (Omeprazole 40 Mg Capsule.Dr) 40 mg PO DAILY@0630 [facility] Last Admin: 10/24/23 08:33 Dose: 40 mg Ondansetron HCl (Ondansetron Hcl 4 Mg/2 Ml Vial) 4 mg IVPUSH Q8H PRN PRN Reason: Nausea and Vomiting Thiamine HCl (Thiamine Hcl 100 Mg Tablet) 100 mg PO DAILY [facility] Home Medications ?Medication ?Instructions ?Recorded ?Confirmed ?Type fluoxetine 20 mg capsule 20 mg PO DAILY 07/25/23 10/24/23 History lactulose 20 gram/30 mL oral 20 g PO DAILY 10/24/23 10/24/23 History solution Allergies Allergy/AdvReac Type Severity Reaction Status Date / Time No Known Allergies Allergy Unknown UNKNOWN Verified 10/23/23 15:11 [NO KNOWN ALLERGIES] Physical Exam Vital signs: Vital Signs Temp 98.0 F 10/24/23 10:03 Pulse 84 10/24/23 11:56 Resp 16 10/24/23 11:56 BP 110/54 L 10/24/23 10:03 Pulse Ox 96 10/24/23 10:03 O2 Del Method Room Air 10/24/23 10:03 Intake & Output 10/23/23 10/24/23 10/24/23 18:59 06:59 18:59 Intake Total 951.2 / 951.2 101 / 101 Balance 951.2 / 951.2 101 / 101 Intake: Intake, IV Amount 951.2 / 951.2 101 / 101 0.9 % Sodium Chloride 500 ml @ 500 / 500 500 mls/hr IV .Q1H [facility] Rx#: [id number] Azithromycin 500 mg In 0.9 % 250 / 250 Sodium Chloride 250 ml @ 125 mls/hr IV ONCE ONE Rx#: [id number] Folic Acid 1 mg In 0.9 % Sodium 50.2 / 50.2 Chloride 50 ml @ 100.4 mls/hr IV DAILY [facility] Rx#:[id number] Thiamine HCL 100 mg In 0.9 % 101 / 101 101 / 101 Sodium Chloride 100 ml @ 202 mls/hr IV DAILY [facility] Rx#: [id number] cefTRIAXone sodium 1 gm In 0.9 50 / 50 % Sodium Chloride 50 ml @ 100 mls/hr IV ONCE ONE Rx#: [id number] Other: Number of Unmeasured Voids 2 Weight 63.503 kg 66 kg [place] Weight in Grams 57513 Weight 66 kg - Constitutional Present: mild distress - Routine HEENT Exam Head: Present: normal inspection, normocephalic Eye: Present: normal appearance ENT: Present: mucous membranes moist - Routine Neck Exam Present: supple Hem/Onc Consult Result - Labs CBC & Chem 7: 10/24/23 04:37 10/24/23 04:37 Labs: Short CBC 10/23/23 10/24/23 Range/Units 15:49 04:37 WBC 15.0 H 8.3 (4.8-10.8) X10*3/uL Hgb 9.6 L 9.2 L (12.0-16.0) g/dl Hct 27.0 L 25.3 L (37.0-47.0) % Plt Count 291 D 241 (160-400) X10*3/uL BMP 10/23/23 10/24/23 15:49 04:37 Sodium 127 L 128 L Potassium 3.4 3.4 Chloride 94 L 98 Carbon Dioxide 23 20 L BUN 26 H 23 H Creatinine 1.34 1.02 Calcium 8.3 L D 7.4 L D Liver Function 10/23/23 10/24/23 Range/Units 15:49 04:37 Total Bilirubin 7.7 H 6.4 H (0.0-1.0) mg/dL Direct Bilirubin 4.8 H (0.0-0.5) mg/dL AST 126 H 121 H (5-31) U/L ALT 53 H 48 H (0-31) U/L Alkaline Phosphatase 161 H 142 H (39-117) U/L Albumin 2.5 L 2.2 L (3.5-5.0) g/dL Urine 10/23/23 Range/Units 20:26 Urine Color Dark Yellow Urine Appearance Clear Urine pH 6.0 (5.0-9.0) Ur Specific Levels >= 1.030 H (1.005-1.025) Urine Protein 30 (1+) H (Neg-Trace) mg/dL Urine Glucose (UA) Negative (Negative) mg/dL Assessment and Plan Patient Active problem list reviewed?: Yes (1) Lung nodule seen on imaging study Status: Acute Assessment and plan: This is a pleasant unfortunate 58-year-old lady, admitted with worsening dyspnea and generalized weakness. 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 CT SCAN OF THE CHEST FROM 10/22 REVEALED: LUNGS: Lungs are mildly emphysematous with patchy reticular defined opacity in the left upper lobe with hypodensity and area likely artifactual likely representing early infiltrate. There is mild bilateral upper and lower lobe bronchial wall thickening. There is patchy airspace is opacity left lower lobe with central solid component likely consolidation measuring -12 Hounsfield units. Left upper lobe with hypodense nodule and left neck nodule. Incidental finding of mild ascites. The liver and spleen appears unremarkable. The left lower lobe infiltrate. There are small shotty density in the left lateral breast. No abnormal axillary lymph nodes seen. Previous left breast biopsy from 09/14/2020 revealed: Benign breast parenchyma with fibrocystic change. No atypia or carcinoma seen. Currently being treated with antibiotics for the pneumonia. The findings on imaging on soft, and not too concerning for malignancy specially since recent imaging in July did not show the lung nodule, pointing to more benign etiology. PLAN: I would agree with treating for acute infection as you are doing now. Would recheck imaging at a short interval, to ensure that the pneumonia has cleared. If there is still a persistent nodule, would then investigate further. Will also proceed with an outpatient mammogram. All her and her mother's questions were answered to her satisfaction. Thank you for this consult, I will follow along with you, CC: Roderick Holder. - Time Spent With Patient Time Spent with Patient (in minutes): 30
[2023-10-24 14:07] LABS: MN% 53.5 %; PMN% 46.5 %; WBC Peritoneal Fluid 0.053 X10*3/uL
[2023-10-24] MEDS: Lidocaine HCl 1 % MPF 5 ML VIAL SUBCUT (14:10)
[2023-10-24 14:12] LABS: RBC Peritoneal Fluid < 0.002 X10*6/uL
[2023-10-24 14:39] LABS: Lymphocyte Peritoneal Fl 6 %; Monocytes Peritoneal Fl 13 %; Neutrophils Peritoneal Fluid 36 %
[2023-10-24 14:40] LABS: BF Shift QC OK YES; Man Diluent Bkgrd OK YES; Other Peritioneal Fl 45 %
--- NOTE | 2023-10-24 16:16 | MHC.CM.PN ---
PT REPORTS SHE LIVES WITH ROOMMATES AND IS INDEPENDENT WITH CARE SHE HAS NO DME AND NO SERVICES HCP ON FILE PCP: DA ARTEAGA DCP: HOME NO SERVICES VIA PRIVATE TRANSPORT
[2023-10-24] MEDS: FLUoxetine HCl 20 MG CAPSULE PO (16:49)
[2023-10-24] MEDS: Lactulose 20 GM/30 ML SOLUTION PO (16:49)
[2023-10-24] MEDS: Nicotine 14 MG PATCH.TD24 TRANSDERMA (17:22)
--- NOTE | 2023-10-24 18:54 | P.EN_ITS ---
Event Note Date of Service: 10/24/23 Event Note: GI Consult-Full note dictated Imp: Decompensated EtOH-related liver disease with associated jaundice and ascites. She describes sobriety for at least 2 weeks.There has been no reported GI bleeding and she does not show any signs of significant encephalopathy. Asci sofia is negative for SBP based on the cell count. The U/S is negative for portal vein thrombosis. She denies any new meds at home and denies Acetaminophen nor NSAID use. She does appear to have a probable pneumonia and that may have contributed to her hepatic decompensation. She presently appears stable. Rec: Supportive care with treatment of underlying pneumonia. Maximize nutrition. Continue oral PPI. Start low dose of spironolactone and sodium restriction. No need for steroids at this time in regard to any component of EtOH-related hepatitis. 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 Thanks. Time Spent With Patient Time: Total time managing care of this patient today ____ minutes.
[2023-10-24] MEDS: Spironolactone 25 MG TABLET PO (20:18)
[2023-10-24] MEDS: cefTRIAXone sodium 1 GM in 0.9 % Sodium Chloride 50 ML IV (20:18)
[2023-10-24] MEDS: Azithromycin 500 MG in 0.9 % Sodium Chloride 250 ML 125 MG IV (20:52)
[2023-10-25 03:52] VITALS: BP 94/51; PULSE 82; RESP 16; TEMP 36.3; O2SAT 96
--- NOTE | 2023-10-25 05:16 | CONS_ITS ---
DATE OF SERVICE: 10/24/2023 REASON FOR CONSULTATION: Alcohol-related liver disease with associated jaundice and ascites. HISTORY OF PRESENT ILLNESS: The patient is a 58-year-old female with an underlying history of alcohol abuse and associated liver disease. She comes in due to some increasing abdominal distention and weakness. She describes sobriety from alcohol for at least 2 weeks by her report. She has noticed herself to become jaundiced with increasing abdominal girth as well as some lower extremity edema, over at least the past couple of weeks. She also describes some coughing, but no hemoptysis. At home, she was taking lactulose, but denies any recent confusion. She denies any report of melena, hematochezia, hematemesis, nor coffee-grounds emesis. She denies any particular abdominal pain other than the discomfort from the abdominal distention and ascites. She denies any fevers at home. She denies using any new medication and denies any significant use of acetaminophen, nor NSAIDs. Since admission here, she did undergo a large-volume paracentesis of about 5 L today. Since in the hospital, she has been feeling better and has been tolerating her diet. Again, there have been no signs of GI bleeding. She presently denies any abdominal pain. MEDICATIONS: At home included fluoxetine, folic acid, lactulose, omeprazole, and thiamine. Medications here in the hospital include acetaminophen p.r.n., albuterol p.r.n., IV ceftriaxone, folic acid, subcu heparin, lactulose, magnesium oxide, melatonin, IV methylprednisolone, nicotine patch, omeprazole, ondansetron, thiamine. PAST MEDICAL HISTORY: Alcohol-related liver disease. She did undergo an upper endoscopy with me in June for evaluation of melena and anemia. This revealed some evidence of portal gastropathy, gastritis and a hiatal hernia, but no evidence of any varices, nor ulcer disease. She denies any surgeries. She has a history of depression. She denies history of diabetes, heart disease, stroke, nor kidney disease. SOCIAL HISTORY: She is single. She describes sobriety from alcohol for at least 2 weeks. She smokes about half a pack of cigarettes per day. FAMILY HISTORY: Negative for GI malignancy. PHYSICAL EXAMINATION: GENERAL: The patient is a pleasant, alert, chronically ill-appearing female, in no distress. HEENT: Icteric sclerae. Moist mucous membranes. NECK: Supple. CARDIAC: Normal S1, S2. ABDOMEN: Soft and nondistended. There is no palpable mass. There is no tenderness. EXTREMITIES: Without edema. NEUROLOGICAL: She is alert and oriented and answers questions appropriately. LABORATORY DATA: Her abdominal ultrasound with Doppler studies was negative for portal vein thrombosis. CT scan of the abdomen was negative for any sign of liver mass, biliary disease, nor splenomegaly. White blood cell count on admission was 15,000, hemoglobin 9.6, and platelets 291,000. PT was 17.6 with INR 1.4 yesterday and PT today is 17.6 with INR 1.4 as well. Her sodium was 128, potassium 3.4, chloride 98, BUN 23, creatinine 1.0. Total bilirubin yesterday was 7.7 compared to 3.1 in July. Total bilirubin today is 6.4 with direct bilirubin of 4.8. AST 121, ALT 48, alkaline phosphatase 142. Albumin was 2.2. B12 and folate levels are normal. Iron was 27, iron saturation 21%, and ferritin was 855. Her ascites cell count was not consistent with spontaneous bacterial peritonitis with a white blood cell count of only 53, and 36% neutrophils. Gram stain and culture of the ascites is pending. IMPRESSION: Patient is a 58-year-old female with significant history of alcohol abuse and underlying liver disease, presenting with some component of hepatic decompensation. She has not had any complicating factors of gastrointestinal bleeding, nor significant encephalopathy, but has had some jaundice and increasing ascites. The decompensation may be related to what appears to be an underlying pneumonia that is currently being treated with antibiotics. It does not appear to be related to any component of active alcohol abuse and significant alcohol-induced hepatitis. At this point, I would continue supportive care and treat the underlying pneumonia. I will continue her PPI and maximize her nutrition. I would start her on a low dose of spironolactone and sodium restriction. I do not think she needs any steroids at this time in regard to any possible component of alcohol-induced hepatitis. I did encourage her to maintain long-term sobriety hopefully. Hopefully, as her pneumonia is treated, her liver disease will stabilize as well. We did review that she will need a followup CT scan of the chest to be sure the underlying lesion that is noted was only a pneumonia and does not harbor any underlying pulmonary mass. She will be following up with her primary care provider in that regard she says. The patient was comfortable with this plan. Thank you for the consultation. MD ARTURO Nunes/LUZ / [id number]
[2023-10-25] MEDS: Omeprazole 40 MG CAPSULE.DR PO (05:30)
[2023-10-25 06:37] LABS: Hematocrit 26.3 % (37.0-47.0); Hemoglobin 9.5 g/dl (12.0-16.0); Mean Corpuscular HGB Conc 36.1 g/dl (31.0-35.0); Mean Corpuscular Hemoglobin 35.2 pg (27.0-33.0); Mean Corpuscular Volume 97.4 fL (80.0-98.0); Mean Platelet Volume 10.4 fL (9.4-12.3); Platelet Count 297 X10*3/uL (160-400); Red Cell Distribution Width 18.2 % (11.0-16.0); White Blood Count 10.6 X10*3/uL (4.8-10.8)
[2023-10-25 06:57] LABS: Alanine Aminotransferase 56 U/L (0-31); Albumin Level 2.4 g/dL (3.5-5.0); Alkaline Phosphatase 162 U/L (39-117); Anion Gap 14 (12-20); Aspartate Amino Transferase 136 U/L (5-31); Bilirubin Direct 4.2 mg/dL (0.0-0.5); Bilirubin Total 5.4 mg/dL (0.0-1.0); Blood Urea Nitrogen 26 mg/dL (9-16); Calcium 8.3 mg/dL (8.4-10.2); Carbon Dioxide 21 mmol/L (22-29); Chloride 99 mmol/L (96-108); Creatinine Clr Calc Pharmacy 45.6; Estimated Glomerular Filt Rate 43; Glucose Random 107 mg/dL (60-115); Potassium 3.3 mmol/L (3.3-5.1); Sodium 131 mmol/L (135-145); Total Protein 6.2 g/dL (6.5-8.0)
[2023-10-25 07:37] VITALS: BP 107/57; PULSE 85; RESP 14; TEMP 36.6; O2SAT 98
[2023-10-25] MEDS: Albuterol/Iprat 2.5/0.5MG 3 ML AMPUL.NEB INHALE ×2 (07:49→11:32)
[2023-10-25 07:50] VITALS: PULSE 87; RESP 16; O2SAT 100
[2023-10-25] MEDS: Heparin Sodium,Porcine 5,000 UNIT/ML VIAL 5000 UNIT SUBCUT (08:19)
[2023-10-25] MEDS: Lactulose 20 GM/30 ML SOLUTION PO (08:19)
[2023-10-25] MEDS: methylPREDNISolone Sod Succ 40 MG/ML VIAL IVPUSH (08:19)
[2023-10-25] MEDS: Nicotine 14 MG PATCH.TD24 TRANSDERMA (08:22)
[2023-10-25] MEDS: Spironolactone 25 MG TABLET PO (08:22)
[2023-10-25] MEDS: FLUoxetine HCl 20 MG CAPSULE PO (08:23)
[2023-10-25] MEDS: Folic Acid 1 MG TABLET PO (08:23)
[2023-10-25] MEDS: Thiamine HCL 100 MG TABLET PO (08:23)
[2023-10-25] MEDS: Thiamine HCL 100 MG in 0.9 % Sodium Chloride 100 ML 202 MG IV (08:23)
[2023-10-25] MEDS: Magnesium Oxide 400 MG TABLET PO (08:23)
--- NOTE | 2023-10-25 09:10 | PM.DS ---
DS: Providers Provider Date of Service: 10/25/23 Date of admission: 10/23/23 19:54 Date of discharge: 10/25/23 Primary care physician: KIT VelaP- Consults: 10/23/23 19:53 Consult to Gastroenterology Routine Consulting Provider: Christopher Duque Reason for consultation: decompensated cirrhosis 10/24/23 10:34 Consult to Hematology / Oncology [place]ine [place]ing [place] [facility] [place] Reason for consultation: breast mass, lung mass, neck mass 10/24/23 10:41 Addiction Medicine Routine Consulting Provider: Addiction Covering Reason for consultation: hx alcohol abuse, pt requesting DS: Diagnosis Discharge Diagnosis (1) Lung nodule seen on imaging study: Status: Acute DS: Summary Hospital Course Hospital Course: Chief Complaint: malaise, abd distension 58-year-old female with history of COPD, alcohol use disorder, mood disorder, GERD presented to the ED earlier today for evaluation of generalized weakness, malaise, lightheadedness, abdominal distention ongoing for about 3 days. She states that she saw her PCP yesterday who wanted her to come to the ED yesterday but she declined. She states symptoms worsened overnight. She recalls several weeks ago having some swelling in her feet but states this resolved. She has also been having 1-2 episodes of diarrhea for the last 3 days. Also reports nonproductive cough with wheezing ongoing for 3 days. She denies fevers, chills, abdominal pain, nausea, vomiting, melena, hematochezia, headache, syncope, shortness of breath, chest pain. On exam, patient is noted to be jaundice but states she did not notice this herself. She reports her last alcoholic beverage was several weeks ago though per ED provider report, he was pulled side by her sister who reports they have been finding empty bottles of liquor on a near daily basis but she is unsure when the last drink actually was. She also reports smoking 1/2 pack of cigarettes on a daily basis as well as smoking marijuana but denies any illicit drug use. Since arrival, vital signs have been stable though mildly tachycardic in the 90s. She has a leukocytosis of 15.0 which appears chronic. There is a normocytic anemia with H/H 9.6/27.0%. Platelets 291. Creatinine 1.34, baseline around 0.55. Sodium 127, chloride 94. Total bilirubin 7.7, AST 126, ALT 53, alkaline phosphatase 161. Ammonia level 47, albumin 2.5. Ethyl alcohol level undetectable. Negative for COVID-19, RSV, influenza. CT abdomen pelvis shows slightly nodular contour of liver that has shrunk raising concern for cirrhosis as well as large volume ascites. There is also a new partially visualized left basilar pulmonary mass entering 3.3 x 2.2 cm with surrounding reticular opacity likely infectious in etiology however rapidly progressive malignancy can not be excluded. There is also partially visualized left breast mass measuring 2.7 cm. In the ED, received 500 mL IVF, 1 g Rocephin and azithromycin. Hospital course: Acute decompensated cirrhosis with alcoholic cirrhosis, jaundince and ascites. LFTs are relatively stable, Tbili which is chronically high has come down. Her Maddrey's discrimant function is 28 indicating no need for steroid. She had paracentesis and no evidence of SBP althought she was empirically treated with Ceftriaxone. GI recommends supportive care with treatment of underlying pneumonia. Maximize nutrition. Continue oral PPI. Start low dose of spironolactone and sodium restriction. No need for steroids at this time in regard to any component of EtOH-related hepatitis. Encouraged to maintain sobriety longterm. She understood and was comfortable with this plan Acute kidney injury, pre renal. resolved with IVF Cr 1.34 to 1.[address] --has been treated with ceftriaxone and Azithro. WBC has normalized, she is not hypoxic, she is presently assymptomatic, no hypoxia, breathing comfortably on room.. CT of chest further point to possible left lung nodule which is deemed to be pneumonia as it was not present on recent CT.. A repeat CT is avised after treatment for pneumonia in 4 to 6 weeks. Will complete treatment for pneumonia with Cefuroxime and Doxycyline COPD--? exacerbation on IV steroid, Duoneb, no hypoxia and stopping antibiotics at this time. chronic hyponatremia d/t chronic hypervolemia from cirrhosis and ascietes acute on chronic normocytic anemia -iron level nl, vitamin B12> 16K, Folate normal Chronic leukocytosis -ongoing since June. likely related to the pneumonia, it is now normal. alcohol use disorder--Monitored with [facility] with no sings of withdrawal, sobriety advised as above. Seen by addiction med and given resources in the community ? left breast mass, L upper lung and neck mass on CT--CT was reviewed by oncology and radiology with the following conculision These lung opacities don't look like tumor, more like pneumonia especially since they weren't there a few months ago. Would recommend outpatient follow up ct in 4-6 weeks. I don't see any neck nodules and neither does Head and neck radiologist (jonah ). She will follow up with oncology on outpatient basis and will need a mamogram GERD -continue PPI mood disorder -continue fluoxetine when med rec confirmed Time Attestation Discharge Coordination Time (in mins): 40 Quality: Safe Use of Opioids Does Pt have an Active Cancer Diagnosis on the Problem List?: No Quality: Stroke Does the patient have a stroke diagnosis?: No Physical Exam Vital Signs: Vital Signs: Last Vital Signs Temp 97.8 F 10/25/23 07:37 Pulse 87 10/25/23 07:50 Resp 16 10/25/23 07:50 BP 107/57 L 10/25/23 07:37 Pulse Ox 98 10/25/23 07:37 O2 Del Method Room Air 10/25/23 07:37 BMI result Body Mass Index 23.5 DS: Data Data Completed and Pending Completed studies during hospitalization [Text1]: Procedures Detoxification Services for Substance Abuse Treatment (07/07/23) Inspection of Upper Intestinal Tract, Via Natural or Artificial Opening Endoscopic (07/07/23) Transfusion of Nonautologous Red Blood Cells into Peripheral Vein, Percutaneous Approach (07/07/23) Labs on day of discharge: Laboratory Results - last 24 hr 10/24/23 10/24/23 10/25/23 13:10 15:45 05:26 WBC 10.6 RBC 2.70 L Hgb 9.5 L Hct 26.3 L MCV 97.4 MCH 35.2 H MCHC 36.1 H RDW 18.2 H Plt Count 297 MPV 10.4 Absolute Nucleated RBC 0.000 Nucleated RBC % (auto) 0.0 Sodium 131 L Potassium 3.3 Chloride 99 Carbon Dioxide 21 L Anion Gap 14 BUN 26 H Creatinine 1.29 Estim Creat Clear Calc 45.6 Estimated GFR 43 Random Glucose 107 Calcium 8.3 L D Total Bilirubin 5.4 H Direct Bilirubin 4.2 H AST 136 H ALT 56 H Alkaline Phosphatase 162 H Total Protein 6.2 L Albumin 2.4 L Hold Red Top See Note Peritoneal WBC 0.053 Peritoneal RBC < 0.002 Periton Neutrophils 36 Periton Lymphocytes 6 Peritoneal Monocytes 13 Peritoneal Other Cells 45 Preliminary micro results at discharge 10/24/23 13:10 Routine Culture - Preliminary Peritoneal Fluid No growth to date. Anaerobic Culture - Preliminary Culture in progress. 10/23/23 17:28 Blood Culture - Preliminary Blood - Venous No growth after 24 hours. 10/23/23 17:11 Blood Culture - Preliminary Blood - Venous No growth after 24 hours. Discharge Plan Discharge Anticipated Discharge Date/Time: 10/25/23 09:11 Patient Disposition: Home Health Service Discharge Diagnosis: pneumonia Referrals: Magno Mitchell MD [Physician] - 1 Week Roderick Holder FNP- [Primary Care Provider] - 1 Week Leila Robertson MD [Physician] - 2 Weeks Discharge Medications: New spironolactone 25 mg Tablet 25 mg PO BID@0900,1800 Qty: 180 0RF Protocol: Hold for SBP< HOLD for SBP < : 90 doxycycline monohydrate 100 mg Capsule 100 mg PO Q12H Qty: 13 0RF cefuroxime axetil 500 mg Tablet 500 mg PO Q12H Qty: 13 0RF Continued omeprazole 40 mg Capsule,Delayed Release(Dr/Ec) 40 mg PO DAILY@0630 Qty: 30 0RF magnesium oxide 400 mg (241.3 mg magnesium) Tablet 400 mg PO BIDPC Qty: 60 0RF folic acid 1 mg Tablet 1 mg PO DAILY Qty: 30 0RF thiamine mononitrate (vit B1) 100 mg Tablet 100 mg PO DAILY Qty: 30 0RF lactulose 20 gram/30 mL Solution 20 g PO DAILY fluoxetine 20 mg capsule 20 mg PO DAILY Patient Comments: 7 day supply 01/05 Discharge Orders: Discharge Order (Routine); Ordered 10/25/23 Ordered By: Tommy Villeda Diet: Advance to usual diet Activity on Discharge: As tolerated Stand Alone Forms: Patient Portal Discharge page Print Language: Burkinan Other Ambulatory Orders: Basic Metabolic Panel Fasting (Routine) Timeframe: 20231028 Facility: [facility] - Location: Laboratory Ordered By: Tommy curt CT chest wo IV con (Routine) Timeframe: 4 Weeks Facility: [facility] - Location: CT Scan Ordered By: Tommy [facility] Liver Panel (Routine) Timeframe: 20231028 Facility: [facility] - Location: Laboratory [facility] Plan Goals: recovery from pneumonia, workup for lung mass Health Concerns: pneumonia, acute on chronic liver disease, alcoholism, chronic anemia Plan of Treatment: take cefuroxime and doxycycline as recommended and follow up with your primary care doctor within a week, follow-up with Dr. Robertson in the Oncology Clinic, you need a mammogram and a repeat CT scan done on outpatient basis. avoid alcohol altogether and use resources given to you by the recovery team Assessment: See above Discharge Date/Time: 10/25/23 13:50
[2023-10-25] MEDS: cefuroxime axetiL 500 MG TABLET PO (10:20)
[2023-10-25] MEDS: Doxycycline Monohydrate 100 MG CAPSULE PO (10:20)
--- NOTE | 2023-10-25 10:23 | MHC.RECOVRN ---
Met with pt in 380 after consult placed to Addiction Medicine for hx of alcohol use. Pt laying in bed, awake, alert, easily engages in conversation. Pt reports last alcohol use was in early September, went camping for a weekend and had alcohol on Saturday and Saturday. Pt reports alcohol use prior to that had been weeks. Pt denies cravings, reports abstinence has not been difficult as long as she stays busy. Pt reports she spends her time watching tv and cleaning. Pt reports she has trigger times from 3 pm-7 pm but is able to distract herself and get through that period of time without alcohol. Pt reports her sisters and mother are supportive. Pt is interested in [employer], provided education. Pt denies other questions or concerns for t/w. Discussed with Saskia Stratton APRN.
[2023-10-25 11:32] VITALS: PULSE 84; RESP 16; O2SAT 100
[2023-10-27 19:44] LABS: Strep Pneumo Ag urine Not Detected (Not Detected)
[2023-10-28 07:26] LABS: Albumin Peritoneal Fluid <0.2
[2023-10-28 07:27] LABS: Total Protein Peritoneal Fluid 0.3
[2023-10-28 07:31] LABS: LDH Peritoneal Fluid 30
[2023-10-28 08:10] LABS: Glucose Peritoneal Fluid 138
[2023-10-29 05:54] LABS: Legionella Ag Urine Not Detected (Not Detected)
== END 2023-10-25 13:50 | disposition home health service (06) | DRG 280 ==
LOC: HO.ED 19:29 → HO.EDOVER 20:25 → HO.S3 10-24 09:20
PROVIDERS: Internal Medicine; Physician Assistant; Admitting Provider Physician Assistant; Emergency Provider Internal Medicine; PCP Nurse Practitioner Family; Visit Provider Internal Medicine
DX: K70.31 Alcoholic cirrhosis of liver with ascites (principal); N17.9 Acute kidney failure, unspecified; J18.9 Pneumonia, unspecified organism; E87.1 Hypo-osmolality and hyponatremia; J44.0 Chronic obstructive pulmonary disease with (acute) lower respiratory infection; D64.9 Anemia, unspecified; F10.90 Alcohol use, unspecified, uncomplicated; Z66 Do not resuscitate; F39 Unspecified mood [affective] disorder; J44.1 Chronic obstructive pulmonary disease with (acute) exacerbation; K21.9 Gastro-esophageal reflux disease without esophagitis; Z20.822 Contact with and (suspected) exposure to COVID-19; Z79.899 Other long term (current) drug therapy
CPT/HCPCS: 0241U; 36415; 49083; 71250; 74177; 80048; 80053; 80076; 80307; 81001; 82042; 82140; 82570; 82607; 82728; 82746; 82945; 83540; 83605; 83615; 83690; 83735; 83930; 83935; 84155; 84157; 84300; 85025; 85027; 85610; 85730; 87040; 87070; 87073; 87205; 87449; 87899; 89051; 93975; 94640; 99285; J0456; J0696; J1644; J2919; J3411; Q9967

== ENCOUNTER 2023-10-23 19:54 | Outpatient (BNV) | payer OTHER, SELFPAY | END 2023-10-24 06:00 | PROVIDERS: Admitting Provider Physician Assistant; Emergency Provider Internal Medicine; PCP Nurse Practitioner Family; Visit Provider Physician Assistant Surgical | DX: R18.8 Other ascites (principal) | CPT/HCPCS: 49083 ==

== ENCOUNTER → 2023-10-23 19:54 | Outpatient (BNV) | payer OTHER, SELFPAY | PROVIDERS: Admitting Provider Physician Assistant; Emergency Provider Internal Medicine; PCP Nurse Practitioner Family; Visit Provider Internal Medicine Medical Oncology | DX: R91.1 Solitary pulmonary nodule (principal) | CPT/HCPCS: 99222 ==

== ENCOUNTER → 2023-10-23 19:54 | Outpatient (BNV) | payer OTHER, SELFPAY | PROVIDERS: Admitting Provider Physician Assistant; Emergency Provider Internal Medicine; PCP Nurse Practitioner Family; Visit Provider Physician Assistant | DX: R91.1 Solitary pulmonary nodule (principal) | CPT/HCPCS: 99223; 99232; 99239 ==

== ENCOUNTER 2023-10-28 14:14 | Outpatient (AMB) | payer OTHER, SELFPAY ==
[2023-10-28 14:18] VITALS: BP 110/60; PULSE 82; O2SAT 96; BMI 22.3
--- NOTE | 2023-10-28 14:18 | A.OFFPC_ITS ---
Vital Signs 10/28/23 14:18 Height 5 ft 6 in Weight 138 lb BMI 22.3 BP 110/60 Blood Pressure Location Rt brachial Position Sitting Pulse 82 Pulse Source Pulse Oximeter Pulse Oximetry (%) 96 Oxygen Delivery Method Room Air Intake Visit Reasons: TCM Intake Note: patient is here for TCM visit Direct Marketing Manager Required: No Accompanied by: Self / Same As Patient Allergies No Known Allergies [NO KNOWN ALLERGIES] Allergy (Unknown, Verified 10/28/23 16:11) UNKNOWN Medication List - Last Reconciled 10/28/23 by KIT SchererP- cefuroxime axetil 500 mg PO Q12H doxycycline monohydrate 100 mg PO Q12H fluoxetine 20 mg PO DAILY folic acid 1 mg PO DAILY lactulose 20 grams PO DAILY magnesium oxide 400 mg PO BIDPC omeprazole 40 mg PO DAILY@0630 spironolactone 25 mg See Protocol PO BID@0900,1800 thiamine mononitrate (vit B1) 100 mg PO DAILY Tobacco use date assessed: 08/12/23 Dental Screening Dental Screen Date: 08/12/23 HPI TCM HPI Details Pt was seen in the ER on 10/22 with weakness, malaise, lightheadedness, abdominal distension, and diarrhea. Labs showed leukocytosis which appears chronic, normocytic anemia with H/H 9.6/27.0%, platelets 291, creatinine 1.34, baseline around 0.55, sodium 127, chloride 94, total bilirubin 7.7, AST 126, ALT 53, alkaline phosphatase 161, ammonia level 47, albumin 2.5. Ethyl alcohol level was undetectable. She was negative for COVID/flu/RSV. CT of the abdomen/pelvis showed slightly nodular contour of liver that has shrunk raising concern for cirrhosis as well as large volume ascites. There is also a new partially visualized left basilar pulmonary mass entering 3.3 x 2.2 cm with surrounding reticular opacity likely infectious in etiology however rapidly progressive malignancy can not be excluded. There is also partially visualized left breast mass measuring 2.7 cm. Pt was given IV fluids, rocephin, and azithryomycin. Tbili which is chronically high did come down. Her Maddrey's discrimant function was 28 indicating no need for steroid. She had paracentesis and no evidence of SBP although she was empirically treated with Ceftriaxone. There was ? of left breast mass, left upper lung and neck mass on CT. Pt's CT was reviewed by oncology and radiology who stated These lung opacities don't look like tumor, more like pneumonia especially since they weren't there a few months ago. Would recommend outpatient follow up CT in 4-6 weeks. I don't see any neck nodules and neither does Head and neck radiologist (jonah). She will follow up with oncology on outpatient basis and will need a mammogram. Pt was seen by GI who recommended supportive care with treatment of underlying pneumonia. Pt was treated for pneumonia with cefuroxime and doxycycline. She was started on low- dose spironolactone and sodium restriction. JOHNNY resolved with fluids. WBC count normalized. Pt has a mammogram scheduled for this week. Repeat CT has been ordered. Pt reports doing better today. Denies fever, chills, and N/V/D. Pt will be following up with nephrology, GI, and possibly oncology. She does report drainage from her paracentesis site. ABD pads given to pt today to utilize. TCM TCM Information Date of Discharge 10/25/23 Discharged From [facility] Interactive Contact Date (Reference documentation from this date) 10/28/23 [facility] Medical History Jaundice Alcohol use disorder COPD (chronic obstructive pulmonary disease) Anxiety Breast calcification, left Depression Surgical History History of tubal ligation Family History Father Stroke Mother Lung cancer Son No problems noted. Daughter No problems noted. 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 Tobacco Use Status: Never used Tobacco Tobacco use type: Cigarette Cigarette Packs Per Day: 0.5 e-Cigarette/Vaping Use: Never Used Second Hand Smoke Exposure: Yes Substance Use Type: Marijuana Advance Directives Date on File: 07/08/23 service: No Current occupational status: employed Current occupational exposures/hazards: No Gender identity: Female Female Reproductive History Menstrual Age of Menarche: 15 Questionnaire PHQ-9 Over the last 2 weeks, how often have you been bothered by any of the following problems? 1. Little interest or pleasure in doing things: not at all 2. Feeling down, depressed, or hopeless: not at all 3. Trouble falling or staying asleep, or sleeping too much: not at all 4. Feeling tired or having little energy: not at all 5. Poor appetite or overeating: not at all 6. Feeling bad about yourself - or that you are a failure or have let yourself or your family down: not at all 7. Trouble concentrating on things, such as reading the newspaper or watching television: not at all 8. Moving or speaking so slowly that other people could have noticed. Or the opposite - being so fidgety or restless that you have been moving around a lot more than usual: not at all 9. Thoughts that you would be better off or of hurting yourself in some way: not at all Total score: 0 Depression Screening Interpretation: Negative Depression Screening Done: Yes 45314 - PHQ-9 Billing: Yes Source: Developed by Drs. Christopher Garcia, Ingrid Randall, Alden Knapp and colleagues, with an educational nga from [employer]. Thrive Questionnaire Date Thrive assessed: 10/28/23 I am a: Patient What is your living situation today?: I have a steady place to live Within the past 12 months, did the food you bought not last and you didn't have the money to get more?: Never true Within the past 12 months, did you worry whether your food would run out before you got money to buy more?: Never true Do you have trouble paying for medicines?: No Do you have trouble getting transportation to medical appointments?: No Do you have trouble paying your heating and electricity bill?: No Do you have trouble taking care of your child, family member or friend?: No Do you have trouble with day-to-day activities such as bathing, preparing meals, shopping, managing finances, etc.?: No Are you currently unemployed and looking for a job?: Yes Are you interested in more education?: No Please select the resources that you would like help with: None Currently or been in a relationship where the following occur: No concerns reported THRIVE Score: 0 AUDIT C Alcohol Use Questionnaire (AUDIT-C) 1. How often do you have a drink containing alcohol?: Never 3. How often do you have six or more drinks on one occasion?: Never Total Score: 0 Score Reviewed/Action Taken: Yes CELI-7 AMB Questionnaire CELI-7 Date CELI - 7 assessed: 10/28/23 Feeling nervous, anxious, or on edge: 0 = Not at all Not being able to stop or control worryin = Not at all Worrying too much about different things: 0 = Not at all Trouble relaxin = Not at all Being so restless that it is hard to sit still: 0 = Not at all Becoming easily annoyed or irritable: 0 = Not at all Feeling afraid as if something awful might happen: 0 = Not at all Total CELI-7 score (0-4 normal; 5-9 mild; 10-14 moderate; 15-21 severe): 0 Source: Developed by Drs. Christopher Garcia, Ingrid Randall, Alden Knapp and colleagues, with an educational nga from [employer]. CELI-7 Assessment Billing CELI-7 Assessment Tool: CELI-7 Assessment 85737 Review of Systems Const Reports as per HPI Physical exam (Primary Care) Vital Signs: Last Vital Signs Pulse 82 10/28/23 14:18 BP 110/60 10/28/23 14:18 Pulse Ox 96 10/28/23 14:18 Oxygen Delivery Method Room Air 10/28/23 14:18 BMI result Body Mass Index 22.3 Tobacco/Smoking Status: Tobacco use Status Tobacco use date assessed 08/12/23 10/28/23 14:19 Patient Tobacco Use Status Never used Tobacco 10/28/23 14:19 Tobacco use type Cigarette 10/28/23 14:19 e-Cigarette/Vaping Use Never Used 10/28/23 14:19 PHQ-9: PHQ-9 Score PHQ-9: Total score 0 10/28/23 15:49 Depression Screening Interpretation: Negative Thrive Assessment: Date of Thrive Assessment Date Thrive assessed 10/28/23 10/28/23 14:26 Currently or been in a relationship where the following occur: No concerns reported Const General: cooperative Orientation/consciousness: patient oriented x3 Resp Other: lungs with scattered wheezes, faint crackles to bases, though moving air Effort & Inspection: normal respiratory effort Cardio Rate: regular rate Rhythm: regular rhythm Heart sounds: S1 normal heart sound present and S2 normal heart sound present GI Other: right abdomen paracentesis site draining small amount of serrous fluid, slightly tender around site, abdomen very slightly distended Neuro General: patient oriented x3 Psych Appearance: grossly normal Mental Status: mental status grossly normal Speech and movement: Normal speech and movement present Affect: normal affect Attitude: cooperative Thought process: Normal thought process present Thought content: Normal thought content present Insight: Good insight present (Psych) Judgement: Good judgement present (Psych) Assessment and Plan Assessment & Plan (1) Alcoholic cirrhosis of liver: Code(s): K70.30 - Alcoholic cirrhosis of liver without ascites Plan: Labs ordered, follow up with GI (2) Renal failure: Code(s): N19 - Unspecified kidney failure Plan: Labs ordered, follow up with nephrology (3) Liver failure: Code(s): K72.90 - Hepatic failure, unspecified without coma Plan: Labs ordered, follow up with GI Plan The patient agreed to the use of a medical surgical tech for this encounter. Scribed for GREG Balbuena by Betty Ragsdale medical surgical tech, on 10/28/2023 at 14:45 EST. Orders: Orders Complete Blood Count Auto Diff Today K70.30 - Alcoholic cirrhosis of liver without ascites, K72.90 - Hepatic failure, unspecified without coma, N19 - Unspecified kidney failure Comprehensive Met. Panel Today K70.30 - Alcoholic cirrhosis of liver without ascites, K72.90 - Hepatic failure, unspecified without coma, N19 - Unspecified kidney failure TSH reflex Free T4 Today K70.30 - Alcoholic cirrhosis of liver without ascites, K72.90 - Hepatic failure, unspecified without coma, N19 - Unspecified kidney failure UA CC w/rflx Micro + Cult Today K70.30 - Alcoholic cirrhosis of liver without ascites, K72.90 - Hepatic failure, unspecified without coma, N19 - Unspecified kidney failure Ammonia Today K70.30 - Alcoholic cirrhosis of liver without ascites, K72.90 - Hepatic failure, unspecified without coma, N19 - Unspecified kidney failure Vitamin B12 and Folate Today K70.30 - Alcoholic cirrhosis of liver without ascites, K72.90 - Hepatic failure, unspecified without coma, N19 - Unspecified kidney failure IRON PROFILE Today K70.30 - Alcoholic cirrhosis of liver without ascites, K72.90 - Hepatic failure, unspecified without coma, N19 - Unspecified kidney failure Magnesium Today K70.30 - Alcoholic cirrhosis of liver without ascites, K72.90 - Hepatic failure, unspecified without coma, N19 - Unspecified kidney failure Ferritin Today K70.30 - Alcoholic cirrhosis of liver without ascites, K72.90 - Hepatic failure, unspecified without coma, N19 - Unspecified kidney failure Bilirubin Direct Today K70.30 - Alcoholic cirrhosis of liver without ascites, K72.90 - Hepatic failure, unspecified without coma, N19 - Unspecified kidney failure Bilirubin Total Today K70.30 - Alcoholic cirrhosis of liver without ascites, K72.90 - Hepatic failure, unspecified without coma, N19 - Unspecified kidney failure Coding Level of Care Code TCM Mod MDM <= 7 Days Complex EM visit Add On G2211 Diagnoses Alcoholic cirrhosis of liver K70.30 Renal failure N19 Liver failure K72.90 Additional Codes CELI-7 Assessment Billing - CELI-7 Assessment Tool: CELI-7 Assessment [id number] ([id number])
== END 2023-10-28 16:02 | disposition home or self-care (01) ==
PROVIDERS: PCP Nurse Practitioner Family; Visit Provider Nurse Practitioner Family
DX: K70.30 Alcoholic cirrhosis of liver without ascites (principal); K72.90 Hepatic failure, unspecified without coma; N19 Unspecified kidney failure
CPT/HCPCS: 99495

== ENCOUNTER 2023-10-30 15:45 | Outpatient (REF) | payer OTHER, SELFPAY ==
--- NOTE | ~2023-10-30 | MM_ITS ---
EXAMINATION: MM SCREENING DIGITAL BREAST TOMOSYNTHESIS, BILATERAL CLINICAL INFORMATION: Screening. Asymptomatic. COMPARISON: Mammography: Comparison is made with available prior exams. TECHNIQUE: Digital breast tomosynthesis is performed in both the craniocaudal and mediolateral oblique views along with computer-aided detection (CAD). Synthesized 2D images are generated from the tomosynthesis. FINDINGS: The breasts are heterogeneously dense, which may obscure small masses (ACR BI-RADS breast composition Category c). Left breast marker clip. There are no significant masses, abnormal calcifications, or other abnormalities. MM/MM tomosynthesis screening BI IMPRESSION: No mammographic evidence of malignancy. ASSESSMENT: BI-RADS BI-RADS 2 - Benign Findings RECOMMENDATION: Routine annual mammography screening. 1 year F/U This examination should not preclude the clinical evaluation of a suspicious palpable abnormality. This patient's information was entered into a reminder system with a target due date for their next mammogram. Electronically signed by: More Dash DO 11/27/2023 09:44 PM EDT
== END 2023-10-30 15:46 | disposition home or self-care (01) ==
LOC: HO.MAMMO 15:45
PROVIDERS: PCP Nurse Practitioner Family; Visit Provider Nurse Practitioner Family
DX: Z12.31 Encounter for screening mammogram for malignant neoplasm of breast (principal)
CPT/HCPCS: 77063; 77067

== ENCOUNTER → 2023-10-30 15:45 | Outpatient (BNV) | payer OTHER, SELFPAY | PROVIDERS: PCP Nurse Practitioner Family; Visit Provider Internal Medicine | DX: Z12.31 Encounter for screening mammogram for malignant neoplasm of breast (principal) | CPT/HCPCS: 77063; 77067 ==

== ENCOUNTER 2023-11-05 07:00 | Outpatient (REF) | payer OTHER, SELFPAY ==
[2023-11-05 07:55] LABS: Alanine Aminotransferase 38 U/L (0-31); Albumin Level 2.5 g/dL (3.5-5.0); Alkaline Phosphatase 204 U/L (39-117); Anion Gap 13 (12-20); Aspartate Amino Transferase 68 U/L (5-31); Bilirubin Direct 2.8 mg/dL (0.0-0.5); Bilirubin Total 4.3 mg/dL (0.0-1.0); Blood Urea Nitrogen 9 mg/dL (9-16); Calcium 8.8 mg/dL (8.4-10.2); Carbon Dioxide 22 mmol/L (22-29); Chloride 103 mmol/L (96-108); Estimated Glomerular Filt Rate > 60; Glucose Fasting 105 mg/dL (60-99); Potassium 3.1 mmol/L (3.3-5.1); Sodium 135 mmol/L (135-145); Total Protein 6.5 g/dL (6.5-8.0)
== END 2023-11-05 07:01 | disposition home or self-care (01) ==
LOC: HO.LAB 07:00
PROVIDERS: PCP Nurse Practitioner Family; Visit Provider Internal Medicine
DX: N19 Unspecified kidney failure (principal); K72.90 Hepatic failure, unspecified without coma
CPT/HCPCS: 36415; 80048; 80076

== ENCOUNTER 2023-11-05 15:43 | Outpatient (AMB) | payer OTHER, SELFPAY ==
[2023-11-05 15:53] VITALS: BP 100/50; PULSE 91; O2SAT 97; BMI 21.6
--- NOTE | 2023-11-05 15:53 | HO.NEPHOV_ITS ---
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 Accompanied by: Self / Same As Patient Allergies No Known Allergies [NO KNOWN ALLERGIES] Allergy (Unknown, Verified 11/05/23 15:56) UNKNOWN Medication List - Last Reconciled 11/05/23 by Zen Morales MD cefuroxime axetil 500 mg PO Q12H doxycycline monohydrate 100 mg PO Q12H fluoxetine 20 mg PO DAILY folic acid 1 mg PO DAILY lactulose 20 grams PO DAILY magnesium oxide 400 mg PO BIDPC omeprazole 40 mg PO DAILY@0630 spironolactone 25 mg See Protocol PO BID@0900,1800 thiamine mononitrate (vit B1) 100 mg PO DAILY HPI Comments Details: Rebecca is a 57-year-old of hyponatremia was recently consultation during hospitalization. She had serum sodium in the mid 120s. She has liver failure with significantly elevated LFTs. He has been drinking plenty of free water She is on fluoxetine 60 mg a day. She was started on sodium chloride tablets 1 g b.i.d.. Today she complains of leg edema. No shortness of breath. 09/02/23 Has been off salt tabs Lactulose was stopped 4 weeks ago due to diarrhea NO new issues Edema improved 11/05/2023. Recently hospitalized. Today she has no complaints. [facility] Medical History Jaundice Alcohol use disorder COPD (chronic obstructive pulmonary disease) Anxiety Breast calcification, left Depression Surgical History History of tubal ligation Family History Father Stroke Mother Lung cancer Son No problems noted. Daughter No problems noted. 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 Tobacco Use Status: Never used Tobacco Tobacco use type: Cigarette Cigarette Packs Per Day: 0.5 e-Cigarette/Vaping Use: Never Used Second Hand Smoke Exposure: Yes Substance Use Type: Marijuana Advance Directives Date on File: 07/08/23 service: No Current occupational status: employed Current occupational exposures/hazards: No Gender identity: Female Female Reproductive History Menstrual Age of Menarche: 15 Physical Exam Vital Signs: Last Vital Signs Pulse 91 11/05/23 15:53 BP 100/50 L 11/05/23 15:53 Pulse Ox 97 11/05/23 15:53 Oxygen Delivery Method Room Air 11/05/23 15:53 BMI result Body Mass Index 21.6 Const General: comfortable; No acute distress Orientation/consciousness: patient oriented x3 Eyes General: appearance normal, both eyes and all related structures Visual Guaman: normal visual guaman by confrontation Neck Neck: Yes supple and Yes no JVD Resp Effort & Inspection: normal respiratory effort and respiratory effort not decreased Auscultation: rhonchi Cardio Palpation: no palpable S3 and no palpable S4 Heart sounds: no rubs GI Inspection: Yes normal to inspection Palpation (GI): Soft to palpation Percussion: Yes normal to percussion Auscultation: normal bowel sounds General: Yes no CVA tenderness Back/Spine/Pelvis Back: no CVA tenderness Skin General skin exam: no petechiae and no purpura Neuro General: patient oriented x3 and no focal motor deficits Extrem General: No clubbing and No edema Results Reviewed Nephrology Results: Hgb 9.5 g/dl (12.0-16.0) L 10/25/23 WBC 10.6 X10*3/uL (4.8-10.8) 10/25/23 Plt Count 297 X10*3/uL (160-400) 10/25/23 Sodium 135 mmol/L (135-145) 11/05/23 Potassium 3.1 mmol/L (3.3-5.1) L 11/05/23 Chloride 103 mmol/L (96-108) 11/05/23 Carbon Dioxide 22 mmol/L (22-29) 11/05/23 BUN 9 mg/dL (9-16) 11/05/23 Creatinine 0.86 mg/dL (0.5-1.4) 11/05/23 Calcium 8.8 mg/dL (8.4-10.2) 11/05/23 Urine Protein 30 (1+) mg/dL (Neg-Trace) H 10/23/23 Urine Creatinine 110.33 mg/dL 10/23/23 Assessment & Plan Assessment & Plan (1) Hyponatremia: Comment: Recent blood draw demonstrated normal levels of sodium Code(s): E87.1 - Hypo-osmolality and hyponatremia Category: Medical (2) Jaundice: Comment: EMS called, pt spoke with them and apparently signed a AMA form Code(s): R17 - Unspecified jaundice Category: Medical (3) Liver failure: Code(s): K72.90 - Hepatic failure, unspecified without coma Category: Medical Plan Chronic asymptomatic hyponatremia in the setting of liver failure. She was on high dose of SSRI which could be contributing to decreased free water clearance. She was also drinking excessive free water. Leg edema is due to sodium chloride tablets -resolved after stopping salt tablets Serum sodium has improved. Recommendations Restrict oral free water intake. Keep current dose of fluoxetine Due to her advanced liver disease we are unable to use urea powder. Hypokalemia due to GI losses secondary to lactulose. I have added potassium chloride 20 mEq 1 a day for 10 days and recheck levels Orders: Orders Comprehensive Met. Panel 1 Week E87.1 - Hypo-osmolality and hyponatremia, K72.90 - Hepatic failure, unspecified without coma Comprehensive Met. Panel 2 Months K72.90 - Hepatic failure, unspecified without coma Ammonia 1 Week E87.1 - Hypo-osmolality and hyponatremia, K72.90 - Hepatic failure, unspecified without coma Medications: New potassium chloride 20 mEq PO DAILY 10 ea 0RF Coding Level of Care Code Est Pt Level 4 (01699) Diagnoses Hyponatremia E87.1 Jaundice R17 Liver failure K72.90
== END 2023-11-05 16:15 | disposition home or self-care (01) ==
PROVIDERS: PCP Nurse Practitioner Family; Visit Provider Internal Medicine Hypertension Specialist
DX: E87.1 Hypo-osmolality and hyponatremia (principal); R17 Unspecified jaundice; K72.90 Hepatic failure, unspecified without coma
CPT/HCPCS: 99214

== ENCOUNTER 2023-11-19 11:25 | Outpatient (AMB) | payer OTHER, SELFPAY ==
[2023-11-19 11:27] VITALS: BP 118/58; BMI 21.8
--- NOTE | 2023-11-19 11:27 | A.OFFPC_ITS ---
Vital Signs 11/19/23 11:27 Height 5 ft 6 in Weight 135 lb 4 oz BMI 21.8 BP 118/58 L Blood Pressure Location Rt brachial Position Sitting Intake Visit Reasons: 2wk F/u Allergies No Known Allergies [NO KNOWN ALLERGIES] Allergy (Unknown, Verified 11/19/23 11:28) UNKNOWN Medication List - Last Reconciled 11/19/23 by GREG Scherer fluoxetine 20 mg PO DAILY folic acid 1 mg PO DAILY lactulose 20 grams PO DAILY omeprazole 40 mg PO DAILY@0630 spironolactone 25 mg See Protocol PO BID@0900,1800 thiamine mononitrate (vit B1) 100 mg PO DAILY Tobacco use date assessed: 11/19/23 Dental Screening Dental Screen Date: 11/19/23 Did you have a dental visit in the last 12 months?: No Did you have a dental problem in the last 6 months where you did not have access to dental care?: No Was dental information given to patient?: No HPI 2wk F/u HPI Details Pt reports ongoing swelling of her abdomen (ascites). She also reports increased shortness of breath most likely related to ascites. Pt has a hx of liver failure. She reports that she has not been drinking alcohol. She is not currently seeing GI, will refer. Will also refer to IR for paracentesis. Denies fever, chills, and dizziness. She is taking her lactulose daily PFSH Medical History Jaundice Alcohol use disorder COPD (chronic obstructive pulmonary disease) Anxiety Breast calcification, left Depression Surgical History History of tubal ligation Family History Father Stroke Mother Lung cancer Son No problems noted. Daughter No problems noted. 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 1. Little interest or pleasure in doing things: not at all 2. Feeling down, depressed, or hopeless: not at all 3. Trouble falling or staying asleep, or sleeping too much: not at all 4. Feeling tired or having little energy: not at all 5. Poor appetite or overeating: not at all 6. Feeling bad about yourself - or that you are a failure or have let yourself or your family down: not at all 7. Trouble concentrating on things, such as reading the newspaper or watching television: not at all 8. Moving or speaking so slowly that other people could have noticed. Or the opposite - being so fidgety or restless that you have been moving around a lot more than usual: not at all 9. Thoughts that you would be better off or of hurting yourself in some way: not at all Total score: 0 Source: Developed by Drs. Christopher Garcia, Ingrid Randall, Alden Knapp and colleagues, with an educational nga from [employer]. Thrive Questionnaire Date Thrive assessed: 10/28/23 I am a: Patient What is your living situation today?: I have a steady place to live Within the past 12 months, did the food you bought not last and you didn't have the money to get more?: Never true Within the past 12 months, did you worry whether your food would run out before you got money to buy more?: Never true Do you have trouble paying for medicines?: No Do you have trouble getting transportation to medical appointments?: No Do you have trouble paying your heating and electricity bill?: No Do you have trouble taking care of your child, family member or friend?: No Do you have trouble with day-to-day activities such as bathing, preparing meals, shopping, managing finances, etc.?: No Are you currently unemployed and looking for a job?: Yes Are you interested in more education?: No Please select the resources that you would like help with: None Currently or been in a relationship where the following occur: No concerns reported THRIVE Score: 0 AUDIT C Alcohol Use Questionnaire (AUDIT-C) 1. How often do you have a drink containing alcohol?: Never Total Score: 0 CELI-7 AMB Questionnaire CELI-7 Date CELI - 7 assessed: 10/28/23 Feeling nervous, anxious, or on edge: 0 = Not at all Not being able to stop or control worryin = Not at all Worrying too much about different things: 0 = Not at all Trouble relaxin = Not at all Being so restless that it is hard to sit still: 0 = Not at all Becoming easily annoyed or irritable: 0 = Not at all Feeling afraid as if something awful might happen: 0 = Not at all Total CELI-7 score (0-4 normal; 5-9 mild; 10-14 moderate; 15-21 severe): 0 Source: Developed by Drs. Christopher Garcia, Ingrid Randall, Alden Knapp and colleagues, with an educational nga from [employer]. Review of Systems Const Reports as per HPI Physical exam (Primary Care) Vital Signs: Last Vital Signs BP 118/58 L 11/19/23 11:27 BMI result Body Mass Index 21.8 Tobacco/Smoking Status: Tobacco use Status Tobacco use date assessed 11/19/23 11/19/23 11:31 Patient Tobacco Use Status Never used Tobacco 11/19/23 11:31 Tobacco use type Cigarette 11/19/23 11:31 e-Cigarette/Vaping Use Never Used 11/19/23 11:31 PHQ-9: PHQ-9 Score PHQ-9: Total score 0 11/19/23 11:38 Thrive Assessment: Date of Thrive Assessment Date Thrive assessed 10/28/23 11/19/23 11:31 Currently or been in a relationship where the following occur: No concerns reported Const Other: jaundice, no acute sob noted while speaking with pt General: cooperative Orientation/consciousness: patient oriented x3 Resp Effort & Inspection: normal respiratory effort, able to speak in complete sentences and not labored Auscultation: wheezes throughout Cardio Rate: regular rate Rhythm: regular rhythm Heart sounds: S1 normal heart sound present and S2 normal heart sound present GI Other: abdominal with mild distension, no tenderness with palpation Skin General skin exam: jaundice Neuro General: patient oriented x3 Psych Appearance: grossly normal Mental Status: mental status grossly normal Speech and movement: Normal speech and movement present Affect: normal affect Attitude: cooperative Thought process: Normal thought process present Thought content: Normal thought content present Insight: Good insight present (Psych) Judgement: Good judgement present (Psych) Assessment and Plan Assessment & Plan (1) Liver failure: Code(s): K72.90 - Hepatic failure, unspecified without coma (2) Ascites: Code(s): R18.8 - Other ascites Plan The patient agreed to the use of a medical research assistant for this encounter. Scribed for GREG Balbuena by Betty Ragsdale medical research assistant, on 11/19/2023 at 11:35 EST. Orders: Orders US paracentesis abd w/image Today K72.90 - Hepatic failure, unspecified without coma, R18.8 - Other ascites Referrals Gastroenterology Referral K72.90 - Hepatic failure, unspecified without coma Coding Level of Care Code Est Pt Level 3 (51207) Diagnoses Liver failure K72.90 Ascites R18.8
== END 2023-11-19 14:00 | disposition home or self-care (01) ==
PROVIDERS: PCP Nurse Practitioner Family; Visit Provider Nurse Practitioner Family
DX: K72.90 Hepatic failure, unspecified without coma (principal); R18.8 Other ascites
CPT/HCPCS: 99213

== ENCOUNTER 2023-11-28 07:21 | Day surgery (SDC) | payer OTHER, SELFPAY ==
--- NOTE | ~2023-11-28 | US_ITS ---
Ultrasound paracentesis History: Ascites. Risks and benefits and possible complications were discussed with the patient and consent form was signed. A safe pocket of ascitic fluid was identified using ultrasound guidance, and the overlying skin was marked. The abdomen prepped and draped in sterile fashion. 1% lidocaine was used as a local anesthetic. Using ultrasound guidance, a 5 fr catheter was placed into the ascitic pocket. 5.5 liters of yellow fluid was removed passively. The catheter was then removed. 37.5 mg of IV albumin was administered to the patient in PACU. A few call center representative images from before and after the examination were obtained. The procedure was performed by Stephen Best PA-C and supervised by Dr. Pratt. US/US paracentesis abd w/image Impression: Ultrasound-guided paracentesis as described above. No immediate complications Electronically signed by: Modesto Pratt MD 12/05/2023 03:19 PM EDT
[2023-11-28 07:36] VITALS: BMI 22.0
[2023-11-28] MEDS: Lidocaine HCl 1 % MPF 5 ML VIAL SUBCUT (10:26)
[2023-11-28 10:40] VITALS: BP 109/60; PULSE 103; RESP 17; TEMP 36.9; O2SAT 100
[2023-11-28 10:55] VITALS: BP 111/63; PULSE 102; RESP 17; O2SAT 99
[2023-11-28 11:10] VITALS: BP 107/62; PULSE 94; RESP 16; O2SAT 99
[2023-11-28 11:25] VITALS: BP 117/65; PULSE 98; RESP 16; TEMP 37.2; O2SAT 99
== END 2023-11-28 11:38 | disposition home or self-care (01) ==
PROVIDERS: Physician Assistant Surgical; PCP Nurse Practitioner Family; Visit Provider Nurse Practitioner Family
DX: R18.8 Other ascites (principal); K72.90 Hepatic failure, unspecified without coma; Z79.899 Other long term (current) drug therapy; J44.9 Chronic obstructive pulmonary disease, unspecified; R06.02 Shortness of breath; F10.90 Alcohol use, unspecified, uncomplicated; F41.9 Anxiety disorder, unspecified; F32.A Depression, unspecified
CPT/HCPCS: 49083; P9047

== ENCOUNTER → 2023-11-28 08:48 | Outpatient (BNV) | payer OTHER, SELFPAY | PROVIDERS: PCP Nurse Practitioner Family; Visit Provider Student in an Organized Health Care Education/Training Program | DX: R18.8 Other ascites (principal) | CPT/HCPCS: 49083 ==

== ENCOUNTER 2024-01-08 12:52 | Inpatient (IN) | payer OTHER, SELFPAY ==
[2024-01-08] VITALS (13 sets, daily range): BP systolic 89–113; BP diastolic 43–71; PULSE 81–108; RESP 12–25; TEMP 36.4–37; O2SAT 99–100; BMI 23.5
--- NOTE | ~2024-01-08 | XR_ITS ---
EXAMINATION: XR CHEST CLINICAL INFORMATION: Fall at home home, query fracture. COMPARISON: Chest radiograph 07/12/2023 TECHNIQUE: Portable AP upright view of the chest was obtained. FINDINGS: No significant abnormality is noted involving the heart, lungs, mediastinum, bony thorax or soft tissues. XR/XR chest 1V IMPRESSION: The lungs are clear. No displaced rib fracture is seen. Electronically signed by: Parker Gaspar MD 01/08/2024 09:06 PM EDT RP
--- NOTE | ~2024-01-08 | XR_ITS ---
EXAMINATION: XR CHEST CLINICAL INFORMATION: NG tube placement COMPARISON: January 08, 2024 TECHNIQUE: Frontal view of the chest was obtained. FINDINGS: Nasogastric tube identified with the tip and port below the diaphragm. Lungs are low volume with atelectasis at the right lung base XR/XR chest 1V IMPRESSION: Well-positioned NG tubel Electronically signed by: Rolando Hyde MD 01/09/2024 04:09 PM EDT
--- NOTE | ~2024-01-08 | CT_ITS ---
EXAMINATION: CT HEAD WITHOUT CONTRAST CLINICAL INFORMATION: Altered mental status COMPARISON: None available. TECHNIQUE: Contiguous axial imaging was performed from the skull base to vertex without intravenous administration of contrast. This CT examination was performed using dose optimization techniques as appropriate, variously including the following: *Automated exposure control *Adjustment of mA and/or kV according to patient size (this includes techniques or standardized protocols for targeted exams where dose is matched to indication/reason for exam; i.e. extremities or head) *Use of iterative reconstruction technique DLP: 565 mGy-cm FINDINGS: There is no evidence of acute intracranial hemorrhage or edematous large vessel territorial infarction. No abnormal mass effect or midline shift is seen. [place] to white matter differentiation is well preserved. No abnormal extra-axial fluid collections are identified. Commensurate prominence of the ventricles and sulci is compatible with generalized parenchymal volume loss. There is patchy periventricular and subcortical white matter hypoattenuation, most likely representing microangiopathic disease. No acute calvarial fracture.. Paranasal sinuses evaluation is limited by motion artifact. Mastoid air cells are well-aerated. CT/CT head/brain wo IV con IMPRESSION: No CT evidence of acute intracranial hemorrhage or edematous territorial infarction.. Chronic cerebral volume loss and chronic microangiopathy. Electronically signed by: Jose Sanchez MD 01/08/2024 05:36 PM EDT
--- NOTE | ~2024-01-08 | XR_ITS ---
EXAMINATION: XR CHEST CLINICAL INFORMATION: low O2 sat, tachypnea COMPARISON: X-ray dated January 09, 2024 TECHNIQUE: Frontal view of the chest was obtained. FINDINGS: Patchy opacities, right hemithorax. Pulmonary reticular nodular pattern, bilaterally. Prominence of the interstitial lung markings. No pleural effusion. No pneumothorax. Cardiomediastinal silhouette size is normal. Calcified plaque or scars. There is an NG tube in the mediastinum, deep is not fully depicted. XR/XR chest 1V IMPRESSION: Pulmonary edema versus multifocal pneumonia versus ARDS versus pneumonitis among other etiologies. Worsened since prior exam. Electronically signed by: Edwin Luis MD 01/10/2024 07:48 AM EDT
--- NOTE | 2024-01-08 13:13 | ECG_ITS ---
Test Reason : AMS Blood Pressure : / mmHG Vent. Rate : 094 BPM Atrial Rate : 094 BPM P-R Int : 138 ms QRS Dur : 072 ms QT Int : 000 ms P-R-T Axes : 086 083 061 degrees QTc Int : 000 ms Artifact in tracing Normal sinus rhythm Septal infarct , age undetermined Nonspecific ST and T wave abnormality difficult to calculate QT as the ST segment is flat Abnormal ECG When compared with ECG of 07-JUL-2023 08:27, Septal infarct is now Present Referred By: Generic ED Physician Electronically Signed By:KRISTA KRAUS
[2024-01-08 13:34] LABS: MANUAL DIFF FLAG NO
--- NOTE | 2024-01-08 13:38 | ED_ITS ---
HPI - General Adult General Chief complaint: General Medical Stated complaint: NOT FEELING WELL,JAUNDRICE,ALTERED PER EMS Time Seen by Provider: 01/08/24 13:20 History of Present Illness HPI narrative: Patient is a 58-year-old female with a history of liver disease. History of jaundice, hepatic encephalopathy presented today with generalized malaise weakness. Family stated patient having hallucinations. Seeing snakes that do not exist. Patient has been seeing her sister which was in there that time. Sent in by family for further evaluation. She denies any head trauma. Denies any fever chills. Denies any coughing congestion. Positive history of alcohol abuse. Patient denies drinking today. Related Data Home Medications ?Medication ?Instructions ?Recorded ?Confirmed No Known Home Meds 01/08/24 01/08/24 Allergies Allergy/AdvReac Type Severity Reaction Status Date / Time No Known Allergies Allergy Unknown UNKNOWN Verified 01/08/24 13:06 [NO KNOWN ALLERGIES] Review of Systems 2 Review of Systems: Positive generalized malaise weakness Positive confusion PMFSH Past Medical History Attestation statement: The following information was validated with the patient. Medical History Smoker Alcohol use disorder COPD (chronic obstructive pulmonary disease) Jaundice Anxiety Breast calcification, left Depression Surgical History History of abdominal paracentesis History of tubal ligation Family History Family History Father Stroke Mother Lung cancer Son No problems noted. Daughter No problems noted. 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 Patient Tobacco Use Status: Never used Tobacco Tobacco use type: Cigarette Cigarette Packs Per Day: 0.5 e-Cigarette/Vaping Use: Never Used Second Hand Smoke Exposure: Yes Substance Use Type: Marijuana Advance Directives: Yes Advance Directives on File: Yes Advance Directives Date on File: 07/08/23 Do you have a plan to hurt others: No Plan service: No Current occupational status: employed Current occupational exposures/hazards: No Gender identity: Female Cognitive needs: No Hearing needs: No Vision needs: Yes Physical Exam ED Vital Signs: Vital Signs - 24 hr 01/08/24 13:05 01/08/24 14:19 01/08/24 15:08 Temperature 97.9 F 98 F 98.6 F Pulse Rate 94 93 92 Respiratory Rate 18 25 H 12 Blood Pressure 106/71 90/43 L 89/49 L Pulse Oximetry 100 Oxygen Delivery Method Room Air Room Air Oxygen Flow Rate 100 01/08/24 15:24 01/08/24 16:13 01/08/24 17:11 Temperature 98.4 F 98.5 F 98 F Pulse Rate 94 93 93 Respiratory Rate 17 23 H 22 H Blood Pressure 93/55 L 97/56 L 99/59 L Pulse Oximetry 99 100 Oxygen Delivery Method Room Air Room Air Oxygen Flow Rate BMI result Body Mass Index 23.5 Appearance: Alert. Oriented X3. No acute distress. Eyes: Pupils equal, round and reactive to light. ENT: Pharynx normal. Neck: Normal inspection. Neck supple. No lymph nodes noted. No crepitus CVS: Normal heart rate and rhythm. Pulses normal. Normal S1 and S2 Respiratory: No respiratory distress. Breath sounds normal. No Wheezing. No rales Abdomen: Soft and nontender. No rigidity. No distention. good BS x4 Skin: Skin warm and dry. Normal skin color. Normal skin turgor. Extremities: No lower extremity edema. Neurovascular intact to all extremities. No Lacerations. No Rash Neuro: Oriented to self and place but not to time.. No motor deficit. No sensory deficit. Moving all extermities. No slurred speech Medications Administered Discontinued Medications Generic Name Dose Route Start Last Admin Trade Name Freq PRN Reason Stop Dose Admin Ceftriaxone Sodium 1 gm 01/08/24 14:32 01/08/24 15:26 Ceftriaxone Sodium 1 Gm Vial IVPUSH 01/08/24 14:33 1 gm ONCE ONE Administration Lactulose 30 gm 01/08/24 14:28 01/08/24 15:02 Lactulose 20 Gm/30 Ml Solution PO 01/08/24 14:29 30 gm ONCE ONE Administration Medical Decision Making Medical Decision Making MDM Narrative: Patient 58-year-old presents today with generalized malaise weakness confusion has a history of hepatic encephalopathy. History of liver cirrhosis. Patient's hemoglobin came back at less than 6. A rectal exam was done with nurse Elvia present. It was heme-positive brown stool. Explained to patient and family about the risks and benefits of transfusion including risk of infection risk of human Eorror. Agreed to transfusion. Positive generalized malaise weakness. Patient's hemoglobin came back at less than 6. Risks and benefits of transfusion explained to patient and family. Agreed to plan. Patient's labs also showed an elevated ammonia 62 level. Question level of liver cirrhosis. Will start patient on a dose of lactulose. Will require admission for further evaluation patient's case discussed with the hospitalist team. Patient's LFT showed elevated bilirubin. Currently awaiting admission Patient's urine also grossly infected. Will start patient on Rocephin. Previous culture reviewed. No positive urine cultures in the system. Patient's lactate elevated. Likely secondary to liver cirrhosis. Patient given the blood transfusion. Hospitalist evaluated the patient. Patient to be admitted. Differential Diagnosis Differential Diagnoses: The differential diagnosis associated with the presentation includes Liver cirrhosis, GI bleed Admission/Observation Consideration of admission/observation: Escalation of care including admission/observation considered Consult Healthcare Provider Management of the patient was discussed with: Hospitalist Lab Data [facility] Lab Attestation statement: I reviewed the patient's lab results. 01/08/24 14:28 01/08/24 13:30 Labs: Lab Results 01/08/24 01/08/24 01/08/24 Range/Units 13:30 13:30 13:30 WBC 11.1 H (4.8-10.8) X10*3/uL RBC 1.78 L D (4.20-5.50) X10*6/uL Hgb 5.8 L* D (12.0-16.0) g/dl Hct 15.6 L* D (37.0-47.0) % MCV 87.6 (80.0-98.0) fL MCH 32.6 (27.0-33.0) pg MCHC 37.2 H (31.0-35.0) g/dl RDW 18.8 H (11.0-16.0) % Plt Count 225 (160-400) X10*3/uL MPV 11.0 (9.4-12.3) fL Immature Gran % (Auto) 0.6 H (0.0-0.4) % Neut % (Auto) 71.8 (45-73) % Lymph % (Auto) 19.4 L (20-40) % [place] % (Auto) 7.7 (2-11) % Eos % (Auto) 0.3 (0-4) % Baso % (Auto) 0.2 (0-2) % Lymph # (Auto) 2.2 (1.2-4.9) X10*3/uL [place] # (Auto) 0.9 (0.1-1.2) X10*3/uL Eos # (Auto) 0.0 (0.0-0.4) X10*3/uL Baso # (Auto) 0.0 (0.0-0.2) X10*3/uL Abs Immat Gran (auto) 0.07 H (0.00-0.03) X10*3/uL Absolute Neuts (auto) 8.0 (2.0-8.3) x10*3/uL Absolute Nucleated RBC 0.020 H (0.0-0.012) X10*3/uL Nucleated RBC % (auto) 0.2 (0.0-0.2) /100WBC PT 18.3 H (10.9-12.4) SEC INR 1.6 H (0.9-1.1) APTT 33.0 (26.0-36.8) SEC Sodium Cancelled 136 Potassium Cancelled 3.6 Chloride Cancelled Carbon Dioxide Anion Gap BUN Creatinine Estim Creat Clear Calc Estimated GFR POC Glucose (60-115) mg/dL Random Glucose Lactic Acid (0.5-2.0) mmol/L Calcium Magnesium (1.6-2.6) mg/dL Total Bilirubin (0.0-1.0) mg/dL Direct Bilirubin (0.0-0.5) mg/dL AST (5-31) U/L ALT (0-31) U/L Alkaline Phosphatase (39-117) U/L Ammonia (13-55) umol/L Total Protein (6.5-8.0) g/dL Albumin (3.5-5.0) g/dL Lipase (8-78) U/L Urine Color Urine Appearance Urine pH (5.0-9.0) Ur Specific [place] (1.005-1.025) Urine Protein (Neg-Trace) mg/dL Urine Glucose (UA) (Negative) mg/dL Urine Ketones (Negative) mg/dL Urine Blood (Negative) Urine Nitrite (Negative) Ur Leukocyte Esterase (Negative) Urine RBC (0-2) /HPF Urine WBC (0-5) /HPF Ur Squamous Epith Cells (0-2) /HPF Other Crystals Urine Bacteria (None Seen) Hyaline Casts (0-2) /LPF Granular Casts Stool Occult Blood (NEGATIVE) Urine Opiates Screen (Not Detect) Ur Buprenorphine Scrn (Not Detect) ng/mL Ur Oxycodone Screen (Not Detect) ng/mL Urine Methadone Screen (Not Detect) ng/mL Urine Fentanyl Screen (Not Detect) Ur Barbiturates Screen (Not Detect) Ur Phencyclidine Scrn (Not Detect) Ur Amphetamines Screen (Not Detect) U Benzodiazepines Scrn (Not Detect) Urine Cocaine Screen (Not Detect) U Marijuana (THC) Screen (Not Detect) Ethyl Alcohol mg/dL Blood Type Antibody Screen Crossmatch 01/08/24 01/08/24 01/08/24 Range/Units 13:30 13:30 13:30 WBC (4.8-10.8) X10*3/uL RBC (4.20-5.50) X10*6/uL Hgb (12.0-16.0) g/dl Hct (37.0-47.0) % MCV (80.0-98.0) fL MCH (27.0-33.0) pg MCHC (31.0-35.0) g/dl RDW (11.0-16.0) % Plt Count (160-400) X10*3/uL MPV (9.4-12.3) fL Immature Gran % (Auto) (0.0-0.4) % Neut % (Auto) (45-73) % Lymph % (Auto) (20-40) % [place] % (Auto) (2-11) % Eos % (Auto) (0-4) % Baso % (Auto) (0-2) % Lymph # (Auto) (1.2-4.9) X10*3/uL [place] # (Auto) (0.1-1.2) X10*3/uL Eos # (Auto) (0.0-0.4) X10*3/uL Baso # (Auto) (0.0-0.2) X10*3/uL Abs Immat Gran (auto) (0.00-0.03) X10*3/uL Absolute Neuts (auto) (2.0-8.3) x10*3/uL Absolute Nucleated RBC (0.0-0.012) X10*3/uL Nucleated RBC % (auto) (0.0-0.2) /100WBC PT (10.9-12.4) SEC INR (0.9-1.1) APTT (26.0-36.8) SEC Sodium Potassium Chloride 99 Carbon Dioxide Cancelled 21 L Anion Gap Cancelled 20 BUN Cancelled Creatinine Estim Creat Clear Calc Estimated GFR POC Glucose (60-115) mg/dL Random Glucose Lactic Acid (0.5-2.0) mmol/L Calcium Magnesium (1.6-2.6) mg/dL Total Bilirubin (0.0-1.0) mg/dL Direct Bilirubin (0.0-0.5) mg/dL AST (5-31) U/L ALT (0-31) U/L Alkaline Phosphatase (39-117) U/L Ammonia (13-55) umol/L Total Protein (6.5-8.0) g/dL Albumin (3.5-5.0) g/dL Lipase (8-78) U/L Urine Color Urine Appearance Urine pH (5.0-9.0) Ur Specific [place] (1.005-1.025) Urine Protein (Neg-Trace) mg/dL Urine Glucose (UA) (Negative) mg/dL Urine Ketones (Negative) mg/dL Urine Blood (Negative) Urine Nitrite (Negative) Ur Leukocyte Esterase (Negative) Urine RBC (0-2) /HPF Urine WBC (0-5) /HPF Ur Squamous Epith Cells (0-2) /HPF Other Crystals Urine Bacteria (None Seen) Hyaline Casts (0-2) /LPF Granular Casts Stool Occult Blood (NEGATIVE) Urine Opiates Screen (Not Detect) Ur Buprenorphine Scrn (Not Detect) ng/mL Ur Oxycodone Screen (Not Detect) ng/mL Urine Methadone Screen (Not Detect) ng/mL Urine Fentanyl Screen (Not Detect) Ur Barbiturates Screen (Not Detect) Ur Phencyclidine Scrn (Not Detect) Ur Amphetamines Screen (Not Detect) U Benzodiazepines Scrn (Not Detect) Urine Cocaine Screen (Not Detect) U Marijuana (THC) Screen (Not Detect) Ethyl Alcohol mg/dL Blood Type Antibody Screen Crossmatch 01/08/24 01/08/24 01/08/24 Range/Units 13:30 13:30 13:30 WBC (4.8-10.8) X10*3/uL RBC (4.20-5.50) X10*6/uL Hgb (12.0-16.0) g/dl Hct (37.0-47.0) % MCV (80.0-98.0) fL MCH (27.0-33.0) pg MCHC (31.0-35.0) g/dl RDW (11.0-16.0) % Plt Count (160-400) X10*3/uL MPV (9.4-12.3) fL Immature Gran % (Auto) (0.0-0.4) % Neut % (Auto) (45-73) % Lymph % (Auto) (20-40) % [place] % (Auto) (2-11) % Eos % (Auto) (0-4) % Baso % (Auto) (0-2) % Lymph # (Auto) (1.2-4.9) X10*3/uL [place] # (Auto) (0.1-1.2) X10*3/uL Eos # (Auto) (0.0-0.4) X10*3/uL Baso # (Auto) (0.0-0.2) X10*3/uL Abs Immat Gran (auto) (0.00-0.03) X10*3/uL Absolute Neuts (auto) (2.0-8.3) x10*3/uL Absolute Nucleated RBC (0.0-0.012) X10*3/uL Nucleated RBC % (auto) (0.0-0.2) /100WBC PT (10.9-12.4) SEC INR (0.9-1.1) APTT (26.0-36.8) SEC Sodium Potassium Chloride Carbon Dioxide Anion Gap BUN 35 H Creatinine Cancelled 1.40 Estim Creat Clear Calc Cancelled 34.8 Estimated GFR Cancelled POC Glucose (60-115) mg/dL Random Glucose Lactic Acid (0.5-2.0) mmol/L Calcium Magnesium (1.6-2.6) mg/dL Total Bilirubin (0.0-1.0) mg/dL Direct Bilirubin (0.0-0.5) mg/dL AST (5-31) U/L ALT (0-31) U/L Alkaline Phosphatase (39-117) U/L Ammonia (13-55) umol/L Total Protein (6.5-8.0) g/dL Albumin (3.5-5.0) g/dL Lipase (8-78) U/L Urine Color Urine Appearance Urine pH (5.0-9.0) Ur Specific [place] (1.005-1.025) Urine Protein (Neg-Trace) mg/dL Urine Glucose (UA) (Negative) mg/dL Urine Ketones (Negative) mg/dL Urine Blood (Negative) Urine Nitrite (Negative) Ur Leukocyte Esterase (Negative) Urine RBC (0-2) /HPF Urine WBC (0-5) /HPF Ur Squamous Epith Cells (0-2) /HPF Other Crystals Urine Bacteria (None Seen) Hyaline Casts (0-2) /LPF Granular Casts Stool Occult Blood (NEGATIVE) Urine Opiates Screen (Not Detect) Ur Buprenorphine Scrn (Not Detect) ng/mL Ur Oxycodone Screen (Not Detect) ng/mL Urine Methadone Screen (Not Detect) ng/mL Urine Fentanyl Screen (Not Detect) Ur Barbiturates Screen (Not Detect) Ur Phencyclidine Scrn (Not Detect) Ur Amphetamines Screen (Not Detect) U Benzodiazepines Scrn (Not Detect) Urine Cocaine Screen (Not Detect) U Marijuana (THC) Screen (Not Detect) Ethyl Alcohol mg/dL Blood Type Antibody Screen Crossmatch 01/08/24 01/08/24 01/08/24 Range/Units 13:30 13:30 13:30 WBC (4.8-10.8) X10*3/uL RBC (4.20-5.50) X10*6/uL Hgb (12.0-16.0) g/dl Hct (37.0-47.0) % MCV (80.0-98.0) fL MCH (27.0-33.0) pg MCHC (31.0-35.0) g/dl RDW (11.0-16.0) % Plt Count (160-400) X10*3/uL MPV (9.4-12.3) fL Immature Gran % (Auto) (0.0-0.4) % Neut % (Auto) (45-73) % Lymph % (Auto) (20-40) % [place] % (Auto) (2-11) % Eos % (Auto) (0-4) % Baso % (Auto) (0-2) % Lymph # (Auto) (1.2-4.9) X10*3/uL [place] # (Auto) (0.1-1.2) X10*3/uL Eos # (Auto) (0.0-0.4) X10*3/uL Baso # (Auto) (0.0-0.2) X10*3/uL Abs Immat Gran (auto) (0.00-0.03) X10*3/uL Absolute Neuts (auto) (2.0-8.3) x10*3/uL Absolute Nucleated RBC (0.0-0.012) X10*3/uL Nucleated RBC % (auto) (0.0-0.2) /100WBC PT (10.9-12.4) SEC INR (0.9-1.1) APTT (26.0-36.8) SEC Sodium Potassium Chloride Carbon Dioxide Anion Gap BUN Creatinine Estim Creat Clear Calc Estimated GFR 39 POC Glucose (60-115) mg/dL Random Glucose Cancelled 110 Lactic Acid (0.5-2.0) mmol/L Calcium Cancelled 8.0 L D Magnesium 1.8 (1.6-2.6) mg/dL Total Bilirubin 3.0 H (0.0-1.0) mg/dL Direct Bilirubin (0.0-0.5) mg/dL AST (5-31) U/L ALT (0-31) U/L Alkaline Phosphatase (39-117) U/L Ammonia (13-55) umol/L Total Protein (6.5-8.0) g/dL Albumin (3.5-5.0) g/dL Lipase (8-78) U/L Urine Color Urine Appearance Urine pH (5.0-9.0) Ur Specific [place] (1.005-1.025) Urine Protein (Neg-Trace) mg/dL Urine Glucose (UA) (Negative) mg/dL Urine Ketones (Negative) mg/dL Urine Blood (Negative) Urine Nitrite (Negative) Ur Leukocyte Esterase (Negative) Urine RBC (0-2) /HPF Urine WBC (0-5) /HPF Ur Squamous Epith Cells (0-2) /HPF Other Crystals Urine Bacteria (None Seen) Hyaline Casts (0-2) /LPF Granular Casts Stool Occult Blood (NEGATIVE) Urine Opiates Screen (Not Detect) Ur Buprenorphine Scrn (Not Detect) ng/mL Ur Oxycodone Screen (Not Detect) ng/mL Urine Methadone Screen (Not Detect) ng/mL Urine Fentanyl Screen (Not Detect) Ur Barbiturates Screen (Not Detect) Ur Phencyclidine Scrn (Not Detect) Ur Amphetamines Screen (Not Detect) U Benzodiazepines Scrn (Not Detect) Urine Cocaine Screen (Not Detect) U Marijuana (THC) Screen (Not Detect) Ethyl Alcohol mg/dL Blood Type Antibody Screen Crossmatch 01/08/24 01/08/24 01/08/24 Range/Units 13:30 13:30 13:30 WBC (4.8-10.8) X10*3/uL RBC (4.20-5.50) X10*6/uL Hgb (12.0-16.0) g/dl Hct (37.0-47.0) % MCV (80.0-98.0) fL MCH (27.0-33.0) pg MCHC (31.0-35.0) g/dl RDW (11.0-16.0) % Plt Count (160-400) X10*3/uL MPV (9.4-12.3) fL Immature Gran % (Auto) (0.0-0.4) % Neut % (Auto) (45-73) % Lymph % (Auto) (20-40) % [place] % (Auto) (2-11) % Eos % (Auto) (0-4) % Baso % (Auto) (0-2) % Lymph # (Auto) (1.2-4.9) X10*3/uL [place] # (Auto) (0.1-1.2) X10*3/uL Eos # (Auto) (0.0-0.4) X10*3/uL Baso # (Auto) (0.0-0.2) X10*3/uL Abs Immat Gran (auto) (0.00-0.03) X10*3/uL Absolute Neuts (auto) (2.0-8.3) x10*3/uL Absolute Nucleated RBC (0.0-0.012) X10*3/uL Nucleated RBC % (auto) (0.0-0.2) /100WBC PT (10.9-12.4) SEC INR (0.9-1.1) APTT (26.0-36.8) SEC Sodium Potassium Chloride Carbon Dioxide Anion Gap BUN Creatinine Estim Creat Clear Calc Estimated GFR POC Glucose (60-115) mg/dL Random Glucose Lactic Acid (0.5-2.0) mmol/L Calcium Magnesium (1.6-2.6) mg/dL Total Bilirubin 3.1 H (0.0-1.0) mg/dL Direct Bilirubin 2.0 H (0.0-0.5) mg/dL AST 82 H 82 H (5-31) U/L ALT 12 12 (0-31) U/L Alkaline Phosphatase 169 H (39-117) U/L Ammonia (13-55) umol/L Total Protein (6.5-8.0) g/dL Albumin (3.5-5.0) g/dL Lipase (8-78) U/L Urine Color Urine Appearance Urine pH (5.0-9.0) Ur Specific [place] (1.005-1.025) Urine Protein (Neg-Trace) mg/dL Urine Glucose (UA) (Negative) mg/dL Urine Ketones (Negative) mg/dL Urine Blood (Negative) Urine Nitrite (Negative) Ur Leukocyte Esterase (Negative) Urine RBC (0-2) /HPF Urine WBC (0-5) /HPF Ur Squamous Epith Cells (0-2) /HPF Other Crystals Urine Bacteria (None Seen) Hyaline Casts (0-2) /LPF Granular Casts Stool Occult Blood (NEGATIVE) Urine Opiates Screen (Not Detect) Ur Buprenorphine Scrn (Not Detect) ng/mL Ur Oxycodone Screen (Not Detect) ng/mL Urine Methadone Screen (Not Detect) ng/mL Urine Fentanyl Screen (Not Detect) Ur Barbiturates Screen (Not Detect) Ur Phencyclidine Scrn (Not Detect) Ur Amphetamines Screen (Not Detect) U Benzodiazepines Scrn (Not Detect) Urine Cocaine Screen (Not Detect) U Marijuana (THC) Screen (Not Detect) Ethyl Alcohol mg/dL Blood Type Antibody Screen Crossmatch 01/08/24 01/08/24 01/08/24 Range/Units 13:30 13:30 13:30 WBC (4.8-10.8) X10*3/uL RBC (4.20-5.50) X10*6/uL Hgb (12.0-16.0) g/dl Hct (37.0-47.0) % MCV (80.0-98.0) fL MCH (27.0-33.0) pg MCHC (31.0-35.0) g/dl RDW (11.0-16.0) % Plt Count (160-400) X10*3/uL MPV (9.4-12.3) fL Immature Gran % (Auto) (0.0-0.4) % Neut % (Auto) (45-73) % Lymph % (Auto) (20-40) % [place] % (Auto) (2-11) % Eos % (Auto) (0-4) % Baso % (Auto) (0-2) % Lymph # (Auto) (1.2-4.9) X10*3/uL [place] # (Auto) (0.1-1.2) X10*3/uL Eos # (Auto) (0.0-0.4) X10*3/uL Baso # (Auto) (0.0-0.2) X10*3/uL Abs Immat Gran (auto) (0.00-0.03) X10*3/uL Absolute Neuts (auto) (2.0-8.3) x10*3/uL Absolute Nucleated RBC (0.0-0.012) X10*3/uL Nucleated RBC % (auto) (0.0-0.2) /100WBC PT (10.9-12.4) SEC INR (0.9-1.1) APTT (26.0-36.8) SEC Sodium Potassium Chloride Carbon Dioxide Anion Gap BUN Creatinine Estim Creat Clear Calc Estimated GFR POC Glucose (60-115) mg/dL Random Glucose Lactic Acid (0.5-2.0) mmol/L Calcium Magnesium (1.6-2.6) mg/dL Total Bilirubin (0.0-1.0) mg/dL Direct Bilirubin (0.0-0.5) mg/dL AST (5-31) U/L ALT (0-31) U/L Alkaline Phosphatase 169 H (39-117) U/L Ammonia 62 H (13-55) umol/L Total Protein 6.3 L 6.3 L (6.5-8.0) g/dL Albumin 2.4 L 2.5 L (3.5-5.0) g/dL Lipase 42 (8-78) U/L Urine Color Urine Appearance Urine pH (5.0-9.0) Ur Specific [place] (1.005-1.025) Urine Protein (Neg-Trace) mg/dL Urine Glucose (UA) (Negative) mg/dL Urine Ketones (Negative) mg/dL Urine Blood (Negative) Urine Nitrite (Negative) Ur Leukocyte Esterase (Negative) Urine RBC (0-2) /HPF Urine WBC (0-5) /HPF Ur Squamous Epith Cells (0-2) /HPF Other Crystals Urine Bacteria (None Seen) Hyaline Casts (0-2) /LPF Granular Casts Stool Occult Blood (NEGATIVE) Urine Opiates Screen (Not Detect) Ur Buprenorphine Scrn (Not Detect) ng/mL Ur Oxycodone Screen (Not Detect) ng/mL Urine Methadone Screen (Not Detect) ng/mL Urine Fentanyl Screen (Not Detect) Ur Barbiturates Screen (Not Detect) Ur Phencyclidine Scrn (Not Detect) Ur Amphetamines Screen (Not Detect) U Benzodiazepines Scrn (Not Detect) Urine Cocaine Screen (Not Detect) U Marijuana (THC) Screen (Not Detect) Ethyl Alcohol < 10 mg/dL Blood Type Antibody Screen Crossmatch 01/08/24 01/08/24 01/08/24 Range/Units 13:57 14:05 14:08 WBC (4.8-10.8) X10*3/uL RBC (4.20-5.50) X10*6/uL Hgb (12.0-16.0) g/dl Hct (37.0-47.0) % MCV (80.0-98.0) fL MCH (27.0-33.0) pg MCHC (31.0-35.0) g/dl RDW (11.0-16.0) % Plt Count (160-400) X10*3/uL MPV (9.4-12.3) fL Immature Gran % (Auto) (0.0-0.4) % Neut % (Auto) (45-73) % Lymph % (Auto) (20-40) % [place] % (Auto) (2-11) % Eos % (Auto) (0-4) % Baso % (Auto) (0-2) % Lymph # (Auto) (1.2-4.9) X10*3/uL [place] # (Auto) (0.1-1.2) X10*3/uL Eos # (Auto) (0.0-0.4) X10*3/uL Baso # (Auto) (0.0-0.2) X10*3/uL Abs Immat Gran (auto) (0.00-0.03) X10*3/uL Absolute Neuts (auto) (2.0-8.3) x10*3/uL Absolute Nucleated RBC (0.0-0.012) X10*3/uL Nucleated RBC % (auto) (0.0-0.2) /100WBC PT (10.9-12.4) SEC INR (0.9-1.1) APTT (26.0-36.8) SEC Sodium Potassium Chloride Carbon Dioxide Anion Gap BUN Creatinine Estim Creat Clear Calc Estimated GFR POC Glucose 97 (60-115) mg/dL Random Glucose Lactic Acid (0.5-2.0) mmol/L Calcium Magnesium (1.6-2.6) mg/dL Total Bilirubin (0.0-1.0) mg/dL Direct Bilirubin (0.0-0.5) mg/dL AST (5-31) U/L ALT (0-31) U/L Alkaline Phosphatase (39-117) U/L Ammonia (13-55) umol/L Total Protein (6.5-8.0) g/dL Albumin (3.5-5.0) g/dL Lipase (8-78) U/L Urine Color Urine Appearance Urine pH (5.0-9.0) Ur Specific [place] (1.005-1.025) Urine Protein (Neg-Trace) mg/dL Urine Glucose (UA) (Negative) mg/dL Urine Ketones (Negative) mg/dL Urine Blood (Negative) Urine Nitrite (Negative) Ur Leukocyte Esterase (Negative) Urine RBC (0-2) /HPF Urine WBC (0-5) /HPF Ur Squamous Epith Cells (0-2) /HPF Other Crystals Urine Bacteria (None Seen) Hyaline Casts (0-2) /LPF Granular Casts Stool Occult Blood POSITIVE (NEGATIVE) Urine Opiates Screen (Not Detect) Ur Buprenorphine Scrn (Not Detect) ng/mL Ur Oxycodone Screen (Not Detect) ng/mL Urine Methadone Screen (Not Detect) ng/mL Urine Fentanyl Screen (Not Detect) Ur Barbiturates Screen (Not Detect) Ur Phencyclidine Scrn (Not Detect) Ur Amphetamines Screen (Not Detect) U Benzodiazepines Scrn (Not Detect) Urine Cocaine Screen (Not Detect) U Marijuana (THC) Screen (Not Detect) Ethyl Alcohol mg/dL Blood Type A Positive Antibody Screen NEGATIVE Crossmatch See Detail 01/08/24 01/08/24 01/08/24 Range/Units 14:21 14:28 15:05 WBC 11.9 H (4.8-10.8) X10*3/uL RBC 1.90 L (4.20-5.50) X10*6/uL Hgb 6.0 L* (12.0-16.0) g/dl Hct 16.5 L* (37.0-47.0) % MCV 86.8 (80.0-98.0) fL MCH 31.6 (27.0-33.0) pg MCHC 36.4 H (31.0-35.0) g/dl RDW 18.6 H (11.0-16.0) % Plt Count 196 (160-400) X10*3/uL MPV 11.4 (9.4-12.3) fL Immature Gran % (Auto) 0.7 H (0.0-0.4) % Neut % (Auto) 72.1 (45-73) % Lymph % (Auto) 19.3 L (20-40) % [place] % (Auto) 7.5 (2-11) % Eos % (Auto) 0.2 (0-4) % Baso % (Auto) 0.2 (0-2) % Lymph # (Auto) 2.3 (1.2-4.9) X10*3/uL [place] # (Auto) 0.9 (0.1-1.2) X10*3/uL Eos # (Auto) 0.0 (0.0-0.4) X10*3/uL Baso # (Auto) 0.0 (0.0-0.2) X10*3/uL Abs Immat Gran (auto) 0.08 H (0.00-0.03) X10*3/uL Absolute Neuts (auto) 8.6 H (2.0-8.3) x10*3/uL Absolute Nucleated RBC 0.020 H (0.0-0.012) X10*3/uL Nucleated RBC % (auto) 0.2 (0.0-0.2) /100WBC PT (10.9-12.4) SEC INR (0.9-1.1) APTT (26.0-36.8) SEC Sodium Potassium Chloride Carbon Dioxide Anion Gap BUN Creatinine Estim Creat Clear Calc Estimated GFR POC Glucose (60-115) mg/dL Random Glucose Lactic Acid 5.7 H* (0.5-2.0) mmol/L Calcium Magnesium (1.6-2.6) mg/dL Total Bilirubin (0.0-1.0) mg/dL Direct Bilirubin (0.0-0.5) mg/dL AST (5-31) U/L ALT (0-31) U/L Alkaline Phosphatase (39-117) U/L Ammonia (13-55) umol/L Total Protein (6.5-8.0) g/dL Albumin (3.5-5.0) g/dL Lipase (8-78) U/L Urine Color Dark Yellow Urine Appearance Turbid Urine pH 5.5 (5.0-9.0) Ur Specific [place] 1.025 (1.005-1.025) Urine Protein 30 (1+) H (Neg-Trace) mg/dL Urine Glucose (UA) Negative (Negative) mg/dL Urine Ketones Trace (Negative) mg/dL Urine Blood Large (3+) H (Negative) Urine Nitrite Positive H (Negative) Ur Leukocyte Esterase Large (3+) H (Negative) Urine RBC 3-5 H (0-2) /HPF Urine WBC 6-10 (0-5) /HPF Ur Squamous Epith Cells 6-10 (0-2) /HPF Other Crystals Present Urine Bacteria 1+ (None Seen) Hyaline Casts 3-5 (0-2) /LPF Granular Casts Present Stool Occult Blood (NEGATIVE) Urine Opiates Screen Not Detected (Not Detect) Ur Buprenorphine Scrn Not Detected (Not Detect) ng/mL Ur Oxycodone Screen Not Detected (Not Detect) ng/mL Urine Methadone Screen Not Detected (Not Detect) ng/mL Urine Fentanyl Screen Not Detected (Not Detect) Ur Barbiturates Screen Not Detected (Not Detect) Ur Phencyclidine Scrn Not Detected (Not Detect) Ur Amphetamines Screen Not Detected (Not Detect) U Benzodiazepines Scrn Not Detected (Not Detect) Urine Cocaine Screen Not Detected (Not Detect) U Marijuana (THC) Screen POSITIVE H (Not Detect) Ethyl Alcohol mg/dL Blood Type Antibody Screen Crossmatch Independent Interpretation I performed an independent interpretation of an: EKG (My interpretation of patient's EKG showed a sinus rhythm heart rate is 100 [place] QRS QTC normal there is diffuse T-wave flattening noted.) External Record Review External record reviewed: Inpatient record Chronic Conditions Liver cirrhosis previous alcohol history Social Determinants Patient?s care significantly limited by Social Determinants of Health including: Alcoholism and drug addiction in family Critical Care Time Critical Care Time Critical Care Time: Yes Total Critical Care Time: 40 Attestation: I have personally provided 40 minutes of critical care time exclusive of time spent on separately billable procedures. ?Time includes review of lab data, radiology results, discussion with consultants, and monitoring for potential decompensation. ?Interventions were performed as documented above Discharge Plan Discharge Clinical Impression: Anemia, Biliary liver cirrhosis Patient Disposition: Admitted As Inpatient Print Language: Lebanese
[2024-01-08 13:41] LABS: Basophils Percent Auto 0.2 % (0-2); Eosinophils Percent Auto 0.3 % (0-4); INTERNATIONAL NORM RATIO 1.6 (0.9-1.1); Imm Gran Abs Auto 0.07 X10*3/uL (0.00-0.03); Imm Gran Pct Auto 0.6 % (0.0-0.4); Lymphocytes Absolute Auto 2.2 X10*3/uL (1.2-4.9); Lymphocytes Percent Auto 19.4 % (20-40); Mean Corpuscular HGB Conc 37.2 g/dl (31.0-35.0); Mean Corpuscular Hemoglobin 32.6 pg (27.0-33.0); Mean Corpuscular Volume 87.6 fL (80.0-98.0); Monocytes Absolute Auto 0.9 X10*3/uL (0.1-1.2); Monocytes Percent Auto 7.7 % (2-11); NRBC Pct Auto 0.2 /100WBC (0.0-0.2); Neutrophils Percent Auto 71.8 % (45-73); Platelet Count 225 X10*3/uL (160-400); Prothrombin Time 18.3 SEC (10.9-12.4); Red Blood Count 1.78 X10*6/uL (4.20-5.50); Red Cell Distribution Width 18.8 % (11.0-16.0); White Blood Count 11.1 X10*3/uL (4.8-10.8)
[2024-01-08 13:43] LABS: Hemoglobin 5.8 g/dl (12.0-16.0)
[2024-01-08 13:44] LABS: Hematocrit 15.6 % (37.0-47.0)
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
[2024-01-08 13:59] LABS: Ammonia 62 umol/L (13-55)
[2024-01-08 14:09] LABS: Alanine Aminotransferase 12 U/L (0-31); Albumin Level 2.4 g/dL (3.5-5.0); Albumin Level 2.5 g/dL (3.5-5.0); Alkaline Phosphatase 169 U/L (39-117); Anion Gap 20 (12-20); Aspartate Amino Transferase 82 U/L (5-31); Bilirubin Total 3.1 mg/dL (0.0-1.0); Blood Urea Nitrogen 35 mg/dL (9-16); Carbon Dioxide 21 mmol/L (22-29); Chloride 99 mmol/L (96-108); Creatinine Clr Calc Pharmacy 34.8; Estimated Glomerular Filt Rate 39; Ethanol < 10 mg/dL; Glucose Random 110 mg/dL (60-115); Lipase 42 U/L (8-78); Magnesium 1.8 mg/dL (1.6-2.6); Potassium 3.6 mmol/L (3.3-5.1); Sodium 136 mmol/L (135-145); Total Protein 6.3 g/dL (6.5-8.0)
[2024-01-08 14:12] LABS: Glucose, Whole Blood 97 mg/dL (60-115)
[2024-01-08 14:14] LABS: OBS1 POSITIVE (NEGATIVE)
[2024-01-08 14:15] LABS: OBS Int Ctl Valid YES
[2024-01-08 14:30] LABS: Appearance Urine Turbid; Color Urine Dark Yellow; Glucose Urine UA Negative (Negative); Leukocyte Esterase Urine Large (3+) (Negative); Nitrite Urine Positive (Negative); PH 5.5 (5.0-9.0); Specific Gravity - Urine 1.025 (1.005-1.025); UMIC TRIGGER UACC YES; Urine Blood Large (3+) (Negative); Urine Ketones Trace mg/dL (Negative); Urine Protein 30 (1+) mg/dL (Neg-Trace)
[2024-01-08 14:33] LABS: Basophils Percent Auto 0.2 % (0-2); Eosinophils Percent Auto 0.2 % (0-4); Imm Gran Abs Auto 0.08 X10*3/uL (0.00-0.03); Imm Gran Pct Auto 0.7 % (0.0-0.4); Lymphocytes Absolute Auto 2.3 X10*3/uL (1.2-4.9); Lymphocytes Percent Auto 19.3 % (20-40); Mean Corpuscular HGB Conc 36.4 g/dl (31.0-35.0); Mean Corpuscular Hemoglobin 31.6 pg (27.0-33.0); Mean Corpuscular Volume 86.8 fL (80.0-98.0); Mean Platelet Volume 11.4 fL (9.4-12.3); Monocytes Absolute Auto 0.9 X10*3/uL (0.1-1.2); Monocytes Percent Auto 7.5 % (2-11); NRBC Pct Auto 0.2 /100WBC (0.0-0.2); Neutrophils Absolute Auto 8.6 x10*3/uL (2.0-8.3); Neutrophils Percent Auto 72.1 % (45-73); Platelet Count 196 X10*3/uL (160-400); Red Cell Distribution Width 18.6 % (11.0-16.0); White Blood Count 11.9 X10*3/uL (4.8-10.8)
[2024-01-08 14:37] LABS: Hematocrit 16.5 % (37.0-47.0); MANUAL DIFF FLAG NO
[2024-01-08 14:39] LABS: Amphetamine Screen Urine Not Detected (Not Detect); Barbiturates, Urine Not Detected (Not Detect); Benzodiazepines Screen Urine Not Detected (Not Detect); Buprenorphine Scr Not Detected (Not Detect); Cannabinoid Screen Urine POSITIVE (Not Detect); Cocaine Screen Urine Not Detected (Not Detect); Fentanyl, urine Not Detected (Not Detect); Methadone Screen, Urine Not Detected (Not Detect); Opiate Screen Urine Not Detected (Not Detect); Oxycodone Screen Urine Not Detected (Not Detect); Phencyclidine Screen Urine Not Detected (Not Detect)
[2024-01-08 14:54] LABS: Bacteria Urine 1+ (None Seen); Granular Casts Urine Present; Other Crystals Urine Present; UACC Culture Trigger YES
[2024-01-08] MEDS: Lactulose 20 GM/30 ML SOLUTION 30 GM PO (15:02)
--- NOTE | 2024-01-08 15:03 | PHA.MEDREC ---
Addendum entered by Keyona King RPh 01/08/24 15:18: reviewed by [facility]. Original Note: Pharmacy Consult ? Medication Reconciliation Pharmacy has completed the medication reconciliation. Patient is AMS. Spoke to family at bedside to confirm meds, however they did not know what medications patient takes. Family did confirm that patent get her medication from [facility]. Called [facility] patient only filled Fluoxetine 60 mg daily, last filled 06/22/23 for 90 days. Couldn't confirm if patient is still taking. [facility] states there are no other medications was filled with in the year at any [facility].
--- NOTE | 2024-01-08 15:10 | PM.IMHP ---
History of Present Illness Date of Service: 01/08/24 Attending physician on admission: Nash Sparrow Chief Complaint: AMS, dizziness Pt is a 58-year-old female with a PMH significant for?alcoholic cirrhosis, alcohol use disorder, not on home meds, currently actively smoking and drinking who presents to the ED with?confusion and dizziness. Patient is alert and oriented to self only and incapable of providing accurate HPI. Complains of lightheadedness, dizziness, and SOB. Is unable to provide accurate length of time. Has no other acute medical complaints. Sister is at bedside who reports pt lives with a friend. Went to check on her and found her laying in a bed without sheet, vomit and cigarette wagner all over the mattress. Bottle of whiskey on bedside table. Patient was profoundly confused with hallucinations apparently seeing snakes and people who were not there. Sister otherwise unsure of when symptoms started or what symptoms patient has had. Reports she has never seen the patient this bad before, though notes pt continues to drink straight whiskey, unknown amount daily or last drink. Last paracentesis on 11/28/2023 where 5.5 L of yellow fluid removed. In the ED pt was tachycardic up to 90, tachypneic to 25, and hypotensive as low as 87/52. Labs were significant for leukocytosis of 11.1, H&H 5.8/15.6, creatinine 1.40, lactic acid 5.7, bilirubin 3.1, AST 82, alk-phos 169, ammonia 62, and albumin 2.5. Stool positive for occult blood. UA positive for UTI. CT of head negative for acute intracranial hemorrhage or edematous territorial infarction, though showed chronic cerebral volume loss and chronic microangiopathy. EKG demonstrated normal sinus rhythm prolonged QTc of 520, but without evidence of significant ST elevations or depressions. Pt was treated with lactulose, ceftriaxone, and transfused 2 units PRBCs. Pt will be admitted to the hospital for treatment and further evaluation acute blood loss anemia and acute hepatic encephalopathy. Review of Systems Review of Systems: Yes Unobtainable due to mental status [facility] Medical History Smoker Alcohol use disorder COPD (chronic obstructive pulmonary disease) Jaundice Anxiety Breast calcification, left Depression Family History Father Stroke Mother Lung cancer Son No problems noted. Daughter No problems noted. Maternal Grandmother Emphysema, unspecified Maternal Grandfather History of heart attack Maternal Aunt Breast cancer Surgical History History of abdominal paracentesis History of tubal ligation Social History Household Members: Other Household Members Other:: room mate Housing: House Do you presently have visiting nurse or other home services: No Alcohol intake: current Alcohol intake frequency: 3 or more drinks per day Alcohol type: hard liquor Comment: SITTER Patient Tobacco Use Status: Never used Tobacco Tobacco use type: Cigarette Cigarette Packs Per Day: 0.5 e-Cigarette/Vaping Use: Never Used Second Hand Smoke Exposure: Yes Substance Use Type: Marijuana Advance Directives: Yes Advance Directives on File: Yes Advance Directives Date on File: 07/08/23 Do you have a plan to hurt others: No Plan service: No Current occupational status: employed Current occupational exposures/hazards: No Gender identity: Female Cognitive needs: No Hearing needs: No Vision needs: Yes Meds Allergies Allergy/AdvReac Type Severity Reaction Status Date / Time No Known Allergies Allergy Unknown UNKNOWN Verified 01/08/24 13:06 [NO KNOWN ALLERGIES] Home Medications ?Medication ?Instructions ?Recorded ?Confirmed ?Last Taken ?Type No Known Home Meds 01/08/24 01/08/24 Unknown History Physical Exam Vital Signs and Narrative: Vital Signs: Last Vital Signs Temp 98.6 F 01/08/24 15:08 Pulse 92 01/08/24 15:08 Resp 12 01/08/24 15:08 BP 89/49 L 01/08/24 15:08 Pulse Ox 100 01/08/24 13:05 O2 Del Method Room Air 01/08/24 14:19 O2 Flow Rate 100 01/08/24 14:19 BMI result Body Mass Index 23.5 General: AOx1, not orientated to place, time, or situatiuon. In no acute distress Resp: CTA bilaterally CVS: S1, S2, regular rhythm, tachycardic GI: +BS, NT, no distention Skin: Warm, dry, jaundiced noemy in face Neuro: Cranial nerves II-XII grossly intact bilaterally. Motor grossly intact bilaterally though global weakness noted. Upper extremities tremulous bilaterally Extremities: No edema Psych: Confused, hallucinating, occasionally answering nonsensically Results Labs 01/08/24 14:28 01/08/24 13:30 Labs: Laboratory Results - last 24 hr 01/08/24 01/08/24 01/08/24 13:30 13:30 13:30 MCV 87.6 MCH 32.6 MCHC 37.2 H RDW 18.8 H Plt Count 225 MPV 11.0 Immature Gran % (Auto) 0.6 H Neut % (Auto) 71.8 Lymph % (Auto) 19.4 L [place] % (Auto) 7.7 Eos % (Auto) 0.3 Baso % (Auto) 0.2 Lymph # (Auto) 2.2 [place] # (Auto) 0.9 Eos # (Auto) 0.0 Baso # (Auto) 0.0 Abs Immat Gran (auto) 0.07 H Absolute Neuts (auto) 8.0 Absolute Nucleated RBC 0.020 H Nucleated RBC % (auto) 0.2 PT 18.3 H INR 1.6 H APTT 33.0 Anion Gap Cancelled 20 Estim Creat Clear Calc Cancelled 34.8 Estimated GFR Cancelled POC Glucose Random Glucose Calcium Magnesium Total Bilirubin Direct Bilirubin AST ALT Alkaline Phosphatase Ammonia Total Protein Albumin Lipase Urine Color Urine Appearance Urine pH Ur Specific [place] Urine Protein Urine Glucose (UA) Urine Ketones Urine Blood Urine Nitrite Ur Leukocyte Esterase Urine RBC Urine WBC Ur Squamous Epith Cells Other Crystals Urine Bacteria Hyaline Casts Granular Casts Stool Occult Blood Urine Opiates Screen Ur Buprenorphine Scrn Ur Oxycodone Screen Urine Methadone Screen Urine Fentanyl Screen Ur Barbiturates Screen Ur Phencyclidine Scrn Ur Amphetamines Screen U Benzodiazepines Scrn Urine Cocaine Screen U Marijuana (THC) Screen Ethyl Alcohol Blood Type Antibody Screen Crossmatch 01/08/24 01/08/24 01/08/24 13:30 13:30 13:30 MCV MCH MCHC RDW Plt Count MPV Immature Gran % (Auto) Neut % (Auto) Lymph % (Auto) [place] % (Auto) Eos % (Auto) Baso % (Auto) Lymph # (Auto) [place] # (Auto) Eos # (Auto) Baso # (Auto) Abs Immat Gran (auto) Absolute Neuts (auto) Absolute Nucleated RBC Nucleated RBC % (auto) PT INR APTT Anion Gap Estim Creat Clear Calc Estimated GFR 39 POC Glucose Random Glucose Cancelled 110 Calcium Cancelled 8.0 L D Magnesium 1.8 Total Bilirubin 3.0 H Direct Bilirubin AST ALT Alkaline Phosphatase Ammonia Total Protein Albumin Lipase Urine Color Urine Appearance Urine pH Ur Specific [place] Urine Protein Urine Glucose (UA) Urine Ketones Urine Blood Urine Nitrite Ur Leukocyte Esterase Urine RBC Urine WBC Ur Squamous Epith Cells Other Crystals Urine Bacteria Hyaline Casts Granular Casts Stool Occult Blood Urine Opiates Screen Ur Buprenorphine Scrn Ur Oxycodone Screen Urine Methadone Screen Urine Fentanyl Screen Ur Barbiturates Screen Ur Phencyclidine Scrn Ur Amphetamines Screen U Benzodiazepines Scrn Urine Cocaine Screen U Marijuana (THC) Screen Ethyl Alcohol Blood Type Antibody Screen Crossmatch 01/08/24 01/08/24 01/08/24 13:30 13:30 13:30 MCV MCH MCHC RDW Plt Count MPV Immature Gran % (Auto) Neut % (Auto) Lymph % (Auto) [place] % (Auto) Eos % (Auto) Baso % (Auto) Lymph # (Auto) [place] # (Auto) Eos # (Auto) Baso # (Auto) Abs Immat Gran (auto) Absolute Neuts (auto) Absolute Nucleated RBC Nucleated RBC % (auto) PT INR APTT Anion Gap Estim Creat Clear Calc Estimated GFR POC Glucose Random Glucose Calcium Magnesium Total Bilirubin 3.1 H Direct Bilirubin 2.0 H AST 82 H 82 H ALT 12 12 Alkaline Phosphatase 169 H Ammonia Total Protein Albumin Lipase Urine Color Urine Appearance Urine pH Ur Specific [place] Urine Protein Urine Glucose (UA) Urine Ketones Urine Blood Urine Nitrite Ur Leukocyte Esterase Urine RBC Urine WBC Ur Squamous Epith Cells Other Crystals Urine Bacteria Hyaline Casts Granular Casts Stool Occult Blood Urine Opiates Screen Ur Buprenorphine Scrn Ur Oxycodone Screen Urine Methadone Screen Urine Fentanyl Screen Ur Barbiturates Screen Ur Phencyclidine Scrn Ur Amphetamines Screen U Benzodiazepines Scrn Urine Cocaine Screen U Marijuana (THC) Screen Ethyl Alcohol Blood Type Antibody Screen Crossmatch 01/08/24 01/08/24 01/08/24 13:30 13:30 13:30 MCV MCH MCHC RDW Plt Count MPV Immature Gran % (Auto) Neut % (Auto) Lymph % (Auto) [place] % (Auto) Eos % (Auto) Baso % (Auto) Lymph # (Auto) [place] # (Auto) Eos # (Auto) Baso # (Auto) Abs Immat Gran (auto) Absolute Neuts (auto) Absolute Nucleated RBC Nucleated RBC % (auto) PT INR APTT Anion Gap Estim Creat Clear Calc Estimated GFR POC Glucose Random Glucose Calcium Magnesium Total Bilirubin Direct Bilirubin AST ALT Alkaline Phosphatase 169 H Ammonia 62 H Total Protein 6.3 L 6.3 L Albumin 2.4 L 2.5 L Lipase 42 Urine Color Urine Appearance Urine pH Ur Specific [place] Urine Protein Urine Glucose (UA) Urine Ketones Urine Blood Urine Nitrite Ur Leukocyte Esterase Urine RBC Urine WBC Ur Squamous Epith Cells Other Crystals Urine Bacteria Hyaline Casts Granular Casts Stool Occult Blood Urine Opiates Screen Ur Buprenorphine Scrn Ur Oxycodone Screen Urine Methadone Screen Urine Fentanyl Screen Ur Barbiturates Screen Ur Phencyclidine Scrn Ur Amphetamines Screen U Benzodiazepines Scrn Urine Cocaine Screen U Marijuana (THC) Screen Ethyl Alcohol < 10 Blood Type Antibody Screen Crossmatch 01/08/24 01/08/24 01/08/24 13:57 14:05 14:08 MCV MCH MCHC RDW Plt Count MPV Immature Gran % (Auto) Neut % (Auto) Lymph % (Auto) [place] % (Auto) Eos % (Auto) Baso % (Auto) Lymph # (Auto) [place] # (Auto) Eos # (Auto) Baso # (Auto) Abs Immat Gran (auto) Absolute Neuts (auto) Absolute Nucleated RBC Nucleated RBC % (auto) PT INR APTT Anion Gap Estim Creat Clear Calc Estimated GFR POC Glucose 97 Random Glucose Calcium Magnesium Total Bilirubin Direct Bilirubin AST ALT Alkaline Phosphatase Ammonia Total Protein Albumin Lipase Urine Color Urine Appearance Urine pH Ur Specific [place] Urine Protein Urine Glucose (UA) Urine Ketones Urine Blood Urine Nitrite Ur Leukocyte Esterase Urine RBC Urine WBC Ur Squamous Epith Cells Other Crystals Urine Bacteria Hyaline Casts Granular Casts Stool Occult Blood POSITIVE Urine Opiates Screen Ur Buprenorphine Scrn Ur Oxycodone Screen Urine Methadone Screen Urine Fentanyl Screen Ur Barbiturates Screen Ur Phencyclidine Scrn Ur Amphetamines Screen U Benzodiazepines Scrn Urine Cocaine Screen U Marijuana (THC) Screen Ethyl Alcohol Blood Type A Positive Antibody Screen NEGATIVE Crossmatch See Detail 01/08/24 01/08/24 14:21 14:28 MCV 86.8 MCH 31.6 MCHC 36.4 H RDW 18.6 H Plt Count 196 MPV 11.4 Immature Gran % (Auto) 0.7 H Neut % (Auto) 72.1 Lymph % (Auto) 19.3 L [place] % (Auto) 7.5 Eos % (Auto) 0.2 Baso % (Auto) 0.2 Lymph # (Auto) 2.3 [place] # (Auto) 0.9 Eos # (Auto) 0.0 Baso # (Auto) 0.0 Abs Immat Gran (auto) 0.08 H Absolute Neuts (auto) 8.6 H Absolute Nucleated RBC 0.020 H Nucleated RBC % (auto) 0.2 PT INR APTT Anion Gap Estim Creat Clear Calc Estimated GFR POC Glucose Random Glucose Calcium Magnesium Total Bilirubin Direct Bilirubin AST ALT Alkaline Phosphatase Ammonia Total Protein Albumin Lipase Urine Color Dark Yellow Urine Appearance Turbid Urine pH 5.5 Ur Specific [place] 1.025 Urine Protein 30 (1+) H Urine Glucose (UA) Negative Urine Ketones Trace Urine Blood Large (3+) H Urine Nitrite Positive H Ur Leukocyte Esterase Large (3+) H Urine RBC 3-5 H Urine WBC 6-10 Ur Squamous Epith Cells 6-10 Other Crystals Present Urine Bacteria 1+ Hyaline Casts 3-5 Granular Casts Present Stool Occult Blood Urine Opiates Screen Not Detected Ur Buprenorphine Scrn Not Detected Ur Oxycodone Screen Not Detected Urine Methadone Screen Not Detected Urine Fentanyl Screen Not Detected Ur Barbiturates Screen Not Detected Ur Phencyclidine Scrn Not Detected Ur Amphetamines Screen Not Detected U Benzodiazepines Scrn Not Detected Urine Cocaine Screen Not Detected U Marijuana (THC) Screen POSITIVE H Ethyl Alcohol Blood Type Antibody Screen Crossmatch Assessment and Plan (1) Blood loss anemia: Status: Acute (2) Hepatic encephalopathy: Status: Resolved Plan Pt is a 58-year-old female with a PMH significant for?alcoholic cirrhosis, alcohol use disorder, not on home meds, currently actively smoking and drinking who presents to the ED with?confusion and dizziness. Pt will be admitted to the hospital for treatment and further evaluation acute blood loss anemia and acute hepatic encephalopathy. Acute blood loss anemia H&H 5.8/15.6 Likely GI source: stool heme+; pt encephalopathic and unable to meaningful HPI Patient transfused 2 units PRBCs in the ED Will place on octreotide drip Protonix IV b.i.d. NPO past midnight for likely EGD and/or colonoscopy in the morning GI consult Follow CBC Monitor on telemetry Hypotension Patient's BP as low as 87/49 Secondary to hypovolemia from acute blood loss Treat as above Will give albumin Monitor BP closely JOHNNY Creatinine 1.40 at time of presentation, elevated From 0.86 on 11/04 secondary to hypovolemia for acute blood loss Treat as above Follow BMP Hepatic encephalopathy Patient confused, alert and oriented to self only, hallucinating Ammonia elevated at 62 Patient given lactulose 30 g p.o. in the ED Will give lactulose 200 mg CO Continue lactulose t.i.d. Recheck ammonia Monitor mentation Lactic acidosis Initial lactic acid 5.7 with repeat down trending to 4.2 Multifactorial: in the setting of acute blood loss, alcoholic cirrhosis Not secondary to sepsis: Tachycardia and tachypnea secondary to acute blood loss Alcohol use disorder Patient currently drinking an unknown amount of whiskey daily Last drink unknown; tox screen negative for ethyl alcohol Patient tremulous, hallucinating, tachycardic Will initiate phenobarb protocol for alcohol withdrawal Monitor on CIWA Multivitamin, folic acid, and thiamine once low longer NPO Acute UTI Will treat with ceftriaxone, started 01/08/2024 No sepsis: Tachycardia and tachypnea secondary to acute blood loss; no fever or leukocytosis Follow urine cultures Prolonged QTc Avoid QT-proloning agents DNR/DNI Attending:?Dr. Sparrow DVT Prophylaxis: Pneumatic compression due to acute blood loss anemia Pt will require a hospitalization of at least two nights for treatment of?acute blood loss anemia and hepatic encephalopathy in the setting of alcoholic cirrhosis and hyperammonemia that has required transfusion of 2 units PRBCs. Patient will require hospital level care for close monitoring of labs, transfusion as necessary, additional workup to identify source of blood loss, monitoring mentation, and initiation of phenobarb protocol for alcohol withdrawal. with . Quality Stroke Does the patient have a stroke diagnosis?: No VTE Prior VTE?: No VTE Risk Level:: Medical - moderate - high VTE Device Contraindication: N/A - Device Ordered VTE Drug Contraindication: Treatment Not Indicated
--- NOTE | 2024-01-08 15:13 | PC.NURSE ---
patient blood tx started, patient remains at altered mentation, able to say where she is and what day it is, unable to say what year were in. patient believes its 2019.
--- NOTE | 2024-01-08 15:19 | PC.NURSE ---
transfusion currently running at 100ml/hr patient tolerating well
[2024-01-08] MEDS: cefTRIAXone sodium 1 GM VIAL IVPUSH (15:26)
[2024-01-08 15:44] LABS: Lactic Acid 5.7 mmol/L (0.5-2.0)
--- NOTE | 2024-01-08 16:46 | PC.NURSE ---
patient face noted to be symmetrical, patient pupils equal and reactive.
[2024-01-08 17:10] LABS: Reflex Lactate? Lactic Acid Added
[2024-01-08 17:49] LABS: ~Lactic Acid-LAB USE ONLY 4.2 mmol/L (0.5-2.0)
--- NOTE | 2024-01-08 18:53 | PC.NURSE ---
patient removed v lead for tele. patient note to have red raised area where v lead was. inpatient provider made aware
[2024-01-08 19:33] LABS: Reflex Lactate? 2 Y
[2024-01-08] MEDS: Pantoprazole Sodium 40 MG/10 ML VIAL 80 MG IVPUSH (19:41)
[2024-01-08] MEDS: Octreotide Acetate 100 MCG/ML AMPUL IVPUSH (19:52)
[2024-01-08] MEDS: Octreotide Acetate 500 MCG in 0.9 % Sodium Chloride 500 ML 50.1 MCG IVCONT (19:52)
[2024-01-08] MEDS: PHENobarbitaL sodium 130 MG/ML IM ONCE 146 MG IM (20:04)
--- NOTE | 2024-01-08 21:08 | PC.NURSE ---
pt restless in bed. getting agitated with call bells going off and nurses being called to other rooms. playing with tele leads, keeps removing them. 3rd IV placed, 20g L upper arm, for albumin admin
[2024-01-08] MEDS: Albumin Human 25 % 100 ML IV ×2 (21:12→22:22)
[2024-01-08] MEDS: LORazepam 2 MG/ML VIAL 1 MG IVPUSH (22:07)
[2024-01-08 22:12] LABS: Cancel Lactic Acid Canceled
--- NOTE | 2024-01-08 22:28 | PC.NURSE ---
medical assistant dermat[facility] of [place] lactulose delayed. pt not cooperative with admin. very restless and refusing staff, pt medicated with PRN ativan
[2024-01-08] MEDS: PHENobarbitaL sodium 130 MG/ML VIAL IM Q3Hx2 109 MG IM (23:15)
[2024-01-09] VITALS (10 sets, daily range): BP systolic 90–111; BP diastolic 58–72; PULSE 81–109; RESP 14–18; TEMP 35.5–36.7; O2SAT 90–97; BMI 21.2
[2024-01-09] MEDS: 0.9 % Sodium Chloride Flush 3 ML SYRINGE IVFLUSH ×3 (01:35→10:25)
[2024-01-09] MEDS: PHENobarbitaL sodium 130 MG/ML VIAL IM Q3Hx2 109 MG IM (01:52)
--- NOTE | 2024-01-09 04:32 | PC.ADMIT ---
Patient arrive to S4 via stretcher from ED. Patient is alert but confused, eyes open but not looking to person speaking to her or calling her name. Responding to stimuli and resisting care. Moving about without purpose in stretcher and in bed. Patient has moderate strength of extremities. Camera in room and sitter for patients safety. Patients skin is jaundiced, thin/fragile, bruising and scabs and skin tear left upper chest from telemetry lead. Patients lips and mouth are dry and peeling, lips and gums look like they are going to bleed. Mouth moisturizer applied which patient didnt like. NSR on tele, no edema, malnourished. VSS with soft b.p. Lungs are clear/dim. Incontinent of liquid stool, not alot. No urine output so far this shift. Octreotide drip infusing as ordered. Preliminary gram + blood cultures through [facility]. +UTI. CIWA 12 but unable to assess scale accurately d/t ams. No acute events since patient admitted to S4. Will continue to monitor.
[2024-01-09] MEDS: Pantoprazole Sodium 40 MG/10 ML VIAL IVPUSH ×2 (05:07→16:39)
[2024-01-09 06:18] LABS: MANUAL DIFF FLAG NO
[2024-01-09 06:23] LABS: Basophils Percent Auto 0.2 % (0-2); Eosinophils Percent Auto 0.1 % (0-4); Hematocrit 22.1 % (37.0-47.0); Hemoglobin 8.1 g/dl (12.0-16.0); Imm Gran Abs Auto 0.03 X10*3/uL (0.00-0.03); Imm Gran Pct Auto 0.3 % (0.0-0.4); Lymphocytes Absolute Auto 1.4 X10*3/uL (1.2-4.9); Lymphocytes Percent Auto 14.7 % (20-40); Mean Corpuscular HGB Conc 36.7 g/dl (31.0-35.0); Mean Corpuscular Hemoglobin 31.3 pg (27.0-33.0); Mean Corpuscular Volume 85.3 fL (80.0-98.0); Mean Platelet Volume 10.4 fL (9.4-12.3); Monocytes Absolute Auto 0.6 X10*3/uL (0.1-1.2); Monocytes Percent Auto 6.6 % (2-11); Neutrophils Absolute Auto 7.2 x10*3/uL (2.0-8.3); Neutrophils Percent Auto 78.1 % (45-73); Platelet Count 140 X10*3/uL (160-400); Red Blood Count 2.59 X10*6/uL (4.20-5.50); Red Cell Distribution Width 16.4 % (11.0-16.0); White Blood Count 9.2 X10*3/uL (4.8-10.8)
[2024-01-09] MEDS: Octreotide Acetate 500 MCG in 0.9 % Sodium Chloride 500 ML 50.1 MCG IVCONT ×2 (06:27→16:34)
[2024-01-09 06:31] LABS: Ammonia 49 umol/L (13-55)
[2024-01-09 06:41] LABS: Alanine Aminotransferase 8 U/L (0-31); Albumin Level 3.3 g/dL (3.5-5.0); Alkaline Phosphatase 156 U/L (39-117); Anion Gap 21 (12-20); Aspartate Amino Transferase 75 U/L (5-31); Bilirubin Total 3.6 mg/dL (0.0-1.0); Blood Urea Nitrogen 36 mg/dL (9-16); Calcium 8.1 mg/dL (8.4-10.2); Carbon Dioxide 21 mmol/L (22-29); Chloride 102 mmol/L (96-108); Creatinine Clr Calc Pharmacy 30.3; Estimated Glomerular Filt Rate 36; Glucose Random 112 mg/dL (60-115); Magnesium 1.8 mg/dL (1.6-2.6); Potassium 3.4 mmol/L (3.3-5.1); Sodium 141 mmol/L (135-145); Total Protein 6.4 g/dL (6.5-8.0)
--- NOTE | 2024-01-09 08:32 | MHC.CM.PN ---
Per chart review, pt. is currently confused to time and place and having hallucinations. Pt. has been a pt. here multiple times, has HCP on file: Diann. She lives with a roommate and was DC's home, no services on previous admissions. DCP at this time is TBD, likely input from addicition services. CM to follow for DC needs.
[2024-01-09] MEDS: Nicotine 21 MG PATCH.TD24 TRANSDERMA (09:53)
[2024-01-09 10:07] LABS: Hematocrit 23.2 % (37.0-47.0); Hemoglobin 8.6 g/dl (12.0-16.0)
[2024-01-09 10:14] LABS: VBG Base Excess 0.7 mmol/L; VBG HCO3 22 mmol/L (22-26); VBG pCO2 26 mmHg; VBG pH 7.53 (7.32-7.43); VBG pO2 80 mmHg
[2024-01-09 10:17] LABS: Venous Blood Gas Refer to POC result
[2024-01-09] MEDS: Phytonadione (Vit K1) 10 MG in 0.9 % Sodium Chloride 50 ML 51 MG IV (10:24)
[2024-01-09] MEDS: Albumin Human 25 % 100 ML IV ×3 (11:59→18:14)
--- NOTE | 2024-01-09 12:22 | MHC.SL.SWA ---
Speech Pathologist Impression: Risk of Aspiration Due to: Reduced Cognition due to withdrawal Dysphasia Diet Status: Liquid Consistency and Strategies for Safe Swallow: Liquid Intake Recommendation: NPO Liquid Intake Strategies: Solid Food Consistency: Dietary Recommendations: NPO Additional Modifications to Solid Foods: Oral Medication Intake: NPO Please contact the pharmacy regarding appropriate crushable or liquid drug formulations that are available whenever modified delivery is recommended. Compensatory Strategies and Precautions to be Taken for Safe Swallow: Supervision While Eating and Drinking for Safe Swallow: Foods to Avoid: Swallowing Recommended Treatments: Recommendation for Speech: Inpatient Speech Therapy Comment: Patient seen for abbreviated evaluation as currently presenting with limited responsiveness, disorientation, withdrawal behaviors. On trace amount of water, patient produced spasmodic coughing/clinical signs of aspiration. Recommend continue NPO at this time. FISHER MUSSEL will continue to follow, re-assess when patient is more awake and responsive. LINDA AL notified of recommendation by secure text, RN in person. Frequency/Duration: M-F While inpatient. Date Range for Service Req: Timeline to reassess: Lav Crewman Clinican/Clinical Fellow: No Supervisory Statement: I have reviewed and agree with the student/clinical fellow's documentation: N/A Speech Language Pathologist: Ofe Avendaño M.A., CCC-FISHER MUSSEL
[2024-01-09 12:23] LABS: Lactate Dehydrogenase 215 U/L (122-220); Total Protein 6.2 g/dL (6.5-8.0)
[2024-01-09] MEDS: Dextrose 5 % and 0.9 % NaCl 1,000 ML 80 ML IVCONT (12:40)
--- NOTE | 2024-01-09 12:42 | P.CONNP_ITS ---
History of Present Illness Reason for Consult Consult date: 01/09/24 Chief Complaint Chief complaint: Acute blood loss anemia, heptic encephalopathy History of Present Illness Narrative: 58 y/o female with a medical history of alcoholic cirrhosis, alcohol use disorder, tobacco use. ED 01/07 with confusion, dizziness, shortness of breath. Had been reportedly found by her sister in bed, hallucinating, bottle of whiskey at bedside. Last paracentesis was 11/27, removed 5.5L fluid. on arrival had to be transfused for low H&H of 5.5/15, stool heme+, hypotensive and tachycardic, UA suggested UTI, ammonia 62. Nephrology consulted for JOHNNY. creatinine 0.86 on 11/04 prior to admission. 01/07 creatinine 1.4, 01/08 is 1.49 has mild acidosis with serum bicarb of 21, anion gap 21, lactate 5.7 01/07, then 4.2 01/08 no urine output recorded UA on 01/07 suggestive of UTI; previous urine on 10/22 negative for RBCs, trace protein 10/23/23 CT abd/pelvis showed normal kidneys and ureters without hydronephrosis, calculi, with normal attenuation and size. at bedside today pt is lethargic. She does open her eyes to touch and is easily restless, but does not respond verbally to questions. she is restless/wincing to palpation of her abdomen, which is taut and somewhat firm. she does not have any LE edema Review of Systems Review of Systems Pt lethargic, awakens and opens eyes/restless to touch. Does not respond verbally to questions. Yes Unobtainable due to mental status Reports confusion Psychiatric: Reports confusion PMFSH Past Medical History Medical History Smoker Alcohol use disorder COPD (chronic obstructive pulmonary disease) Jaundice Anxiety Breast calcification, left Depression Family History Family History Father Stroke Mother Lung cancer Son No problems noted. Daughter No problems noted. Maternal Grandmother Emphysema, unspecified Maternal Grandfather History of heart attack Maternal Aunt Breast cancer Surgical History Surgical History History of abdominal paracentesis History of tubal ligation Social History Social History Household Members: Unknown / Unable to assess Household Members Other:: room mate Housing: Unknown / Unable to assess Do you presently have visiting nurse or other home services: No Alcohol intake: current Alcohol intake frequency: 3 or more drinks per day Alcohol type: hard liquor Comment: SITTER Patient Tobacco Use Status: Tobacco use Unknown Tobacco use type: Cigarette Cigarette Packs Per Day: 0.5 e-Cigarette/Vaping Use: Never Used Second Hand Smoke Exposure: Yes Use of substances other than those prescribed or required for medical reasons: Unknown Substance Use Type: Marijuana Advance Directives: Yes Advance Directives on File: Yes Advance Directives Date on File: 07/08/23 Do you have a plan to hurt others: No Plan Recently lost weight without trying: Unsure Nutrition Risks: No Nutritional Risk Patient : No service: No Current occupational status: employed Current occupational exposures/hazards: No Gender identity: Female Cognitive needs: No Hearing needs: No Vision needs: Yes Meds Allergies Allergy/AdvReac Type Severity Reaction Status Date / Time No Known Allergies Allergy Unknown UNKNOWN Verified 01/08/24 13:06 [NO KNOWN ALLERGIES] Active Medications: Current Medications Ceftriaxone Sodium (Ceftriaxone Sodium 2 Gm Vial) 2 gm IVPUSH Q24H [facility] Folic Acid (Folic Acid 1 Mg Tablet) 1 mg PO DAILY [facility] Last Admin: 01/09/24 11:03 Dose: Not Given Octreotide Acetate 500 mcg/ (Sodium Chloride) 501 mls @ 50.1 mls/hr IVCONT .Q10H [facility] Last Admin: 01/09/24 06:27 Dose: 50 mcg/hr, 50.1 mls/hr Thiamine HCl 200 mg/ Sodium (Chloride) 102 mls @ 204 mls/hr IV Q8H [facility] Albumin Human (Kedbumin 25 %) 100 mls @ 100 mls/hr IV Q6H [facility] Stop: 01/10/24 04:44 Last Admin: 01/09/24 11:59 Dose: 100 mls/hr Dextrose/Sodium Chloride (D5ns) 1,000 mls @ 80 mls/hr IVCONT .[id number] [facility] Last Admin: 01/09/24 12:40 Dose: 80 mls/hr Lactulose (Lactulose 20 Gm/30 Ml Solution) 30 gm PO TID [facility] Lactulose (Lactulose 320 Gm/480 Ml Solution) 200 gm FL Q4H [facility] Last Admin: 01/09/24 11:04 Dose: Not Given Nicotine (Nicotine 21 Mg Patch.Td24) 21 mg TRANSDERMA DAILY PRN PRN Reason: Nicotine Cravings Last Admin: 01/09/24 09:53 Dose: 21 mg Pantoprazole Sodium (Pantoprazole Sodium 40 Mg/10 Ml Vial) 40 mg IVPUSH BID@0630,1630 [facility] Last Admin: 01/09/24 05:07 Dose: 40 mg Pharmacy Consult (Consult Rx Etoh Phenob Im/Po) 1 each MISCELLANE ONCE PRN; Protocol PRN Reason: Consult order Phenobarbital (Phenobarbital 30 Mg Tablet) 30 mg PO BID [facility] Stop: 01/10/24 21:01 Last Admin: 01/09/24 10:41 Dose: Not Given Phenobarbital (Phenobarbital 15 Mg Tablet) 15 mg PO BID [facility] Stop: 01/12/24 21:01 Phenobarbital (Phenobarbital 15 Mg Tablet) 15 mg PO DAILY [facility] Stop: 01/14/24 09:01 Sodium Chloride (0.9 % Sodium Chloride Flush 3 Ml Syringe) 3 ml IVFLUSH QSHIFT [facility] Last Admin: 01/09/24 10:25 Dose: 3 ml Home Medications ?Medication ?Instructions ?Recorded ?Confirmed ?Last Taken ?Type No Known Home Meds 01/08/24 01/08/24 Unknown History Physical Exam Vital Signs: Last Vital Signs Temp 98.0 F 01/09/24 11:59 Pulse 89 01/09/24 11:59 Resp 18 01/09/24 11:59 BP 91/58 L 01/09/24 11:59 Pulse Ox 91 L 01/09/24 11:59 O2 Del Method Room Air 01/09/24 11:59 O2 Flow Rate 100 01/08/24 14:19 BMI result Body Mass Index 21.2 Const General: no acute distress, confusion and lethargic Orientation/consciousness: confusion and lethargic Limitations: altered mental status Neck Neck: Yes no JVD Resp Effort & Inspection: normal respiratory effort Auscultation: clear to auscultation bilaterally Cardio Jugular venous distension: no JVD Rate: regular rate Rhythm: regular rhythm Heart sounds: S1 normal heart sound present and S2 normal heart sound present GI Inspection: Yes distended Palpation (GI): Firmness to palpation present (GI) and Tenderness to palpation present (GI) Skin Rashes: no rashes Trauma: other (upper chest bruise/abraision) Neuro General: confusion Extrem General: No edema Results Lab Results 01/09/24 09:59 01/09/24 06:00 Lab results: Chemistry 01/08/24 01/08/24 01/08/24 13:30 13:30 13:30 Sodium Cancelled 136 Potassium Cancelled 3.6 Carbon Dioxide Cancelled BUN Creatinine Calcium 01/08/24 01/08/24 01/08/24 13:30 13:30 13:30 Sodium Potassium Carbon Dioxide 21 L BUN Cancelled 35 H Creatinine Cancelled 1.40 Calcium Cancelled 01/08/24 01/09/24 13:30 06:00 Sodium 141 Potassium 3.4 Carbon Dioxide 21 L BUN 36 H Creatinine 1.49 H Calcium 8.0 L D 8.1 L Hematology 01/08/24 01/08/24 01/09/24 13:30 14:28 06:00 WBC 11.1 H 11.9 H 9.2 Hgb 5.8 L* D 6.0 L* 8.1 L D Plt Count 225 196 140 L D 01/09/24 09:59 WBC Hgb 8.6 L Plt Count Urinalysis 01/08/24 14:21 Urine Color Dark Yellow Urine Appearance Turbid Urine pH 5.5 Ur Specific [place] 1.025 Urine Protein 30 (1+) H Urine Glucose (UA) Negative Urine Ketones Trace Urine Blood Large (3+) H Urine Nitrite Positive H Ur Leukocyte Esterase Large (3+) H Urine RBC 3-5 H Urine WBC 6-10 Ur Squamous Epith Cells 6-10 Hyaline Casts 3-5 Assessment and Plan (1) JOHNNY (acute kidney injury): Status: Acute (2) Alcoholic cirrhosis of liver: Status: Acute (3) Metabolic acidosis: Status: Acute Plan JOHNNY due to ATN due to hypotension anion gap metabolic acidosis- lactate and OJHNNY would explain anion gap will check beta hydroxy buterate level recommend 25% 25gram q6h for three days in addition to current regimen of octreotide if BP is not improving in spite of all this, add midodrine but first trial albumin as above continue supportive care, daily monitoring of electrolytes and renal function monitor I&O and blood pressures closely Will continue to follow Discussed with Dr Mitchell Procedures Date of Service Date of Service: 01/09/24
--- NOTE | 2024-01-09 14:54 | HO.PM.IMPN ---
Subjective Subjective Date of Service: 01/09/24 Interval History: Hepatic encephalopathy, Acute decompensated cirrhosis with alcoholic cirrhosis, JOHNNY Review of Systems Patient more awake this afternoon mild Lip and chest bruising metal status somewhat improving in comparison to this morning not eating from few days Physical Exam Vital Signs: Vital Signs: Last Vital Signs Temp 98.0 F 01/09/24 11:59 Pulse 89 01/09/24 11:59 Resp 18 01/09/24 11:59 BP 91/58 L 01/09/24 11:59 Pulse Ox 91 L 01/09/24 11:59 O2 Del Method Room Air 01/09/24 11:59 O2 Flow Rate 100 01/08/24 14:19 BMI result Body Mass Index 21.2 Appearance: Alert.? Oriented X1, ch ill/frail looking cvs: rrr, [id number] . res: air entry fair , no rales or wheezing abd: no rebound or guarding ,nt, has some ascitis but not distended or tense, bs present. ext pulses present , no cyanosis. neuro:limited due to mental status, moves ext Objective Data Active Medications Ceftriaxone Sodium (Ceftriaxone Sodium 2 Gm Vial) 2 gm IVPUSH Q24H [facility] Folic Acid (Folic Acid 1 Mg Tablet) 1 mg PO DAILY [facility] Last Admin: 01/09/24 11:03 Dose: Not Given Documented By: JORGE Non-Admin Reason: Physician Approved Octreotide Acetate 500 mcg/ (Sodium Chloride) 501 mls @ 50.1 mls/hr IVCONT .Q10H [facility] Last Admin: 01/09/24 06:27 Dose: 50 mcg/hr, 50.1 mls/hr Documented By: SHANTAL Thiamine HCl 200 mg/ Sodium (Chloride) 102 mls @ 204 mls/hr IV Q8H [facility] Albumin Human (Kedbumin 25 %) 100 mls @ 100 mls/hr IV Q6H [facility] Stop: 01/10/24 04:44 Last Infusion: 01/09/24 13:10 Dose: Infused Documented By: JORGE Dextrose/Sodium Chloride (D5ns) 1,000 mls @ 80 mls/hr IVCONT .[id number] [facility] Last Admin: 01/09/24 12:40 Dose: 80 mls/hr Documented By: JORGE Lactulose (Lactulose 20 Gm/30 Ml Solution) 30 gm PO TID [facility] Lactulose (Lactulose 320 Gm/480 Ml Solution) 200 gm WA Q4H [facility] Last Admin: 01/09/24 11:04 Dose: Not Given Documented By: JORGE Non-Admin Reason: Physician Approved Nicotine (Nicotine 21 Mg Patch.Td24) 21 mg TRANSDERMA DAILY PRN PRN Reason: Nicotine Cravings Last Admin: 01/09/24 09:53 Dose: 21 mg Documented By: JORGE Pantoprazole Sodium (Pantoprazole Sodium 40 Mg/10 Ml Vial) 40 mg IVPUSH BID@0630,1630 [facility] Last Admin: 01/09/24 05:07 Dose: 40 mg Documented By: SHANTAL Pharmacy Consult (Consult Rx Etoh Phenob Im/Po) 1 each MISCELLANE ONCE PRN; Protocol PRN Reason: Consult order Phenobarbital (Phenobarbital 30 Mg Tablet) 30 mg PO BID [facility] Stop: 01/10/24 21:01 Last Admin: 01/09/24 10:41 Dose: Not Given Documented By: JORGE Non-Admin Reason: pt unable to follow any instructions FAVIOLA. Phenobarbital (Phenobarbital 15 Mg Tablet) 15 mg PO BID [facility] Stop: 01/12/24 21:01 Phenobarbital (Phenobarbital 15 Mg Tablet) 15 mg PO DAILY [facility] Stop: 01/14/24 09:01 Sodium Chloride (0.9 % Sodium Chloride Flush 3 Ml Syringe) 3 ml IVFLUSH QSHIFT [facility] Last Admin: 01/09/24 10:25 Dose: 3 ml Documented By: JORGE Labs 01/09/24 09:59 01/09/24 06:00 Labs: Laboratory Results - last 24 hr 01/08/24 01/08/24 01/08/24 13:30 13:57 14:21 MCV MCH MCHC RDW Plt Count MPV Immature Gran % (Auto) Neut % (Auto) Lymph % (Auto) [place] % (Auto) Eos % (Auto) Baso % (Auto) Lymph # (Auto) [place] # (Auto) Eos # (Auto) Baso # (Auto) Abs Immat Gran (auto) Absolute Neuts (auto) Absolute Nucleated RBC Nucleated RBC % (auto) Smear Path Review SEE NOTE VBG pH VBG pCO2 VBG pO2 VBG HCO3 VBG O2 Saturation VBG Base Excess Anion Gap Estim Creat Clear Calc Estimated GFR Random Glucose Lactic Acid Lactic Acid F/U @ 2Hr Calcium Magnesium Total Bilirubin AST ALT Alkaline Phosphatase Ammonia Lactate Dehydrogenase Total Protein Albumin Urine Color Dark Yellow Urine Appearance Turbid Urine pH 5.5 Ur Specific [place] 1.025 Urine Protein 30 (1+) H Urine Glucose (UA) Negative Urine Ketones Trace Urine Blood Large (3+) H Urine Nitrite Positive H Ur Leukocyte Esterase Large (3+) H Urine RBC 3-5 H Urine WBC 6-10 Ur Squamous Epith Cells 6-10 Other Crystals Present Urine Bacteria 1+ Hyaline Casts 3-5 Granular Casts Present Blood Type A Positive Antibody Screen NEGATIVE Crossmatch See Detail 01/08/24 01/08/24 01/09/24 15:05 17:30 06:00 MCV 85.3 MCH 31.3 MCHC 36.7 H RDW 16.4 H Plt Count 140 L D MPV 10.4 Immature Gran % (Auto) 0.3 Neut % (Auto) 78.1 H Lymph % (Auto) 14.[address] [place] % (Auto) 6.6 Eos % (Auto) 0.1 Baso % (Auto) 0.2 Lymph # (Auto) 1.4 [place] # (Auto) 0.6 Eos # (Auto) 0.0 Baso # (Auto) 0.0 Abs Immat Gran (auto) 0.03 Absolute Neuts (auto) 7.2 Absolute Nucleated RBC 0.000 Nucleated RBC % (auto) 0.0 Smear Path Review VBG pH VBG pCO2 VBG pO2 VBG HCO3 VBG O2 Saturation VBG Base Excess Anion Gap 21 H Estim Creat Clear Calc 30.3 Estimated GFR 36 Random Glucose 112 Lactic Acid 5.7 H* Lactic Acid F/U @ 2Hr 4.2 H* Calcium 8.1 L Magnesium 1.8 Total Bilirubin 3.6 H AST 75 H ALT 8 Alkaline Phosphatase 156 H Ammonia 49 Lactate Dehydrogenase Total Protein 6.4 L Albumin 3.3 L Urine Color Urine Appearance Urine pH Ur Specific [place] Urine Protein Urine Glucose (UA) Urine Ketones Urine Blood Urine Nitrite Ur Leukocyte Esterase Urine RBC Urine WBC Ur Squamous Epith Cells Other Crystals Urine Bacteria Hyaline Casts Granular Casts Blood Type Antibody Screen Crossmatch 01/09/24 01/09/24 10:10 12:03 MCV MCH MCHC RDW Plt Count MPV Immature Gran % (Auto) Neut % (Auto) Lymph % (Auto) [place] % (Auto) Eos % (Auto) Baso % (Auto) Lymph # (Auto) [place] # (Auto) Eos # (Auto) Baso # (Auto) Abs Immat Gran (auto) Absolute Neuts (auto) Absolute Nucleated RBC Nucleated RBC % (auto) Smear Path Review VBG pH 7.53 H VBG pCO2 26 VBG pO2 80 VBG HCO3 22 VBG O2 Saturation 96.0 VBG Base Excess 0.7 Anion Gap Estim Creat Clear Calc Estimated GFR Random Glucose Lactic Acid Lactic Acid F/U @ 2Hr Calcium Magnesium Total Bilirubin AST ALT Alkaline Phosphatase Ammonia Lactate Dehydrogenase 215 Total Protein 6.2 L Albumin Urine Color Urine Appearance Urine pH Ur Specific [place] Urine Protein Urine Glucose (UA) Urine Ketones Urine Blood Urine Nitrite Ur Leukocyte Esterase Urine RBC Urine WBC Ur Squamous Epith Cells Other Crystals Urine Bacteria Hyaline Casts Granular Casts Blood Type Antibody Screen Crossmatch Microbiology Microbiology Results: Microbiology 01/08/24 14:21 Urine Culture - Preliminary Urine clean catch - Clean Catch Midstream Culture too young to evaluate. 01/08/24 15:06 Blood Culture - Preliminary Blood - Venous Prelim: GPR Gram Stain only Assessment and Plan (1) JOHNNY (acute kidney injury): Status: Acute (2) Metabolic acidosis: Status: Acute (3) Anemia: Status: Acute Assessment and Plan: 58-year-old female with a PMH significant for?alcoholic cirrhosis, alcohol use disorder, not on home meds, currently actively smoking and drinking who presents to the ED with?confusion and dizziness. Pt will be admitted to the hospital for treatment and further evaluation acute blood loss anemia and acute hepatic encephalopathy. Acute blood loss anemia -etiology unclear -possible lower GI fobt positive s/p 2 units PRBCs in the ED ngt due to menatl status unable to eat yet h/h 8.6 /23.2 plan: no gross bleeding as per staff continue on octreotide drip and Protonix IV b.i.d. Hypotension Secondary to hypovolemia from acute blood loss-resolved. continue give albumin Monitor BP closely JOHNNY Creatinine 1.49 From 0.86 on 11/04 secondary to hypovolemia for acute blood loss also has mils metabolic acidosis, ph normal etoh levels normal nephrology eval added Hepatic encephalopathy in setting of decompensated alcoholic liver cirrhosis, coagulopathy, anemia and hypoalbuminemia Patient confused, alert and oriented to self only, no hallucinations Ammonia improving ascitis -paracentesis ordered Monitor for mentation,seen by speech and swallow -keep npo Continue lactulose,albumin, fluids , rifaximine , already on antibiotics for uti Gi eval for GIb and Hepatic encephalopathy in setting of decompensated alcoholic liver cirrhosis, coagulopathy, anemia and hypoalbuminemia. in addition possible early FTT: Will place NG tube-patient did not eat well from few days. Once the NG tube position confirmed will start feeding, consulted acute Lactic acidosis lactic acid improving Multifactorial: in the setting of acute blood loss, alcoholic cirrhosis Not secondary to sepsis. Alcohol use disorder Patient currently drinking an unknown amount of whiskey daily Last drink unknown; tox screen negative for ethyl alcohol not tachy or hallucinating hold pehobarbital for now due to sleepiness ,Monitor on CIWA Multivitamin, folic acid, and thiamine Acute UTI also 1/2 blood culture -gram positive rods . No sepsis: Tachycardia and tachypnea secondary to acute blood loss; no fever or leukocytosis Follow urine cultures continue ceftriaxone, started 01/08/2024 Id eval for ?bactermia , Prolonged QTc Avoid QT-proloning agents cotninue tele added potassium and magneisum supplements DNR/DNI DVT Prophylaxis: Pneumatic compression due to acute blood loss anemia ongoing need for hospitlisation stay acute blood loss anemia and hepatic encephalopathy in the setting of alcoholic cirrhosis and hyperammonemia that has required transfusion of 2 units PRBCs. Patient will require hospital level care for close monitoring of labs, transfusion as necessary, additional workup to identify source of blood loss, monitoring mentation, and initiation of phenobarb protocol for alcohol withdrawal. Above was discussed with the patient family in detail length they understand and in agreement with the above plan, patient prognosis is guarded, they want he her to be treated for now conservatively. Total time managing care of this patient today: 40 minutes. Quality Stroke Does the patient have a stroke diagnosis?: No VTE Prior VTE?: No VTE Risk Level:: Medical - moderate - high VTE Device Contraindication: N/A - Device Ordered VTE Drug Contraindication: Treatment Not Indicated
--- NOTE | 2024-01-09 15:30 | W.MHC.ACPN ---
Advanced Care Planning Note Advanced Care Planning Note Time spent (in minutes): 30 Narrative: GIb and Hepatic encephalopathy in setting of decompensated alcoholic liver cirrhosis, coagulopathy, anemia and hypoalbuminemia, JOHNNY, alcohol withdrawal and UTI- discussed with the patient family in family meeting in detail, staff miss advance Silva - patient prognosis is guarded, they want he her to be treated for now conservatively, patient is dnr/dni ,also ngt need discussed -family aggrees. Problems Discussed (1) JOHNNY (acute kidney injury): (2) Metabolic acidosis: (3) Anemia:
[2024-01-09] MEDS: Thiamine HCL 200 MG in 0.9 % Sodium Chloride 100 ML 204 MG IV ×2 (15:47→21:27)
[2024-01-09 16:10] LABS: Hematocrit 21.6 % (37.0-47.0); Hemoglobin 7.9 g/dl (12.0-16.0)
[2024-01-09] MEDS: Lactulose 20 GM/30 ML SOLUTION 30 GM PO (16:34)
[2024-01-09] MEDS: Magnesium Sulfate/D5W 1 GM/100 ML PIGGYBACK IV (16:34)
[2024-01-09] MEDS: cefTRIAXone sodium 2 GM VIAL IVPUSH (16:38)
[2024-01-09] MEDS: Potassium Chloride/H20 10 MEQ/100 ML PIGGYBACK 100 MEQ IV ×2 (16:52→18:32)
[2024-01-09] MEDS: Lactulose 20 GM/30 ML SOLUTION 30 GM NG-TUBE (18:24)
[2024-01-09] MEDS: Folic Acid 1 MG TABLET NG-TUBE (18:24)
--- NOTE | 2024-01-09 18:27 | PM.EVENT ---
Event Note Date of Service: 01/09/24 Event Note: GI Consult-Full note dictated-History from her RN and the EMR. Imp: 58yo female with advanced liver disease due to active EtOH abuse presenting with anemia but without any report of active GI bleeding, encephalopathy, coagulopathy, and jaundice. Her EGD earlier this year revealed portal gastropathy, but was negative for varices or ulcer disease. Rec: I note that she has been made a DNR/DNI by her family after discussion with the medical team. I would agree with this approach and continue supportive care.I would hold off on upper endoscopy at this time. F/U labs ordered for the morning. Thanks Time Spent With Patient Time: Total time managing care of this patient today ____ minutes.
[2024-01-09] MEDS: rifAXIMin 550 MG TABLET NG-TUBE (21:27)
[2024-01-09] MEDS: PHENobarbitaL 30 MG TABLET PO (21:28)
--- NOTE | 2024-01-09 22:12 | W.PM.IDCN ---
History of Present Illness Data of Consult Service Date: 01/09/24 Requesting physician: Nash Sparrow Primary Care Provider[facility] HPI Reason for consult: bacteremia She presents with confusion. There is no fever or chills. She has gram positive rods in blood. She has ESLD and ascites,tapped before. Review of Systems Review of Systems: Yes Unobtainable due to mental condition PMFSH Past Medical History Medical History (Updated 01/09/24 @ 22:22 by Kitty Quintanilla MD) Bacteremia Smoker Alcohol use disorder COPD (chronic obstructive pulmonary disease) Jaundice Anxiety Breast calcification, left Depression Family History Family History Father Stroke Mother Lung cancer Son No problems noted. Daughter No problems noted. Maternal Grandmother Emphysema, unspecified Maternal Grandfather History of heart attack Maternal Aunt Breast cancer Family history: reviewed and not pertinent Surgical History Surgical History History of abdominal paracentesis History of tubal ligation Social History Social History Household Members: Unknown / Unable to assess Household Members Other:: room mate Housing: Unknown / Unable to assess Do you presently have visiting nurse or other home services: No Alcohol intake: current Alcohol intake frequency: 3 or more drinks per day Alcohol type: hard liquor Comment: sitter at bedside Patient Tobacco Use Status: Tobacco use Unknown Tobacco use type: Cigarette Cigarette Packs Per Day: 0.5 e-Cigarette/Vaping Use: Never Used Second Hand Smoke Exposure: Yes Use of substances other than those prescribed or required for medical reasons: Unknown Substance Use Type: Marijuana Advance Directives: Yes Advance Directives on File: Yes Advance Directives Date on File: 07/08/23 Do you have a plan to hurt others: No Plan Recently lost weight without trying: Unsure Nutrition Risks: No Nutritional Risk Patient : No service: No Current occupational status: employed Current occupational exposures/hazards: No Gender identity: Female Cognitive needs: No Hearing needs: No Vision needs: Yes Meds Allergies Allergy/AdvReac Type Severity Reaction Status Date / Time No Known Allergies Allergy Unknown UNKNOWN Verified 01/08/24 13:06 [NO KNOWN ALLERGIES] Active Medications: Current Medications Ceftriaxone Sodium (Ceftriaxone Sodium 2 Gm Vial) 2 gm IVPUSH Q24H [facility] Last Admin: 01/09/24 16:38 Dose: 2 gm Folic Acid (Folic Acid 1 Mg Tablet) 1 mg NG-TUBE DAILY [facility] Last Admin: 01/09/24 18:24 Dose: 1 mg Thiamine HCl 200 mg/ Sodium (Chloride) 102 mls @ 204 mls/hr IV Q8H [facility] Last Admin: 01/09/24 21:27 Dose: 204 mls/hr Albumin Human (Kedbumin 25 %) 100 mls @ 100 mls/hr IV Q6H [facility] Stop: 01/10/24 04:44 Last Infusion: 01/09/24 19:32 Dose: Infused Dextrose/Sodium Chloride (D5ns) 1,000 mls @ 80 mls/hr IVCONT .[id number] [facility] Last Admin: 01/09/24 12:40 Dose: 80 mls/hr Lactulose (Lactulose 20 Gm/30 Ml Solution) 30 gm NG-TUBE TID [facility] Last Admin: 01/09/24 18:24 Dose: 30 gm Nicotine (Nicotine 21 Mg Patch.Td24) 21 mg TRANSDERMA DAILY PRN PRN Reason: Nicotine Cravings Last Admin: 01/09/24 09:53 Dose: 21 mg Pantoprazole Sodium (Pantoprazole Sodium 40 Mg/10 Ml Vial) 40 mg IVPUSH BID@0630,1630 [facility] Last Admin: 01/09/24 16:39 Dose: 40 mg Pharmacy Consult (Consult Rx Etoh Phenob Im/Po) 1 each MISCELLANE ONCE PRN; Protocol PRN Reason: Consult order Phenobarbital (Phenobarbital 30 Mg Tablet) 30 mg PO BID [facility] Stop: 01/10/24 21:01 Last Admin: 01/09/24 21:28 Dose: 30 mg Phenobarbital (Phenobarbital 15 Mg Tablet) 15 mg PO BID [facility] Stop: 01/12/24 21:01 Phenobarbital (Phenobarbital 15 Mg Tablet) 15 mg PO DAILY [facility] Stop: 01/14/24 09:01 Rifaximin (Rifaximin 550 Mg Tablet) 550 mg NG-TUBE BID [facility] Last Admin: 01/09/24 21:27 Dose: 550 mg Sodium Chloride (0.9 % Sodium Chloride Flush 3 Ml Syringe) 3 ml IVFLUSH QSHIFT [facility] Last Admin: 01/09/24 10:25 Dose: 3 ml Home Medications ?Medication ?Instructions ?Recorded ?Confirmed ?Last Taken ?Type No Known Home Meds 01/08/24 01/08/24 Unknown History Physical Exam Vital Signs: Vital Signs: Last Vital Signs Temp 97.9 F 01/09/24 19:40 Pulse 98 01/09/24 19:40 Resp 18 01/09/24 19:40 BP 90/65 01/09/24 19:40 Pulse Ox 97 01/09/24 19:01 O2 Del Method Nasal Cannula 01/09/24 19:01 O2 Flow Rate 3 01/09/24 19:01 BMI result Body Mass Index 21.2 Const: Other: sallow,thin,fluid wave abdomen HEENT: Head: Yes normal to inspection Face and sinus: Yes normal facial exam Mouth: Normal oral and palatal mucosa present Teeth and gingiva: dentition normal Eyes: General: appearance normal, both eyes and all related structures Pupils: Equal, round and reactive pupils present Resp: Effort & Inspection: normal respiratory effort Cardio: Rate: regular rate Rhythm: regular rhythm GI: Palpation (GI): Soft to palpation and nontender : General: Yes no CVA tenderness Back/Spine/Pelvis: Back: no CVA tenderness Skin: General skin exam: no rashes or lesions noted Neuro: General: moves all extremities Cranial nerves: Yes Equal, round and reactive pupils present Extrem: General: Yes normal to inspection Psych: Appearance: grossly normal Results Labs 01/09/24 15:36 01/09/24 06:00 Labs: Short CBC 01/09/24 01/09/24 01/09/24 Range/Units 06:00 09:59 15:36 WBC 9.2 (4.8-10.8) X10*3/uL Hgb 8.1 L D 8.6 L 7.9 L (12.0-16.0) g/dl Hct 22.1 L D 23.2 L 21.6 L (37.0-47.0) % Plt Count 140 L D (160-400) X10*3/uL BMP 01/09/24 06:00 Sodium 141 Potassium 3.4 Chloride 102 Carbon Dioxide 21 L BUN 36 H Creatinine 1.49 H Calcium 8.1 L Liver Function 01/09/24 Range/Units 06:00 Total Bilirubin 3.6 H (0.0-1.0) mg/dL AST 75 H (5-31) U/L ALT 8 (0-31) U/L Alkaline Phosphatase 156 H (39-117) U/L Albumin 3.3 L (3.5-5.0) g/dL Microbiology Microbiology Results: Microbiology 01/08/24 15:05 Blood - Venous Blood Culture - Preliminary No growth after 24 hours. 01/08/24 14:21 Urine clean catch - Clean Catch Midstream Urine Culture - Preliminary Culture too young to evaluate. 01/08/24 15:06 Blood - Venous Blood Culture - Preliminary Prelim: GPR Gram Stain only Assessment and Plan (1) Bacteremia: Status: Acute Plan Bacteremia may be due to SBP. Patient has had ascites taps in past Would consider taps if able. Await cultures. Continue Ceftriaxone for now.
[2024-01-10] VITALS (10 sets, daily range): BP systolic 98–118; BP diastolic 58–69; PULSE 89–107; RESP 12–28; TEMP 36.2–36.8; O2SAT 90–100
[2024-01-10] MEDS: Dextrose 5 % and 0.9 % NaCl 1,000 ML 80 ML IVCONT (00:02)
[2024-01-10] MEDS: 0.9 % Sodium Chloride Flush 3 ML SYRINGE IVFLUSH ×4 (00:02→23:50)
[2024-01-10] MEDS: PHENobarbitaL 30 MG TABLET PO ×2 (01:41→08:44)
[2024-01-10] MEDS: Albumin Human 25 % 100 ML IV ×2 (03:38→08:44)
[2024-01-10] MEDS: LORazepam 2 MG/ML VIAL 1 MG IVPUSH ×4 (03:38→23:50)
--- NOTE | 2024-01-10 04:39 | CONS_ITS ---
DATE OF SERVICE: 01/09/2024 REASON FOR CONSULTATION: Anemia, cirrhosis. HISTORY OF PRESENT ILLNESS: This has been obtained from the medical record as the patient has some encephalopathy and cannot give a history. The patient is a 58-year-old female with an unfortunate longstanding history of alcohol abuse and associated liver disease. I last saw her in mid October when she was admitted with some weakness and abdominal distention. She also had jaundice at that time. There was no GI bleeding during that admission. She did have a paracentesis during that admission, which was negative for any spontaneous bacterial peritonitis. She had been admitted here in June as well and underwent upper endoscopy at that time revealing some portal gastropathy, gastritis and a hiatal hernia, but no evidence of any varices, nor ulcers. According to the admitting note, she presented to the ER with confusion and some disorientation with inability to give any history. There was no report of any GI bleeding. She has been drinking actively. She was quite confused in the ER. There was no report of any definitive GI bleeding at home. The patient had hemoglobin of 6.0 on admission with a BUN of 35 and creatinine of 1.4. Since admission in the hospital, she has had no signs of melena, hematochezia, hematemesis, nor coffee-grounds emesis. A nasogastric tube was passed today to allow for administration of lactulose and Xifaxan. MEDICATIONS: Her present medications include IV ceftriaxone, folic acid, lactulose, lorazepam, magnesium, nicotine patch, IV Sandostatin, IV Protonix, phenobarbital, vitamin K, rifaximin, and thiamine. 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 She denies any surgeries. History of depression. There is no reported history of diabetes, heart disease, stroke, nor kidney disease. Upper endoscopy in June 2023 was negative for varices, but did reveal portal gastropathy. SOCIAL HISTORY: She is single. Alcohol abuse. She smokes. FAMILY HISTORY: Negative for GI malignancy. REVIEW OF SYSTEMS: Not obtainable. PHYSICAL EXAMINATION: GENERAL: The patient is a chronically ill-appearing female with a nasogastric tube, in no distress. She opens her eyes somewhat to verbal stimulation. She does not know where she is. SKIN: Warm and dry. Minimally icteric sclerae. NECK: Supple. CARDIAC: Normal S1, S2. ABDOMEN: Soft. Nondistended. Normal bowel sounds and nontender. EXTREMITIES: Without edema. NEURO: She seems to possibly know where she is, but cannot relate what date or year it is. There does appear to be some asterixis. LABORATORY DATA: In November she underwent a paracentesis of about 5 L of fluid. The last imaging of her abdomen was in October describing evidence of known cirrhosis and ascites, but without any sign of liver mass. Her hemoglobin on October 24 was 9.5. Hemoglobin on admission yesterday was 5.8 with MCV of 88. Hemoglobin today is 8.1 in the morning and then on followup over the course of today was 8.6 and then 7.9. Platelets 140,000. PT 18.3 with INR 1.6. Normal electrolytes. BUN 36, creatinine 1.5. BUN was 35 and creatinine 1.4 on admission. Lactic acid level was 5.7 on admission and 4.2 on repeat. Total bilirubin was 3.1 on admission with a direct bilirubin of 2.0. Today, total bilirubin is 3.6. AST 75, ALT 8, alkaline phosphatase 156. Ammonia level was 62 on admission and 49 today. Albumin 3.3. IMPRESSION: The patient is an unfortunate 58-year-old female with longstanding alcohol abuse and significant underlying liver disease. She comes in with significant anemia, although without any report of gastrointestinal bleeding at home or since admission here in the hospital. Her most recent upper endoscopy in June did not show any varices, but did show some portal gastropathy. There was no evidence of any ulcer disease or active bleeding at that time. In regard to her anemia, this could be multifactorial in relation to some chronic gastrointestinal blood loss, her chronic alcohol abuse and liver disease creating some hemolysis, and some nutritional component to her anemia as well. At this point, given her overall condition and no sign of active bleeding, I would hold off on putting her through endoscopy with anesthesia. Certainly if she shows signs of active bleeding, I would then recommend upper endoscopy at that time. I would otherwise continue supportive care. I would continue treating with lactulose, although based on the minimally elevated ammonia level, which has returned to normal, she may have other issues going on causing her poor mental status. I would continue her IV PPI, but I do not think she needs to be on IV Sandostatin given no sign of varices on the endoscopy in June and no sign of any active bleeding. Repeat laboratories have been ordered for the morning. I would agree with an abdominal ultrasound to attempt a paracentesis to rule out spontaneous bacterial peritonitis as a contributing factor to her poor mental status. Thank you for the consultation. MD ARTURO Nunes/LUZ / [id number] MTDBart
[2024-01-10] MEDS: PHENobarbitaL sodium 130 MG/ML VIAL IM (05:31)
[2024-01-10] MEDS: Albuterol/Iprat 2.5/0.5MG 3 ML AMPUL.NEB INHALE ×2 (05:44→07:48)
[2024-01-10 06:00] LABS: MANUAL DIFF FLAG NO
[2024-01-10 06:04] LABS: Venous Blood Gas Refer to POC result
[2024-01-10 06:07] LABS: VBG Base Excess -4.1 mmol/L; VBG HCO3 22 mmol/L (22-26); VBG pCO2 44 mmHg; VBG pO2 81 mmHg
[2024-01-10 06:08] LABS: Basophils Percent Auto 0.2 % (0-2); Eosinophils Absolute Auto 0.1 X10*3/uL (0.0-0.4); Eosinophils Percent Auto 0.5 % (0-4); Hematocrit 24.3 % (37.0-47.0); Hemoglobin 8.7 g/dl (12.0-16.0); Imm Gran Abs Auto 0.05 X10*3/uL (0.00-0.03); Imm Gran Pct Auto 0.4 % (0.0-0.4); Lymphocytes Absolute Auto 2.1 X10*3/uL (1.2-4.9); Lymphocytes Percent Auto 16.5 % (20-40); Mean Corpuscular HGB Conc 35.8 g/dl (31.0-35.0); Mean Corpuscular Volume 89.3 fL (80.0-98.0); Mean Platelet Volume 10.9 fL (9.4-12.3); Monocytes Absolute Auto 0.8 X10*3/uL (0.1-1.2); Monocytes Percent Auto 6.4 % (2-11); NRBC Pct Auto 0.3 /100WBC (0.0-0.2); Neutrophils Absolute Auto 9.8 x10*3/uL (2.0-8.3); Platelet Count 126 X10*3/uL (160-400); Red Blood Count 2.72 X10*6/uL (4.20-5.50); Red Cell Distribution Width 17.1 % (11.0-16.0); White Blood Count 12.9 X10*3/uL (4.8-10.8)
[2024-01-10 06:09] LABS: INTERNATIONAL NORM RATIO 1.3 (0.9-1.1); Prothrombin Time 15.3 SEC (10.9-12.4)
[2024-01-10 06:41] LABS: Ammonia 65 umol/L (13-55)
[2024-01-10] MEDS: Thiamine HCL 200 MG in 0.9 % Sodium Chloride 100 ML 204 MG IV (06:45)
[2024-01-10] MEDS: HYDROmorphone HCl 0.5 MG/0.5 ML SYRINGE IVPUSH (06:46)
[2024-01-10 06:53] LABS: Alanine Aminotransferase 18 U/L (0-31); Albumin Level 3.8 g/dL (3.5-5.0); Alkaline Phosphatase 114 U/L (39-117); Anion Gap 17 (12-20); Aspartate Amino Transferase 56 U/L (5-31); Beta-Hydroxybutyrate 0.08 mmol/L (0.02-0.27); Bilirubin Direct 1.7 mg/dL (0.0-0.5); Bilirubin Total 2.9 mg/dL (0.0-1.0); Blood Urea Nitrogen 30 mg/dL (9-16); Calcium 8.3 mg/dL (8.4-10.2); Carbon Dioxide 19 mmol/L (22-29); Chloride 112 mmol/L (96-108); Estimated Glomerular Filt Rate 30; Glucose Random 135 mg/dL (60-115); Magnesium 2.2 mg/dL (1.6-2.6); Phosphorus 2.7 mg/dL (2.7-4.5); Potassium 3.2 mmol/L (3.3-5.1); Sodium 145 mmol/L (135-145); Total Protein 6.6 g/dL (6.5-8.0)
[2024-01-10] MEDS: Pantoprazole Sodium 40 MG/10 ML VIAL IVPUSH (07:31)
--- NOTE | 2024-01-10 08:04 | PC.NURSE ---
[id number] 01/10/2024. Pt with increase agitation, unable lie still in the bed, turning her body from side to side. Taking her hand and attempting to pull out NGT and remove Oxygen. Patient incont of bowel and bladder. Pt frequently asking to go the bathroom but mentation and ability required pt to be bed bound and utilized bedpan. Despite frequent toileting as requested by patient and offering reassurance and frequent reorientation patient unable to settle. Dr. Martin notified and 30mg Phenobarbital pill ordered to be given via NGT. One to one observation by bedside and patient continued to be agitated, restless, confused, attempting get OOB. notified and 1 MG Ativan IV ordered and given. Patient became less restless briefly approximately 30-40 minutes of resting quietly but did not sustained and patient demonstrated increase agitation as patient flailing her arms and legs as if to attempt to be in side lying position but unable to decide which side to lie on in the bed. Dr. Martin asked to come assess patient at bedside. Dr. Martin assessed patient and at 0500 130 mg Phenobarbital IM ordered and given. CXY, labs including Venous gas ordered. Neb resp treatment ordered and delivered. VSS reported to Dr. Martin and patient on 6liters NC as O2sats dropped to 84%. 0600 Dr. Martin came back to bedisde and Dilaudid IV ordered and given as doumented in MAY. Post administration patient became calm. resting comfortably. RR even and nonlabored with O2 titrated to 2liters NC O2 sat 97%. Provider reviewed VS, VBG results, labs and CXY and reported with consult with daytime provider for plan and goals of care.
[2024-01-10] MEDS: Magnesium Sulfate/D5W 1 GM/100 ML PIGGYBACK IV (08:43)
[2024-01-10] MEDS: Potassium Chloride Packet 20 MEQ PACKET G-TUBE (08:44)
[2024-01-10] MEDS: rifAXIMin 550 MG TABLET NG-TUBE (08:44)
[2024-01-10] MEDS: Piperacillin Sodium/Tazobactam 3.375 GM in 0.9 % Sodium Chloride 50 ML IV (08:44)
[2024-01-10] MEDS: Folic Acid 1 MG TABLET NG-TUBE (08:44)
[2024-01-10] MEDS: Phytonadione (Vit K1) 10 MG in 0.9 % Sodium Chloride 50 ML 51 MG IV (08:59)
--- NOTE | 2024-01-10 09:18 | PC.RT ---
RT called to place pt on humidified O2 by Dr. Diaz. At bedside pt desat to 70's on NC. Pt placed on NRB for approx 5 min, SATs improved to 99%. Pt titrated off NRB and placed on 35% face tent with humidification. Pt lung sounds bilateral inspiratory/expiratory wheezes with coarse crackles in bases. Pt lethargic and only responsive to painful stimuli. MD Sparrow at bedside.
--- NOTE | 2024-01-10 09:53 | PM.CCN ---
Critical Care Event Note Summary Date of Service: 01/10/24 Code activated: No Narrative: This case had a high probability of a clinically significant, sudden, or life threatening deterioration of this patient's condition which required my full and direct attention, intervention and personal management. Critical Care Time (minutes): 20
--- NOTE | 2024-01-10 10:11 | P.CONCC_ITS ---
History of Present Illness Data of Consult Service Date: 01/10/24 Requesting physician: Nash Sparrow Primary Care Provider: Roderick Holder [facility] HPI Reason for consult: Comfort measures 58-year-old lady who is a chronic alcoholic with end-stage liver disease presented to the ED with failure to thrive. At baseline status is very poor, and not taking care of. She presented with hepatic encephalopathy with JOHNNY in the setting of end-stage liver disease. In the ED, understanding her baseline condition her family had had decided towards DNI DNR. Her condition continued to worsen hospital and this morning she is unresponsive, desaturating so hospitalist consulted us for further management. Had a detailed goals of care discussion with the family who understood her underlying irreversible condition and they did not want her to suffer anymore. She is switch to comfort care. [facility] Past Medical History Medical History (Updated 01/09/24 @ 22:22 by Kitty Quintanilla MD) Bacteremia Smoker Alcohol use disorder COPD (chronic obstructive pulmonary disease) Jaundice Anxiety Breast calcification, left Depression Family History Family History Father Stroke Mother Lung cancer Son No problems noted. Daughter No problems noted. Maternal Grandmother Emphysema, unspecified Maternal Grandfather History of heart attack Maternal Aunt Breast cancer Family history: reviewed and not pertinent Surgical History Surgical History History of abdominal paracentesis History of tubal ligation Social History Social History Household Members: Unknown / Unable to assess Household Members Other:: room mate Housing: Unknown / Unable to assess Do you presently have visiting nurse or other home services: No Alcohol intake: current Alcohol intake frequency: 3 or more drinks per day Alcohol type: hard liquor Comment: 1:1 sitter at bedside Patient Tobacco Use Status: Tobacco use Unknown Tobacco use type: Cigarette Cigarette Packs Per Day: 0.5 e-Cigarette/Vaping Use: Never Used Second Hand Smoke Exposure: Yes Use of substances other than those prescribed or required for medical reasons: Unknown Substance Use Type: Marijuana Currently Displaying Signs/Symptoms of Drug Intoxication Withdrawal: No Advance Directives: Yes Advance Directives on File: Yes Advance Directives Date on File: 07/08/23 Do you have a plan to hurt others: No Plan Recently lost weight without trying: Unsure Nutrition Risks: No Nutritional Risk Patient : No service: No Current occupational status: employed Current occupational exposures/hazards: No Gender identity: Female Cognitive needs: No Hearing needs: No Vision needs: Yes Meds Allergies Allergy/AdvReac Type Severity Reaction Status Date / Time No Known Allergies Allergy Unknown UNKNOWN Verified 01/08/24 13:06 [NO KNOWN ALLERGIES] Active Medications: Current Medications Albuterol/Ipratropium (Albuterol/Iprat 2.5/0.5mg 3 Ml Ampul.Neb) 3 ml INHALE RQ4H WHILE AWAKE [facility] Last Admin: 01/10/24 07:48 Dose: 3 ml Folic Acid (Folic Acid 1 Mg Tablet) 1 mg NG-TUBE DAILY [facility] Last Admin: 01/10/24 08:44 Dose: 1 mg Dextrose/Sodium Chloride (D5ns) 1,000 mls @ 80 mls/hr IVCONT .[id number] [facility] Last Admin: 01/10/24 09:44 Dose: Not Given Thiamine HCl 200 mg/ Sodium (Chloride) 102 mls @ 204 mls/hr IV Q8H [facility] Last Infusion: 01/10/24 07:32 Dose: Infused Piperacillin Sod/Tazobactam (Sod 3.375 gm/ Sodium Chloride) 50 mls @ 100 mls/hr IV Q6H [facility] Last Infusion: 01/10/24 09:16 Dose: Infused Albumin Human (Kedbumin 25 %) 100 mls @ 100 mls/hr IV Q6H [facility] Stop: 01/11/24 02:44 Last Infusion: 01/10/24 09:44 Dose: Infused Octreotide Acetate 500 mcg/ (Sodium Chloride) 501 mls @ 50.1 mls/hr IVCONT .Q10H [facility] Last Admin: 01/10/24 09:48 Dose: Not Given Morphine Sulfate (Morphine Sulfate/Ns) 100 mg in 100 mls @ 0 mls/hr IVCONT .Q0M [facility]; Protocol Lactulose (Lactulose 20 Gm/30 Ml Solution) 30 gm NG-TUBE TID [facility] Last Admin: 01/09/24 18:24 Dose: 30 gm Lorazepam (Lorazepam 2 Mg/Ml Vial) 2 mg IVPUSH ONCE ONE Stop: 01/10/24 10:12 Nicotine (Nicotine 21 Mg Patch.Td24) 21 mg TRANSDERMA DAILY PRN PRN Reason: Nicotine Cravings Last Admin: 01/09/24 09:53 Dose: 21 mg Pantoprazole Sodium (Pantoprazole Sodium 40 Mg/10 Ml Vial) 40 mg IVPUSH BID@0630,1630 [facility] Last Admin: 01/10/24 07:31 Dose: 40 mg Pharmacy Consult (Consult Rx Etoh Phenob Im/Po) 1 each MISCELLANE ONCE PRN; Protocol PRN Reason: Consult order Phenobarbital (Phenobarbital 30 Mg Tablet) 30 mg PO BID [facility] Stop: 01/10/24 21:01 Last Admin: 01/10/24 08:44 Dose: 30 mg Phenobarbital (Phenobarbital 15 Mg Tablet) 15 mg PO BID [facility] Stop: 01/12/24 21:01 Phenobarbital (Phenobarbital 15 Mg Tablet) 15 mg PO DAILY [facility] Stop: 01/14/24 09:01 Rifaximin (Rifaximin 550 Mg Tablet) 550 mg NG-TUBE BID [facility] Last Admin: 01/10/24 08:44 Dose: 550 mg Sodium Chloride (0.9 % Sodium Chloride Flush 3 Ml Syringe) 3 ml IVFLUSH QSHIFT [facility] Last Admin: 01/10/24 09:07 Dose: 3 ml Home Medications ?Medication ?Instructions ?Recorded ?Confirmed ?Last Taken ?Type No Known Home Meds 01/08/24 01/08/24 Unknown History Physical Exam 2 Vital Signs: Vital Signs: Last Vital Signs Temp 97.2 F 01/10/24 07:43 Pulse 89 01/10/24 07:48 Resp 22 H 01/10/24 07:48 BP 106/68 01/10/24 07:43 Pulse Ox 90 L 01/10/24 07:43 O2 Del Method Room Air 01/10/24 07:43 O2 Flow Rate 4 01/10/24 06:08 BMI result Body Mass Index 21.2 Results Labs 01/10/24 05:56 01/10/24 05:56 Labs: Short CBC 01/09/24 01/10/24 Range/Units 15:36 05:56 WBC 12.9 H (4.8-10.8) X10*3/uL Hgb 7.9 L 8.7 L (12.0-16.0) g/dl Hct 21.6 L 24.3 L (37.0-47.0) % Plt Count 126 L (160-400) X10*3/uL BMP 01/10/24 05:56 Sodium 145 Potassium 3.2 L Chloride 112 H Carbon Dioxide 19 L BUN 30 H Creatinine 1.73 H Calcium 8.3 L Liver Function 01/10/24 Range/Units 05:56 Total Bilirubin 2.9 H (0.0-1.0) mg/dL Direct Bilirubin 1.7 H (0.0-0.5) mg/dL AST 56 H (5-31) U/L ALT 18 (0-31) U/L Alkaline Phosphatase 114 (39-117) U/L Albumin 3.8 (3.5-5.0) g/dL Microbiology Microbiology Results: Microbiology 01/08/24 15:06 Blood - Venous Blood Culture - Final Bacillus species 01/08/24 15:05 Blood - Venous Blood Culture - Preliminary No growth after 24 hours. 01/08/24 14:21 Urine clean catch - Clean Catch Midstream Urine Culture - Preliminary Culture too young to evaluate.
[2024-01-10] MEDS: LORazepam 2 MG/ML VIAL IVPUSH (10:27)
--- NOTE | 2024-01-10 10:30 | MHC.CLN ---
RE: CONSULT FOR NGT SPOKE WITH PT'S NURSE WHO REPORTED PT WOULD BE TRANSITIONING TO PRESS SERVICE READER PRIMARY GOAL IS COMFORT NGT RECOMMENDATION NO LONGER NEEDED PER NSG WILL FOLLOW WITH TEAM AND PROVIDE SUPPORT NEEDED
--- NOTE | 2024-01-10 10:48 | P.PNNP_ITS ---
Subjective Subjective Date of Service: 01/10/24 Interval history: 58 y/o female with a medical history of alcoholic cirrhosis, alcohol use disorder, tobacco use. ED 01/07 with confusion, dizziness, shortness of breath Nephrology consulted for JOHNNY. creatinine 0.86 on 11/04 prior to admission. 01/07 creatinine 1.4, 01/08 1.49, 01/09 1.73 has mild acidosis with serum bicarb of 21, anion gap 21, lactate 5.7 01/07, then 4.2 01/08, today bicarb is 19 (down from 21) beta hydroxybutyrate normal at 0.08 urine post void residual 25mL; 25cc urine output recorded fro last 24 hours; 350mL of stool output UA on 01/07 suggestive of UTI; previous urine on 10/22 negative for RBCs, trace protein 10/23/23 CT abd/pelvis showed normal kidneys and ureters without hydronephrosis, calculi, with normal attenuation and size. at bedside today pt is somnolent abdomen remains taut/firm. she does not have any LE edema Physical Exam 2 Vital Signs: Vital Signs: Last Vital Signs Temp 97.2 F 01/10/24 07:43 Pulse 89 01/10/24 07:48 Resp 22 H 01/10/24 07:48 BP 106/68 01/10/24 07:43 Pulse Ox 90 L 01/10/24 07:43 O2 Del Method Room Air 01/10/24 07:43 O2 Flow Rate 4 01/10/24 06:08 BMI result Body Mass Index 21.2 Const: General: no acute distress and lethargic Orientation/consciousness: lethargic Neck: Neck: Yes no JVD Resp: Effort & Inspection: normal respiratory effort Auscultation: clear to auscultation bilaterally Cardio: Jugular venous distension: no JVD Rate: regular rate Rhythm: r egular rhythm Heart sounds: S1 normal heart sound present and S2 normal heart sound present GI: Inspection: Yes distended Palpation (GI): Firmness to palpation present (GI) and Tenderness to palpation present (GI) Skin: Rashes: no rashes Trauma: other (upper chest bruise/abraision) Extrem: General: No edema Objective Data Labs 01/10/24 05:56 01/10/24 05:56 Labs: Laboratory Results - last 24 hr 10/01/09/24 01/09/24 13:57 12:03 15:36 WBC RBC Hgb 7.9 L Hct 21.6 L MCV MCH MCHC RDW Plt Count MPV Immature Gran % (Auto) Neut % (Auto) Lymph % (Auto) [place] % (Auto) Eos % (Auto) Baso % (Auto) Lymph # (Auto) [place] # (Auto) Eos # (Auto) Baso # (Auto) Abs Immat Gran (auto) Absolute Neuts (auto) Absolute Nucleated RBC Nucleated RBC % (auto) PT INR VBG pH VBG pCO2 VBG pO2 VBG HCO3 VBG O2 Saturation VBG Base Excess Sodium Potassium Chloride Carbon Dioxide Anion Gap BUN Creatinine Estim Creat Clear Calc Estimated GFR Random Glucose Lactic Acid Calcium Phosphorus Magnesium Total Bilirubin Direct Bilirubin AST ALT Alkaline Phosphatase Ammonia Lactate Dehydrogenase 215 Total Protein 6.2 L Albumin Beta-Hydroxybutyrate Blood Type A Positive Antibody Screen NEGATIVE Crossmatch See Detail 01/10/24 01/10/24 05:56 06:02 WBC 12.9 H RBC 2.72 L Hgb 8.7 L Hct 24.3 L MCV 89.3 MCH 32.0 MCHC 35.8 H RDW 17.1 H Plt Count 126 L MPV 10.9 Immature Gran % (Auto) 0.4 Neut % (Auto) 76.0 H Lymph % (Auto) 16.5 L [place] % (Auto) 6.4 Eos % (Auto) 0.5 Baso % (Auto) 0.2 Lymph # (Auto) 2.1 [place] # (Auto) 0.8 Eos # (Auto) 0.1 Baso # (Auto) 0.0 Abs Immat Gran (auto) 0.05 H Absolute Neuts (auto) 9.8 H Absolute Nucleated RBC 0.040 H Nucleated RBC % (auto) 0.3 H PT 15.3 H INR 1.3 H VBG pH 7.30 L VBG pCO2 44 VBG pO2 81 VBG HCO3 22 VBG O2 Saturation 94.0 VBG Base Excess -4.1 Sodium 145 Potassium 3.2 L Chloride 112 H Carbon Dioxide 19 L Anion Gap 17 BUN 30 H Creatinine 1.73 H Estim Creat Clear Calc 26.0 Estimated GFR 30 Random Glucose 135 H Lactic Acid 2.0 Calcium 8.3 L Phosphorus 2.7 Magnesium 2.2 Total Bilirubin 2.9 H Direct Bilirubin 1.7 H AST 56 H ALT 18 Alkaline Phosphatase 114 Ammonia 65 H Lactate Dehydrogenase Total Protein 6.6 Albumin 3.8 Beta-Hydroxybutyrate 0.08 Blood Type Antibody Screen Crossmatch Microbiology Microbiology Results: Microbiology 01/08/24 15:06 Blood - Venous Blood Culture - Final Bacillus species 01/08/24 15:05 Blood - Venous Blood Culture - Preliminary No growth after 24 hours. 01/08/24 14:21 Urine clean catch - Clean Catch Midstream Urine Culture - Preliminary Culture too young to evaluate. 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 Discussed with Dr Mitchell Time Spent With Patient Time: Total time managing care of this patient today ____ minutes. Progress Note: Quality Stroke Does the patient have a stroke diagnosis?: No
[2024-01-10] MEDS: Morphine Sulfate/NS 100 MG/100 ML PLAST..BAG IVCONT (11:07)
--- NOTE | 2024-01-10 12:01 | P.PNIM_ITS ---
Subjective Subjective Date of Service: 01/10/24 Interval History: hypoxia,ricky, liver dis Review of Systems Overnight patient become more hypoxic and progressively declining-possible aspiration Currently status saying in 80s range with even non-rebreather Physical Exam 2 Vital Signs: Vital Signs: Last Vital Signs Temp 97.2 F 01/10/24 07:43 Pulse 89 01/10/24 07:48 Resp 22 H 01/10/24 07:48 BP 106/68 01/10/24 07:43 Pulse Ox 90 L 01/10/24 07:43 O2 Del Method Room Air 01/10/24 07:43 O2 Flow Rate 4 01/10/24 06:08 BMI result Body Mass Index 21.2 Appearance: intermitent response to pain, ch ill/frail looking cvs: rrr, [id number] . res: air enrty dimished ,has some rhonchi b/l bases. abd: soft,has some ascitis, bs present. ext pulses present , no cyanosis. 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 Folic Acid (Folic Acid 1 Mg Tablet) 1 mg NG-TUBE DAILY [facility] Last Admin: 01/10/24 08:44 Dose: 1 mg Documented By: SHEYLA Dextrose/Sodium Chloride (D5ns) 1,000 mls @ 80 mls/hr IVCONT .[id number] [facility] Last Admin: 01/10/24 09:44 Dose: Not Given Documented By: SHEYLA Non-Admin Reason: hold per dr bello Piperacillin Sod/Tazobactam (Sod 3.375 gm/ Sodium Chloride) 50 mls @ 100 mls/hr IV Q6H [facility] Last Infusion: 01/10/24 09:16 Dose: Infused Documented By: SHEYLA Albumin Human (Kedbumin 25 %) 100 mls @ 100 mls/hr IV Q6H [facility] Stop: 01/11/24 02:44 Last Infusion: 01/10/24 09:44 Dose: Infused Documented By: SHEYLA Morphine Sulfate (Morphine Sulfate/Ns) 100 mg in 100 mls @ 0 mls/hr IVCONT .Q0M [facility]; Protocol Last Admin: 01/10/24 11:07 Dose: 2 mg/hr, 2 mls/hr Documented By: SHEYLA Lactulose (Lactulose 20 Gm/30 Ml Solution) 30 gm NG-TUBE TID [facility] Last Admin: 01/09/24 18:24 Dose: 30 gm Documented By: JORGE Nicotine (Nicotine 21 Mg Patch.Td24) 21 mg TRANSDERMA DAILY PRN PRN Reason: Nicotine Cravings Last Admin: 01/09/24 09:53 Dose: 21 mg Documented By: JORGE Pantoprazole Sodium (Pantoprazole Sodium 40 Mg/10 Ml Vial) 40 mg IVPUSH BID@0630,1630 [facility] Last Admin: 01/10/24 07:31 Dose: 40 mg Documented By: ANAHY Pharmacy Consult (Consult Rx Etoh Phenob Im/Po) 1 each MISCELLANE ONCE PRN; Protocol PRN Reason: Consult order Phenobarbital (Phenobarbital 30 Mg Tablet) 30 mg PO BID [facility] Stop: 01/10/24 21:01 Last Admin: 01/10/24 08:44 Dose: 30 mg Documented By: SHEYLA Phenobarbital (Phenobarbital 15 Mg Tablet) 15 mg PO BID [facility] Stop: 01/12/24 21:01 Phenobarbital (Phenobarbital 15 Mg Tablet) 15 mg PO DAILY [facility] Stop: 01/14/24 09:01 Sodium Chloride (0.9 % Sodium Chloride Flush 3 Ml Syringe) 3 ml IVFLUSH QSHIFT [facility] Last Admin: 01/10/24 09:07 Dose: 3 ml Documented By: SHEYLA Labs 01/10/24 05:56 01/10/24 05:56 Labs: Laboratory Results - last 24 hr 01/08/24 01/09/24 01/10/24 13:57 12:03 05:56 MCV 89.3 MCH 32.0 MCHC 35.8 H RDW 17.1 H Plt Count 126 L MPV 10.9 Immature Gran % (Auto) 0.4 Neut % (Auto) 76.0 H Lymph % (Auto) 16.5 L [place] % (Auto) 6.4 Eos % (Auto) 0.5 Baso % (Auto) 0.2 Lymph # (Auto) 2.1 [place] # (Auto) 0.8 Eos # (Auto) 0.1 Baso # (Auto) 0.0 Abs Immat Gran (auto) 0.05 H Absolute Neuts (auto) 9.8 H Absolute Nucleated RBC 0.040 H Nucleated RBC % (auto) 0.3 H PT 15.3 H INR 1.3 H VBG pH VBG pCO2 VBG pO2 VBG HCO3 VBG O2 Saturation VBG Base Excess Anion Gap 17 Estim Creat Clear Calc 26.0 Estimated GFR 30 Random Glucose 135 H Lactic Acid 2.0 Calcium 8.3 L Phosphorus 2.7 Magnesium 2.2 Total Bilirubin 2.9 H Direct Bilirubin 1.7 H AST 56 H ALT 18 Alkaline Phosphatase 114 Ammonia 65 H Lactate Dehydrogenase 215 Total Protein 6.2 L 6.6 Albumin 3.8 Beta-Hydroxybutyrate 0.08 Blood Type A Positive Antibody Screen NEGATIVE Crossmatch See Detail 01/10/24 06:02 MCV MCH MCHC RDW Plt Count MPV Immature Gran % (Auto) Neut % (Auto) Lymph % (Auto) [place] % (Auto) Eos % (Auto) Baso % (Auto) Lymph # (Auto) [place] # (Auto) Eos # (Auto) Baso # (Auto) Abs Immat Gran (auto) Absolute Neuts (auto) Absolute Nucleated RBC Nucleated RBC % (auto) PT INR VBG pH 7.30 L VBG pCO2 44 VBG pO2 81 VBG HCO3 22 VBG O2 Saturation 94.0 VBG Base Excess -4.1 Anion Gap Estim Creat Clear Calc Estimated GFR Random Glucose Lactic Acid Calcium Phosphorus Magnesium Total Bilirubin Direct Bilirubin AST ALT Alkaline Phosphatase Ammonia Lactate Dehydrogenase Total Protein Albumin Beta-Hydroxybutyrate Blood Type Antibody Screen Crossmatch Microbiology Microbiology Results: Microbiology 01/08/24 15:06 Blood Culture - Final Blood - Venous Bacillus species 01/08/24 15:05 Blood Culture - Preliminary Blood - Venous No growth after 24 hours. 01/08/24 14:21 Urine Culture - Preliminary Urine clean catch - Clean Catch Midstream Culture too young to evaluate. Assessment and Plan (1) Blood loss anemia: Status: Acute (2) Ascites: Status: Acute (3) Renal failure: Status: Acute (4) Aspiration into airway: Status: Acute Plan 58-year-old female with a PMH significant for?alcoholic cirrhosis, alcohol use disorder, not on home meds, currently actively smoking and drinking who presents to the ED with?confusion and dizziness- admitted to the hospital for treatment and further evaluation acute blood loss anemia and acute hepatic encephalopathy ,ricky ,hypotension,uti , alcohol withdrawal,possible ftt : Patient received blood transfusion, octreotide, Protonix drip, vitamin K as well as albumin and IV fluid , lactulose/rifaximin, phenobarb, IV antibiotics, also NG tube placed for hydration/medications/nutrition, inaddition patient also develop acute hypoxemic respiratory failure/possible aspiration pneumonia, also renal function progressively declining: Discussed with the patient family by ICU-patient family does not want any aggressive care, let the nature take its course, comfort measures Quality Stroke Does the patient have a stroke diagnosis?: No VTE Prior VTE?: No VTE Risk Level:: Medical - moderate - high VTE Device Contraindication: N/A - Device Ordered VTE Drug Contraindication: Treatment Not Indicated
--- NOTE | 2024-01-10 12:41 | MHC.CM.PN ---
Pt is on comfort measures, family is at bedside, provided support, leslie has been to see them.
--- NOTE | 2024-01-10 14:40 | P.CONPL_ITS ---
History of Present Illness History of Present Illness Consult date: 01/10/24 Chief complaint: Acute blood loss anemia, heptic encephalopathy Narrative: This is an inpatient pulmonary consultation. The Pt is a 58-year-old female with a PMH significant for?alcoholic cirrhosis, alcohol use disorder, not on home meds, currently actively smoking and drinking who presents to the ED with?confusion and dizziness. Patient is alert and oriented to self only and incapable of providing accurate HPI. Complains of lightheadedness, dizziness, and SOB. Is unable to provide accurate length of time. Has no other acute medical complaints. Sister is at bedside who reports pt lives with a friend. Went to check on her and found her laying in a bed without sheet, vomit and cigarette wagner all over the mattress. Bottle of whiskey on bedside table. Patient was profoundly confused with hallucinations apparently seeing snakes and people who were not there. Sister otherwise unsure of when symptoms started or what symptoms patient has had. Reports she has never seen the patient this bad before, though notes pt continues to drink straight whiskey, unknown amount daily or last drink. Last paracentesis on 11/28/2023 where 5.5 L of yellow fluid removed. Pt will be admitted to the hospital for treatment and further evaluation acute blood loss anemia and acute hepatic encephalopathy. During the hospital stay the patient has developed significant hypoxia. She did have a chest x-ray demonstrating fluffy opacities suggesting pulmonary edema. Very likely the patient had an aspiration event resulting and pneumonia and also ARDS. Patient is currently being treated with broad-spectrum antibiotics. She has multiorgan dysfunction due to her liver failure. She carries a poor prognosis. Her current medical team is talking to the family regarding goals of care. At this point the patient is receiving oxygen supplementation and she continue broad-spectrum antibiotics. We did talk about low-dose steroids to decrease the inflammatory changes of the ARDS. However, the concern is that she is having active bleeding it may potentially worsen her GI issues. Review of Systems 2 Review of Systems: Yes Unobtainable due to mental status PMFSH Past Medical History Medical History (Updated 01/10/24 @ 14:45 by Mt Diaz MD) ARDS (adult respiratory distress syndrome) Bacteremia Smoker Alcohol use disorder COPD (chronic obstructive pulmonary disease) Jaundice Anxiety Breast calcification, left Depression Family History Family History Father Stroke Mother Lung cancer Son No problems noted. Daughter No problems noted. Maternal Grandmother Emphysema, unspecified Maternal Grandfather History of heart attack Maternal Aunt Breast cancer Family history: reviewed and not pertinent Surgical History Surgical History History of abdominal paracentesis History of tubal ligation Social History Social History Household Members: Unknown / Unable to assess Household Members Other:: room mate Housing: Unknown / Unable to assess Do you presently have visiting nurse or other home services: No Alcohol intake: current Alcohol intake frequency: 3 or more drinks per day Alcohol type: hard liquor Comment: 1:1 sitter at bedside Patient Tobacco Use Status: Tobacco use Unknown Tobacco use type: Cigarette Cigarette Packs Per Day: 0.5 e-Cigarette/Vaping Use: Never Used Second Hand Smoke Exposure: Yes Use of substances other than those prescribed or required for medical reasons: Unknown Substance Use Type: Marijuana Currently Displaying Signs/Symptoms of Drug Intoxication Withdrawal: No Advance Directives: Yes Advance Directives on File: Yes Advance Directives Date on File: 07/08/23 Do you have a plan to hurt others: No Plan Recently lost weight without trying: Unsure Nutrition Risks: No Nutritional Risk Patient : No service: No Current occupational status: employed Current occupational exposures/hazards: No Gender identity: Female Cognitive needs: No Hearing needs: No Vision needs: Yes Meds Allergies Allergy/AdvReac Type Severity Reaction Status Date / Time No Known Allergies Allergy Unknown UNKNOWN Verified 01/08/24 13:06 [NO KNOWN ALLERGIES] Active Medications: Current Medications Albuterol/Ipratropium (Albuterol/Iprat 2.5/0.5mg 3 Ml Ampul.Neb) 3 ml INHALE RQ4H WHILE AWAKE [facility] Last Admin: 01/10/24 10:41 Dose: Not Given Dextrose/Sodium Chloride (D5ns) 1,000 mls @ 80 mls/hr IVCONT .[id number] [facility] Last Admin: 01/10/24 09:44 Dose: Not Given Albumin Human (Kedbumin 25 %) 100 mls @ 100 mls/hr IV Q6H [facility] Stop: 01/11/24 02:44 Last Admin: 01/10/24 12:26 Dose: Not Given Morphine Sulfate (Morphine Sulfate/Ns) 100 mg in 100 mls @ 0 mls/hr IVCONT .Q0M [facility]; Protocol Last Infusion: 01/10/24 14:38 Dose: 8 mg/hr, 8 mls/hr Nicotine (Nicotine 21 Mg Patch.Td24) 21 mg TRANSDERMA DAILY PRN PRN Reason: Nicotine Cravings Last Admin: 01/09/24 09:53 Dose: 21 mg Pharmacy Consult (Consult Rx Etoh Phenob Im/Po) 1 each MISCELLANE ONCE PRN; Protocol PRN Reason: Consult order Sodium Chloride (0.9 % Sodium Chloride Flush 3 Ml Syringe) 3 ml IVFLUSH [facility] Last Admin: 01/10/24 09:07 Dose: 3 ml Home Medications ?Medication ?Instructions ?Recorded ?Confirmed ?Last Taken ?Type No Known Home Meds 01/08/24 01/08/24 Unknown History Physical Exam 2 Vital Signs: Vital Signs: Last Vital Signs Temp 97.2 F 01/10/24 07:43 Pulse 89 01/10/24 07:48 Resp 25 H 01/10/24 14:38 BP 106/68 01/10/24 07:43 Pulse Ox 90 L 01/10/24 07:43 O2 Del Method Room Air 01/10/24 07:43 O2 Flow Rate 4 01/10/24 06:08 BMI result Body Mass Index 21.2 Appearance: intermitent response to pain, somnolent, jandice, NGT with billious drainage think it Esbriet cvs: rrr, [id number] . res: air enrty dimished ,has some rhonchi b/l bases. abd: soft,has some ascitis, bs present. ext pulses present , no cyanosis. neuro:limited due to mental status, moves ext Results Laboratory Findings 01/10/24 05:56 01/10/24 05:56 ABG, PT/INR, D-dimer: PT/INR, D-dimer PT 15.3 SEC (10.9-12.4) H 01/10/24 05:56 INR 1.3 (0.9-1.1) H 01/10/24 05:56 Abnormal lab findings: Abnormal Labs 01/08/24 01/08/24 01/08/24 13:30 13:30 13:30 WBC 11.1 H RBC 1.78 L D Hgb 5.8 L* D Hct 15.6 L* D MCHC 37.2 H RDW 18.8 H Plt Count Immature Gran % (Auto) 0.6 H Neut % (Auto) Lymph % (Auto) 19.4 L Abs Immat Gran (auto) 0.07 H Absolute Neuts (auto) Absolute Nucleated RBC 0.020 H Nucleated RBC % (auto) PT 18.3 H INR 1.6 H VBG pH Potassium Chloride Carbon Dioxide 21 L Anion Gap BUN 35 H Creatinine Random Glucose Lactic Acid Lactic Acid F/U @ 2Hr Calcium 8.0 L D Total Bilirubin 3.0 H 3.1 H Direct Bilirubin 2.0 H AST 82 H 82 H Alkaline Phosphatase 169 H Ammonia Total Protein Albumin Urine Protein Urine Blood Urine Nitrite Ur Leukocyte Esterase Urine RBC U Marijuana (THC) Screen Crossmatch 01/08/24 01/08/24 01/08/24 13:30 13:30 13:30 WBC RBC Hgb Hct MCHC RDW Plt Count Immature Gran % (Auto) Neut % (Auto) Lymph % (Auto) Abs Immat Gran (auto) Absolute Neuts (auto) Absolute Nucleated RBC Nucleated RBC % (auto) PT INR VBG pH Potassium Chloride Carbon Dioxide Anion Gap BUN Creatinine Random Glucose Lactic Acid Lactic Acid F/U @ 2Hr Calcium Total Bilirubin Direct Bilirubin AST Alkaline Phosphatase 169 H Ammonia 62 H Total Protein 6.3 L 6.3 L Albumin 2.4 L 2.5 L Urine Protein Urine Blood Urine Nitrite Ur Leukocyte Esterase Urine RBC U Marijuana (THC) Screen Crossmatch 01/08/24 01/08/24 01/08/24 13:57 14:21 14:28 WBC 11.9 H RBC 1.90 L Hgb 6.0 L* Hct 16.5 L* MCHC 36.4 H RDW 18.6 H Plt Count Immature Gran % (Auto) 0.7 H Neut % (Auto) Lymph % (Auto) 19.3 L Abs Immat Gran (auto) 0.08 H Absolute Neuts (auto) 8.6 H Absolute Nucleated RBC 0.020 H Nucleated RBC % (auto) PT INR VBG pH Potassium Chloride Carbon Dioxide Anion Gap BUN Creatinine Random Glucose Lactic Acid Lactic Acid F/U @ 2Hr Calcium Total Bilirubin Direct Bilirubin AST Alkaline Phosphatase Ammonia Total Protein Albumin Urine Protein 30 (1+) H Urine Blood Large (3+) H Urine Nitrite Positive H Ur Leukocyte Esterase Large (3+) H Urine RBC 3-5 H U Marijuana (THC) Screen POSITIVE H Crossmatch See Detail 01/08/24 01/08/24 01/09/24 15:05 17:30 06:00 WBC RBC 2.59 L D Hgb 8.1 L D Hct 22.1 L D MCHC 36.7 H RDW 16.4 H Plt Count 140 L D Immature Gran % (Auto) Neut % (Auto) 78.1 H Lymph % (Auto) 14.7 L Abs Immat Gran (auto) Absolute Neuts (auto) Absolute Nucleated RBC Nucleated RBC % (auto) PT INR VBG pH Potassium Chloride Carbon Dioxide 21 L Anion Gap 21 H BUN 36 H Creatinine 1.49 H Random Glucose Lactic Acid 5.7 H* Lactic Acid F/U @ 2Hr 4.2 H* Calcium 8.1 L Total Bilirubin 3.6 H Direct Bilirubin AST 75 H Alkaline Phosphatase 156 H Ammonia Total Protein 6.4 L Albumin 3.3 L Urine Protein Urine Blood Urine Nitrite Ur Leukocyte Esterase Urine RBC U Marijuana (THC) Screen Crossmatch 01/09/24 01/09/24 01/09/24 09:59 10:10 12:03 WBC RBC Hgb 8.6 L Hct 23.2 L MCHC RDW Plt Count Immature Gran % (Auto) Neut % (Auto) Lymph % (Auto) Abs Immat Gran (auto) Absolute Neuts (auto) Absolute Nucleated RBC Nucleated RBC % (auto) PT INR VBG pH 7.53 H Potassium Chloride Carbon Dioxide Anion Gap BUN Creatinine Random Glucose Lactic Acid Lactic Acid F/U @ 2Hr Calcium Total Bilirubin Direct Bilirubin AST Alkaline Phosphatase Ammonia Total Protein 6.2 L Albumin Urine Protein Urine Blood Urine Nitrite Ur Leukocyte Esterase Urine RBC U Marijuana (THC) Screen Crossmatch 01/09/24 01/10/24 01/10/24 15:36 05:56 06:02 WBC 12.9 H RBC 2.72 L Hgb 7.9 L 8.7 L Hct 21.6 L 24.3 L MCHC 35.8 H RDW 17.1 H Plt Count 126 L Immature Gran % (Auto) Neut % (Auto) 76.0 H Lymph % (Auto) 16.5 L Abs Immat Gran (auto) 0.05 H Absolute Neuts (auto) 9.8 H Absolute Nucleated RBC 0.040 H Nucleated RBC % (auto) 0.3 H PT 15.3 H INR 1.3 H VBG pH 7.30 L Potassium 3.2 L Chloride 112 H Carbon Dioxide 19 L Anion Gap BUN 30 H Creatinine 1.73 H Random Glucose 135 H Lactic Acid Lactic Acid F/U @ 2Hr Calcium 8.3 L Total Bilirubin 2.9 H Direct Bilirubin 1.7 H AST 56 H Alkaline Phosphatase Ammonia 65 H Total Protein Albumin Urine Protein Urine Blood Urine Nitrite Ur Leukocyte Esterase Urine RBC U Marijuana (THC) Screen Crossmatch Microbiology: Microbiology 01/08/24 14:21 Urine clean catch - Clean Catch Midstream Urine Culture - Preliminary Proteus species 01/08/24 15:06 Blood - Venous Blood Culture - Final Bacillus species 01/08/24 15:05 Blood - Venous Blood Culture - Preliminary No growth after 24 hours. Assessment and Plan (1) Acute respiratory failure: Qualifiers: Respiratory failure complication: hypoxia Qualified Code(s): J96.01 - Acute respiratory failure with hypoxia Status: Acute (2) ARDS (adult respiratory distress syndrome): Status: Acute (3) Alcoholic cirrhosis of liver: Qualifiers: Ascites presence: with ascites Qualified Code(s): K70.31 - Alcoholic cirrhosis of liver with ascites Status: Acute (4) Bacteremia: Status: Acute Plan broad spectrum abx oxygen supplementation to keep pox>90% HOB 30 degrees consider solumedrol goals of care Guarded state with MODS Procedures Date of Service Date of Service: 01/10/24
--- NOTE | 2024-01-10 18:49 | MHC.SLORD ---
Speech Language Pathology Order Status: Per RN, patient not appropriate for PO trials d/t unresponsiveness. Patient is currently NPO- WIRE THREADER will continue to follow, re-assess when patient is more awake and responsive
[2024-01-10] MEDS: HYDROmorphone HCl 1 MG/ML SYRINGE IVPUSH (18:56)
--- NOTE | 2024-01-10 19:15 | PM.EVENT ---
Event Note Date of Service: 01/10/24 Event Note: 3:21 AM - Contacted to notify pt is extremely confused and agitated, received extra dose phenobarbital PO via NGT. Ativan 1 mg IV ordered. 5:11 AM - Contacted to notify pt is agitated again. Her O2 sats stated to drop, became tachypneic and has audible wheezing. Per sitter, Ativan IV helped only for 1 hour. Evaluated patient and found to be very agitated, unable to response to questions, very encephalopatic. Lungs auscultation is remarkable for marked bilateral wheezing, no crackles. DuoNeb ordered and given by RT without improvement. Extra dose of phenobarbital IM was given. 5:54 AM - I remained at bedside. Patient persists with agitation, restlessness and audible wheezing. Concerned for aspiration. CXR and labs obtained. Dilaudid 0.5 mg IV given to provide comfort, agitation and help with work of breathing. 6:40 AM - After Dilaudid administration patient's agitation and work of breathing resolved. She is now calm and resting comfortable. Oxygen saturation is also improving and oxygen has been titrated down. Time Spent With Patient Time: Total time managing care of this patient today ____ minutes.
[2024-01-10] MEDS: Scopolamine 1.5 MG PATCH.TD.3 EAR-BEHIND (20:41)
--- NOTE | 2024-01-10 20:44 | PC.NURSE ---
Addendum entered by Tiffanie Suarez RN 01/11/24 00:01: Additional PO care and suctioning provided. Handoff report given to oncoming RN at 23:00. Original Note: Assumed care of patient at 15:00. Pt is seen on s4. Comfort measures only. Pt obtunded. Family at bedside this afternoon stating patient appears more uncomfortable as evidenced by new groaning. Morphine gtt increased from 8mg/hr to max 10mg/hr with some effect. Covering Dr. Sparrow notified with order placed for prn ativan for anxiety/restlessness, given with some effectiveness as per pt family stated. Pt noted with new gurgling at 20:00 hour. Po care and po suctioning provided by policy writer and respiratory, produced thin bloody secretions. No gag reflex noted. Covering Dr. Martin notified and order placed for scopolamine patch, applied. Awaiting effectiveness at this time. Patient's family remains at bedside. Comfort cart, emotional support and active listening, patient progress with end of life plan of care provided. Family educated commission sales associate wood use and encouraged to call policy writer for any concerns or changes. Plan of care continues.
[2024-01-10] MEDS: Morphine Sulfate/NS 100 MG/100 ML PLAST..BAG 10 MG IVCONT (22:09)
[2024-01-11] MEDS: Morphine Sulfate/NS 100 MG/100 ML PLAST..BAG 10 MG IVCONT (08:10)
--- NOTE | 2024-01-11 12:58 | HO.PM.IMPN ---
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 res: air enrty dimished. abd: soft,has some ascitis, bs present. ext pulses present , no cyanosis. 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 Morphine Sulfate (Morphine Sulfate/Ns) 100 mg in 100 mls @ 0 mls/hr IVCONT .Q0M [facility]; Protocol Last Admin: 01/11/24 08:10 Dose: 10 mg/hr, 10 mls/hr Documented By: SIERRA Lorazepam (Lorazepam 2 Mg/Ml Vial) 1 mg IVPUSH Q2H PRN PRN Reason: anxiety/restlessness Last Admin: 01/10/24 23:50 Dose: 1 mg Documented By: RISHI Nicotine (Nicotine 21 Mg Patch.Td24) 21 mg TRANSDERMA DAILY PRN PRN Reason: Nicotine Cravings Last Admin: 01/09/24 09:53 Dose: 21 mg Documented By: JORGE Pharmacy Consult (Consult Rx Etoh Phenob Im/Po) 1 each MISCELLANE ONCE PRN; Protocol PRN Reason: Consult order Scopolamine (Scopolamine 1.5 Mg Patch.Td.3) 1.5 mg EAR-BEHIND Q72H [facility] Last Admin: 01/10/24 20:41 Dose: 1.5 mg Documented By: TIERRA Sodium Chloride (0.9 % Sodium Chloride Flush 3 Ml Syringe) 3 ml IVFLUSH QSHIFT [facility] Last Admin: 01/10/24 23:50 Dose: 3 ml Documented By: JANETTENEL Labs 01/10/24 05:56 01/10/24 05:56 Microbiology Microbiology Results: Microbiology 01/08/24 14:21 Urine Culture - Preliminary Urine clean catch - Clean Catch Midstream Proteus mirabilis Staphylococcus species 01/08/24 15:05 Blood Culture - Preliminary Blood - Venous No growth after 48 hours. Assessment and Plan (1) Blood loss anemia: Status: Acute (2) Ascites: Status: Acute (3) Renal failure: Status: Acute (4) Aspiration into airway: Status: Acute Plan 58-year-old female with a PMH significant for?alcoholic cirrhosis, alcohol use disorder, not on home meds, currently actively smoking and drinking who presents to the ED with?confusion and dizziness- admitted to the hospital for treatment and further evaluation acute blood loss anemia and acute hepatic encephalopathy ,ricky ,hypotension,uti , alcohol withdrawal,possible ftt : Patient received blood transfusion, octreotide, Protonix drip, vitamin K as well as albumin and IV fluid , lactulose/rifaximin, phenobarb, IV antibiotics, also NG tube placed for hydration/medications/nutrition, inaddition patient also develop acute hypoxemic respiratory failure/possible aspiration pneumonia, also renal function progressively declining: Discussed with the patient family by ICU-patient family does not want any aggressive care, let the nature take its course, comfort measures Quality Stroke Does the patient have a stroke diagnosis?: No VTE Prior VTE?: No VTE Risk Level:: Medical - moderate - high VTE Device Contraindication: N/A - Device Ordered VTE Drug Contraindication: Treatment Not Indicated
[2024-01-11] MEDS: 0.9 % Sodium Chloride Flush 3 ML SYRINGE IVFLUSH ×2 (14:56→14:58)
--- NOTE | 2024-01-11 16:42 | PM.EVENT ---
Event Note Date of Service: 01/11/24 Event Note: Patient on 01/11/2024 at 16:33. Patient had no detectable pulse or respiratory effort, pupils were dilated and nonreactive. Family notified by RN. Time Spent With Patient Time: Total time managing care of this patient today ____ minutes.
--- NOTE | 2024-01-11 16:54 | PC.NURSE ---
no pulse no respiration , family at the bedside , pt's sister HCP present at the pt's passing . Provider Alexus Collazo notified and pt was pronounced.
--- NOTE | 2024-01-12 08:06 | PM.DDS ---
Discharge Sum: Prov Provider Primary care physician: Roderick Holder [facility] Admitting clinician: Nash Sparrow Attending physician on admission: Nash Sparrow Consults: 01/08/24 19:45 Consult to Gastroenterology Routine Consulting Provider: Christopher Duque Reason for consultation: Acute blood loss anemia, hx of alcoholic cirrhosis 01/08/24 20:04 Addiction Medicine Routine Consulting Provider: Addiction Covering Reason for consultation: Alcohol use disorder 01/09/24 11:33 Consult to Nephrology Routine Consulting Provider: [facility] Reason for consultation: ricky,anion gap MA Has provider been notified: No 01/09/24 11:38 Consult to Infectious Diseases Routine Consulting Provider: [facility] Reason for consultation: bacteremia Has provider been notified: No 01/10/24 07:27 Consult to Pulmonology Routine Consulting Provider: [facility] Reason for consultation: acute hypoxemic respiratory failure ? aspirtional pneumonia Has provider been notified: No 01/10/24 08:45 Consult to Critical Care Routine Consulting Provider: Gurpreet Wooten Reason for consultation: Level of care Has provider been notified: No Discharge Sum: Diag Contributing Factors (1) Blood loss anemia: (2) Ascites: (3) Renal failure: (4) Aspiration into airway: Discharge Sum: Summary Date and Time Date of admission: 01/08/24 19:11 Summary Details: date of service and : 01/11/24 58-year-old female with a PMH significant for?alcoholic cirrhosis, alcohol use disorder, not on home meds, currently actively smoking and drinking who presents to the ED with?confusion and dizziness- admitted to the hospital for treatment and further evaluation acute blood loss anemia and acute hepatic encephalopathy ,ricky ,hypotension,uti , alcohol withdrawal,possible FTT : Patient received blood transfusion, octreotide, Protonix drip, vitamin K as well as albumin and IV fluid , lactulose/rifaximin, phenobarb, IV antibiotics, further course develop acute hypoxemic respiratory failure/possible aspiration pneumonia, also renal function progressively declining: Discussed with the patient family by ICU-patient family does not want any aggressive care, let the nature take its course, comfort measures. patient passed comfortabely on 01/11/24 @16:33 pm. please see Pa note from 01/11/24 for details. Additional Data Attending physician: Nash Sparrow MD
== END 2024-01-11 16:33 | disposition expired | DRG 280 ==
LOC: HO.ED 14:53 → HO.EDOVER 19:24 → HO.IMC 21:58
PROVIDERS: Internal Medicine; Physician Assistant Medical; Admitting Provider Student in an Organized Health Care Education/Training Program; Emergency Provider Emergency Medicine Emergency Medical Services; PCP Nurse Practitioner Family; Visit Provider Internal Medicine
DX: K70.31 Alcoholic cirrhosis of liver with ascites (principal); J80 Acute respiratory distress syndrome; J69.0 Pneumonitis due to inhalation of food and vomit; K72.10 Chronic hepatic failure without coma; D62 Acute posthemorrhagic anemia; Z51.5 Encounter for palliative care; Z66 Do not resuscitate; R78.81 Bacteremia; K76.6 Portal hypertension; D68.4 Acquired coagulation factor deficiency; R62.7 Adult failure to thrive; F10.239 Alcohol dependence with withdrawal, unspecified; K31.89 Other diseases of stomach and duodenum; Z68.21 Body mass index [BMI] 21.0-21.9, adult; K76.82 Hepatic encephalopathy; E86.1 Hypovolemia; I95.9 Hypotension, unspecified; F17.210 Nicotine dependence, cigarettes, uncomplicated; Z71.6 Tobacco abuse counseling; N39.0 Urinary tract infection, site not specified
CPT/HCPCS: 36415; 70450; 71045; 80048; 80053; 80076; 80307; 81001; 82010; 82140; 82248; 82272; 82803; 82947; 83605; 83615; 83690; 83735; 84100; 84155; 85014; 85018; 85025; 85610; 85730; 86850; 86900; 86901; 86923; 87040; 87086; 87088; 87186; 87205; 92610; 93005; 94640; 99285; J0696; J1171; J2060; J2270; J2354; J2470; J2543; J2560; J3411; J3430; J3475; J3480; P9016; P9047

== ENCOUNTER → 2024-01-08 13:13 | Outpatient (BNV) | payer OTHER, SELFPAY | PROVIDERS: Admitting Provider Student in an Organized Health Care Education/Training Program; Emergency Provider Emergency Medicine Emergency Medical Services; PCP Nurse Practitioner Family; Visit Provider Internal Medicine | DX: R94.31 Abnormal electrocardiogram [ECG] [EKG] (principal) | CPT/HCPCS: 93010 ==

== ENCOUNTER 2024-01-08 19:11 | Outpatient (BNV) | payer OTHER, SELFPAY | END 2024-01-10 06:00 | PROVIDERS: Admitting Provider Student in an Organized Health Care Education/Training Program; Emergency Provider Emergency Medicine Emergency Medical Services; PCP Nurse Practitioner Family; Visit Provider Radiology Diagnostic Radiology | DX: R09.02 Hypoxemia (principal); R06.82 Tachypnea, not elsewhere classified | CPT/HCPCS: 71045 ==

== ENCOUNTER → 2024-01-08 19:11 | Outpatient (BNV) | payer OTHER, SELFPAY | PROVIDERS: Admitting Provider Student in an Organized Health Care Education/Training Program; Emergency Provider Emergency Medicine Emergency Medical Services; PCP Nurse Practitioner Family; Visit Provider Hospitalist | DX: J96.01 Acute respiratory failure with hypoxia (principal); K70.31 Alcoholic cirrhosis of liver with ascites; R78.81 Bacteremia | CPT/HCPCS: 99223 ==

== ENCOUNTER → 2024-01-08 19:11 | Outpatient (BNV) | payer OTHER, SELFPAY | PROVIDERS: Admitting Provider Student in an Organized Health Care Education/Training Program; Emergency Provider Emergency Medicine Emergency Medical Services; PCP Nurse Practitioner Family; Visit Provider Internal Medicine Critical Care Medicine | DX: N17.9 Acute kidney failure, unspecified (principal); K76.82 Hepatic encephalopathy; D50.0 Iron deficiency anemia secondary to blood loss (chronic) | CPT/HCPCS: 99222 ==

== ENCOUNTER → 2024-01-08 19:11 | Outpatient (BNV) | payer OTHER, SELFPAY | PROVIDERS: Admitting Provider Student in an Organized Health Care Education/Training Program; Emergency Provider Emergency Medicine Emergency Medical Services; PCP Nurse Practitioner Family; Visit Provider Student in an Organized Health Care Education/Training Program | DX: D50.0 Iron deficiency anemia secondary to blood loss (chronic) (principal); R18.8 Other ascites; N19 Unspecified kidney failure; T17.908A Unspecified foreign body in respiratory tract, part unspecified causing other injury, initial encounter | CPT/HCPCS: 99223; 99231; 99233; 99239; 99497; 99499 ==

== ENCOUNTER → 2024-01-08 19:11 | Outpatient (BNV) | payer OTHER, SELFPAY | PROVIDERS: Admitting Provider Student in an Organized Health Care Education/Training Program; Emergency Provider Emergency Medicine Emergency Medical Services; PCP Nurse Practitioner Family; Visit Provider Internal Medicine | DX: R78.81 Bacteremia (principal) | CPT/HCPCS: 99222 ==

== ENCOUNTER → 2024-01-08 19:11 | Outpatient (BNV) | payer OTHER, SELFPAY | PROVIDERS: Admitting Provider Student in an Organized Health Care Education/Training Program; Emergency Provider Emergency Medicine Emergency Medical Services; PCP Nurse Practitioner Family; Visit Provider Nurse Practitioner Family | DX: N17.9 Acute kidney failure, unspecified (principal); E87.20 Acidosis, unspecified; K72.90 Hepatic failure, unspecified without coma | CPT/HCPCS: 99222; 99231 ==